=== PATIENT | female | born 1990 ===

== ENCOUNTER 2024-09-29 12:46 | Inpatient (IN) | payer MEDICAID, SELFPAY ==
--- OUTSIDE RECORDS SUMMARY | 2024-09-29 12:52 | XMS_ITS | Clinical Summary ---
Author Organization [facility]/[place] Address [address] [place] [address] Phone Care Team Providers Care Extruder Operator Horizontal Name Role Phone No Pcp Per Patient Primary Care Provider Unavail able Allergies No known active allergies Medications No known medications Social History Tobacco Use Types Packs/Day Years Used Date Smoking Tobacco: Never Smokeless Tobacco: Never Comments Unknown Sex and Gender Information Value Date Recorded Sex Assigned at Not on file Legal Sex Female 10:51 AM PDT Gender Identity Female 05/25/2024 8:54 AM PDT Sexual Orientation Not on file Last Filed Vital Signs Vital Sign Reading Time Taken Comments Blood Pressure 119/77 07/28/2021 11:04 AM PST BP Location: Left upper arm Patient Position (Retired): Sitting Pulse 87 07/28/2021 11:04 AM PST Temperature 36.4 ??C (97.6 ??F) 07/28/2021 11:[address] Respiratory Rate - - Oxygen Saturation 97% 07/28/2021 11:04 AM PST Inhaled Oxygen Concentration - - Weight - - Height - - Body Mass Index - - Plan of Treatment Upcoming Encounters Date Type Department Care Team (Late st Contact Info) Description 11/14/2024 1:30 PM PDT Office Visit [facility] Primary [facility] at [place] [id number] [place] [address] Tamia Villafana DO [address] [place] [address] Discharge Disposition: Discharged to home or self care (routine discharge) Health Maintenance Due Date Last Done Comments MOTOR COACH DRIVER Qualifying Enc - Cigarette Prevalence 07/28/2022 07/28/2021, 07/28/2021, 08/30/2020, Additional history exists MOTOR COACH DRIVER Qualifying Enc - Depression & SBIRT 07/28/2022 07/28/2021, 07/28/2021, 08/30/2020, Additional history exists MOTOR COACH DRIVER Qualifying Enc - Diabetes & Hypertension 07/28/2022 07/28/2021, 07/28/2021, 08/30/2020, Additional history exists Influenza (Flu) vaccination (#1) 2024 Pneumococcal vaccination Aged Out No longer eligible based on patient's age to complete this topic Insurance [address] [place] [address] HEALTH Member Subscriber Plan / Payer (Ef fective 2021-Present) Name:Wilma Cota Relation to Subscriber:Self Name:Wilma Cota Payer ID:[id number] Group ID:Not on file Type:Medicaid Address: [place] [id number] [place] [address] HEALTH Member Subscriber Plan / Payer (Ef fective 2021-Present) Name:Wilma Cota Relation to Subscriber:Self Name:Wilma Cota Payer ID:[id number] Group ID:Not on file Type:Medicaid Address: [place] [id number] Care Teams Extruder Operator Horizontal Relationship Specialty Start Date End Date No Pcp Per Patient NO PCP PER PATIENT PCP - General 05/25/24
--- OUTSIDE RECORDS SUMMARY | 2024-09-29 12:52 | XMS_ITS | Referral Summary ---
Author Organization [facility] Address [facility] [address] [place] [address] Care Team Providers Care Molding Sander Name Role Phone No, Physician Primary Care Provider Unavailabl e Encounters Date Type Department Care Team Description 09/25/2024 Telephone [facility] [place] [address] [facility] [address] [place] [phone] Yann Carvalho, CPSS [facility] Cont[facility] (ED Follow-Up) 09/23/2024 9:56 AM PST - 09/24/2024 2:27 PM [facility] [[email or web address]] Emergency [facility] [address], [place] [address] Rebel Bravo MD Kitzis, MD Hawk Farr, MD Juno Turk, Andrea Mayorga, Psychosis, unspecified psychosis type (HCC) (Primary Dx); Sleep deprivation; Mood disorder (HCC) Discharge Disposition: Home or Self Care 09/23/2024 Travel from Last 3 Months Allergies No known active allergies Medications traZODone (DESYREL) 50 mg tablet Take 1 tablet by mouth at bedtime as needed for Insomnia. 15 tablet 09/24/2024 12:44 PM PST 09/24/2024 Active Active Problems Problem Noted Date Diagnosed Date Mood disorder 09/24/2024 Immunizations Name Administration Dates Next Due DTAP (INFANRIX) 5 DOSE 03/30/1996,1993,1992, 2,1992 HEP B (PED,ADOLESCENT) 3 DOSE 03/30/1996, 996,09/08/1995 HIB (PRP-T), 4 DOSE (PED) 03/30/1996,05/1994,1992, 2 HPV (GARDASIL) 3 DOSE 12/14/2007,08/17/2007,11/0 08/2006 MENINGOCOCCAL CONJUGATE,MENACTRA 06/15/2007 MMR (M-M-R II) 2 DOSE 10/30/1993,02/27/1993,12/13 POLIO (IPV), 4 DOSE 03/30/1996, 4,1992, 2 TD PF (2 LF TETANUS) (ADOL/ADULT) 04/13/2004 TDAP, (ADOL/ADULT) 06/15/2019,04/08/2009 VARICELLA (VARIVAX) 2 DOSE 06/22/2010,04/02/1998 Social History Tobacco Use Types Packs/Day Years Used Date Smoking Tobacco: Never Assessed Comments Unknown Sex and Gender Information Value Date Recorded Sex Assigned at Not on file Legal Sex Female 11:33 AM PDT Gender Identity Not on file Sexual Orientation Not on file Last Filed Vital Signs Vital Sign Reading Time Taken Comments Blood Pressure 118/78 09/24/2024 2:16 PM PST Pulse 88 09/24/2024 2:16 PM PST Temperature 36.9 ??C (98.4 ??F) 09/24/2024 2:16 PM PS T Respiratory Rate 18 09/24/2024 2:16 PM PST Oxygen Saturation 99% 09/24/2024 2:16 PM PST Inhaled Oxygen Concentration - - Weight - - Height - - Body Mass Index - - Plan of Treatment Not on file Procedures Procedure Name Priority Date/Time Associated Diagnosis Comments CT HEAD WO CONTRAST STAT 09/24/2024 8 :48 AM PST DRUGS OF ABUSE, SCREEN, URINE STAT 09/24/2024 7:36 AM PST THYROXINE (T4) FREE, DIRECT (RESULTS ONLY) Routine 09/23/2024 11:30 AM PST HIV TYPE 1 AND 2 AB SCREEN, RAPID STAT 09/23/2024 11:30 AM PST TSH, REFLEX FREE T4 STAT 09/23/2024 1 1:30 AM PST ALCOHOL STAT 09/23/2024 11:30 AM PST ACETAMINOPHEN LEVEL STAT 09/23/2024 1 1:30 AM PST SALICYLATE LEVEL STAT 09/23/2024 11:3 0 AM PST , SERUM, QUAL STAT 11:30 AM PST COMPREHENSIVE METABOLIC PANEL STAT 09/23/2024 11:30 AM PST CBC WITH DIFFERENTIAL STAT 09/23/2024 11:30 AM PST ECG 12 LEAD STAT 09/23/2024 11:21 AM PST from Last 3 Months Results * CT Head wo Contrast (09/24/2024 8:48 AM PST) Anatomical Region Laterality Modality Head Computed Tomogra phy 09/24/2024 9:03 AM PST Impressions 09/24/2024 9:06 AM PST IMPRESSION: No acute intracranial findings. ?? Dictated by: Campos Villatoro M.D. on 09/24/2024 9:03 AM PST Narrative 09/24/2024 9:[address] HEAD WO CONTRAST 09/24/2024 8:48 AM PST INDICATION: 34 years old Female. Rule out mass TECHNIQUE: Axial images were obtained from the skull base through the vertex without the administration of IV contrast. Radiation dose control: mA and/or kV adjusted according to patient size to minimize radiation exposure. COMPARISON: None FINDINGS: Hemorrhage: No intra-or extra-axial hemorrhage. Parenchyma: No mass effect. Kay-white matter differentiation is intact, without specific CT evidence of acute or subacute infarction. MR is more sensitive and specific for infarction in the acute to early subacute timeframe. Vasculature: Grossly normal by CT. Ventricular system: Normal. Extra-axial spaces/basilar cisterns: Normal. Calvarium/Skull base: No fracture or aggressive osseous lesion. Paranasal sinuses/tympanomastoid cavities: Clear. Orbits/Deep Spaces: Grossly normal by CT. Superficial soft tissues: Grossly normal by CT. Procedure Note Campos Villatoro MD - 09/24/2024 CT HEAD WO CONTRAST 09/24/2024 8:48 AM [facility] [[email or web address]] INDICATION: 34 years old Female. Rule out mass TECHNIQUE: Axial images were obtained from the skull base through thevertex without the administration of IV contrast. Radiation dose control: mA and/or kV adjusted according to patient size tominimize radiation exposure. COMPARISON: None FINDINGS: Hemorrhage: No intra-or extra-axial hemorrhage. Parenchyma: No mass effect. Kay-white matter differentiation is intact,without specific CT evidence of acute or subacute infarction. MR is moresensitive and specific for infarction in the acute to early subacutetimeframe. Vasculature: Grossly normal by CT. Ventricular system: Normal. Extra-axial spaces/basilar cisterns: Normal. Calvarium/Skull base: No fracture or aggressive osseous lesion. Paranasal sinuses/tympanomastoid cavities: Clear. Orbits/Deep Spaces: Grossly normal by CT. Superficial soft tissues: Grossly normal by CT. IMPRESSION: IMPRESSION: No acute intracranial findings. Dictated by: Campos Villatoro M.D. on 09/24/2024 9:03 AM PST PST Rebel Bravo MD [facility] [place] ORDERABLES Final Result * Drugs of Abuse, Screen, Urine (09/24/2024 7:36 AM [facility] [[email or web address]]) Amphetamine Screen, Urine Negative Negative 09/24/2024 7:56 AM [facility] ([place]) Barbiturates Screen, Urine Negative Negative 09/24/2024 7:56 AM [facility] ([place]) Benzodiazepines Screen, Urine Negative Negative 09/24/2024 7:56 AM [facility] ([facility]) Cannabinoids Screen, Urine Negative Negative 09/24/2024 7:56 AM [facility] ([facility]) Cocaine Screen, Urine Negative Negative 09/24/2024 7:56 AM [facility] ([facility]) Fentanyl Screen, Urine Negative Negative 09/24/2024 7:56 AM [facility] ([facility]) Methadone Screen, Urine Negative Negative 09/24/2024 7:56 AM [facility] ([facility]) Opiates Screen, Urine Negative Negative 09/24/2024 7:56 AM [facility] ([facility]) Oxycodone Screen, Urine Negative Negative 09/24/2024 7:56 AM [facility] ([facility]) Urine Collection / Unknown 09/24/2024 7:36 AM [facility] [[email or web address]] 09/24/2024 7:43 AM [facility] [[email or web address]] Narrative [facility] ([facility]) - 09/24/2024 7:56 AM [facility] [[email or web address]] Methodology: Enzyme Multiplied Immunoassay Technique (EMIT) Tramadol, Buprenorphine, and Fentanyl do not cross-react with the opiates, oxycodone, or methadone screening immunoassays. Cutoffs for the Drugs of Abuse Screen panel: Amphetamines ?300 ng/mL Barbiturates ?200 ng/mL Benzodiazepines ? 200 ng/mL Cocaine ? 150 ng/mL Fentanyl ?1.0 ng/mL Methadone ? 300 ng/mL Opiates ? 300 ng/mL Oxycodone ? 100 ng/mL THC (Cannabinoids) ? 50 ng/mL Urine immunoassay screening results should be considered presumptive and are for treatment purposes only. ??It does not represent chain of custody for purposes of criminal prosecution. ??The absence of expected drug(s) and/or drug metabolite(s) may indicate non-compliance, inappropriate timing of specimen collection relative to drug administration, poor drug absorption, or limitations of testing. The concentration at which the screening test can detect a drug or metabolite varies within a drug class. A negative result does not indicate absence but concentration below the cutoff of the assay. Interpretive questions should be directed to the laboratory. Confirmation of a positive result will not take place unless specifically ordered. us Rebel Bravo MD URINE ORDERABLES Final R esult Performing Organization Address City/[facility] Co de Phone Number [facility] ([facility]) [address] [place] [address] * Thyroxine Free, Direct (09/23/2024 11:30 AM PST) FREE T4 (REF) 1.46 0.82 - 1.77 ng/dL 09/23/2024 9:35 PM PST [facility] Blood Venipuncture / Unknown 09/23/2024 11:30 AM PST 09/23/2024 11:35 AM PST Narrative [facility] - 09/23/2024 9:35 PM PST Performed at: ??01 - [facility] [address] [facility] [place], [place] ??[id number] Retread Mold Operator: Flaco Cameron MD, Phone: ??[phone] us Rebel Bravo MD LAB BLOOD ORDERABLES Fin al Result Performing Organization Address City/[facility]/ZIP Co de Phone Number [facility] [address] [place], [place] [address] [phone] * (ABNORMAL) TSH, Reflex Free T4 (09/23/2024 11:30 AM PST) [facility] TSH 0.443(L) 0.450 - 4.500 uIU/mL 09/23/2024 9:35 PM PST [facility] Blood Venipuncture / Unknown 09/23/2024 11:30 AM PST 09/23/2024 11:35 AM PST Narrative [facility] - 09/23/2024 9:35 PM PST Performed at: ??01 - [facility] [address] [facility] [address] ??[phone] Retread Mold Operator: Flaco Cameron MD, Phone: ??[phone] Rebel Bravo MD LAB BLOOD ORDERABLES Fin al Result [facility] [address] [place], [place] [address] [phone] * HIV Type 1 and 2 Ab Screen, Rapid (09/23/2024 11:30 AM PST) [facility] HIV 1 and 2 Ab, Rapid Non Reactive Non Reactive 09/23/2024 11:54 AM PST [facility]) Blood Venipuncture / Unknown 09/23/2024 11:30 AM PST 09/23/2024 11:35 AM PST us Rebel Bravo MD LAB BLOOD ORDERABLES Fin al Result [facility] ([facility]) [address] [place] [phone] * (ABNORMAL) CBC with Differential (09/23/2024 11:30 AM PST) [facility] White Blood Cells 8.46 3.5 - 11 K/uL 09/23/2024 11:38 AM [facility] ([facility]) Red Blood Cells 4.40 4.00 - 5.20 M/uL 09/23/2024 11:38 AM [facility] ([facility]) Hemoglobin 10.7(L) 12.0 - 16.0 g/dL 09/23/2024 11:38 AM [facility] ([place]) Hematocrit 35.0(L) 36.0 - 46.0 % 09/23/2024 11:38 AM [facility] ([place]) MCV 79.5(L) 80.0 - 100.0 fL 09/23/2024 11:38 AM [facility] ([facility]) MCH 24.3(L) 25.0 - 35.0 pg 09/23/2024 11:38 AM [facility] ([place]) MCHC 30.6(L) 31.0 - 37.0 g/dL 09/23/2024 11:38 AM [facility] ([place]) RDW-CV 15.9(H) 11.5 - 14.5 % 09/23/2024 11:38 AM [facility] ([place]) RDW-SD 45.8 35.1 - 46.3 fL 09/23/2024 11:38 AM [facility] ([place]) Platelet Count 346 140 - 444 K/uL 09/23/2024 11:38 AM [facility] ([place]) MPV 10.8 6.5 - 12.3 fL 09/23/2024 11:38 AM [facility] ([place] % Neutrophils 77.7 40.0 - 81.0 % 09/23/2024 11:38 AM [facility] ([place] % Lymphocytes 14.4(L) 18.0 - 42.0 % 09/23/2024 11:38 AM [facility] ([place]) % Monocytes 7.0 1.0 - 12.5 % 09/23/2024 11:38 AM [facility] ([place]) % Eosinophils 0.0 0.0 - 5.8 % 09/23/2024 11:38 AM [facility] ([place]) % Basophils 0.5 0.0 - 2.0 % 09/23/2024 11:38 AM [facility] ([place]) % Immature Granulocytes 0.4 0.0 - 1.0 % 09/23/2024 11:38 AM [facility] ([place]) Absolute Neutrophils 6.58 1.80 - 8.00 K/uL 09/23/2024 11:38 AM [facility] ([place]) Absolute Lymphocytes 1.22 1.00 - 4.80 K/uL 09/23/2024 11:38 AM [facility] ([place]) Absolute Monocytes 0.59 0.00 - 0.90 K/uL 09/23/2024 11:38 AM [facility] ([place]) Absolute Eosinophils 0.00 0.00 - 0.50 K/uL 09/23/2024 11:38 AM [facility] ([place]) Absolute Basophils 0.04 0.00 - 0.20 K/uL 09/23/2024 11:38 AM [facility] ([place]) Absolute Immature Granulocytes 0.03 0.00 - 0.03 K/uL 09/23/2024 11:38 AM [facility] ([place]) % nRBC 0.0 0.0 - 1.0 per 100 WBCs 09/23/2024 11:38 AM [facility] ([place]) Absolute nRBC 0.00 0.00 - 0.02 K/uL 09/23/2024 11:38 AM [facility] ([place]) Blood Venipuncture / Unknown 09/23/2024 11:30 AM PST 09/23/2024 11:35 AM PST Rebel Bravo MD LAB BLOOD ORDERABLES Fin al Result Performing Organization Address City/[facility]/ZIP Co de Phone Number [facility] ([facility]) [address] [place] [phone] * , Serum, Qual (09/23/2024 11:30 AM PST) Pathologist [facility] hCG Screen, Serum Negative Negative 09/23/2024 11:50 AM [facility] ([facility]) Blood Venipuncture / Unknown 09/23/2024 11:30 AM PST 09/23/2024 11:35 AM PST Reebl Bravo MD LAB BLOOD ORDERABLES Fin al Result Performing Organization Address [facility]/ZIP Co de Phone Number [facility] ([facility]) [address] [place] [phone] * Ethanol (09/23/2024 11:30 AM PST) [facility] ALCOHOL, SERUM/PLASMA <3 <=10 mg/dL 09/23/2024 12:38 PM PST [facility] ([facility]) Blood Venipuncture / Unknown 09/23/2024 11:30 AM PST 09/23/2024 11:35 AM PST Rebel Bravo MD LAB BLOOD ORDERABLES Fin al Result Performing Organization Address City/[facility]/ZIP Co de Phone Number [facility] ([facility]) [address] [place] [address] * (ABNORMAL) Acetaminophen Level (09/23/2024 11:30 AM PST) [facility] Acetaminophen Level <2(L) 5 - 20 ug/mL 09/23/2024 12:38 PM [facility] ([place]) Comment:Concentration expect ed to be undetectable in a patient not taking this medication. Blood Venipuncture / Unknown 09/23/2024 11:30 AM PST 09/23/2024 11:35 AM PST Rebel Bravo MD LAB BLOOD ORDERABLES Fin al Result Performing Organization Address [facility] Co de Phone Number [facility] ([facility]) [address] [place] [phone] * (ABNORMAL) Salicylate Level (09/23/2024 11:30 AM [facility] [[email or web address] Pathologist [facility] Salicylate Level <3.0(L) 10.0 - 20.0 mg/dL 09/23/2024 12:38 PM [facility] ([place]) Comment:Concentration expect ed to be undetectable in a patient not taking this medication. Blood Venipuncture / Unknown 09/23/2024 11:30 AM PST 09/23/2024 11:35 AM [facility] [[email or web address]] Rebel Bravo MD LAB BLOOD ORDERABLES Fin al Result Performing Organization Address [facility] de Phone Number [facility] ([place]) [address] [place] [phone] * (ABNORMAL) Comprehensive Metabolic Panel (09/23/2024 11:30 AM [facility] [[email or web address] Na 143 134 - 145 mmol/L 09/23/2024 12:47 PM [facility] ([place]) K 3.9 3.3 - 5.0 mmol/L 09/23/2024 12:47 PM [facility] ([place]) Cl 109 99 - 111 mmol/L 09/23/2024 12:47 PM [facility] ([facility]) CO2 25 22 - 32 mmol/L 09/23/2024 12:47 PM [facility] ([place]) Anion Gap 9 2 - 13 mmol/L 09/23/2024 12:47 PM [facility]) Glucose 108(H) 65 - 99 mg/dL 09/23/2024 12:47 PM [facility] ([facility]) Comment: Diagnostic Categories (per ADA): Fasting: < 100 mg/dL = Normal 100 to 125 mg/dL = IFG (Impaired Fasting Glucose) >/= 126 mg/dL = Diagnosis of Diabetes.* 2 Hr OGTT: < 140 mg/dL = Normal 140 to 199 mg/dL = IGT (Impaired Glucose Tolerance) >/= 200 mg/dL = Diagnosis of Diabetes.* * In the absence of unequivocal hyperglycemia, results should be confirmed by repeat testing. In Pediatric patients, type 1 diabetes is more common and may warrant more immediate attention. BUN 16 2 - 23 mg/dL 09/23/2024 12:47 PM [facility] ([place]) Creatinine 0.84 0.60 - 1.30 mg/dL 09/23/2024 12:47 PM [facility]) Calcium 10.2 8.3 - 10.4 mg/dL 09/23/2024 12:47 PM [facility]) Albumin 4.0 3.0 - 5.0 g/dL 09/23/2024 12:47 PM [facility]) Bilirubin Total 0.6 0.1 - 1.1 mg/dL 09/23/2024 12:47 PM [facility]) Total Protein 7.9 5.9 - 8.2 g/dL 09/23/2024 12:47 PM [facility]) AST 23 8 - 48 U/L 09/23/2024 12:47 PM [facility] ([place]) ALT 13 7 - 54 U/L 09/23/2024 12:47 PM [facility] ([facility]) Alkaline Phosphatase 60 40 - 130 U/L 09/23/2024 12:47 PM [facility] ([facility]) Globulin 3.9 2.4 - 4.0 g/dL 09/23/2024 12:47 PM [facility] ([facility]) Albumin/Globulin Ratio 1.0 0.6 - 2.8 09/23/2024 12:47 PM [facility] ([facility]) BUN/Creatinine Ratio 19.0 5.0 - 28.0 09/23/2024 12:47 PM [facility] ([facility]) eGFR 95 >=60 mL/min/1. 73m2 09/23/2024 12:47 PM [facility] ([facility]) Comment: GFR value was calculated using a new GFR equation effective since 09/01/21. ??This is a recommendation of the [place] [employer]ph[employer] and National Kidney Foundation. ?? Clinical practice guidelines suggest the use of serum cystatin C as a confirmatory test for eGFR 45-59 ml/min/1.73m2 in adults who do not have markers of kidney disease; eGFR may be less accurate in this range. Blood Venipuncture / Unknown 09/23/2024 11:30 AM PST 09/23/2024 11:35 AM [facility] [[email or web address]] us Rebel Bravo MD LAB BLOOD ORDERABLES Fin al Result [facility] ([facility]) [address] [place] [address] * ECG 12 lead (09/23/2024 11:21 AM [facility] [[email or web address] VENTRICULAR RATE EKG 76 BPM OR MUSE ATRIAL RATE 76 BPM OR MUSE P-R INTERVAL 126 ms OR MUSE QRS DURATION 82 ms OR MUSE Q-T INTERVAL 418 ms OR MUSE Q-T INTERVAL (CORRECTED) 470 ms OR MUSE P WAVE AXIS 67 degrees OR MUSE QRS AXIS 57 degrees OR MUSE T AXIS 52 degrees OR MUSE INTERPRETATION TEXT Normal sinus rhythm Normal ECG No previous ECGs available Confirmed by GUS PEÑA MD ([id number]) on 09/24/2024 3:37:42 PM [place] MUSE 09/23/2024 11:2 1 AM PST us Rebel Bravo MD ECG ORDERABLES Final Re sult OR MUSE from Last 3 Months Insurance [facility] HMO [place] Care Teams Molding Sander Relationship Specialty Start Date End Date No, Physician PCP - General 09/23/24
--- OUTSIDE RECORDS SUMMARY | 2024-09-29 12:52 | XMS_ITS | Referral Summary ---
Author Organization [facility]/[place] Address [address] [place] [address] Phone Care Team Providers Care Zone Manager Name Role Phone No Pcp Per Patient [...] Description 11/14/2024 1:30 PM PDT Office Visit [facility] Primary Care at [address] [place] [address] Tamia Villafana DO [address] [place] [address] Discharge Disposition: Discharged to home or self care (routine discharge) Insurance [facility] Care Teams Zone Manager Relationship Specialty Start Date End Date No Pcp Per Patient NO PCP PER PATIENT PCP - General 05/25/24
--- OUTSIDE RECORDS SUMMARY | 2024-09-29 12:53 | XMS_ITS | Continuity of Care Document ---
Author Organization [facility] Physician Practice Plan Address [facility] [place] [address] Care Team Providers Care Licensed Professional Counselor Name Role Phone Bhavna Montoya MD Unavailable Unavailable Procedures Procedure Date XRAY CHEST 2 VIEWS FRONTAL&LATERAL-Profe ssional Component Advance Directives Directive Yes / No Effective Date File Name No Information Encounters Encounter Description Practice Location Reason(s) For Visit Diagnoses Date Provider Providers Copied on Encounter [facility] Physician Practice Plan, [facility] [place], [address], [facility] No Information Jan Huggins. [address], [place], [id number], . tel:[phone] Referring Provider: [place], [address]. tel:[phone] Family History Family Member Type Diagnosis Age At Onset No Information Payers Payer name Insurance type Covered democrat ID Authoriza tion(s) [employer] [id number] Social History Type Description Quantity Date Captured Comments Sex Female Smoking Status No Information Chief Complaint And Reason For Visit No Information Reason For Referral Reason For Referral No Information History Of Present Illness Encounter Date Complaint History Of Prese nt Illness No Information Functional Status Date Functional Assessmen t No Information Instructions Date Instruction Additional Infor mation No Information Assessments Type Assessment Date No Information Patient Care Teams Name Effective Dates (start - stop) Status Members No Information
--- OUTSIDE RECORDS SUMMARY | 2024-09-29 12:53 | XMS_ITS | Referral Summary ---
Author Organization [facility] Address [address] [id number] Care Team Providers Care Sheet Pile Driver Operator Name Role Phone None Per Patient, None Per Pt Primary Care Provi talat Unavailable Allergies No known active allergies Medications tretinoin (RETIN-A) 0.025 % cream APPLY EXTERNALLY TO FACE EVERY NIGHT 0 Active Active Problems No known active problems Social History Tobacco Use Types Packs/Day Years Used Date Smoking Tobacco: Never Smokeless Tobacco: Never Alcohol Use Answer Date Recorded Alcohol Audit Score Not on file 05/03/2021 Comments No Sex and Gender Information Value Date Recorded Sex Assigned at Not on file Legal Sex Female 5:23 PM PDT Gender Identity Not on file Sexual Orientation Not on file Last Filed Vital Signs Vital Sign Reading Time Taken Comments Blood Pressure 140/80 09/12/2020 4:14 PM PST Pulse 95 09/12/2020 4:14 PM PST Temperature 36.9 ??C (98.5 ??F) 09/12/2020 4:14 PM PS T Respiratory Rate 16 09/12/2020 4:14 PM PST Oxygen Saturation 99% 09/12/2020 4:14 PM PST Inhaled Oxygen Concentration - - Weight 124.7 kg (275 lb) 01/06/2020 7:21 PM PDT Height 157.5 cm (5' 2 ) 01/06/2020 7:21 PM PDT Body Mass Index 50.3 01/06/2020 7:21 PM PDT Plan of Treatment Not on file Insurance [facility] Care Teams Sheet Pile Driver Operator Relationship Specialty Start Date End Date None Per Patient, None Per Pt PCP - General 05/10/19
--- OUTSIDE RECORDS SUMMARY | 2024-09-29 12:53 | XMS_ITS | Clinical Summary ---
Author Organization [facility] Address [facility] [address] [place] [address] Care Team Providers Care Holistic Pulser Name Role Phone No, Physician Primary Care Provider Unavailabl e Allergies No known active allergies Medications traZODone (DESYREL) 50 mg tablet Take 1 tablet by mouth at bedtime as needed for Insomnia. 15 tablet 09/24/2024 12:44 PM PST 09/24/2024 Active Active Problems Problem Noted Date Diagnosed Date Mood disorder 09/24/2024 Encounters Date Type Department Care Team Description 09/25/2024 Telephone [facility] [address] [phone] Yann Carvalho, CPSS [facility] (ED Follow-Up) 09/23/2024 9:56 AM PST - 09/24/2024 2:27 PM [facility] Emergency [facility] [address] [place] [address] Rebel Bravo MD Kitzis, MD Hawk Farr, MD Juno Turk, Andrea Mayorga, Psychosis, unspecified psychosis type (HCC) (Primary Dx); Sleep deprivation; Mood disorder (HCC) Discharge Disposition: Home or Self Care 09/23/2024 Travel from Last 3 Months Immunizations Name Administration Dates Next Due DTAP (INFANRIX) 5 DOSE 03/30/1996,1993,1992, 2,1992 HEP B (PED,ADOLESCENT) 3 DOSE 03/30/1996, 996,09/08/1995 HIB (PRP-T), 4 DOSE (PED) 03/30/1996,05/1994,1992, 2 HPV (GARDASIL) 3 DOSE 12/14/2007,08/17/2007,08/2006 MENINGOCOCCAL CONJUGATE,MENACTRA 06/15/2007 MMR (M-M-R II) 2 [...] Mass Index - - Plan of Treatment Health Maintenance Due Date Last Done Comments Hepatitis C Screening 1992 Cervical Cancer Screening (Pap/HPV) 2017 COVID-19 Vaccine (2023-2 5 season) 2024 Vaccine: Influenza (#1) 2024 Vaccine: Dtap/Tdap/Td (8 - T d or Tdap) 06/15/2029 06/15/2019, 04/08/2009, 04/13/2004, Additional history exists Vaccine: Hib Completed 03/30/1996, 09/15, 1992, Additional history exists Vaccine: HPV Completed 12/14/2007, 10/2007, 06/15/2007 Human Immunodeficiency Virus (HIV) Screening Completed 09/23/2024 Procedures Procedure Name Priority Date/Time Associated Diagnosis [...] Campos Villatoro M.D. on 09/24/2024 9:03 AM [facility] PST Rebel Bravo MD IMG CT ORDERABLES Final Result * Drugs of Abuse, Screen, Urine (09/24/2024 7:36 AM [facility]) Amphetamine Screen, Urine Negative Negative 09/24/2024 7:56 AM [facility]) Barbiturates Screen, Urine Negative Negative 09/24/2024 7:56 AM [facility] ([facility]) Benzodiazepines Screen, Urine Negative Negative 09/24/2024 7:56 AM [facility] ([facility]) Cannabinoids Screen, Urine Negative Negative 09/24/2024 7:56 AM [facility] ([facility]) Cocaine Screen, Urine Negative Negative 09/24/2024 7:56 AM [facility] ([facility]) Fentanyl Screen, Urine Negative Negative 09/24/2024 7:56 AM [facility] ([facility]) Methadone Screen, Urine Negative Negative 09/24/2024 7:56 AM [facility] ([employer]) Opiates Screen, Urine Negative Negative 09/24/2024 7:56 AM [facility] ([facility]) Oxycodone Screen, Urine Negative Negative 09/24/2024 7:56 AM [facility] ([employer]) Urine Collection / Unknown 09/24/2024 7:36 AM PST 09/24/2024 7:43 AM [facility] Narrative [facility]) - 09/24/2024 7:56 AM [facility] Methodology: Enzyme Multiplied Immunoassay Technique (EMIT) Tramadol, [...] Bravo MD URINE ORDERABLES Final R esult [facility] ([facility]) [address] [place] [address] * Thyroxine Free, Direct (09/23/2024 11:30 AM PST) [facility] FREE T4 (REF) 1.46 0.82 - 1.77 ng/dL 09/23/2024 9:35 PM PST [facility] Blood Venipuncture / Unknown 09/23/2024 11:30 AM PST 09/23/2024 11:35 AM PST Narrative [facility] - 09/23/2024 9:35 PM PST Performed at: ??01 - [facility] [address] [facility] [address], [place], [place] [id number] Patternmaker Grader: Flaco Cameron MD, Phone: ??[phone] Rebel Bravo MD LAB BLOOD ORDERABLES Fin al Result Performing Organization Address City/[facility]/ZIP Co de Phone Number [facility] [id number] [place] [address] * (ABNORMAL) TSH, Reflex Free T4 (09/23/2024 11:30 AM PST) TSH 0.443(L) 0.450 - 4.500 uIU/mL 09/23/2024 9:35 PM [facility] Blood Venipuncture / Unknown 09/23/2024 11:30 AM PST 09/23/2024 11:35 AM PST Narrative [facility] - 09/23/2024 9:35 PM PST Performed at: ??01 - [facility] [address] [facility] [address] ??[id number] Patternmaker Grader: Flaco Cameron MD, Phone: ??[phone] Rebel Bravo MD LAB BLOOD ORDERABLES Fin al Result [facility] [address] [place] [address] * HIV Type 1 and 2 Ab Screen, Rapid (09/23/2024 11:30 AM PST) HIV 1 and 2 Ab, Rapid Non Reactive Non Reactive 09/23/2024 11:54 AM [facility] ([facility]) Blood Venipuncture / Unknown 09/23/2024 11:30 AM PST 09/23/2024 11:35 AM [facility] Rebel Bravo MD LAB BLOOD ORDERABLES Fin al Result [facility] ([facility]) [address] [place] [address] * (ABNORMAL) CBC with Differential (09/23/2024 11:30 AM [facility]) Pathologist [facility] White Blood Cells 8.46 3.5 - 11 K/uL 09/23/2024 11:38 AM [facility] ([employer]) Red Blood Cells 4.40 4.00 - 5.20 M/uL 09/23/2024 11:38 AM [facility] ([employer]) Hemoglobin 10.7(L) 12.0 - 16.0 g/dL 09/23/2024 11:38 AM [facility] ([employer] [facility]) Hematocrit 35.0(L) 36.0 - 46.0 % 09/23/2024 11:38 AM [facility] ([employer] [facility]) MCV 79.5(L) 80.0 - 100.0 fL 09/23/2024 11:38 AM [facility] ([employer]) MCH 24.3(L) 25.0 - 35.0 pg 09/23/2024 11:38 AM [facility] ([employer]) MCHC 30.6(L) 31.0 - 37.0 g/dL 09/23/2024 11:38 AM [facility] ([employer]) RDW-CV 15.9(H) 11.5 - 14.5 % 09/23/2024 11:38 AM [facility] ([facility]) RDW-SD 45.8 35.1 - 46.3 fL 09/23/2024 11:38 AM [facility] ([employer] [facility]) Platelet Count 346 140 - 444 K/uL 09/23/2024 11:38 AM [facility] ([employer] [facility]) MPV 10.8 6.5 - 12.3 fL 09/23/2024 11:38 AM [facility] ([employer] [facility]) % Neutrophils 77.7 40.0 - 81.0 % 09/23/2024 11:38 AM [facility] ([employer] [facility]) % Lymphocytes 14.4(L) 18.0 - 42.0 % 09/23/2024 11:38 AM [facility] ([employer] [facility]) % Monocytes 7.0 1.0 - 12.5 % 09/23/2024 11:38 AM [facility] ([employer] [facility]) % Eosinophils 0.0 0.0 - 5.8 % 09/23/2024 11:38 AM [facility] ([employer] [facility]) % Basophils 0.5 0.0 - 2.0 % 09/23/2024 11:38 AM [facility] ([employer] [facility]) % Immature Granulocytes 0.4 0.0 - 1.0 % 09/23/2024 11:38 AM [facility] ([employer] [facility]) Absolute Neutrophils 6.58 1.80 - 8.00 K/uL 09/23/2024 11:38 AM [facility] ([facility]) Absolute Lymphocytes 1.22 1.00 - 4.80 K/uL 09/23/2024 11:38 AM [facility] ([facility]) Absolute Monocytes 0.59 0.00 - 0.90 K/uL 09/23/2024 11:38 AM [facility] ([facility]) Absolute Eosinophils 0.00 0.00 - 0.50 K/uL 09/23/2024 11:38 AM [facility] ([facility]) Absolute Basophils 0.04 0.00 - 0.20 K/uL 09/23/2024 11:38 AM [facility] ([facility]) Absolute Immature Granulocytes 0.03 0.00 - 0.03 K/uL 09/23/2024 11:38 AM [facility]) % nRBC 0.0 0.0 - 1.0 per 100 WBCs 09/23/2024 11:38 AM [facility] ([facility]) Absolute nRBC 0.00 0.00 - 0.02 K/uL 09/23/2024 11:38 AM [facility] ([facility]) Blood Venipuncture / Unknown 09/23/2024 11:30 AM PST 09/23/2024 11:35 AM PST Rebel Bravo MD LAB BLOOD ORDERABLES Fin al Result [facility]) [address] [place] [address] * , Serum, Qual (09/23/2024 11:30 AM [facility]) Pathologist [facility] hCG Screen, Serum Negative Negative 09/23/2024 11:50 AM [facility]) Blood Venipuncture / Unknown 09/23/2024 11:30 AM PST 09/23/2024 11:35 AM PST Rebel Bravo MD LAB BLOOD ORDERABLES Fin al Result [facility]) [address] [place] [id number] * Ethanol (09/23/2024 11:30 AM PST) ALCOHOL, SERUM/PLASMA <3 <=10 mg/dL 09/23/2024 12:38 PM [facility]) Blood Venipuncture / Unknown 09/23/2024 11:30 AM PST 09/23/2024 11:35 AM PST Rebel Bravo MD LAB BLOOD ORDERABLES Fin al Result Performing Organization Address City/[facility]/ZIP Co de Phone Number [facility]) [address] [place] [address] * (ABNORMAL) Acetaminophen Level (09/23/2024 11:30 AM PST) Acetaminophen Level <2(L) 5 - 20 ug/mL 09/23/2024 12:38 PM [facility]) Comment:Concentration expect ed to be undetectable in a patient not taking this medication. Blood Venipuncture / Unknown 09/23/2024 11:30 AM PST 09/23/2024 11:35 AM PST Rebel Bravo MD LAB BLOOD ORDERABLES Fin al Result Performing Organization Address [facility] Co de Phone Number [facility]) [address] [place] [phone] * (ABNORMAL) Salicylate Level (09/23/2024 11:30 AM PST) Salicylate Level <3.0(L) 10.0 - 20.0 mg/dL 09/23/2024 12:38 PM PST [facility] Comment:Concentration expect ed to be undetectable in a patient not taking this medication. Blood Venipuncture / Unknown 09/23/2024 11:30 AM PST 09/23/2024 11:35 AM PST Rebel Bravo MD LAB BLOOD ORDERABLES Fin al Result [facility] [address] [place] [address] * (ABNORMAL) Comprehensive Metabolic Panel (09/23/2024 11:30 AM [facility]) Na 143 134 - 145 mmol/L 09/23/2024 12:47 PM [facility]) K 3.9 3.3 - 5.0 mmol/L 09/23/2024 12:47 PM [facility] ([facility]) Cl 109 99 - 111 mmol/L 09/23/2024 12:47 PM [facility]) CO2 25 22 - 32 mmol/L 09/23/2024 12:47 PM [facility]) Anion Gap 9 2 - 13 mmol/L 09/23/2024 12:47 PM [facility]) Glucose 108(H) 65 - 99 mg/dL 09/23/2024 12:47 PM [facility] ([facility]) Comment: Diagnostic Categories (per ADA): Fasting: < [...] 2 - 23 mg/dL 09/23/2024 12:47 PM [facility]) Creatinine 0.84 0.60 - 1.30 mg/dL 09/23/2024 12:47 PM [facility]) Calcium 10.2 8.3 - 10.4 mg/dL 09/23/2024 12:47 PM [facility]) Albumin 4.0 3.0 - 5.0 g/dL 09/23/2024 12:47 PM [facility]) Bilirubin Total 0.6 0.1 - 1.1 mg/dL 09/23/2024 12:47 PM [facility]) Total Protein 7.9 5.9 - 8.2 g/dL 09/23/2024 12:47 PM [facility]) AST 23 8 - 48 U/L 09/23/2024 12:47 PM [facility]) ALT 13 7 - 54 U/L 09/23/2024 12:47 PM [facility]) Alkaline Phosphatase 60 40 - 130 U/L 09/23/2024 12:47 PM [facility]) Globulin 3.9 2.4 - 4.0 g/dL 09/23/2024 12:47 PM [facility]) Albumin/Globulin Ratio 1.0 0.6 - 2.8 09/23/2024 12:47 PM [facility]) BUN/Creatinine Ratio 19.0 5.0 - 28.0 09/23/2024 12:47 PM [facility]) eGFR 95 >=60 mL/min/1. 73m2 09/23/2024 12:47 PM [facility]) Comment: GFR value was calculated using a new GFR equation effective since 09/01/21. ??This is a recommendation of the [place] [employer] and National Kid[employer] Foundation. [...] MD LAB BLOOD ORDERABLES Fin al Result [facility] [address] [place] [address] * ECG 12 lead (09/23/2024 11:21 AM PST) VENTRICULAR RATE EKG 76 BPM OR MUSE [...] Bravo MD ECG ORDERABLES Final Re sult Performing Organization Address City/[facility] Co de Phone Number OR MUSE from Last 3 Months Insurance [facility] HMO [place] Care Teams Holistic Pulser Relationship Specialty Start Date End Date No, Physician PCP - General 09/23/24
--- OUTSIDE RECORDS SUMMARY | 2024-09-29 12:53 | XMS_ITS | Encounter Summary ---
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 Resp 18 SpO2 98% Pertinent Labs & Pending Studies: Pending Labs and Imaging Order Current Status TSH, Reflex Free T4 In process Labs Reviewed CBC WITH DIFFERENTIAL - Abnormal; Notable for the following components: Result Value Hemoglobin 10.7 (*) Hematocrit 35.0 (*) MCV 79.5 (*) MCH 24.3 (*) MCHC 30.6 (*) RDW-CV 15.9 (*) % Lymphocytes 14.4 (*) All other components within normal limits COMPREHENSIVE METABOLIC PANEL - Abnormal; Notable for the following components: Glucose 108 (*) All other components within normal limits SALICYLATE LEVEL - Abnormal; Notable for the following components: Salicylate Level <3.0 (*) All other components within normal limits ACETAMINOPHEN LEVEL - Abnormal; Notable for the following components: Acetaminophen Level <2 (*) All other components within normal limits TSH, REFLEX FREE T4 - Abnormal; Notable for the following components: TSH 0.443 (*) All other components within normal limits Narrative: Performed at: - [facility] [address] [id number] Coating Mixer: Flaco Cameron MD, Phone: [phone] , SERUM, QUAL - Normal ALCOHOL - Normal HIV TYPE 1 AND 2 AB SCREEN, RAPID - Normal THYROXINE (T4) FREE, DIRECT (RESULTS ONLY) Narrative: Performed at: [facility] [address] [id number] Coating Mixer: Flaco Cameron MD, Phone: [phone] DRUGS OF ABUSE, SCREEN, URINE COVID Test: N/A Medications PRN Meds: Scheduled Meds: ED Medication Administration from 09/23/2024 0956 to 09/23/2024 2338 Date/Time Order Dose Route Action Action by 09/23/2024 1057 PST OLANZapine (zyPREXA) injection 10 mg 10 mg Intramuscular Given Iza Hussein RN 09/23/2024 1057 PST LORazepam (ATIVAN) injection 2 mg 2 mg Intramuscular Given Iza Hussein RN Assessment During my Shift: Vital signs: Vitals: 09/23/24 1012 09/23/24 1347 BP: 132/86 126/80 Pulse: 85 80 Resp: 18 18 Temp: 36.4 ??C (97.5 ??F) 36.7 ??C (98.1 ??F) TempSrc: Oral SpO2: 99% 98% Briefly, during my shift no acute behavioral issues arose. Patient has been sleeping after having received IM medication earlier. Thyroid studies did return with slightly low TSH and normal free T4. UDS is still pending. Legal Status & Observation Level Status at End of Shift Legal Status Sober Admit Observation Status Changed NO Observation Level (or Red Pod) Continuous Observation (1:1) or Red Pod Recommendation/Plan for Next Shift: The patient will remain boarded in the emergency department bed until a final disposition can be completed. The tentative plan at this point is: Sober Reevaluation.. Care of this patient will be transferred to the [facility] ED provider, Dr. Arechiga. documented in this encounter Plan of Treatment Not on file documented as of this encounter Procedures Procedure Name Priority Date/Time Associated Diagnosis Comments CT HEAD WO CONTRAST STAT 09/24/2024 8 :48 AM PST DRUGS OF ABUSE, SCREEN, URINE STAT 09/24/2024 7:36 AM PST THYROXINE (T4) FREE, DIRECT (RESULTS ONLY) Routine 09/23/2024 11:30 AM PST TSH, REFLEX FREE T4 STAT 09/23/2024 1 1:30 AM PST HIV TYPE 1 AND 2 AB SCREEN, RAPID STAT 09/23/2024 11:30 AM PST CBC WITH DIFFERENTIAL STAT 09/23/2024 11:30 AM PST , SERUM, QUAL STAT 11:30 AM PST ALCOHOL STAT 09/23/2024 11:30 AM PST ACETAMINOPHEN LEVEL STAT 09/23/2024 1 1:30 AM PST SALICYLATE LEVEL STAT 09/23/2024 11:3 0 AM PST COMPREHENSIVE METABOLIC PANEL STAT 09/23/2024 11:30 AM PST ECG 12 LEAD STAT 09/23/2024 11:21 AM PST documented in this encounter Results * CT Head wo Contrast (09/24/2024 [...] 9:03 AM PST PST Rebel Bravo MD IMG CT ORDERABLES Final Result * Drugs of Abuse, Screen, Urine (09/24/2024 7:36 AM PST) [facility] Amphetamine Screen, Urine Negative Negative 09/24/2024 7:56 AM [facility] ([facility]) Barbiturates Screen, Urine Negative Negative 09/24/2024 7:56 AM [facility] ([facility]) Benzodiazepines Screen, Urine Negative Negative 09/24/2024 7:56 AM [facility] ([facility]) Cannabinoids Screen, Urine Negative Negative 09/24/2024 7:56 AM [facility] ([facility]) Cocaine Screen, Urine Negative Negative 09/24/2024 7:56 AM [facility] ([facility]) Fentanyl Screen, Urine Negative Negative 09/24/2024 7:56 AM [facility] ([facility]) Methadone Screen, Urine Negative Negative 09/24/2024 7:56 AM [facility] ([facility]) Opiates Screen, Urine Negative Negative 09/24/2024 7:56 AM [facility] ([facility]) Oxycodone Screen, Urine Negative Negative 09/24/2024 7:56 AM PST [facility] ([place]) Urine Collection / Unknown 09/24/2024 7:36 AM PST 09/24/2024 7:43 AM PST Narrative [facility] ([place]) - 09/24/2024 7:56 AM PST Methodology: Enzyme Multiplied Immunoassay Technique (EMIT) Tramadol, [...] ORDERABLES Final R esult Performing Organization Address City/[facility]/ZIP Co de Phone Number [facility] ([facility]) [address] [place] [phone] * Thyroxine Free, Direct (09/23/2024 11:30 AM PST) FREE T4 (REF) 1.46 0.82 - 1.77 ng/dL 09/23/2024 9:35 PM PST [facility] Blood Venipuncture / Unknown 09/23/2024 11:30 AM PST 09/23/2024 11:35 AM PST Narrative [facility] - 09/23/2024 9:35 PM PST Performed at: ??01 - [facility] [address] [facility] [address] ??[id number] Coating Mixer: Flaco Cameron MD, Phone: ??[phone] us Rebel Bravo MD LAB BLOOD ORDERABLES Fin al Result Performing Organization Address City/[facility]/ZIP Co de Phone Number [facility] [address] [phone] * HIV Type 1 and 2 Ab Screen, Rapid (09/23/2024 11:30 AM PST) [facility] HIV 1 and 2 Ab, Rapid Non Reactive Non Reactive 09/23/2024 11:54 AM PST [facility] ([facility]) Blood Venipuncture / Unknown 09/23/2024 11:30 AM PST 09/23/2024 11:35 AM PST us Rebel Bravo MD LAB BLOOD ORDERABLES Fin al Result Performing Organization Address City/[facility]/ZIP Co de Phone Number [facility] ([facility]) [address] [place] [address] * (ABNORMAL) TSH, Reflex Free T4 (09/23/2024 11:30 AM PST) TSH 0.443(L) 0.450 - 4.500 uIU/mL 09/23/2024 9:35 PM PST [facility] Blood Venipuncture / Unknown 09/23/2024 11:30 AM PST 09/23/2024 11:35 AM PST Narrative [facility] - 09/23/2024 9:35 PM PST Performed at: ??01 - [facility] [address] [facility] [place] ??[id number] Coating Mixer: Flaco Cameron MD, Phone: ??[phone] Rebel Bravo MD LAB BLOOD ORDERABLES Fin al Result Performing Organization Address City/[facility]/ZIP Co de Phone Number [facility] [address] [place] [address] * Ethanol (09/23/2024 11:30 AM PST) Pathologist [facility] ALCOHOL, SERUM/PLASMA <3 <=10 mg/dL 09/23/2024 12:38 PM [facility] ([facility]) Blood Venipuncture / Unknown 09/23/2024 11:30 AM PST 09/23/2024 11:35 AM PST Rebel Bravo MD LAB BLOOD ORDERABLES Fin al Result [facility] ([facility]) [address] [place] [address] * (ABNORMAL) Acetaminophen Level (09/23/2024 11:30 AM PST) Pathologist [facility] Acetaminophen Level <2(L) 5 - 20 ug/mL 09/23/2024 12:38 PM [facility] ([facility]) Comment:Concentration expect ed to be undetectable in a patient not taking this medication. Blood Venipuncture / Unknown 09/23/2024 11:30 AM PST 09/23/2024 11:35 AM [facility] Rebel Bravo MD LAB BLOOD ORDERABLES Fin al Result Performing Organization Address City/[facility]/ZIP Co de Phone Number [facility] ([facility]) [address] [place] [phone] * (ABNORMAL) Salicylate Level (09/23/2024 11:30 AM PST) Salicylate Level <3.0(L) 10.0 - 20.0 mg/dL 09/23/2024 12:38 PM PST [facility] ([facility]) Comment:Concentration expect ed to be undetectable in a patient not taking this medication. Blood Venipuncture / Unknown 09/23/2024 11:30 AM PST 09/23/2024 11:35 AM [facility] us Rebel Bravo MD LAB BLOOD ORDERABLES Fin al Result Performing Organization Address [facility] Co de Phone Number [facility] ([facility]) [address] [place] [phone] * , Serum, Qual (09/23/2024 11:30 AM PST) hCG Screen, Serum Negative Negative 09/23/2024 11:50 AM PST [facility] ([facility]) Blood Venipuncture / Unknown 09/23/2024 11:30 AM PST 09/23/2024 11:35 AM PST Rebel Bravo MD LAB BLOOD ORDERABLES Fin al Result Performing Organization Address City/[facility]/ZIP Co de Phone Number [facility] ([facility]) [address] [place] [address] * (ABNORMAL) Comprehensive Metabolic Panel (09/23/2024 11:30 AM [facility]) Na 143 134 - 145 mmol/L 09/23/2024 12:47 PM [facility] ([facility]) K 3.9 3.3 - 5.0 mmol/L 09/23/2024 12:47 PM [facility] ([facility]) Cl 109 99 - 111 mmol/L 09/23/2024 12:47 PM [facility] ([facility]) CO2 25 22 - 32 mmol/L 09/23/2024 12:47 PM [facility] ([facility]) Anion Gap 9 2 - 13 mmol/L 09/23/2024 12:47 PM [facility] ([facility]) Glucose 108(H) 65 - 99 mg/dL 09/23/2024 12:47 PM [facility] ([facility]) Comment: Diagnostic Categories (per ADA): Fasting: < [...] - 23 mg/dL 09/23/2024 12:47 PM [facility] ([place]) Creatinine 0.84 0.60 - 1.30 mg/dL 09/23/2024 12:47 PM [facility] ([facility]) Calcium 10.2 8.3 - 10.4 mg/dL 09/23/2024 12:47 PM [facility] ([facility]) Albumin 4.0 3.0 - 5.0 g/dL 09/23/2024 12:47 PM [facility] ([facility]) Bilirubin Total 0.6 0.1 - 1.1 mg/dL 09/23/2024 12:47 PM [facility] ([facility]) Total Protein 7.9 5.9 - 8.2 g/dL 09/23/2024 12:47 PM [facility] ([facility]) AST 23 8 - 48 U/L 09/23/2024 12:47 PM [facility] ([facility]) ALT 13 7 - 54 U/L 09/23/2024 12:47 PM [facility] ([facility]) Alkaline Phosphatase 60 40 - 130 U/L 09/23/2024 12:47 PM [facility] ([facility]) Globulin 3.9 2.4 - 4.0 g/dL 09/23/2024 12:47 PM [facility] ([facility]) Albumin/Globulin Ratio 1.0 0.6 - 2.8 09/23/2024 12:47 PM [facility] ([facility]) BUN/Creatinine Ratio 19.0 5.0 - 28.0 09/23/2024 12:47 PM [facility] ([facility]) eGFR 95 >=60 mL/min/1. 73m2 09/23/2024 12:47 PM [facility] ([facility]) Comment: GFR value was calculated using a new GFR equation effective since 09/01/21. ??This is a recommendation of the [place] Society of Nephrology and National Kidney Foundation. ?? Clinical practice guidelines suggest the use of serum cystatin C as a confirmatory test for eGFR 45-59 ml/min/1.73m2 in adults who do not have markers of kidney disease; eGFR may be less accurate in this range. Blood Venipuncture / Unknown 09/23/2024 11:30 AM PST 09/23/2024 11:35 AM [facility] us Rebel Bravo MD LAB BLOOD ORDERABLES Fin al Result [facility] ([facility]) [address] [place] [address] * (ABNORMAL) CBC with Differential (09/23/2024 11:30 AM [facility]) White Blood Cells 8.46 3.5 - 11 K/uL 09/23/2024 11:38 AM [facility] ([facility]) Red Blood Cells 4.40 4.00 - 5.20 M/uL 09/23/2024 11:38 AM [facility] ([facility]) Hemoglobin 10.7(L) 12.0 - 16.0 g/dL 09/23/2024 11:38 AM [facility] ([place]) Hematocrit 35.0(L) 36.0 - 46.0 % 09/23/2024 11:38 AM [facility] ([place]) MCV 79.5(L) 80.0 - 100.0 fL 09/23/2024 11:38 AM [facility] ([facility]) MCH 24.3(L) 25.0 - 35.0 pg 09/23/2024 11:38 AM [facility] ([place]) MCHC 30.6(L) 31.0 - 37.0 g/dL 09/23/2024 11:38 AM [facility] ([place]) RDW-CV 15.9(H) 11.5 - 14.5 % 09/23/2024 11:38 AM [facility] ([place]) RDW-SD 45.8 35.1 - 46.3 fL 09/23/2024 11:38 AM [facility] ([place]) Platelet Count 346 140 - 444 K/uL 09/23/2024 11:38 AM [facility] ([facility]) MPV 10.8 6.5 - 12.3 fL 09/23/2024 11:38 AM [facility] ([facility]) % Neutrophils 77.7 40.0 - 81.0 % 09/23/2024 11:38 AM [facility] ([facility]) % Lymphocytes 14.4(L) 18.0 - 42.0 % 09/23/2024 11:38 AM [facility] ([facility]) % Monocytes 7.0 1.0 - 12.5 % 09/23/2024 11:38 AM [facility] ([facility]) % Eosinophils 0.0 0.0 - 5.8 % 09/23/2024 11:38 AM [facility] ([facility]) % Basophils 0.5 0.0 - 2.0 % 09/23/2024 11:38 AM [facility] ([facility]) % Immature Granulocytes 0.4 0.0 - 1.0 % 09/23/2024 11:38 AM [facility] ([facility]) Absolute Neutrophils 6.58 1.80 - 8.00 K/uL 09/23/2024 11:38 AM [facility] ([place]) Absolute Lymphocytes 1.22 1.00 - 4.80 K/uL 09/23/2024 11:38 AM [facility] ([place]) Absolute Monocytes 0.59 0.00 - 0.90 K/uL 09/23/2024 11:38 AM [facility] ([place]) Absolute Eosinophils 0.00 0.00 - 0.50 K/uL 09/23/2024 11:38 AM [facility] ([place]) Absolute Basophils 0.04 0.00 - 0.20 K/uL 09/23/2024 11:38 AM [facility] ([place]) Absolute Immature Granulocytes 0.03 0.00 - 0.03 K/uL 09/23/2024 11:38 AM PST [facility] % nRBC 0.0 0.0 - 1.0 per 100 WBCs 09/23/2024 11:38 AM PST [facility]) Absolute nRBC 0.00 0.00 - 0.02 K/uL 09/23/2024 11:38 AM [facility] ([place]) Blood Venipuncture / Unknown 09/23/2024 11:30 AM PST 09/23/2024 11:35 AM [facility] us Rebel Bravo MD LAB BLOOD ORDERABLES Fin al Result Performing Organization Address [facility] Co de Phone Number [facility] ([facility]) [address] [place] [address] * ECG 12 lead (09/23/2024 11:21 AM [...] ECG No previous ECGs available Confirmed by CASEY SANTIAGO, GUS .Mary Anne (2015) on 09/24/2024 3:37:42 PM [place] MUSE 09/23/2024 11:2 1 AM [facility] us Rebel Bravo MD ECG ORDERABLES Final Re sult Performing Organization Address City/[facility]/ZIP Co de Phone Number [place] MUSE documented in this encounter Visit Diagnoses Diagnosis Mood disorder (HCC)- Primary Unspecified episodic mood disorder Psychosis, unspecified psychosis type (HCC) Sleep deprivation Problems related to lack of adequate sleep Mood disorder (HCC) Unspecified episodic mood disorder documented in this encounter Administered Medications Inactive Administered Medications - up to 3 most recent administrations Medication Order MAR Action Action Date Dose Rate Site LORazepam (ATIVAN) 2 mg/mL injection Starting on 09/23/24 at 1043, For 1 dose, Arsen Ya: cabinet override When given IV push, dilute with an equal volume of NS, D5W, or Sterile Water for Injection. Rate of injection should not exceed 2 mg/min. LORazepam (ATIVAN) injection 2 mg 2 mg, Intramuscular, ONCE, On 09/23/24 at 1045, For 1 dose, When given IV push, dilute with an equal volume of NS, D5W, or Sterile Water for Injection. Rate of injection should not exceed 2 mg/min. Given 09/23/2024 10:57 AM PST 2 mg Deltoid-Left LORazepam (ATIVAN) tablet 1 mg 1 mg, Oral, EVERY 6 HOURS PRN, Anxiety, Starting on 09/23/24 at 2328 OLANZapine (zyPREXA) 5 mg/mL injection Starting on 09/23/24 at 1042, For 1 dose, Arsen Ya: cabinet override OLANZapine (zyPREXA) injection 10 mg 10 mg, Intramuscular, ONCE, On 09/23/24 at 1045, For 1 dose, Mix with 2.1 mL sterile water for injection to make 5 mg/mL. Do not exceed 30 mg/day. Given 09/23/2024 10:57 AM PST 10 mg Deltoid-Right OLANZapine (zyPREXA) injection 10 mg 10 mg, Intramuscular, EVERY 6 HOURS PRN, Agitation, Starting on 09/23/24 at 2328, Mix with 2.1 mL sterile water for injection to make 5 mg/mL. Do not exceed 30 mg/day. OLANZapine zydis (zyPREXA ZYDIS) disintegrating tablet 10 mg 10 mg, Oral, EVERY 6 HOURS PRN, Agitation, Starting on 09/23/24 at 2328 documented in this encounter Active and Recently Administered Medications Times are shown in PST. Scheduled Medication Order 09/22/2024 09/23/2024 09/24/2024 LORazepam (ATIVAN) injection 2 mg (COMPLETED) 2 mg, Intramuscular, ONCE, On 09/23/24 at 1045, For 1 dose, When given IV push, dilute with an equal volume of NS, D5W, or Sterile Water for Injection. Rate of injection should not exceed 2 mg/min. 1057 (Given - Provider: Lakshmi Hussein RN - Comment: Administered by Germain Reis RN) OLANZapine (zyPREXA) injection 10 mg (COMPLETED) 10 mg, Intramuscular, ONCE, On 09/23/24 at 1045, For 1 dose, Mix with 2.1 mL sterile water for injection to make 5 mg/mL. Do not exceed 30 mg/day. 1057 (Given - Provider: Lakshmi Hussein RN - Comment: Administered by SHARRI San) PRN Medication Order 09/22/2024 09/23/2024 09/24/2024 LORazepam (ATIVAN) tablet 1 mg(Linked Group 1) 1 mg, Oral, EVERY 6 HOURS PRN, Anxiety, Starting on 09/23/24 at 2328 OLANZapine (zyPREXA) injection 10 mg(Linked Group 1) 10 mg, Intramuscular, EVERY 6 HOURS PRN, Agitation, Starting on 09/23/24 at 2328, Mix with 2.1 mL sterile water for injection to make 5 mg/mL. Do not exceed 30 mg/day. OLANZapine zydis (zyPREXA ZYDIS) disintegrating tablet 10 mg(Linked Group 1) 10 mg, Oral, EVERY 6 HOURS PRN, Agitation, Starting on 09/23/24 at 2328 Linked Groups Order Group 1: Please perform medication reconciliation (COMPLETED) Please perform medication reconciliation, STAT, UNTIL DISCONTINUED, Starting on 09/23/24 at 2329, Until Specified And Please place patient in psychiatric boarding model (COMPLETED) Please place patient in psychiatric boarding model, STAT, UNTIL DISCONTINUED, Starting on 09/23/24 at 2329, Until Specified And Observation Status: Start/Continue Continuous Observation (1:1) or Red Pod (COMPLETED) Observation Status: Start/Continue Continuous Observation (1:1) or Red Pod, STAT, UNTIL DISCONTINUED, Starting on 09/23/24 at 2329, Until Specified And Diet general Effective Now (CANCELED) type: general, Modify diet for underlying conditions And Vital signs - Adult per unit routine Please obtain complete vital signs (COMPLETED) Frequency: per unit routine, Please obtain complete vital signs And LORazepam (ATIVAN) tablet 1 mgJump to med 1 mg, Oral, EVERY 6 HOURS PRN, Anxiety, Starting on 09/23/24 at 2328 And OLANZapine (zyPREXA) injection 10 mgJump to med 10 mg, Intramuscular, EVERY 6 HOURS PRN, Agitation, Starting on 09/23/24 at 2328, Mix with 2.1 mL sterile water for injection to make 5 mg/mL. Do not exceed 30 mg/day. And OLANZapine zydis (zyPREXA ZYDIS) disintegrating tablet 10 mgJump to med 10 mg, Oral, EVERY 6 HOURS PRN, Agitation, Starting on 09/23/24 at 2328 documented in this encounter Care Teams Newborn Photographer Relationship Specialty Start Date End Date No, Physician PCP - General 09/23/24 documented as of this encounter
--- OUTSIDE RECORDS SUMMARY | 2024-09-29 12:53 | XMS_ITS | Encounter Summary ---
Author Organization [facility] Address [address] [place] [address] Care Team Providers Care Barge Loader Name Role Phone No, Physician Primary Care Provider Unavailabl e Encounter Details Date Type Department Care Team (Latest Contact Info) Description 09/23/2024 Travel Social History Tobacco Use Types Packs/Day Years Used Date Smoking Tobacco: Never Assessed Comments Unknown Sex and Gender Information Value Date Recorded Sex Assigned at Not on file Legal Sex Female 11:33 AM PDT Gender Identity Not on file Sexual Orientation Not on file documented as of this encounter Plan of Treatment Not on file documented as of this encounter Visit Diagnoses Not on filedocumented in this encounter Care Teams Barge Loader Relationship Specialty Start Date End Date No, Physician PCP - General 09/23/24 documented as of this encounter
--- OUTSIDE RECORDS SUMMARY | 2024-09-29 12:53 | XMS_ITS | Encounter Summary ---
Author Organization [facility] an [facility] Address [facility] [address] [place] [address] Care Team Providers Care Coring Machine Operator Name Role Phone No, Physician Primary Care Provider Unavailabl e Reason for Visit * Reason Onset Date Comments Caring Contacts (ED Follow-Up) 09/25/2024 Encounter Details Date Type Department Care Team ([facility] st Contact Info) Description 09/25/2024 Telephone [facility] [address] [facility], [facility] [address] [place] [id number] Yann Carvalho, CPSS Caring Contacts (ED Follow-Up) Social History Tobacco Use Types Packs/Day Years Used Date Smoking Tobacco: Never Assessed Comments Unknown Sex and Gender Information Value Date Recorded Sex Assigned at Not on file Legal Sex Female 11:33 AM PDT Gender Identity Not on file Sexual Orientation Not on file documented as of this encounter Miscellaneous Notes * Telephone Encounter - Yann Carvalho CPSS - 09/25/2024 11:05 AM PST Images from the original note were not included. [facility]TER [facility] ([facility]) Caring Contacts Note Caring Contacts are follow-up calls to patients who have presented to the emergency department in crisis. The Better [facility] program peer support specialists and social workers provide Caring Contacts to patients within 48 hours of emergency department discharge. The purpose of Caring Contacts is to assist the patient telephonically in successfully transitioning from the hospital to outpatient services. Caring Contact Phone Call for: Arminda Nietooa Primary Care Physician: No Physician on file None No address on file Date of ED Discharge calling about: 09/24/2024 14:27 Lay Caregiver Name & Contact Info: mother, Sara Nietooa [phone] Does Patient have a recommended ED follow up or follow up appointment scheduled? If so, When/Where: Schedule an appointment with [facility] OR ED FOLLOW UP in 2 days (09/26/2024); or your primary care team as already established; for any worsening symptoms or concerns you may always return back to the ER Notes: Made call no answer, left no message as per CC protocol Peer Follow Up Needed: No Yann Carvalho [facility] He/him Drilling Engineer [facility] [phone] [email or web address] documented in this encounter Plan of Treatment Not on file documented as of this encounter Visit Diagnoses Not on filedocumented in this encounter Care Teams Coring Machine Operator Relationship Specialty Start Date End Date No, Physician PCP - General 09/23/24 documented as of this encounter
--- OUTSIDE RECORDS SUMMARY | 2024-09-29 12:53 | XMS_ITS | Clinical Summary ---
Author Organization [facility] Address [address] [place] [address] Care Team Providers Care Maintenance Machine Repairer Name Role Phone Sue Gold MD Primary Care Provider [phone] Allergies No known active allergies Medications No known medications Active Problems No known active problems Immunizations Name Administration Dates Next Due DTaP 03/30/1996, 4,1992,1992,05/28/19 92 HPV Quadrivalent 12/14/2007,08/17/2007, 7 Hepatitis B 03/30/1996,10/11/1995,09/08/1995 HiB 03/30/1996,09/24/1993,1992 ,1992 IPV 03/30/1996,09/24/1993,1992 ,1992 MMR 10/30/1993,02/27/1993,1992 Meningococcal Conjugate 06/15/2007 Td 04/13/2004 Tdap 06/15/2019,04/08/2009 Varicella 06/22/2010,04/02/1998 Family History Relation Name Status Comments Father Alive Mother Alive Sister Alive Social History Tobacco Use Types Packs/Day Years Used Date Smoking Tobacco: Never Smokeless Tobacco: Never Alcohol Use Standard Drinks/Week Comments Yes 0 (1 standard drink = 0.6 oz pur e alcohol) very rare Comments Unknown Sex and Gender Information Value Date Recorded Sex Assigned at Not on file Legal Sex Female 8:05 AM PST Gender Identity Not on file Sexual Orientation Not on file Last Filed Vital Signs Vital Sign Reading Time Taken Comments Blood Pressure 128/78 04/22/2020 1:11 PM PDT Pulse 77 04/22/2020 1:11 PM PDT Temperature 36.7 ??C (98 ??F) 04/22/2020 1:11 PM PDT Respiratory Rate - - Oxygen Saturation 97% 04/22/2020 1:11 PM PDT Inhaled Oxygen Concentration - - Weight 136.1 kg (300 lb) 04/22/2020 1:11 PM PDT Height 163 cm (5' 4.17 ) 04/22/2020 1:11 PM PDT Body Mass Index 51.22 04/22/2020 1:11 PM PDT Plan of Treatment Health Maintenance Due Date Last Done Comments Hepatitis C Screening 1992 REALD Questions 1992 HIV Screening 2010 Cervical Cancer Screening 05/17/20222018 (Performed at Outside Facility) COVID-19 Vaccine (2023- season) 2024 Influenza Vaccine (#1) 2024 DTAP/TDAP/TD Vaccines (9 - Td or Tdap) 06/15/2029 06/15/2019, 04/08/2009, 04/13/2004, Additional history exists Pneumococcal Vaccine 0-50 Aged Out No longer eligible based on patient's age to complete this topic Insurance [facility] Care Teams Maintenance Machine Repairer Relationship Specialty [place] [address] [place] [address] PCP - General Family Medicine 06/04/19 Additional Source Comments Chart notes may be sent separately from this document.[facility]
--- OUTSIDE RECORDS SUMMARY | 2024-09-29 12:53 | XMS_ITS | Clinical Summary ---
Author Organization [facility] Address [address] [id number] Care Team Providers Care General Manager Farm Name Role Phone None Per Patient, None [...] Plan of Treatment Not on file Insurance [facility] Care Teams General Manager Farm Relationship Specialty Start Date End Date None Per Patient, None Per Pt PCP - General 05/10/19
--- OUTSIDE RECORDS SUMMARY | 2024-09-29 12:53 | XMS_ITS | Encounter Summary ---
Author Organization [facility] Address [address] [place] [address] Phone Care Team Providers Care Job Recruiter Name Role Phone No Pcp Per Patient Primary Care Provider Unavail able Encounter Details Date Type Department Care Team (Late st Contact Info) Description 07/27/2021 Ancillary Orders [facility] [address] [place] [address] Vern Cid MD [address] [place] [address] Social History Tobacco Use Types Packs/Day Years Used Date Smoking Tobacco: Never Assessed Comments Unknown Sex and Gender Information Value Date Recorded Sex Assigned at Not on file Legal Sex Female 10:51 AM PDT Gender Identity Female 05/25/2024 8:54 AM PDT Sexual Orientation Not on file COVID-19 Exposure Response Date Recorded In the last month, have you been in contact with someone who was confirmed or suspected to have Coronavirus / COVID-19? No / Unsure 07/30/2021 1:03 PM PST documented as of this encounter Plan of Treatment Upcoming Encounters Date Type Department Care Team (Late st Contact Info) Description 11/14/2024 1:30 PM PDT Office Visit [facility] Primary Care at [address] [place] [phone] Tamia Villafana DO [address] [place] [address] Discharge Disposition: Discharged to home or self care (routine discharge) documented as of this encounter Results * US BREAST LEFT (07/30/2021 1:24 PM PST) Anatomical Region Laterality Modality Breast Left Ultrasound Narrative 07/30/2021 1:41 PM PST HISTORY: 31 y.o. presents for ultrasound, follow up suspected left breast fat necrosis first noted 01/29/2021. No relevant hormone history has been documented for this patient. FAMILY HISTORY: No relevant family history has been documented for this patient ?? COMPARISON: Compared to: 03/12/2021 US BREAST LEFT and 01/29/2021 US OUTSIDE BREAST LEFT FINDINGS: Focused sonographic evaluation was performed in the left breast at 2 o'clock. At 2 o'clock 12 cmfn, there is a 4 mm oil cyst. At 2 o'clock 18 cmfn, there is a 5 mm oil cyst. Findings are consistent with resolving fat necrosis/post-traumatic change, improved compared to 01/29/2021. ASSESSMENT: Benign oil cysts/fat necrosis in the left breast. Left: 2 - Benign Overall: 2 - Benign RECOMMENDATION: Screening mammogram at age 42 is recommended for both breasts. Results and recommendations were discussed with the patient. I have personally reviewed the images and, if necessary, edited the report. I agree with the report as now presented. PATIENT INFORMATION: These results have been sent to your healthcare provider. You will also receive a result letter in the mail within 30 days. If the radiologist recommends additional breast imaging a Breast Nurse Coordinator will be calling you to review the results in 1-2 business days. ??If you have any questions regarding results, please contact your healthcare provider. Vern Cid MD EC Final Result documented in this encounter Visit Diagnoses Diagnosis Unspecified lump in the left breast, upper inner quadrant Unspecified lump in the left breast, upper inner quadrant documented in this encounter Care Teams Job Recruiter Relationship Specialty Start Date End Date No Pcp Per Patient NO PCP PER PATIENT PCP - General 05/25/24 documented as of this encounter
--- OUTSIDE RECORDS SUMMARY | 2024-09-29 12:53 | XMS_ITS | Encounter Summary ---
Author Organization [facility] Address [address] [place] [address] Phone Care Team Providers Care Clinical Interviewer Name Role Phone No Pcp Per Patient Primary Care Provider Unavail able Encounter Details Date Type Department Care Team (Late st Contact Info) Description 02/05/2021 Ancillary Orders [facility] [address] [place] [address] Vern Cid MD [address] [place] [address] Social History Tobacco Use Types Packs/Day Years Used Date Smoking Tobacco: Never Assessed Comments Unknown Sex and Gender Information Value Date Recorded Sex Assigned at Not on file Legal Sex Female 10:51 AM PDT Gender Identity Female 05/25/2024 8:54 AM PDT Sexual Orientation Not on file documented as of this encounter Plan of Treatment Upcoming Encounters Date Type Department Care Team (Late st Contact Info) Description 11/14/2024 1:30 PM PDT Office Visit [facility] Primary Care at [address] [place] [address] Tamia Villafana DO [address] [place] [address] Discharge Disposition: Discharged to home or self care (routine discharge) documented as of this encounter Results * US BREAST LEFT (03/12/2021 2:08 PM PDT) Anatomical Region Laterality Modality Breast Left Ultrasound Narrative 03/12/2021 5:19 PM PDT HISTORY: 30 y.o. presents for ultrasound for follow up for suspected fat necrosis of the left breast in the setting of a previous trauma. No relevant hormone history has been documented for this patient. FAMILY HISTORY: No relevant family history has been documented for this patient ?? COMPARISON: Outside US imaging from 01/29/21, brought on disc by patient FINDINGS: There is 6 mm x 4 mm x 5 mm hypoechoic mass-like area seen in the upper outer quadrant of the left breast at 2 o'clock in the anterior depth, 18 cm from the nipple. Since previous outside imaging on 01/29/21, it has significantly decreased in size and complexity. It previously measured 34 x 11 x 16 mm. The second smaller avascular hypoechoic to anechoic mass is located at 2:00 12 cm from the nipple and measures 5 x 4 x 4 mm. No significant increased through transmission. No suspicious masses or architectural distortion. ASSESSMENT: 1. Previously complex lesion in the left breast 2:00 position 18 cm from the nipple has become less conspicuous and decreased in size since prior outside exam. Findings are favored to represent evolving fat necrosis. Recommend interval follow up 2-3 months to assess for resolution. 2. A smaller 5 mm hypoechoic to anechoic mass in the left breast 2:00 position 12 cm from the nipple is probably benign. ??This area was not evaluated at the outside facility, but may be related to prior trauma. ?? Recommend interval follow up in 2-3 months. Left: 3 - Probably Benign Overall: 3 - Probably Benign RECOMMENDATION: Ultrasound ??is recommended for the left breast in 2 to 3 months. Results and recommendations were discussed with the [...] documented in this encounter Visit Diagnoses Diagnosis Lump in upper inner quadrant of left breast Lump in upper inner quadrant of left breast documented in this encounter Care Teams Clinical Interviewer Relationship Specialty Start Date End Date No Pcp Per Patient NO PCP PER PATIENT PCP - General 05/25/24 documented as of this encounter
--- OUTSIDE RECORDS SUMMARY | 2024-09-29 12:53 | XMS_ITS | Encounter Summary ---
Author Organization [facility] Address [address] [place] [address] Phone Care Team Providers Care Business Operations Analyst Name Role Phone No Pcp Per Patient Primary Care Provider Unavail able Encounter Details Date Type Department Care Team (Late st Contact Info) Description 03/14/2021 Ancillary Orders [facility] Diagnostic Imaging [address] [place] [address] Coreen Carmona MD [address] [place] [address] Social History Tobacco Use Types Packs/Day Years [...] have Coronavirus / COVID-19? No / Unsure 03/12/2021 1:37 PM PDT documented as of this encounter Plan of Treatment Upcoming Encounters Date Type Department Care Team (Late st Contact Info) Description 11/14/2024 1:30 PM PDT Office Visit [facility] Primary Care at [place] [id number] [place] [address] Tamia Villafana DO [address] [place] [address] Discharge Disposition: Discharged to home or self care (routine discharge) documented as of this encounter Results * US OUTSIDE BREAST LEFT (01/29/2021 12:00 AM PDT) Narrative [facility] RADI[facility] - 03/14/2021 8:29 AM PDT - At the time of the study, no professional interpretation was requested. - us Coreen Carmona MD OUTSIDE FILMS EC Final Result [facility] documented in this encounter Visit Diagnoses Diagnosis Encounter for screening mammogram for breast cancer Encounter for screening mammogram for breast cancer documented in this encounter Care Teams Business Operations Analyst Relationship Specialty Start Date End Date No Pcp Per Patient NO PCP PER PATIENT PCP - General 05/25/24 documented as of this encounter
--- OUTSIDE RECORDS SUMMARY | 2024-09-29 12:53 | XMS_ITS | Encounter Summary ---
Author Organization [facility] Address [address] [place] [address] Phone Care Team Providers Care Predatory Hunter Name Role Phone No Pcp Per Patient Primary Care Provider Unavail able Encounter Details Date Type Department Care Team (Late st Contact Info) Description 02/04/2021 Ancillary Orders [facility] Diagnostic Imaging [address] [place] [address] Id, Lab-Rad Pending Provider LAB-RAD PENDING PROVIDER Social History Tobacco Use Types Packs/Day Years [...] Description 11/14/2024 1:30 PM PDT Office Visit [facility] Primary Care at [facility] [address] [place] [phone] Tamia Villafana DO [address] [place] [address] Discharge Disposition: Discharged to home or self care (routine discharge) documented as of this encounter Visit Diagnoses Diagnosis Lump in upper inner quadrant of left breast documented in this encounter Care Teams Predatory Hunter Relationship Specialty Start Date End Date No Pcp Per Patient NO PCP PER PATIENT PCP - General 05/25/24 documented as of this encounter
--- NOTE | 2024-09-29 16:18 | P.DS_ITS ---
DS: Providers Provider Date of Service: 09/29/24 Date of admission: 09/29/24 12:46 Date of discharge: 09/29/24 Primary care physician: Unknown Physician Admitting clinician: Kamila Galloway Attending physician on admission: Nick Alfonso Consults: 09/29/24 13:48 Consult to Hospitalist Routine Comment: Consulting Provider: [facility] Hospitalists Reason For Exam: Transfer pt Attending physician on discharge: Nick Alfonso Discharging clinician: Kamila Galloway DS: Diagnosis Discharge Diagnosis (1) Moderate bipolar I disorder with poornima as current episode: Status: Acute Mental Status Exam Mental Status Exam Patient Appearance: Appropriate Patient Orientation: Person, Place, Time and Situation Level of Consciousness: Alert Patient Behavior: Appropriate, Talkative, Cooperative and Good Eye Contact Mood Description: Calm and Appropriate Affect Description: Calm and Appropriate Patient Cognition Impaired: No Ability to Follow Directions: Good Speech Pattern: Spontaneous Speech Memory Description: Intact Hallucinations: None Delusions: Not Present Thought Process: Intact Thought Content: positive for Intact Depressive Symptoms: Thoughts of /Suicide (denies) Judgement: Good DS: Summary Hospital Course Hospital Course: [facility] transfer after admission on 09/25/24 for probable poornima. Full medical eval was completed at [facility] Pt transferred to [facility] for psychiatric treatment, however, pt and mother report they did not agree to in pt admission and would not remain for admission. Pt denies SI,HI,AH,VH. No acute sx of psychosis or poornima. Mother will take pt home and will be with her at all times. Pt may call/return as needed Status at Discharge Functional status at discharge: independent ambulation Overall status at discharge: patient is back to baseline Time Spent with Patient Time attestation: Total time managing care of this patient today ____ minutes. Time spent: Greater than 30 minutes Discharge Plan Discharge Anticipated Discharge Date/Time: 09/29/24 17:00 Patient Disposition: Home, Self-Care Discharge Diagnosis: SI, agitation, paranoia, inability to sleep, Bipolar Disorder Referrals: Physician,Unknown J [Primary Care Provider] - 1 Week (please contact your PCP for a follow-up appt within one week. ) Discharge Medications: No Action olanzapine 10 mg tablet 10 mg PO BEDTIME Discharge Orders: Discharge Order (Routine); Ordered 09/29/24 Ordered By: Kamila Galloway Diet: Advance to usual diet Activity on Discharge: As tolerated Stand Alone Forms: Patient Portal Discharge page, Community Support Print Language: Pashto Care Plan Goals: Mood and Behavioral Stabilization Health Concerns: Mood and Behavioral Stabilization Plan of Treatment: Pt and her family decline admission. Pt will go home with parents who will provide consistent supervision She will be monitored by her parents and will proceed with further care as she and parents see fit. Assessment: No Si,HI,AH,VH No acute sx of poornima or psychosis Pt and parents request discharge to family home. Discharge Date/Time: 09/29/24 17:00
--- NOTE | 2024-09-29 16:18 | P.HPPS_ITS ---
HPI Date of Service: 09/29/24 Chief Complaint: AMS Sources of Information: patient interviewed and chart reviewed Additional Sources of Information: mother HPI Narrative: 34 yo female, transfer from [facility], mother. present, hx of questionable bipolar disorder with psychosis. Pt and mother report they have no intention of admission for pt. They report they were told this was an IOP/PHP program. Mother wants pt at home, pt wants to be at home. Denies SI,HI. No AH,VH, no acute sx of poornima or psychosis noted. Per [facility], room-mate in [place] told family that pt fell down the stairs in their home while vacuming the carpet. Pt had reported no sleep or appetite for 7 days prior to this, so mother flew to bring pt home Pt to [facility] via [address] on 09/25/24. Sx observed were disorganization, mood lability, insomnia, agitation, isolation, impulsivity, delusions, intrusive behaviors- SI reported to police and aggression. Pt had recently arrived home from school in [place], [place] and had been in her room for seven days At [facility] Olanzapine was initiated, tolerated as was Trazodone and Hydroxyzine. (Ativan and Haldol earlier in the admission) Full eval was done, including MRI (partially empty sella turcia noted) without contrast and pt was cleared medically for psychiatric care with all negative medical findings. Pt and family have no interest in admission. They are willing to interview community providers and to consider IOP/PHP programs Past Psychiatric History: Denies history Denies med hx except for meds at [facility] No SI, SA hx Medical Evaluation Reviewed: Yes ([facility]) PMF Narrative: anemia 100 lb weight loss in 24 months no hx seizure or TBI Family History: Denies Social History: Born and raised in [place]-with mother, grandmother, sister Single, never , no children. Lives in [place]. 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 NSR with sinus arrythmia. Normal reading ([facility]) Meds/Allergies Meds Home Medications ?Medication ?Instructions ?Recorded ?Confirmed ?Type olanzapine 10 mg tablet 10 mg PO BEDTIME 10/10/24 10/10/24 History Allergies Allergies Allergy/AdvReac Type Severity Reaction Status Date / Time No Known Allergies Allergy Verified 10/10/24 23:51 Mental Status Exam Mental Status Exam Patient Appearance: Appropriate Patient Orientation: Person, Place, Time and Situation Level of Consciousness: Alert Patient Behavior: Appropriate, Talkative, Cooperative and Good Eye Contact Mood Description: Calm and Appropriate Affect Description: Calm and Appropriate Patient Cognition Impaired: No Ability to Follow Directions: Good Speech Pattern: Spontaneous Speech Memory Description: Intact Hallucinations: None Delusions: Not Present Thought Process: Intact Thought Content: positive for Intact Depressive Symptoms: Thoughts of /Suicide (denies) Judgement: Good Assessment & Plan Assessment & Plan (1) Moderate bipolar I disorder with poornima as current episode: Status: Acute Code(s): F31.12 - Bipolar disorder, current episode manic without psychotic features, moderate Plan Pt and her mother decline admission. They report they were told this was a IOP/PHP program. They did not agree to in pt care. She presents with no current symptoms of illness, denies SI,HI, AH, VH. There are not current sx of acute poornima or psychosis. She will discharge with her mother, to mother's home and will have full supervision. Pt was invited to return should symptoms exacerbate Patient educated on: therapeutic strategies Reason for continued inpatient stay Substantial Risk for: stable for discharge Statement Statement: I have reviewed the history and physical and performed a pertinent examination on my patient. No changes have occurred unless specified. If the History and Physical was not performed prior to admission, the Hospitalist's service will be consulted for completing the admission physical. Time Spent With Patient Time: Total time managing care of this patient today ____ minutes.
--- NOTE | 2024-09-29 16:30 | HO.PM.IMCN ---
History of Present Illness Data of Consult Service Date: 09/29/24 Primary Care Provider: Unknown Physician HPI Reason for consult: Admission H&P Pt is a 34-year-old female with a PMH significant for? who is admitted to [facility] unit for . Medical consult for admission H&P. ? Labs reviewed, significant for PMFSH Social History Household Members: Other Housing: House Do you presently have visiting nurse or other home services: No Patient Tobacco Use Status: Never used Tobacco Smoked in Last 30 Days: No e-Cigarette/Vaping Use: Never Used Patient Interested in Nicotine Replacement: No Patient Given Instructions on How to Stop Smoking: No Second Hand Smoke Exposure: No Use of substances other than those prescribed or required for medical reasons: No Currently Displaying Signs/Symptoms of Drug Intoxication Withdrawal: No Any prior treatment program specific to substance use: No Have you been hit, kicked, punched, or otherwise hurt by someone within the past year? If so, by whom?: No Do you feel safe in your current relationship?: No Is there a partner from a previous relationship who is making you feel unsafe now?: No Are you made to feel afraid or neglected: No Advance Directives: No Advance Directives Information Provided: Yes Do you have a plan to hurt others: No Plan Recently lost weight without trying: No How much weight loss: Unsure Eating poorly because of decreased appetite: No Nutrition screen score: 2 Nutrition Risks: No Nutritional Risk Patient : No : No Poor oral hygiene: No Meds Allergies Allergy/AdvReac Type Severity Reaction Status Date / Time Unable to Assess Allergy Verified 09/29/24 13:48 Active Medications: Current Medications Acetaminophen (Acetaminophen 325 Mg Tablet) 650 mg PO Q6H PRN PRN Reason: Headache/Pain, Scale 1-10 Al Hydroxide/Mg Hydroxide (Magnesium Hydrox/Alum Hydrox 30 Ml Oral.Susp) 30 ml PO Q6H PRN PRN Reason: Heartburn/Nausea Hydroxyzine HCl (Hydroxyzine Hcl 25 Mg Tablet) 25 mg PO Q6H PRN PRN Reason: mild anxiety Magnesium Hydroxide (Milk Of Magnesia 30 Ml Oral.Susp) 30 ml PO DAILY PRN PRN Reason: Constipation Nicotine Polacrilex (Nicotine Polacrilex 2 Mg Gum) 4 mg BUCCAL Q2H PRN PRN Reason: Nicotine Cravings Trazodone HCl (Trazodone Hcl 50 Mg Tablet) 50 mg PO BEDTIME MRX1 PRN PRN Reason: Insomnia
--- NOTE | 2024-09-29 16:30 | PC.NURSE ---
pt arrived on the unit at approximately 1pm, from [facility]. Per crisis report, pt was anxious, depressed, suicidal and having difficulty sleeping. when asked why she was here, pt reports i'm not really sure, I just need some sleep . Pt reports she has been working alot and has not slept in several days. They gave me something to sleep last night at the other hospital and it really helped . Pts mother was waiting outside the unit doors and came in for a visit shortly after pt skin/safety check was complete. Pt and mother explained that the pt was unaware they would ave a shared room. Pt stated she would not sleep if she had a roommate and therefor would be the same if not worse than what she was already experiencing. Pts mother asked to speak with provider to ask to bring the pt home. Provider CAW notified, awaiting response
--- NOTE | 2024-09-29 16:37 | PC.NURSE ---
pt refused to sign paperwork or complete safety tool. i'm leaving
== END 2024-09-29 17:00 | disposition home or self-care (01) | DRG 753 ==
PROVIDERS: Admitting Provider Psychiatry & Neurology Psychiatry; Visit Provider Psychiatry & Neurology Psychiatry
DX: F31.12 Bipolar disorder, current episode manic without psychotic features, moderate (principal); R45.851 Suicidal ideations; Z79.899 Other long term (current) drug therapy

== ENCOUNTER → 2024-09-29 12:46 | Outpatient (BNV) | payer MEDICAID, SELFPAY | PROVIDERS: Admitting Provider Psychiatry & Neurology Psychiatry; Visit Provider Clinical Nurse Specialist Psychiatric/Mental Health, Adult | DX: F31.12 Bipolar disorder, current episode manic without psychotic features, moderate (principal) | CPT/HCPCS: 90792; 99499 ==

== ENCOUNTER 2024-10-10 23:13 | Inpatient (IN) | payer MEDICAID, SELFPAY ==
--- OUTSIDE RECORDS SUMMARY | 2024-10-10 23:17 | XMS_ITS | Encounter Summary ---
Author Organization [facility] an [facility] Address [facility] [address] [place] [address] Care Team Providers Care Printing Table Worker Name Role Phone No, Physician Primary Care Provider Unavailabl e Reason for Referral * Diagnostic/Screening (Emergency) Specialty Diagnoses / Procedures Referred By Contjayne t Referred To Contact Radiology Rebel Bravo MD [address] [place] [address] Phone: tel: fax: Referral ID Status Reason Start Date Expiration Date Visits Re quested Visits Authorized Reason for Visit * Reason Comments Suicidal Encounter Details Date Type Department Care Team (Late st Contact Info) Description 09/23/2024 9:56 AM PST - 09/24/2024 2:27 PM [facility] Emergency [facility] [address] [place], [place] [id number] Rebel Bravo MD [address] [place], [place] [phone] Jonathan Duenas MD [address] [place], [place] [phone] Karlee Arechiga MD [address], [place] [id number] Andrea Fraire DO [address] [id number] Psychosis, unspecified psychosis type (HCC) (Primary Dx); [...] Lay Caregiver Authorization Form and Patient Handout [facility] is committed to the health and well-being of all patients who needcare for a behavioral health crisis. We use evidence-based or best practices to provide you with the highest level of care. While at a [facility] you will receive: A medical exam [...] receive a phone call from a trained sales representative gas service from [employer]. [employer] is a [place] program that can provide support after you [...] caregiver? 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 Please continue to engage in the following recommendations: Follow-Up Appointment Was an appointment scheduled for you within 7 calendar days of your ED visit? No (explain why): Ptthuy f/u with primary care. [facility] Crisis Resources In the event of a mental health emergency please contact the [facility] Crisis Line at [phone] or visit your nearest emergency department. [facility] The center is located at [address] [place] [address], [address], in [place], [place]. The [facility] offers walk-in services during limited hours of Tuesday through Tuesday, 9 a.m.-2 p.m. Even during these times, individuals who need help are encouraged to call the [facility] Crisis Line at [phone] before going to [facility]. The line is answered every day, 24 hours a day, by trained professionals who can help decide the best option for care. This may include providing assistance by phone, referring to other services, arranging a mobile team crisis response,or referring the person to [facility]. National Suicide Prevention Lifeline Call Crisis Text Line Text HOME to 854928 in the [place] In need of someone to speak with? For peer support call the Warmline: Toll-Free Veterans Suicide and Crisis Suport Veterans in emotional crisis and their loved ones can call the free and confidential Veterans Crisis Line at and Press 1 , chat online (https://www.Dialogicsisline.net), or send a text message to 957301 to connect with a caring, qualified [place] responder who can deal with any immediate crisis. BIPOC, BLACK, INDIGENOUS, PEOPLE OF COLOR CRISIS LINE The Racial Equity Support Line is a service led and staffed by people with lived experience of racism. Experiencing this racism can harm our mental health. We get it. And we???re here to talk. To support. To connect. [phone] The SHY Project The Shy Project is [...] and 100% free. Call: Text Start to 097-775 Or head to the website for chat options and additional resources: www.thetrevorproject.org * Attachments The following attachments cannot be sent through Care Everywhere. * Insomnia (Setswana) documented in this encounter Medications at Time [...] MD - 09/24/2024 12:49 PM PST [facility] Psychiatry - Initial Evaluation Arminda Cota [...] career. 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 She notes she is curren tly getting by financially as she owns her home, and her roommates pay rent which is able to cover the mortgage plus a little extra, but stretched pretty thin. She notes her mom recently flew into town from [place] and is hoping to dc home with mom for additional support. Denies SI/HI. Denies any concerns re being the [facility], does not recall every making such [...] Lives with roommates, previously worked as an software design engineer at [employer] Legal history: denies Family history: denies Medical [...] disorganized. No hallucinations or delusions elicited. Pt appears near likely baseline. This does appear to be a significan timprovement from arrival, and could be a direct result of approx 13 hours of sleep [...] Electronically signed by: Stone Urbina MD [facility] * Judie Salcido LPC - 09/24/2024 12:00 PM PST Images from the original note were not included. [facility] ED Behavioral Health Reevaluation Evaluation Completed By: Judie Salcido LPC, CIS Name: Arminda Cota : 1990 34 y.o. Sex: female Date of Service: 09/24/24 Time seen: 12:01 PM PST Legal Guardian: N/A Legal Status: Voluntary Violence Risk Level: low-mod Lay Caregiver: Patient identified a lay caregiver (add name and phone number): mother, Sara Cota [phone] Clinical Presentation Presenting Problem, Concerns, Symptoms: This account underwriter assumed care of the patient, interviewed patient for the purpose of reevaluation. Pt slept all night but woke early. Her presentation early in the day was more organized than yesterday but she still had some cheondoism content in her statements. Another patient was yelling and strugglingon the unit and pt stated, I can help her, she needs to repent. Her mother arrived from [place] and spent several hours with patient in [...] her that she had been making several cheondoism statements and asked what was in her [...] the crisis resources in their AVS including: [facility] phone/address, National Suicide Prevention Lifeline number, Crisis Text Line, [facility] [place] Warmline number, and [facility] crisis line phone number. >>> Pt [...] 12:47 AM PST Patient's mother, Sara Cota ([phone]), had just arrived from [place], [place] and came straight to the ED [...] Seclusion Face to Face Assessment Arminda Cota [id number] 09/23/2024, 11:15 AM PST Restraint: Violent Restraint [...] from the original note were not included. [facility] ED Behavioral Health Emergent Assessment Evaluation Completed By: Judie Salcido LPC, JEFFERY Name: Arminda Cota : 1990 34 y.o. Sex: female Gender: female Date of Service: 09/23/24 Time seen: 11:06 AM PST Legal Status: Voluntary Legal Guardian: N/A Violence Risk Level: moderate-high Referred by: Police Wise: No Clinical Presentation Presenting Problem: Patient is a 34 y.o. female with a primary mental health history of no known mental illness who wasbrought in by ambulance with a chief complaint of agitation, cheondoism delusions, and insomnia. I saw pt come in with EMS and the nurse had to help pt change into scrubs as she seemed very disoriented and slow to respond when spoken to. A short time later, she came out of her room and yelling statements with cheondoism themes such as I'm a sinner. As one employee came into the nurses station, pttried to follow and had to be physically pushed out and dorothy schmidt was called and IM medication administered. At the time of this writing, pt was asleep and has remained asleep for several hours. Collateral information (use crisis line if necessary): I spoke to [facility] who responded to patient's house after her mother had called 911 requesting a welfare check. [place] of [facility] reported that pt has no known mental health history. They reported that she made a statement to mom something like, I don't want to be in this world anymore. [place] also pt was slow to respond to questions and told them that God had been talking to her. They did not have to put her on a hold as pt agreed to come [facility]. I spoke with patient's roommate, Rebel [phone]. Rebel has lived with pt for two [...] last few days about God and other cheondoism statements and he said, I've never heard [...] I spoke with patient's mother, Sara Cota [phone], who lives out of state but had requested the welfare check today after talking with her daughter on the phone last night and this morning. 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 Ihave never seen her like this. She described her as tangential with cheondoism themes saying thingslike They're here, I'm going [...] weapons: Patient BALDEMAR . 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 She doesn't have family here in [place] but lives with supportive roommates. Not , [...] Bravo Interventions/Assessment of Harm: Outcome: [place] Marcelino, mainspring reverse winder at bedside, pt restrained by security, moved to room 60, IM meds given. Pt is calm and resting. * Iza Hussein RN - 09/23/2024 10:36 AM PST Pt out of room, pacing around the unit, not redirectable, shouting hyper cheondoism comments - Dr. Bravo called for meds. * Iza Hussein RN - 09/23/2024 10:20 AM PST Narrative of Chief Complaint: Pt comes to ER from home c/o SI no plan, racing thoughts and inability to sleep for days. Pt denies HI. Pt states she hears voices, one of the voices is the devil, pt ishyper cheondoism. Per EMS pt called mom who is [...] be specific. She did acknowledge on direct questio oumou seeing things others do not see but [...] majority of the information came from responding [facility] deputies who provided the history as outlined above. The triage nurse note is not entirely correct. Essentially all of that information came from me. The patient did not acknowledge suicidal ideation until I specifically asked about it in her treatmentroom. It is also unclear that the patient expressed any suicidal ideation to her mother. [facility] law [facility] stated the mother stated the patient made some distressing statements yesterday, but did not specify what that was. They did however specifically state that she denied being suicidal. Once the patient was in her treatment room she essentially paced in a modoc talking to herself about her hyper cheondoism fixation. She would occasionally answer my questions directly but other timesseem to ignore me completely. She did however allow me to pace in a modoc with her to perform her physical and neurologic examination. I was told by the [facility] deputies that Rebel one of her roommates could be reached at [phone]. However when I called this number I [...] any internal stimuli, but does seem very cheondoism preoccupied. Subsequently, we have asked the social [...] disturbed by the current clinical climate in [facility], and that she has been sleeping very little recently. The patient reports that she has not slept for 7 days. He states he can hear her pacing around in her room. Her mother also believes that is thecase. The patient also self reports that she [...] brain, we question whether her psychosis and cheondoism preoccupation is simply a byproduct of significant [...] normal limits Narrative: Performed at: - [facility] [address] [facility] [address] [id number] Esthetician Spa: Flaco Cameron MD, Phone: [phone] , SERUM, QUAL - Normal ALCOHOL - Normal HIV TYPE 1 AND 2 AB SCREEN, RAPID - Normal THYROXINE (T4) FREE, DIRECT (RESULTS ONLY) Narrative: Performed at: [facility] [address] [facility] [address], [place], [place] [id number] Esthetician Spa: Flaco Cameron MD, Phone: [phone] DRUGS OF ABUSE, SCREEN, URINE COVID Test: [...] return back to the ER. Contact information: [facility] [phone] Discharge Instructions Lay Caregiver Authorization Form and Patient Handout [facility] is committed to the health and well-being of all patients who needcare for a behavioral health crisis. We use evidence-based or best practices to provide you with the highest level of care. While at a [facility] you will receive: A medical exam [...] receive a phone call from a trained sales representative gas service from [employer]. [employer] is a [place] program that can provide support after you leave the emergency department. *Authorization form offered upon admission. 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 To support. To connect. [phone] The SHY Project The Shy Project is [...] and 100% free. Call: Text Start to 737-689 Or head to the website for chat options and additional resources: www.the7AC Technologiesrproject.org B Discharge References/Attachments Insomnia (Setswana) * ED Progress Note - Karlee Arechiga [...] components within normal limits Narrative: Performed at: [facility] [address] [id number] Esthetician Spa: Flaco Cameron MD, Phone: [phone] , SERUM, QUAL - Normal ALCOHOL - Normal HIV TYPE 1 AND 2 AB SCREEN, RAPID - Normal THYROXINE (T4) FREE, DIRECT (RESULTS ONLY) Narrative: [facility]formed at: - [facility] [address] [facility] [address] [id number] Esthetician Spa: Flaco Cameron MD, Phone: [phone] DRUGS OF ABUSE, SCREEN, URINE COVID Test: [...] components within normal limits Narrative: Performed at: 01 - [facility] [address] [place] [id number] Esthetician Spa: Flaco Cameron MD, Phone: [phone] , SERUM, QUAL - Normal ALCOHOL - Normal HIV TYPE 1 AND 2 AB SCREEN, RAPID - Normal THYROXINE (T4) FREE, DIRECT (RESULTS ONLY) Narrative: Performed at: [facility] [address] [place] [id number] Esthetician Spa: Flaco Cameron MD, Phone: [phone] DRUGS OF ABUSE, SCREEN, URINE COVID Test: [...] this patient will be transferred to the [facility] ED provider, Dr. Arechiga. documented in [...] of Abuse, Screen, Urine (09/24/2024 7:36 AM [facility]) [facility] Amphetamine Screen, Urine Negative Negative 09/24/2024 7:56 AM [facility] ([facility]) Barbiturates Screen, Urine Negative Negative 09/24/2024 7:56 AM [facility] ([facility]) Benzodiazepines Screen, Urine Negative Negative 09/24/2024 7:56 AM [facility] ([facility]) Cannabinoids Screen, Urine Negative Negative 09/24/2024 7:56 AM [facility] ([facility]) Cocaine Screen, Urine Negative Negative 09/24/2024 7:56 AM [facility] ([facility]) Fentanyl Screen, Urine Negative Negative 09/24/2024 7:56 AM [facility] ([facility]) Methadone Screen, Urine Negative Negative 09/24/2024 7:56 AM [facility] ([facility]) Opiates Screen, Urine Negative Negative 09/24/2024 7:56 AM [facility] ([facility]) Oxycodone Screen, Urine Negative Negative 09/24/2024 7:56 AM PST [facility] ([facility]) Urine Collection / Unknown 09/24/2024 7:36 AM PST 09/24/2024 7:43 AM PST Narrative [facility] ([facility]) - 09/24/2024 7:56 [...] ORDERABLES Final R esult Performing Organization Address City/[facility]/ZIP Co de Phone Number [facility] ([facility]) [address] [place] [address] * Thyroxine Free, Direct (09/23/2024 11:30 AM PST) FREE T4 (REF) 1.46 0.82 - 1.77 ng/dL 09/23/2024 9:35 PM PST [facility] Blood Venipuncture / Unknown 09/23/2024 11:30 AM PST 09/23/2024 11:35 AM PST Narrative [facility] - 09/23/2024 9:35 PM PST Performed at: ??01 - [facility] [address] [facility] [address], [place] [id number] Esthetician Spa: Flaco Cameron MD, Phone: ??[phone] us Rebel Bravo MD LAB BLOOD ORDERABLES Fin al Result Performing Organization Address City/[facility]/ZIP Co de Phone Number [facility] [address] [phone] * HIV Type 1 and 2 Ab Screen, Rapid (09/23/2024 11:30 AM PST) [facility] HIV 1 and 2 Ab, Rapid Non Reactive Non Reactive 09/23/2024 11:54 AM PST [facility] ([facility]) Blood Venipuncture / Unknown 09/23/2024 11:30 AM PST 09/23/2024 11:35 AM PST us Rebel Bravo MD LAB BLOOD ORDERABLES Fin al Result Performing Organization Address City/[facility]/ZIP Co de Phone Number [facility] ([facility]) [address] [place] [address] * (ABNORMAL) TSH, Reflex Free T4 (09/23/2024 11:30 AM PST) Pathologist [facility] TSH 0.443(L) 0.450 - 4.500 uIU/mL 09/23/2024 9:35 PM PST [facility] Blood Venipuncture / Unknown 09/23/2024 11:30 AM PST 09/23/2024 11:35 AM PST Narrative [facility] - 09/23/2024 9:35 PM PST Performed at: ??01 - [facility] [address] [facility] [address] [id number] Esthetician Spa: Flaco Cameron MD, Phone: ??[phone] Rebel Bravo MD LAB BLOOD ORDERABLES Fin al Result Performing Organization Address City/[facility]/ZIP Co de Phone Number [facility] [address] [place] [address] * Ethanol (09/23/2024 11:30 AM PST) Pathologist [facility] ALCOHOL, SERUM/PLASMA <3 <=10 mg/dL 09/23/2024 12:38 PM [facility] ([facility]) Blood Venipuncture / Unknown 09/23/2024 11:30 AM PST 09/23/2024 11:35 AM PST Rebel Bravo MD LAB BLOOD ORDERABLES Fin al Result [facility] ([facility]) [address] [place] [address] * (ABNORMAL) Acetaminophen Level (09/23/2024 11:30 AM PST) Pathologist [facility] Acetaminophen Level <2(L) 5 - 20 ug/mL 09/23/2024 12:38 PM [facility] ([facility]) Comment:Concentration expect ed to be undetectable in a patient not taking this medication. Blood Venipuncture / Unknown 09/23/2024 11:30 AM PST 09/23/2024 11:35 AM PST Rebel Bravo MD LAB BLOOD ORDERABLES Fin al Result Performing Organization Address City/[facility]/ZIP Co de Phone Number [facility] ([facility]) [address] [place] [address] * (ABNORMAL) Salicylate Level (09/23/2024 11:30 AM PST) Salicylate Level <3.0(L) 10.0 - 20.0 mg/dL 09/23/2024 12:38 PM PST [facility] ([facility]) Comment:Concentration expect ed to be undetectable in a patient not taking this medication. Blood Venipuncture / Unknown 09/23/2024 11:30 AM PST 09/23/2024 11:35 AM [facility] us Rebel Bravo MD LAB BLOOD ORDERABLES Fin al Result Performing Organization Address [facility] Co de Phone Number [facility] ([facility]) [address] [place] [address] * , Serum, Qual (09/23/2024 11:30 AM PST) hCG Screen, Serum Negative Negative 09/23/2024 11:50 AM PST [facility] ([facility]) Blood Venipuncture / Unknown 09/23/2024 11:30 AM PST 09/23/2024 11:35 AM PST Reble Bravo MD LAB BLOOD ORDERABLES Fin al Result Performing Organization Address City/[facility]/ZIP Co de Phone Number [facility] ([facility]) [address] [place] [address] * (ABNORMAL) Comprehensive Metabolic Panel (09/23/2024 11:30 AM [facility]) Na 143 134 - 145 mmol/L 09/23/2024 12:47 PM [facility] ([facility]) K 3.9 3.3 - 5.0 mmol/L 09/23/2024 12:47 PM [facility] ([facility]) Cl 109 99 - 111 mmol/L 09/23/2024 12:47 PM [facility] ([facility]) CO2 25 22 - 32 mmol/L 09/23/2024 12:47 PM [facility] ([facility]) Anion Gap 9 2 - 13 mmol/L 09/23/2024 12:47 PM [facility] ([facility]) Glucose 108(H) 65 - 99 mg/dL 09/23/2024 12:47 PM [facility] ([facility]) Comment: Diagnostic Categories (per ADA): [...] 2 - 23 mg/dL 09/23/2024 12:47 PM [facility] ([facility]) Creatinine 0.84 0.60 - 1.30 mg/dL 09/23/2024 12:47 PM [facility] ([facility]) Calcium 10.2 8.3 - 10.4 mg/dL 09/23/2024 12:47 PM [facility] ([facility]) Albumin 4.0 3.0 - 5.0 g/dL 09/23/2024 12:47 PM [facility] ([facility]) Bilirubin Total 0.6 0.1 - 1.1 mg/dL 09/23/2024 12:47 PM [facility] ([facility]) Total Protein 7.9 5.9 - 8.2 g/dL 09/23/2024 12:47 PM [facility] ([facility]) AST 23 8 - 48 U/L 09/23/2024 12:47 PM [facility] ([facility]) ALT 13 7 - 54 U/L 09/23/2024 12:47 PM [facility] ([facility]) Alkaline Phosphatase 60 40 - 130 U/L 09/23/2024 12:47 PM [facility] ([facility]) Globulin 3.9 2.4 - 4.0 g/dL 09/23/2024 12:47 PM [facility] ([facility]) Albumin/Globulin Ratio 1.0 0.6 - 2.8 09/23/2024 12:47 PM [facility] ([facility]) BUN/Creatinine Ratio 19.0 5.0 - 28.0 09/23/2024 12:47 PM [facility] ([facility]) eGFR 95 >=60 mL/min/1. 73m2 09/23/2024 12:47 PM [facility] ([facility]) Comment: GFR value was calculated using a new GFR equation effective since 09/01/21. ??This is a recommendation of the [place] Society [employer] Nephrology and National Kidney Foundation. ?? Clinical practice guidelines suggest the use of serum cystatin C as a confirmatory test for eGFR 45-59 ml/min/1.73m2 in adults who do not have markers of kidney disease; eGFR may be less accurate in this range. Blood Venipuncture / Unknown 09/23/2024 11:30 AM PST 09/23/2024 11:35 AM [facility] us Rebel Bravo MD LAB BLOOD ORDERABLES Fin al Result [facility] ([facility]) [address] [place] [address] * (ABNORMAL) CBC with Differential (09/23/2024 11:30 AM [facility]) White Blood Cells 8.46 3.5 - 11 K/uL 09/23/2024 11:38 AM [facility] ([facility]) Red Blood Cells 4.40 4.00 - 5.20 M/uL 09/23/2024 11:38 AM [facility] ([facility]) Hemoglobin 10.7(L) 12.0 - 16.0 g/dL 09/23/2024 11:38 AM [facility] ([facility]) Hematocrit 35.0(L) 36.0 - 46.0 % 09/23/2024 11:38 AM [facility] ([facility]) MCV 79.5(L) 80.0 - 100.0 fL 09/23/2024 11:38 AM [facility] ([facility]) MCH 24.3(L) 25.0 - 35.0 pg 09/23/2024 11:38 AM [facility] ([facility]) MCHC 30.6(L) 31.0 - 37.0 g/dL 09/23/2024 11:38 AM [facility] ([facility]) RDW-CV 15.9(H) 11.5 - 14.5 % 09/23/2024 11:38 AM [facility] ([facility]) RDW-SD 45.8 35.1 - 46.3 fL 09/23/2024 11:38 AM [facility] ([facility]) Platelet Count 346 140 - 444 K/uL 09/23/2024 11:38 AM [facility] ([facility]) MPV 10.8 6.5 - 12.3 fL 09/23/2024 11:38 AM [facility] ([facility]) % Neutrophils 77.7 40.0 - 81.0 % 09/23/2024 11:38 AM [facility] ([facility]) % Lymphocytes 14.4(L) 18.0 - 42.0 % 09/23/2024 11:38 AM [facility] ([facility]) % Monocytes 7.0 1.0 - 12.5 % 09/23/2024 11:38 AM [facility] ([facility]) % Eosinophils 0.0 0.0 - 5.8 % 09/23/2024 11:38 AM [facility] ([facility]) % Basophils 0.5 0.0 - 2.0 % 09/23/2024 11:38 AM [facility] ([facility]) % Immature Granulocytes 0.4 0.0 - 1.0 % 09/23/2024 11:38 AM [facility] ([facility]) Absolute Neutrophils 6.58 1.80 - 8.00 K/uL 09/23/2024 11:38 AM [facility] ([facility]) Absolute Lymphocytes 1.22 1.00 - 4.80 K/uL 09/23/2024 11:38 AM [facility] ([facility]) Absolute Monocytes 0.59 0.00 - 0.90 K/uL 09/23/2024 11:38 AM [facility] ([facility]) Absolute Eosinophils 0.00 0.00 - 0.50 K/uL 09/23/2024 11:38 AM [facility] ([facility]) Absolute Basophils 0.04 0.00 - 0.20 K/uL 09/23/2024 11:38 AM [facility] ([facility]) Absolute Immature Granulocytes 0.03 0.00 - 0.03 K/uL 09/23/2024 11:38 AM [facility] ([facility]) % nRBC 0.0 0.0 - 1.0 per 100 WBCs 09/23/2024 11:38 AM PST [facility] ([facility]) Absolute nRBC 0.00 0.00 - 0.02 K/uL 09/23/2024 11:38 AM [facility] ([facility]) Blood Venipuncture / Unknown 09/23/2024 11:30 AM PST 09/23/2024 11:35 AM [facility] us Rebel Bravo MD LAB BLOOD ORDERABLES Fin al Result Performing Organization Address [facility] Co de Phone Number [facility] ([facility]) [address] [place] [address] * ECG 12 lead (09/23/2024 11:21 AM [...] OR MUSE 09/23/2024 11:2 1 AM [facility] us Rebel Bravo MD ECG ORDERABLES Final Re sult OR MUSE documented in this encounter Visit [...] [id number] documented in this encounter Care Teams Printing Table Worker Relationship Specialty Start Date End Date No, Physician PCP - General 09/23/24 documented as of this encounter
--- OUTSIDE RECORDS SUMMARY | 2024-10-10 23:17 | XMS_ITS | Clinical Summary ---
Author Organization [facility] Address [address] [place] [address] Care Team Providers Care Baker Apprentice Name Role Phone Sue Gold MD Primary Care Provider [phone]- [phone] Allergies No known active allergies Medications No [...] patient's age to complete this topic Insurance [facility] Care Teams Baker Apprentice Relationship Specialty [place] [address] [place] [address] PCP - General Family Medicine 06/04/19 Additional Source Comments Chart notes may be sent separately from this document.[facility]
--- OUTSIDE RECORDS SUMMARY | 2024-10-10 23:17 | XMS_ITS | Referral Summary ---
Author Organization [facility] an [employer] [facility] Address [facility] [address] [place] [address] Care Team Providers Care Insurance Follow Up Rep Name Role Phone No, Physician Primary Care Provider Unavailabl e Encounters Date Type Department Care Team Description 09/25/2024 Telephone [facility] [address] [facility] [address] [place] [phone] Yann Carvalho, CPSS Caring Contacts (ED Follow-Up) 09/23/2024 9:56 AM PST - 09/24/2024 2:27 PM [facility] Emergency [facility] [address] [place], [place] [phone] Rebel Bravo MD Kitzis, MD Hawk Farr, [...] CT HEAD WO CONTRAST 09/24/2024 8:48 AM [facility] INDICATION: 34 years old Female. Rule out [...] 9:03 AM PST PST Rebel Bravo MD [facility] CT ORDERABLES Final Result * Drugs of Abuse, Screen, Urine (09/24/2024 7:36 AM [facility]) Amphetamine Screen, Urine Negative Negative 09/24/2024 7:56 AM [facility] ([facility]) Barbiturates Screen, Urine Negative Negative 09/24/2024 7:56 AM [facility] ([facility]) Benzodiazepines Screen, Urine Negative Negative 09/24/2024 7:56 AM [facility] ([facility]) Cannabinoids Screen, Urine Negative Negative 09/24/2024 7:56 AM [facility] ([facility]) Cocaine Screen, Urine Negative Negative 09/24/2024 7:56 AM [facility] ([facility]) Fentanyl Screen, Urine Negative Negative 09/24/2024 7:56 AM [facility] ([facility]) Methadone Screen, Urine Negative Negative 09/24/2024 7:56 AM [facility] ([facility]) Opiates Screen, Urine Negative Negative 09/24/2024 7:56 AM [facility] ([facility]) Oxycodone Screen, Urine Negative Negative 09/24/2024 7:56 AM [facility] ([facility]) Urine Collection / Unknown 09/24/2024 7:36 AM [facility] 09/24/2024 7:43 AM [facility] Narrative [facility] ([facility]) - 09/24/2024 7:56 AM [facility] Methodology: Enzyme Multiplied Immunoassay Technique (EMIT) Tramadol, [...] ORDERABLES Final R esult Performing Organization Address City/[facility] Co de Phone Number [facility] ([facility]) [address] [place] [address] * Thyroxine Free, Direct (09/23/2024 11:30 AM PST) FREE T4 (REF) 1.46 0.82 - 1.77 ng/dL 09/23/2024 9:35 PM PST [facility] Blood Venipuncture / Unknown 09/23/2024 11:30 AM PST 09/23/2024 11:35 AM PST Narrative [facility] - 09/23/2024 9:35 PM PST Performed at: ??01 - [facility] [address] [facility] [place], [place] ??[id number] Stove Refinisher: Flaco Cameron MD, Phone: ??[phone] us Rebel Bravo MD LAB BLOOD ORDERABLES Fin al Result Performing Organization Address City/[facility]/ZIP Co de Phone Number [facility] [address] [place], [place] [address] [phone] * (ABNORMAL) TSH, Reflex Free T4 (09/23/2024 11:30 AM PST) [facility] TSH 0.443(L) 0.450 - 4.500 uIU/mL 09/23/2024 9:35 PM PST [facility] Blood Venipuncture / Unknown 09/23/2024 11:30 AM PST 09/23/2024 11:35 AM PST Narrative [facility] - 09/23/2024 9:35 PM PST Performed at: ??01 - [facility] [address] [facility] [address] ??[id number] Stove Refinisher: Flaco Cameron MD, Phone: ??[phone] Rebel Bravo MD LAB BLOOD ORDERABLES Fin al Result [facility] [address] [place], [place] [address] [phone] * HIV Type 1 and 2 Ab Screen, Rapid (09/23/2024 11:30 AM PST) [facility] HIV 1 and 2 Ab, Rapid Non Reactive Non Reactive 09/23/2024 11:54 AM PST [facility] Blood Venipuncture / Unknown 09/23/2024 11:30 AM PST 09/23/2024 11:35 AM PST us Rebel Bravo MD LAB BLOOD ORDERABLES Fin al Result [facility]) [address] [place] [phone] * (ABNORMAL) CBC with Differential (09/23/2024 11:30 AM PST) [facility] White Blood Cells 8.46 3.5 - 11 K/uL 09/23/2024 11:38 AM [facility] ([facility]) Red Blood Cells 4.40 4.00 - 5.20 M/uL 09/23/2024 11:38 AM [facility] ([facility]) Hemoglobin 10.7(L) 12.0 - 16.0 g/dL 09/23/2024 11:38 AM [facility]) Hematocrit 35.0(L) 36.0 - 46.0 % 09/23/2024 11:38 AM [facility]) MCV 79.5(L) 80.0 - 100.0 fL 09/23/2024 11:38 AM [facility] ([facility]) MCH 24.3(L) 25.0 - 35.0 pg 09/23/2024 11:38 AM [facility]) MCHC 30.6(L) 31.0 - 37.0 g/dL 09/23/2024 11:38 AM [facility] ([facility]) RDW-CV 15.9(H) 11.5 - 14.5 % 09/23/2024 11:38 AM [facility]) RDW-SD 45.8 35.1 - 46.3 fL 09/23/2024 11:38 AM [facility]) Platelet Count 346 140 - 444 K/uL 09/23/2024 11:38 AM [facility]) MPV 10.8 6.5 - 12.3 fL 09/23/2024 11:38 AM [facility] % Neutrophils 77.7 40.0 - 81.0 % 09/23/2024 11:38 AM [facility] % Lymphocytes 14.4(L) 18.0 - 42.0 % 09/23/2024 11:38 AM [facility] ([facility]) % Monocytes 7.0 1.0 - 12.5 % 09/23/2024 11:38 AM [facility] ([facility]) % Eosinophils 0.0 0.0 - 5.8 % 09/23/2024 11:38 AM [facility] ([facility]) % Basophils 0.5 0.0 - 2.0 % 09/23/2024 11:38 AM [facility] ([facility]) % Immature Granulocytes 0.4 0.0 - 1.0 % 09/23/2024 11:38 AM [facility] ([facility]) Absolute Neutrophils 6.58 1.80 - 8.00 K/uL 09/23/2024 11:38 AM [facility] ([facility]) Absolute Lymphocytes 1.22 1.00 - 4.80 K/uL 09/23/2024 11:38 AM [facility] ([facility]) Absolute Monocytes 0.59 0.00 - 0.90 K/uL 09/23/2024 11:38 AM [facility] ([facility]) Absolute Eosinophils 0.00 0.00 - 0.50 K/uL 09/23/2024 11:38 AM [facility] ([facility]) Absolute Basophils 0.04 0.00 - 0.20 K/uL 09/23/2024 11:38 AM [facility] ([facility]) Absolute Immature Granulocytes 0.03 0.00 - 0.03 K/uL 09/23/2024 11:38 AM [facility] ([facility]) % nRBC 0.0 0.0 - 1.0 per 100 WBCs 09/23/2024 11:38 AM [facility] ([facility]) Absolute nRBC 0.00 0.00 - 0.02 K/uL 09/23/2024 11:38 AM [facility] ([facility]) Blood Venipuncture / Unknown 09/23/2024 11:30 AM PST 09/23/2024 11:35 AM PST Rebel Bravo MD LAB BLOOD ORDERABLES Fin al Result Performing Organization Address City/[facility]/ZIP Co de Phone Number [facility] ([facility]) [address] [place] [phone] * , Serum, Qual (09/23/2024 11:30 AM PST) Pathologist [facility] hCG Screen, Serum Negative Negative 09/23/2024 11:50 AM [facility] ([facility]) Blood Venipuncture / Unknown 09/23/2024 11:30 AM PST 09/23/2024 11:35 AM PST Rebel Bravo MD LAB BLOOD ORDERABLES Fin al Result Performing Organization Address [facility]/ZIP Co de Phone Number [facility] ([facility]) [address] [place] [phone] * Ethanol (09/23/2024 11:30 AM PST) [facility] ALCOHOL, SERUM/PLASMA <3 <=10 mg/dL 09/23/2024 12:38 PM PST [facility] ([facility]) Blood Venipuncture / Unknown 09/23/2024 11:30 AM PST 09/23/2024 11:35 AM PST Rebel Bravo MD LAB BLOOD ORDERABLES Fin al Result Performing Organization Address City/[facility]/ZIP Co de Phone Number [facility] ([facility]) [address] [place] [phone] * (ABNORMAL) Acetaminophen Level (09/23/2024 11:30 AM PST) [facility] Acetaminophen Level <2(L) 5 - 20 ug/mL 09/23/2024 12:38 PM [facility] ([facility]) Comment:Concentration expect ed to be undetectable in a patient not taking this medication. Blood Venipuncture / Unknown 09/23/2024 11:30 AM PST 09/23/2024 11:35 AM PST Rebel Bravo MD LAB BLOOD ORDERABLES Fin al Result Performing Organization Address [facility] Co de Phone Number [facility] ([facility]) [address] [place] [phone] * (ABNORMAL) Salicylate Level (09/23/2024 11:30 AM [facility]) Pathologist [facility] Salicylate Level <3.0(L) 10.0 - 20.0 mg/dL 09/23/2024 12:38 PM [facility] ([facility]) Comment:Concentration expect ed to be undetectable in a patient not taking this medication. Blood Venipuncture / Unknown 09/23/2024 11:30 AM PST 09/23/2024 11:35 AM [facility] Rebel Bravo MD LAB BLOOD ORDERABLES Fin al Result Performing Organization Address [facility] de Phone Number [facility]) [address] [place] [phone] * (ABNORMAL) Comprehensive Metabolic Panel (09/23/2024 11:30 AM [facility]) Na 143 134 - 145 mmol/L 09/23/2024 12:47 PM [facility] K 3.9 3.3 - 5.0 mmol/L 09/23/2024 12:47 PM [facility] ([facility]) Cl 109 99 - 111 mmol/L 09/23/2024 12:47 PM [facility] ([facility]) CO2 25 22 - 32 mmol/L 09/23/2024 12:47 PM [facility]) Anion Gap 9 2 - 13 mmol/L 09/23/2024 12:47 PM [facility] Glucose 108(H) 65 - 99 mg/dL 09/23/2024 12:47 PM [facility] ([facility]) Comment: [...] 2 - 23 mg/dL 09/23/2024 12:47 PM [facility]) Creatinine 0.84 0.60 - 1.30 mg/dL 09/23/2024 12:47 PM [facility]) Calcium 10.2 8.3 - 10.4 mg/dL 09/23/2024 12:47 PM [facility] Albumin 4.0 3.0 - 5.0 g/dL 09/23/2024 12:47 PM [facility] Bilirubin Total 0.6 0.1 - 1.1 mg/dL 09/23/2024 12:47 PM [facility] Total Protein 7.9 5.9 - 8.2 g/dL 09/23/2024 12:47 PM [facility] AST 23 8 - 48 U/L 09/23/2024 12:47 PM [facility] ([facility]) ALT 13 7 - 54 U/L 09/23/2024 12:47 PM [facility] ([facility]) Alkaline Phosphatase 60 40 - 130 U/L 09/23/2024 12:47 PM [facility] ([facility]) Globulin 3.9 2.4 - 4.0 g/dL 09/23/2024 12:47 PM [facility] ([facility]) Albumin/Globulin Ratio 1.0 0.6 - 2.8 09/23/2024 12:47 PM [facility] ([facility]) BUN/Creatinine Ratio 19.0 5.0 - 28.0 09/23/2024 12:47 PM [facility] ([facility]) eGFR 95 >=60 mL/min/1. 73m2 09/23/2024 12:47 PM [facility] ([facility]) Comment: GFR value was calculated using a new GFR equation effective since 09/01/21. ??This is a recommendation of the [place] [employer] Nephrology and National Kidney Foundation. ?? Clinical practice guidelines suggest the use of serum cystatin C as a confirmatory test for eGFR 45-59 ml/min/1.73m2 in adults who do not have markers of kidney disease; eGFR may be less accurate in this range. Blood Venipuncture / Unknown 09/23/2024 11:30 AM PST 09/23/2024 11:35 AM [facility] us Rebel Bravo MD LAB BLOOD ORDERABLES Fin al Result [facility] ([facility]) [address] [place] [address] * ECG 12 lead (09/23/2024 11:21 AM [facility]) VENTRICULAR RATE EKG 76 BPM OR MUSE [...] OR MUSE from Last 3 Months Insurance [facility] HMO [place] Care Teams Insurance Follow Up Rep Relationship Specialty Start Date End Date No, Physician PCP - General 09/23/24
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
--- OUTSIDE RECORDS SUMMARY | 2024-10-10 23:17 | XMS_ITS | Encounter Summary ---
Author Organization [facility] an [facility] Address [phone] [place] [address] Care Team Providers Care Staff Anesthesiologist Name Role Phone No, Physician Primary Care [...] on filedocumented in this encounter Care Teams Staff Anesthesiologist Relationship Specialty Start Date End Date No, Physician PCP - General 09/23/24 documented as of this encounter
--- OUTSIDE RECORDS SUMMARY | 2024-10-10 23:17 | XMS_ITS | Encounter Summary ---
Author Organization [facility] Address [address] [place] [address] Phone Care Team Providers Care Food Mixer Repairer Name Role Phone No Pcp Per Patient Primary Care Provider Unavail able Encounter Details Date Type Department Care Team (Late st Contact Info) Description 07/27/2021 Ancillary Orders [facility] [address] [place] [address] Vern Cid MD [address] [place] [address] Social History Tobacco Use Types Packs/Day Years [...] Description 11/14/2024 1:30 PM PDT Office Visit [facility] Primary Care at [address] [place] [phone] Tamia Villafana DO [address] [place] [address] Discharge Disposition: Discharged to home [...] quadrant documented in this encounter Care Teams Food Mixer Repairer Relationship Specialty Start Date End Date No Pcp Per Patient NO PCP PER PATIENT PCP - General 05/25/24 documented as of this encounter
--- OUTSIDE RECORDS SUMMARY | 2024-10-10 23:17 | XMS_ITS | Referral Summary ---
Author Organization [facility] Address [address] [id number] Care Team Providers Care First Officer And Flight Instructor Name Role Phone None Per Patient, None [...] Plan of Treatment Not on file Insurance [facility] Care Teams First Officer And Flight Instructor Relationship Specialty Start Date End Date None Per Patient, None Per Pt PCP - General 05/10/19
--- OUTSIDE RECORDS SUMMARY | 2024-10-10 23:17 | XMS_ITS | Encounter Summary ---
Author Organization [facility] Address [address] [place] [address] Phone Care Team Providers Care Picture Engraver Name Role Phone No Pcp Per Patient Primary Care Provider Unavail able Encounter Details Date Type Department Care Team (Late st Contact Info) Description 02/05/2021 Ancillary Orders [facility] [address] [place] [address] Vern Cid MD [address] [place] [address] Social History Tobacco Use Types Packs/Day Years [...] Description 11/14/2024 1:30 PM PDT Office Visit [facility] Primary Care at [address] [place] [address] Tamia Villafana DO [address] [place] [address] Discharge Disposition: Discharged to home [...] breast documented in this encounter Care Teams Picture Engraver Relationship Specialty Start Date End Date No Pcp Per Patient NO PCP PER PATIENT PCP - General 05/25/24 documented as of this encounter
--- OUTSIDE RECORDS SUMMARY | 2024-10-10 23:17 | XMS_ITS | Referral Summary ---
Author Organization [facility] Address [address] [place] [address] Phone Care Team Providers Care Tray Checker Name Role Phone No Pcp Per Patient [...] Description 11/14/2024 1:30 PM PDT Office Visit [facility] Primary Care at [address] [place] [address] Tamia Villafana DO [address] [place] [address] Discharge Disposition: Discharged to home or self care (routine discharge) Insurance [facility] Care Teams Tray Checker Relationship Specialty Start Date End Date No Pcp Per Patient NO PCP PER PATIENT PCP - General 05/25/24
--- OUTSIDE RECORDS SUMMARY | 2024-10-10 23:17 | XMS_ITS | Clinical Summary ---
Author Organization [facility] Address [facility] [address] [place] [address] Care Team Providers Care Punch Press Operator Helper Name Role Phone No, Physician Primary Care Provider Unavailabl e Allergies No known active allergies Medications traZODone (DESYREL) 50 mg tablet Take 1 tablet by mouth at bedtime as needed for Insomnia. 15 tablet 09/24/2024 12:44 PM PST 09/24/2024 Active Active Problems Problem Noted Date Diagnosed Date Mood disorder 09/24/2024 Encounters Date Type Department Care Team Description 09/25/2024 Telephone [facility] [address] [phone] Yann Carvalho, CPSS Caring Contacts (ED Follow-Up) 09/23/2024 9:56 AM PST - 09/24/2024 2:27 PM [facility] Emergency [facility] [address] [place] [address] Rebel Bravo MD Kitzis, MD Hawk Farr, [...] Campos Villatoro M.D. on 09/24/2024 9:03 AM [facility] PST Rebel Bravo MD IMG CT ORDERABLES Final Result * Drugs of Abuse, Screen, Urine (09/24/2024 7:36 AM [facility]) Amphetamine Screen, Urine Negative Negative 09/24/2024 7:56 AM [facility] ([facility]) Barbiturates Screen, Urine Negative Negative 09/24/2024 7:56 AM [facility] ([facility]) Benzodiazepines Screen, Urine Negative Negative 09/24/2024 7:56 AM [facility] ([facility]) Cannabinoids Screen, Urine Negative Negative 09/24/2024 7:56 AM [facility] ([facility]) Cocaine Screen, Urine Negative Negative 09/24/2024 7:56 AM [facility] ([facility]) Fentanyl Screen, Urine Negative Negative 09/24/2024 7:56 AM [facility] ([facility]) Methadone Screen, Urine Negative Negative 09/24/2024 7:56 AM [facility] ([facility]) Opiates Screen, Urine Negative Negative 09/24/2024 7:56 AM [facility] ([facility]) Oxycodone Screen, Urine Negative Negative 09/24/2024 7:56 AM [facility] ([facility]) Urine Collection / Unknown 09/24/2024 7:36 AM PST 09/24/2024 7:43 AM [facility] Narrative [facility] ([facility]) - 09/24/2024 7:56 AM [facility] Methodology: Enzyme Multiplied Immunoassay Technique [...] Bravo MD URINE ORDERABLES Final R esult [facility] ([facility]) [address] [place] [address] * Thyroxine Free, Direct (09/23/2024 11:30 AM PST) [facility] FREE T4 (REF) 1.46 0.82 - 1.77 ng/dL 09/23/2024 9:35 PM PST [facility] Blood Venipuncture / Unknown 09/23/2024 11:30 AM PST 09/23/2024 11:35 AM PST Narrative [facility] - 09/23/2024 9:35 PM PST Performed at: ??01 - [facility] [address], [place], [place] ??[id number] Foot Miter Operator: Flaco Cameron MD, Phone: ??[phone] Rebel Bravo MD LAB BLOOD ORDERABLES Fin al Result Performing Organization Address City/[facility]/ZIP Co de Phone Number [facility] [id number] [place] [address] * (ABNORMAL) TSH, Reflex Free T4 (09/23/2024 11:30 AM PST) TSH 0.443(L) 0.450 - 4.500 uIU/mL 09/23/2024 9:35 PM [facility] Blood Venipuncture / Unknown 09/23/2024 11:30 AM PST 09/23/2024 11:35 AM PST Narrative [facility] - 09/23/2024 9:35 PM PST Performed at: ??01 - [facility] [address], [place] ??[id number] Foot Miter Operator: Flaco Cameron MD, Phone: ??[phone] Rebel Bravo MD LAB BLOOD ORDERABLES Fin al Result [facility] [id number] [place] [address] * HIV Type 1 and 2 Ab Screen, Rapid (09/23/2024 11:30 AM PST) HIV 1 and 2 Ab, Rapid Non Reactive Non Reactive 09/23/2024 11:54 AM [facility] ([facility]) Blood Venipuncture / Unknown 09/23/2024 11:30 AM PST 09/23/2024 11:35 AM [facility] Rebel Bravo MD LAB BLOOD ORDERABLES Fin al Result [facility] ([facility]) [address] [place] [address] * (ABNORMAL) CBC with Differential (09/23/2024 11:30 AM [facility]) Pathologist [facility] White Blood Cells 8.46 3.5 - 11 K/uL 09/23/2024 11:38 AM [facility] ([facility]) Red Blood Cells 4.40 4.00 - 5.20 M/uL 09/23/2024 11:38 AM [facility] ([facility]) Hemoglobin 10.7(L) 12.0 - 16.0 g/dL 09/23/2024 11:38 AM [facility] ([facility]) Hematocrit 35.0(L) 36.0 - 46.0 % 09/23/2024 11:38 AM [facility] ([facility]) MCV 79.5(L) 80.0 - 100.0 fL 09/23/2024 11:38 AM [facility] ([facility]) MCH 24.3(L) 25.0 - 35.0 pg 09/23/2024 11:38 AM [facility] ([facility]) MCHC 30.6(L) 31.0 - 37.0 g/dL 09/23/2024 11:38 AM [facility] ([facility]) RDW-CV 15.9(H) 11.5 - 14.5 % 09/23/2024 11:38 AM [facility] ([facility]) RDW-SD 45.8 35.1 - 46.3 fL 09/23/2024 11:38 AM [facility] ([facility]) Platelet Count 346 140 - 444 K/uL 09/23/2024 11:38 AM [facility] ([facility]) MPV 10.8 6.5 - 12.3 fL 09/23/2024 11:38 AM [facility] ([facility]) % Neutrophils 77.7 40.0 - 81.0 % 09/23/2024 11:38 AM [facility] ([facility]) % Lymphocytes 14.4(L) 18.0 - 42.0 % 09/23/2024 11:38 AM [facility] ([facility]) % Monocytes 7.0 1.0 - 12.5 % 09/23/2024 11:38 AM [facility] ([facility]) % Eosinophils 0.0 0.0 - 5.8 % 09/23/2024 11:38 AM [facility] ([facility]) % Basophils 0.5 0.0 - 2.0 % 09/23/2024 11:38 AM [facility] ([facility]) % Immature Granulocytes 0.4 0.0 - 1.0 % 09/23/2024 11:38 AM [facility] ([facility]) Absolute Neutrophils 6.58 1.80 - 8.00 K/uL 09/23/2024 11:38 AM [facility] ([facility]) Absolute Lymphocytes 1.22 1.00 - 4.80 K/uL 09/23/2024 11:38 AM [facility] ([facility]) Absolute Monocytes 0.59 0.00 - 0.90 K/uL 09/23/2024 11:38 AM [facility] ([facility]) Absolute Eosinophils 0.00 0.00 - 0.50 K/uL 09/23/2024 11:38 AM [facility] ([facility]) Absolute Basophils 0.04 0.00 - 0.20 K/uL 09/23/2024 11:38 AM [facility] ([facility]) Absolute Immature Granulocytes 0.03 0.00 - 0.03 K/uL 09/23/2024 11:38 AM [facility] ([facility]) % nRBC 0.0 0.0 - 1.0 per 100 WBCs 09/23/2024 11:38 AM [facility] ([facility]) Absolute nRBC 0.00 0.00 - 0.02 K/uL 09/23/2024 11:38 AM [facility] ([facility]) Blood Venipuncture / Unknown 09/23/2024 11:30 AM PST 09/23/2024 11:35 AM PST Rebel Bravo MD LAB BLOOD ORDERABLES Fin al Result [facility] ([facility]) [address] [place] [address] * , Serum, Qual (09/23/2024 11:30 AM [facility]) Pathologist [facility] hCG Screen, Serum Negative Negative 09/23/2024 11:50 AM [facility] ([facility]) Blood Venipuncture / Unknown 09/23/2024 11:30 AM PST 09/23/2024 11:35 AM PST Rebel Bravo MD LAB BLOOD ORDERABLES Fin al Result [facility] ([facility]) [address] [place] [address] * Ethanol (09/23/2024 11:30 AM PST) ALCOHOL, SERUM/PLASMA <3 <=10 mg/dL 09/23/2024 12:38 PM [facility] ([facility]) Blood Venipuncture / Unknown 09/23/2024 11:30 AM PST 09/23/2024 11:35 AM PST Rebel Bravo MD LAB BLOOD ORDERABLES Fin al Result Performing Organization Address City/[facility]/ZIP Co de Phone Number [facility] ([facility]) [address] [place] [phone] * (ABNORMAL) Acetaminophen Level (09/23/2024 11:30 AM PST) Acetaminophen Level <2(L) 5 - 20 ug/mL 09/23/2024 12:38 PM [facility] ([facility]) Comment:Concentration expect ed to be undetectable in a patient not taking this medication. Blood Venipuncture / Unknown 09/23/2024 11:30 AM PST 09/23/2024 11:35 AM PST Rebel Bravo MD LAB BLOOD ORDERABLES Fin al Result Performing Organization Address [facility] Co de Phone Number [facility]) [address] [place] [phone] * (ABNORMAL) Salicylate Level (09/23/2024 11:30 AM PST) Salicylate Level <3.0(L) 10.0 - 20.0 mg/dL 09/23/2024 12:38 PM PST [facility] ([facility]) Comment:Concentration expect ed to be undetectable in a patient not taking this medication. Blood Venipuncture / Unknown 09/23/2024 11:30 AM PST 09/23/2024 11:35 AM PST Rebel Bravo MD LAB BLOOD ORDERABLES Fin al Result [facility] ([facility]) [address] [place] [address] * (ABNORMAL) Comprehensive Metabolic Panel (09/23/2024 11:30 AM [facility]) Na 143 134 - 145 mmol/L 09/23/2024 12:47 PM [facility] ([facility]) K 3.9 3.3 - 5.0 mmol/L 09/23/2024 12:47 PM [facility] ([facility]) Cl 109 99 - 111 mmol/L 09/23/2024 12:47 PM [facility]) CO2 25 22 - 32 mmol/L 09/23/2024 12:47 PM [facility]) Anion Gap 9 2 - 13 mmol/L 09/23/2024 12:47 PM [facility]) Glucose 108(H) 65 - 99 mg/dL 09/23/2024 12:47 PM [facility] ([facility]) Comment: Diagnostic Categories (per ADA): Fasting: < [...] - 23 mg/dL 09/23/2024 12:47 PM [facility]) Creatinine 0.84 0.60 - 1.30 mg/dL 09/23/2024 12:47 PM [facility]) Calcium 10.2 8.3 - 10.4 mg/dL 09/23/2024 12:47 PM [facility] ([facility]) Albumin 4.0 3.0 - 5.0 g/dL 09/23/2024 12:47 PM [facility] ([facility]) Bilirubin Total 0.6 0.1 - 1.1 mg/dL 09/23/2024 12:47 PM [facility] ([facility]) Total Protein 7.9 5.9 - 8.2 g/dL 09/23/2024 12:47 PM [facility] ([facility]) AST 23 8 - 48 U/L 09/23/2024 12:47 PM [facility]) ALT 13 7 - 54 U/L 09/23/2024 12:47 PM [facility]) Alkaline Phosphatase 60 40 - 130 U/L 09/23/2024 12:47 PM [facility] ([facility]) Globulin 3.9 2.4 - 4.0 g/dL 09/23/2024 12:47 PM [facility] ([facility]) Albumin/Globulin Ratio 1.0 0.6 - 2.8 09/23/2024 12:47 PM [facility] ([facility]) BUN/Creatinine Ratio 19.0 5.0 - 28.0 09/23/2024 12:47 PM [facility] ([facility]) eGFR 95 >=60 mL/min/1. 73m2 09/23/2024 12:47 PM [facility] ([facility]) Comment: GFR value was calculated using a new GFR equation effective since 09/01/21. ??This is a recommendation of the [place] [employer]ph[employer] and National Kidney Foundation. [...] MD LAB BLOOD ORDERABLES Fin al Result [facility] ([facility]) [address] [place] [address] * ECG 12 lead (09/23/2024 11:21 AM [...] ORDERABLES Final Re sult Performing Organization Address City/[facility] Co de Phone Number [place] MUSE from Last 3 Months Insurance [facility] [place] Care Teams Punch Press Operator Helper Relationship Specialty Start Date End Date No, Physician PCP - General 09/23/24
--- OUTSIDE RECORDS SUMMARY | 2024-10-10 23:17 | XMS_ITS | Encounter Summary ---
Author Organization [facility] Address [address] [place] [address] Phone Care Team Providers Care Health Worker Name Role Phone No Pcp Per Patient Primary Care Provider Unavail able Encounter Details Date Type Department Care Team (Late st Contact Info) Description 03/14/2021 Ancillary Orders [facility] Diagnostic Imaging [address] [place] [address] Coreen Carmona MD [address] [place] [address] Social History Tobacco Use Types [...] Description 11/14/2024 1:30 PM PDT Office Visit [facility] [place] [id number] [place] [address] Tamia Villafana DO [address] [place] [address] Discharge Disposition: Discharged to home or self care (routine discharge) documented as of this encounter Results * US OUTSIDE BREAST LEFT (01/29/2021 12:00 AM PDT) Narrative [facility] - 03/14/2021 8:29 AM PDT - At the time of the study, no professional interpretation was requested. - us Coreen Carmona MD OUTSIDE FILMS EC Final Result [facility] documented in this encounter Visit Diagnoses Diagnosis Encounter for screening mammogram for breast cancer Encounter for screening mammogram for breast cancer documented in this encounter Care Teams Health Worker Relationship Specialty Start Date End Date No Pcp Per Patient NO PCP PER PATIENT PCP - General 05/25/24 documented as of this encounter
--- OUTSIDE RECORDS SUMMARY | 2024-10-10 23:17 | XMS_ITS | Encounter Summary ---
Author Organization [facility] Address [address] [place] [address] Phone Care Team Providers Care Military Administrative Technician Name Role Phone No Pcp Per Patient Primary Care Provider Unavail able Encounter Details Date Type Department Care Team (Late st Contact Info) Description 02/04/2021 Ancillary Orders [facility] Diagnostic Imaging [address] [place] [address] Id, Lab-Rad Pending Provider LAB-RAD PENDING PROVIDER [...] Description 11/14/2024 1:30 PM PDT Office Visit [facility] at [facility] [address] [place] [phone] Tamia Villafana DO [address] [place] [address] Discharge Disposition: Discharged to home or self care (routine discharge) documented as of this encounter Visit Diagnoses Diagnosis Lump in upper inner quadrant of left breast documented in this encounter Care Teams Military Administrative Technician Relationship Specialty Start Date End Date No Pcp Per Patient NO PCP PER PATIENT PCP - General 05/25/24 documented as of this encounter
--- OUTSIDE RECORDS SUMMARY | 2024-10-10 23:18 | XMS_ITS | Clinical Summary ---
Author Organization [facility] Address [address] [place] [id number] Care Team Providers Care Operator Prefinish Name Role Phone None Per Patient, None [...] Plan of Treatment Not on file Insurance [facility] Care Teams Operator Prefinish Relationship Specialty Start Date End Date None Per Patient, None Per Pt PCP - General 05/10/19
[2024-10-11 00:22] VITALS: BP 120/68; PULSE 92; RESP 16; TEMP 36.9; O2SAT 98
[2024-10-11 00:24] VITALS: BMI 37.3
--- NOTE | 2024-10-11 01:21 | PC.ADMIT ---
Wilma is a 34yo female admitted to M3 unit on 12b from [facility] [place] the treatment of Bipolar disorder. She was recently diagnosed of Bipolar with recurrent manic episodes.Pt was reported not sleeping for the past 7 days, responding to internal stimuli and was brought to [facility] per crisis assessment. Pt denies any ongoing complaints. States that her mom is manic and that is why she was sent here. On unit admission assessment, Pt was calm and pleasant, A&O x4, mood is depressed but she declined to participate in the admission process. She states I am too tired right now, I will do it tomorrow. Skin/safety check and v/s sign done. However, Pt did not sign/fill any admission paper works including release of informations form, menu,statement of understanding of valuables and notice of right for temporary involuntary hospitalization. Hospitalist contacted for consultation, safety tools and treatment plans initiated but yet to be signed.
[2024-10-11 07:00] VITALS: BMI 37.1
[2024-10-11 08:00] VITALS: BP 134/103; PULSE 89; RESP 18; TEMP 36.3; O2SAT 98
--- NOTE | 2024-10-11 08:59 | HO.PSYADMNOT ---
HPI Date of Service: 10/11/24 Chief Complaint: Unspecified Mood disorder HPI Narrative: per [facility] note, pt was walking the street at night with no coat or shoes on in cold weather. she weas not responsive to attempts by her mother and father to get in their car and come home. a bystander eventually contacted police, who responded and brought pt to ED. on being asked why she refused to get in the car, pt later said she was walking down the street to meet her sister and didn't want her sister to have to drive too far. per collateral from pt's mother, pt has increasingly been talking to herself, laughing then suddenly crying then yelling to god. pt has only been sleeping a few hours per night and her appetite has declined. on interview with MD, pt was kneeling at bedside and praying incessantly. she did not respond to numerous attempts by MD to engage with her. as interview was impossible, the history below is as gleaned from the medical record which came with the patient from [facility]. Past Psychiatric History: h/o 09/26/24 eval and admission to [facility], left same day due to being assigned a roommate and asserting she would not be able to sleep with a roommate. mother concurred and took patient home. discharged on zyprexa 10 QHS and trazodone 50 QHS PRN. appears to deny mental illness and/or need for psychiatric care. no h/o mental health Tx, although historical Dx of bipolar disorder appears in the chart. no h/o SA/SIB noted. Medical Evaluation Reviewed: Yes [facility] Narrative: denies medical problems Family History: per collateral from pt's mother, no FH of mental illness or substance use disorder. 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 she lives in [place] in an apartment with a friend, but she has recently been home visiting her mother. she grew up in [place], [place], with her mother, grandmother, and sister. pt reportedly works remotely from her apartment in [place] in [employer]. Substance History: denies substance use, utox NEG Trauma History: deferred Diagnostics Vital Signs (24Hr): Vital Signs - 24 hr 10/11/24 00:22 10/11/24 08:00 Temperature 98.5 F 97.3 F Pulse Rate 92 89 Respiratory Rate 16 18 Blood Pressure 120/68 134/103 H Pulse Oximetry 98 98 Oxygen Delivery Method Room Air Room Air BMI result Body Mass Index 37.3 Labs 10/11/24 08:32 Meds/Allergies Meds Home Medications ?Medication ?Instructions ?Recorded ?Confirmed ?Type olanzapine 10 mg tablet 10 mg PO BEDTIME 10/10/24 10/10/24 History Allergies Allergies Allergy/AdvReac Type Severity Reaction Status Date / Time No Known Allergies Allergy Verified 10/10/24 23:51 Mental Status Exam Mental Status Exam Narrative: kneeling at bedside, adequately dressed and groomed, wearing her own clothes, appearing to pray loudly to god. she did not acknowledge or directly address MD as MD attempted to interview patient. speech incr rate and amount, nml loudness, decr latency. thoughts religiously focused re repenting and salvation. affect constricted, hyper-intense, non-labile. mood not assessed. no SI/HI/AVH expressed. Assessment & Plan Assessment & Plan (1) Moderate bipolar I disorder with poornima as current episode: Status: Acute Code(s): F31.12 - Bipolar disorder, current episode manic without psychotic features, moderate Plan offer zyprexa 10 QHS and lithium 450 BID. Patient educated on: other Reason for continued inpatient stay Substantial Risk for: harm to self and inability to function Statement Statement: I have reviewed the history and physical and performed a pertinent examination on my patient. No changes have occurred unless specified. If the History and Physical was not performed prior to admission, the Hospitalist's service will be consulted for completing the admission physical. Time Spent With Patient Time: Total time managing care of this patient today __55__ minutes.
[2024-10-11 09:16] LABS: Estimated Average Glucose 100 mg/dL; Hemoglobin A1C 95.7075 umol/L; Hemoglobin A1c % 5.1 % (<6.0); Total Hemoglobin (HGBA1C) 2960.8333 umol/L
[2024-10-11 09:20] LABS: Alanine Aminotransferase 10 U/L (0-31); Albumin Level 4.1 g/dL (3.5-5.0); Alkaline Phosphatase 62 U/L (39-117); Anion Gap 10 (12-20); Aspartate Amino Transferase 16 U/L (5-31); Bilirubin Total 0.4 mg/dL (0.0-1.0); Blood Urea Nitrogen 16 mg/dL (9-16); Calcium 9.6 mg/dL (8.4-10.2); Carbon Dioxide 27 mmol/L (22-29); Chloride 106 mmol/L (96-108); Cholesterol 187 mg/dL (<200); Creatinine Clr Calc Pharmacy 123.6; Estimated Glomerular Filt Rate > 60; Glucose Random 83 mg/dL (60-115); HDL Cholesterol 43 mg/dL (>40); LDL Cholesterol Calculated 131 mg/dL (<100); Sodium 139 mmol/L (135-145); Triglycerides 66 mg/dL (<150)
[2024-10-11 09:34] LABS: TSH reflex Free T4 0.62 uIU/mL (0.32-4.0)
--- NOTE | 2024-10-11 12:06 | P.CONHOSP_ITS ---
History of Present Illness Data of Consult Service Date: 10/11/24 Primary Care Provider: Unknown Physician HPI Reason for consult: Admission H&P Pt is a 34-year-old female with a PMH significant for recent?diagnosis of bipolar 1 disorder with recurrent manic episodes who is admitted to [facility] unit for manic episode. Workup in the ED included MRI of the brain which was unremarkable. Medical consult for admission H&P. ?Pt is actively manic time of attempted interview and exam. When pt is approached she refuses to acknowledge her name, and gets up from her desk where she is eating lunch. Pt then starts pacing around the room and speaking to herself. Pt is not redirectable and refuses to respond to any inquiries. Pt is unable to to participate admission H&P. and starts pacing around the room and speaking to herself. Labs reviewed, grossly unremarkable. Review of Systems 2 Review of Systems: Yes Unobtainable due to mental status PMFSH Social History Household Members: Friend(s) Housing: Apartment Do you presently have visiting nurse or other home services: No Patient Tobacco Use Status: Never used Tobacco e-Cigarette/Vaping Use: Never Used Second Hand Smoke Exposure: No service: No Sexual orientation: Unable to collect Meds Allergies Allergy/AdvReac Type Severity Reaction Status Date / Time No Known Allergies Allergy Verified 10/10/24 23:51 Active Medications: Current Medications Acetaminophen (Acetaminophen 325 Mg Tablet) 650 mg PO Q6H PRN PRN Reason: Headache/Pain, Scale 1-10 Al Hydroxide/Mg Hydroxide (Magnesium Hydrox/Alum Hydrox 30 Ml Oral.Susp) 30 ml PO Q6H PRN PRN Reason: Heartburn/Nausea Hydroxyzine HCl (Hydroxyzine Hcl 25 Mg Tablet) 25 mg PO Q6H PRN PRN Reason: mild anxiety Magnesium Hydroxide (Milk Of Magnesia 30 Ml Oral.Susp) 30 ml PO DAILY PRN PRN Reason: Constipation Nicotine (Nicotine 21 Mg Patch.Td24) 21 mg TRANSDERMA DAILY PRN PRN Reason: smoking cessation Nicotine Polacrilex (Nicotine Polacrilex 2 Mg Gum) 4 mg BUCCAL Q2H PRN PRN Reason: Nicotine Cravings Olanzapine (Olanzapine 5 Mg Tablet) 5 mg PO TID PRN PRN Reason: agitation Trazodone HCl (Trazodone Hcl 50 Mg Tablet) 50 mg PO BEDTIME MRX1 PRN PRN Reason: Insomnia Home Medications ?Medication ?Instructions ?Recorded ?Confirmed ?Last Taken ?Type olanzapine 10 mg tablet 10 mg PO BEDTIME 10/10/24 10/10/24 Unknown History Physical Exam 2 Vital Signs and Narrative: Vital Signs: Last Vital Signs Temp 97.3 F 10/11/24 08:00 Pulse 89 10/11/24 08:00 Resp 18 10/11/24 08:00 BP 134/103 H 10/11/24 08:00 Pulse Ox 98 10/11/24 08:00 O2 Del Method Room Air 10/11/24 08:00 BMI result Body Mass Index 37.1 Pt actively manic and unapproachable, unable to participate in exam Results Labs 10/11/24 08:32 Labs: Laboratory Results - last 24 hr 10/11/24 08:32 Anion Gap 10 L Estim Creat Clear Calc 123.6 Estimated GFR > 60 Random Glucose 83 Estimat Average Glucose 100 Hemoglobin A1c % 5.1 Calcium 9.6 Total Bilirubin 0.4 AST 16 ALT 10 Alkaline Phosphatase 62 Total Protein 8.0 Albumin 4.1 Triglycerides 66 Cholesterol 187 LDL Cholesterol, Calc 131 H HDL Cholesterol 43 TSH 0.62 Assessment and Plan (1) Medical clearance for psychiatric admission: Status: Acute Plan Pt is a 34-year-old female with a PMH significant for recent?diagnosis of bipolar 1 disorder with recurrent manic episodes who is admitted to [facility] unit for manic episode. Workup in the ED included MRI of the brain which was unremarkable. Medical consult for admission H&P. Mood disorder Plan as per psychiatry Pt otherwise has no known chronic medical conditions and does not appear to be in any acute medical distress. Will sign off for now. Thank you for allowing us to participate in the care of this pt. Please re-consult if any acute issue or need arises.
[2024-10-11 20:00] VITALS: BP 109/62; PULSE 96; RESP 16; TEMP 36.7; O2SAT 99
[2024-10-11] MEDS: OLANZapine 10 MG TABLET PO (21:09)
[2024-10-11] MEDS: traZODone HCL 50 MG TABLET PO (23:17)
[2024-10-11] MEDS: hydrOXYzine HCL 25 MG TABLET PO (23:17)
[2024-10-12 08:40] VITALS: RESP 18
[2024-10-12] MEDS: hydrOXYzine HCL 25 MG TABLET PO (13:12)
--- NOTE | 2024-10-12 15:05 | HO.PSYCHPN ---
Subjective Subjective Date of Service: 10/12/24 Reason For Visit: Unspecified Mood disorder Interim History: similar behavior to yesterday. praying, talking to doc, reviewing latter day instructions. per staff, remains on . up tuesday. refusing medications. took atarax. HCP in chart. Mental Status Exam Mental Status Exam Narrative: bowing on floor of room, adequately dressed and groomed, wearing her own clothes, appearing to be reviewing latter day instructions, talking to the wall addressing doc. speech incr rate and amount, nml loudness, decr latency. thoughts religiously focused re proper behaviors. affect constricted, hyper-intense, non-labile. mood not assessed. no SI/HI/AVH expressed, although overtly talking to the wall as if someone were there. Diagnostics Vital Signs (24Hr): Vital Signs - 24 hr 10/11/24 20:00 10/12/24 08:40 Temperature 98.1 F Pulse Rate 96 Respiratory Rate 16 18 Blood Pressure 109/62 Pulse Oximetry 99 Oxygen Delivery Method Room Air BMI result Body Mass Index 37.1 Labs 10/11/24 08:32 Labs: Laboratory Results - last 48 hr 10/11/24 08:32 Sodium 139 Potassium 4.0 Chloride 106 Carbon Dioxide 27 Anion Gap 10 L BUN 16 Creatinine 0.69 Estim Creat Clear Calc 123.6 Estimated GFR > 60 Random Glucose 83 Estimat Average Glucose 100 Hemoglobin A1c % 5.1 Calcium 9.6 Total Bilirubin 0.4 AST 16 ALT 10 Alkaline Phosphatase 62 Total Protein 8.0 Albumin 4.1 Triglycerides 66 Cholesterol 187 LDL Cholesterol, Calc 131 H HDL Cholesterol 43 TSH 0.62 Medications Medications Current Medications Acetaminophen (Acetaminophen 325 Mg Tablet) 650 mg PO Q6H PRN PRN Reason: Headache/Pain, Scale 1-10 Al Hydroxide/Mg Hydroxide (Magnesium Hydrox/Alum Hydrox 30 Ml Oral.Susp) 30 ml PO Q6H PRN PRN Reason: Heartburn/Nausea Hydroxyzine HCl (Hydroxyzine Hcl 25 Mg Tablet) 25 mg PO Q6H PRN PRN Reason: mild anxiety Last Admin: 10/12/24 13:12 Dose: 25 mg [place] Carbonate ([place] Carbonate Er 450 Mg Tablet.Er) 450 mg PO BID BILLY Last Admin: 10/12/24 08:24 Dose: Not Given Magnesium Hydroxide (Milk Of Magnesia 30 Ml Oral.Susp) 30 ml PO DAILY PRN PRN Reason: Constipation Nicotine (Nicotine 21 Mg Patch.Td24) 21 mg TRANSDERMA DAILY PRN PRN Reason: smoking cessation Nicotine Polacrilex (Nicotine Polacrilex 2 Mg Gum) 4 mg BUCCAL Q2H PRN PRN Reason: Nicotine Cravings Olanzapine (Olanzapine 5 Mg Tablet) 5 mg PO TID PRN PRN Reason: agitation Olanzapine (Olanzapine 10 Mg Tablet) 10 mg PO BEDTIME BILLY Last Admin: 10/11/24 21:09 Dose: 10 mg Trazodone HCl (Trazodone Hcl 50 Mg Tablet) 50 mg PO BEDTIME MRX1 PRN PRN Reason: Insomnia Last Admin: 10/11/24 23:17 Dose: 50 mg Allergies Allergies Allergy/AdvReac Type Severity Reaction Status Date / Time No Known Allergies Allergy Verified 10/10/24 23:51 Assessment & Plan Assessment & Plan (1) Moderate bipolar I disorder with poornima as current episode: Status: Acute Code(s): F31.12 - Bipolar disorder, current episode manic without psychotic features, moderate Plan 10/11: offer zyprexa 10 QHS and lithium 450 BID. 10/12: pt refusing meds. continue to offer. HCP in chart. 3-day notice up tuesday. Reason for continued inpatient stay Substantial Risk for: inability to function Time Spent With Patient Time: Total time managing care of this patient today __25__ minutes.
--- NOTE | 2024-10-12 15:33 | PC.NURSE ---
Wilma's HCP/Mom Sara spoke to this RN stating that prior to this event, Wilma was independent and working, she had an episode of not sleeping for 5+ days and when she was with her mother, she began self dialoging.
[2024-10-12 20:00] VITALS: RESP 16
[2024-10-12] MEDS: OLANZapine 10 MG TABLET PO (20:34)
[2024-10-13 07:35] VITALS: BP 113/71; PULSE 89; RESP 14; TEMP 36.8; O2SAT 100
--- NOTE | 2024-10-13 09:13 | HO.PSYCHPN ---
Subjective Subjective Date of Service: 10/13/24 Reason For Visit: Unspecified Mood disorder Subjective Notes: Section 12B Interim History: The nursing staff reported the patient had been on 15 minute checks, she looks flat and withdrawn responding to internal stimuli. She refused lithium and vital signs, she took only Zyprexa at night and she was trying to cheek her medications. The staff reported that she looks very disorganized and slept 4 hours. On interview the patient refused to engage in conversation she was very paranoid, I am changing her Zyprexa to Zydis to assure compliance. Mental Status Exam Mental Status Exam Patient Appearance: Well Grooomed and Appropriate Patient Orientation: Person and Situation Level of Consciousness: Awake and Appropriate Patient Behavior: Guarded and Passive Mood Description: Withdrawn Affect Description: Constricted Patient Cognition Impaired: Yes Ability to Follow Directions: Good Speech Pattern: Clear Hallucinations: Auditory Delusions: Paranoid Ideation Thought Process: Distracted and Slowed Thinking Thought Content: positive for [place] and positive for Poverty of Content Judgement: Poor Diagnostics Vital Signs (24Hr): Vital Signs - 24 hr 10/12/24 20:00 10/13/24 07:35 Temperature 98.3 F Pulse Rate 89 Respiratory Rate 16 14 Blood Pressure 113/71 Pulse Oximetry 100 Oxygen Delivery Method Room Air BMI result Body Mass Index 37.1 Labs 10/11/24 08:32 Labs: Laboratory Results - last 48 hr 10/11/24 08:32 Sodium 139 Potassium 4.0 Chloride 106 Carbon Dioxide 27 Anion Gap 10 L BUN 16 Creatinine 0.69 Estim Creat Clear Calc 123.6 Estimated GFR > 60 Random Glucose 83 Estimat Average Glucose 100 Hemoglobin A1c % 5.1 Calcium 9.6 Total Bilirubin 0.4 AST 16 ALT 10 Alkaline Phosphatase 62 Total Protein 8.0 Albumin 4.1 Triglycerides 66 Cholesterol 187 LDL Cholesterol, Calc 131 H HDL Cholesterol 43 TSH 0.62 Medications Medications Current Medications Acetaminophen (Acetaminophen 325 Mg Tablet) 650 mg PO Q6H PRN PRN Reason: Headache/Pain, Scale 1-10 Al Hydroxide/Mg Hydroxide (Magnesium Hydrox/Alum Hydrox 30 Ml Oral.Susp) 30 ml PO Q6H PRN PRN Reason: Heartburn/Nausea Hydroxyzine HCl (Hydroxyzine Hcl 25 Mg Tablet) 25 mg PO Q6H PRN PRN Reason: mild anxiety Last Admin: 10/12/24 13:12 Dose: 25 mg [place] Carbonate ([place] Carbonate Er 450 Mg Tablet.Er) 450 mg PO BID [facility] Last Admin: 10/13/24 08:44 Dose: Not Given Magnesium Hydroxide (Milk Of Magnesia 30 Ml Oral.Susp) 30 ml PO DAILY PRN PRN Reason: Constipation Nicotine (Nicotine 21 Mg Patch.Td24) 21 mg TRANSDERMA DAILY PRN PRN Reason: smoking cessation Nicotine Polacrilex (Nicotine Polacrilex 2 Mg Gum) 4 mg BUCCAL Q2H PRN PRN Reason: Nicotine Cravings Olanzapine (Olanzapine 5 Mg Tablet) 5 mg PO TID PRN PRN Reason: agitation Olanzapine (Olanzapine 10 Mg Tablet) 10 mg PO BEDTIME [facility] Last Admin: 10/12/24 20:34 Dose: 10 mg Trazodone HCl (Trazodone Hcl 50 Mg Tablet) 50 mg PO BEDTIME MRX1 PRN PRN Reason: Insomnia Last Admin: 10/11/24 23:17 Dose: 50 mg Allergies Allergies Allergy/AdvReac Type Severity Reaction Status Date / Time No Known Allergies Allergy Verified 10/10/24 23:51 Assessment & Plan Assessment & Plan (1) Moderate bipolar I disorder with poornima as current episode: Status: Acute Code(s): F31.12 - Bipolar disorder, current episode manic without psychotic features, moderate Plan 10/11: offer zyprexa 10 QHS and lithium 450 BID. 10/12: pt refusing meds. continue to offer. HCP in chart. 3-day notice up tuesday. 10/13 change Zyprexa to Zydis to assure compliance. He had been refusing lithium. Reason for continued inpatient stay Substantial Risk for: inability to function, rapid decompensation and med/psych decompensation Time Spent With Patient Time: Total time managing care of this patient today __20__ minutes.
--- NOTE | 2024-10-13 19:52 | PC.NURSE ---
Pt was placed on 5 minute safety checks at 19:55 for disorganized and disruptive behavior.
[2024-10-13 20:00] VITALS: RESP 16
[2024-10-14] MEDS: traZODone HCL 50 MG TABLET PO (00:42)
--- NOTE | 2024-10-14 09:04 | P.PNPSI_ITS ---
Subjective Subjective Date of Service: 10/14/24 Reason For Visit: Unspecified Mood disorder Interim History: The nursing staff reported the patient had made internally preoccupied responding to internal stimuli. She had been self dialogue in and she has refused her medications in the evening, she was seen pacing in the hallway disorganized. On interview the patient refused to engage on al conversation. Still grossly psychotic. Mental Status Exam Mental Status Exam Patient Appearance: Appropriate Patient Orientation: Person and Situation Level of Consciousness: Awake Patient Behavior: Guarded and Passive Mood Description: Withdrawn Affect Description: Blunted Ability to Follow Directions: Poor Speech Pattern: Impoverished Hallucinations: Auditory Delusions: Paranoid Ideation Thought Process: Illogical Thought Content: positive for Poverty of Content and positive for Thought Blocking Judgement: Poor Diagnostics Vital Signs (24Hr): Vital Signs - 24 hr 10/13/24 20:00 Respiratory Rate 16 BMI result Body Mass Index 37.1 Labs 10/11/24 08:32 Medications Medications Current Medications Acetaminophen (Acetaminophen 325 Mg Tablet) 650 mg PO Q6H PRN PRN Reason: Headache/Pain, Scale 1-10 Al Hydroxide/Mg Hydroxide (Magnesium Hydrox/Alum Hydrox 30 Ml Oral.Susp) 30 ml PO Q6H PRN PRN Reason: Heartburn/Nausea Hydroxyzine HCl (Hydroxyzine Hcl 25 Mg Tablet) 25 mg PO Q6H PRN PRN Reason: mild anxiety Last Admin: 10/12/24 13:12 Dose: 25 mg [place] Carbonate ([place] Carbonate Er 450 Mg Tablet.Er) 450 mg PO BID BILLY Last Admin: 10/14/24 08:46 Dose: Not Given Magnesium Hydroxide (Milk Of Magnesia 30 Ml Oral.Susp) 30 ml PO DAILY PRN PRN Reason: Constipation Nicotine (Nicotine 21 Mg Patch.Td24) 21 mg TRANSDERMA DAILY PRN PRN Reason: smoking cessation Nicotine Polacrilex (Nicotine Polacrilex 2 Mg Gum) 4 mg BUCCAL Q2H PRN PRN Reason: Nicotine Cravings Olanzapine (Olanzapine 5 Mg Tablet) 5 mg PO TID PRN PRN Reason: agitation Olanzapine (Olanzapine Odt 10 Mg Tab.Rapdis) 10 mg TRANSLINGU BEDTIME BILLY Last Admin: 10/13/24 21:01 Dose: Not Given Trazodone HCl (Trazodone Hcl 50 Mg Tablet) 50 mg PO BEDTIME MRX1 PRN PRN Reason: Insomnia Last Admin: 10/14/24 00:42 Dose: 50 mg Allergies Allergies Allergy/AdvReac Type Severity Reaction Status Date / Time No Known Allergies Allergy Verified 10/10/24 23:51 Assessment & Plan Assessment & Plan (1) Moderate bipolar I disorder with poornima as current episode: Status: Acute Code(s): F31.12 - Bipolar disorder, current episode manic without psychotic features, moderate Plan 10/11: offer zyprexa 10 QHS and lithium 450 BID. 10/12: pt refusing meds. continue to offer. HCP in chart. 3-day notice up tuesday. 10/13 change Zyprexa to Zydis to assure compliance. He had been refusing lithium. 10/14 keep same treatment, encourage compliance. Reason for continued inpatient stay Substantial Risk for: inability to function, rapid decompensation and med/psych decompensation Time Spent With Patient Time: Total time managing care of this patient today __20__ minutes.
--- NOTE | 2024-10-15 00:39 | PC.NURSE ---
At 0015 this advertising copywriter noticed patient sitting on the floor in the middle of the hallway by rm [id number]. Patient was observed reaching into her pants and then removing her hand and wiping blood on the rae and doorknobs of the nearby rooms. Patient is currently on her menses. Patient asked to return to her room in 324-2. Patient was prompted to sit in the dayroom and after being in the dayroom, immediately returned to the center of the [place]. Patient was placed on close observations for safety. Patient has beeen observed responding to internal stimulation. Patient has been laughing to herself and praying in Vietnamese and [place]ian. Patient has been refusing to take any medications.
[2024-10-15] MEDS: OLANZapine 5 MG TABLET PO (10:19)
[2024-10-15] MEDS: Lithium Carbonate ER 450 MG TABLET.ER PO ×2 (10:19→21:11)
--- NOTE | 2024-10-15 10:19 | HO.HCP ---
Health Care Proxy Invocation Health Care Proxy Declaration: I, chasity hirsch MD , on the date cited below, have determined that, ____melody arias , lacks the capacity to make or communicate, informed health care decision. This determination is made in accordance with accepted standards of medical judgment and pursuant to [place], the [facility] Care Proxy Law. The cause, nature, extent and probable duration of the patient's inapacity are described below: Cause: poornima Nature: inability to appreciate mental illness Extent: any decisions related to mental health treatment Probable Duration of Patient's Incapacity: unknown, but on the order of weeks
--- NOTE | 2024-10-15 12:51 | HO.PSYCHPN ---
Subjective Subjective Date of Service: 10/15/24 Reason For Visit: Unspecified Mood disorder Interim History: sleeping heavily after taking medications this morning. filed for commitment, invoked HCP. meeting with mother this afternoon. per staff, menses, getting blood around unit. refusing meds until this morning. psychotic/manic behaviors continuing. Mental Status Exam Mental Status Exam Narrative: sleeping heavily in quiet room bed shortly after finally accepting medication for the first time this hospitalization. not rousable to loud voice. Diagnostics Vital Signs (24Hr): BMI result Body Mass Index 37.1 Labs 10/11/24 08:32 Medications Medications Current Medications Acetaminophen (Acetaminophen 325 Mg Tablet) 650 mg PO Q6H PRN PRN Reason: Headache/Pain, Scale 1-10 Al Hydroxide/Mg Hydroxide (Magnesium Hydrox/Alum Hydrox 30 Ml Oral.Susp) 30 ml PO Q6H PRN PRN Reason: Heartburn/Nausea Hydroxyzine HCl (Hydroxyzine Hcl 25 Mg Tablet) 25 mg PO Q6H PRN PRN Reason: mild anxiety Last Admin: 10/12/24 13:12 Dose: 25 mg [place] Carbonate ([place] Carbonate Er 450 Mg Tablet.Er) 450 mg PO BID [facility] Last Admin: 10/15/24 10:19 Dose: 450 mg Magn[place] Hydroxide (Milk Of Magnesia 30 Ml Oral.Susp) 30 ml PO DAILY PRN PRN Reason: Constipation Nicotine (Nicotine 21 Mg Patch.Td24) 21 mg TRANSDERMA DAILY PRN PRN Reason: smoking cessation Nicotine Polacrilex (Nicotine Polacrilex 2 Mg Gum) 4 mg BUCCAL Q2H PRN PRN Reason: Nicotine Cravings Olanzapine (Olanzapine 5 Mg Tablet) 5 mg PO TID PRN PRN Reason: agitation Last Admin: 10/15/24 10:19 Dose: 5 mg Olanzapine (Olanzapine Odt 10 Mg Tab.Rapdis) 10 mg TRANSLINGU BEDTIME BILLY Last Admin: 10/14/24 20:54 Dose: Not Given Trazodone HCl (Trazodone Hcl 50 Mg Tablet) 50 mg PO BEDTIME MRX1 PRN PRN Reason: Insomnia Last Admin: 10/14/24 00:42 Dose: 50 mg Allergies Allergies Allergy/AdvReac Type Severity Reaction Status Date / Time No Known Allergies Allergy Verified 10/10/24 23:51 Assessment & Plan Assessment & Plan (1) Moderate bipolar I disorder with poornima as current episode: Status: Acute Code(s): F31.12 - Bipolar disorder, current episode manic without psychotic features, moderate Plan 10/11: offer zyprexa 10 QHS and lithium 450 BID. 10/12: pt refusing meds. continue to offer. HCP in chart. 3-day notice up tuesday. 10/13: change Zyprexa to Zydis to assure compliance. refusing lithium. 10/14: keep same treatment, encourage compliance. 10/15: took meds this morning, sleeping heavily after. commitment paperwork completed, HCP invoked. meeting with mother this afternoon. Reason for continued inpatient stay Substantial Risk for: inability to function Time Spent With Patient Time: Total time managing care of this patient today __45__ minutes.
[2024-10-15 20:00] VITALS: BP 118/74; PULSE 77; RESP 16; TEMP 36.8; O2SAT 100
[2024-10-16] MEDS: Lithium Carbonate ER 450 MG TABLET.ER PO (07:50)
[2024-10-16] MEDS: hydrOXYzine HCL 25 MG TABLET PO ×2 (07:51→15:12)
[2024-10-16] MEDS: OLANZapine 5 MG TABLET PO (10:41)
--- NOTE | 2024-10-16 16:20 | HO.PSYCHPN ---
Subjective Subjective Date of Service: 10/16/24 Reason For Visit: Unspecified Mood disorder Subjective Notes: Section 7 Interim History: Patient seen psychiatric coverage for Dr. Scales. Patient has had a recent psychotic manic episode. She has been prescribed olanzapine and lithium. She is on close observation in single room . In the morning the patient was quite disorganized She is on a section 7 however the patient does appear to be passively consenting to treatment she does have a healthcare proxy Mental Status Exam Mental Status Exam Narrative: Patient was cooperative to the interview awake casually dressed. Mood described as anxious she was not labile when seen not aggressive poverty of content soft speech denied hallucinations or delusional material but poorly informational not aggressive not wish to discuss symptoms very vague and disorganized somewhat passive limited engagement Diagnostics Vital Signs (24Hr): Vital Signs - 24 hr 10/15/24 20:00 Temperature 98.2 F Pulse Rate 77 Respiratory Rate 16 Blood Pressure 118/74 Pulse Oximetry 100 Oxygen Delivery Method Room Air BMI result Body Mass Index 37.1 Labs 10/11/24 08:32 Medications Medications Current Medications Acetaminophen (Acetaminophen 325 Mg Tablet) 650 mg PO Q6H PRN PRN Reason: Headache/Pain, Scale 1-10 Al Hydroxide/Mg Hydroxide (Magnesium Hydrox/Alum Hydrox 30 Ml Oral.Susp) 30 ml PO Q6H PRN PRN Reason: Heartburn/Nausea Hydroxyzine HCl (Hydroxyzine Hcl 25 Mg Tablet) 25 mg PO Q6H PRN PRN Reason: mild anxiety Last Admin: 10/16/24 15:12 Dose: [address] [place] Carbonate ([place] Carbonate Er 450 Mg Tablet.Er) 450 mg PO BID COUNTS [facility]CLUDE 234 BEDS AT [facility] Last Admin: 10/16/24 07:50 Dose: 450 mg [place] Hydroxide (Milk Of Magnesia 30 Ml Oral.Susp) 30 ml PO DAILY PRN PRN Reason: Constipation Nicotine (Nicotine 21 Mg Patch.Td24) 21 mg TRANSDERMA DAILY PRN PRN Reason: smoking cessation Nicotine Polacrilex (Nicotine Polacrilex 2 Mg Gum) 4 mg BUCCAL Q2H PRN PRN Reason: Nicotine Cravings Olanzapine (Olanzapine 5 Mg Tablet) 5 mg PO TID PRN PRN Reason: agitation Last Admin: 10/16/24 10:41 Dose: 5 mg Olanzapine (Olanzapine Odt 10 Mg Tab.Rapdis) 10 mg TRANSLINGU BEDTIME BILLY Last Admin: 10/15/24 21:14 Dose: Not Given Trazodone HCl (Trazodone Hcl 50 Mg Tablet) 50 mg PO BEDTIME MRX1 PRN PRN Reason: Insomnia Last Admin: 10/14/24 00:42 Dose: 50 mg Allergies Allergies Allergy/AdvReac Type Severity Reaction Status Date / Time No Known Allergies Allergy Verified 10/10/24 23:51 Assessment & Plan Assessment & Plan (1) Moderate bipolar I disorder with poornima as current episode: Status: Acute Code(s): F31.12 - Bipolar disorder, current episode manic without psychotic features, moderate Plan 10/11: offer zyprexa 10 QHS and lithium 450 BID. 10/12: pt refusing meds. continue to offer. HCP in chart. 3-day notice up tuesday. 10/13: change Zyprexa to Zydis to assure compliance. refusing lithium. 10/14: keep same treatment, encourage compliance. 10/15: took meds this morning, sleeping heavily after. commitment paperwork completed, HCP invoked. meeting with mother this afternoon. 10/16/2024 Encourage olanzapine lithium patient appears to be passively accepting treatment and hospitalization recommend affirming healthcare proxy Informed Consent: further education needed Reason for continued inpatient stay Substantial Risk for: inability to function Time Spent With Patient Time: Total time managing care of this patient today ____ minutes.
[2024-10-16 21:20] VITALS: BP 131/61; PULSE 91; RESP 16; TEMP 36.7; O2SAT 98
[2024-10-17] MEDS: OLANZapine 5 MG TABLET PO (05:20)
[2024-10-17] MEDS: hydrOXYzine HCL 25 MG TABLET PO ×2 (05:20→14:02)
[2024-10-17] MEDS: Lithium Carbonate ER 450 MG TABLET.ER PO (08:25)
--- NOTE | 2024-10-17 14:26 | HO.PSYCHPN ---
Subjective Subjective Date of Service: 10/17/24 Reason For Visit: Unspecified Mood disorder Interim History: seen in quiet room. bible, spiritism writings on her bed. starts organizing them and putting them away, says she cannot talk now she is going to take a nap. no questions or complaints to MD. MD encourages her to continue to take medication. per staff, taking meds. labile, guarded. refused meeting with trimmer meat. too sedated for HS meds. slept 6 hours. Mental Status Exam Mental Status Exam Narrative: adequately dressed and groomed. briefly cooperative. no PMA/PMR, although busying herself tidying up her things. speech nml rate, amountm, loudness, ton.e decr latency. thoughts linear and not particularly logical. affect constricted, normo-intense, non-labile. mood not assessed. no SI/HI/AVH expressed. Diagnostics Vital Signs (24Hr): Vital Signs - 24 hr 10/16/24 21:20 Temperature 98.1 F Pulse Rate 91 Respiratory Rate 16 Blood Pressure 131/61 Pulse Oximetry 98 Oxygen Delivery Method Room Air BMI result Body Mass Index 37.1 Labs 10/11/24 08:32 Medications Medications Current Medications Acetaminophen (Acetaminophen 325 Mg Tablet) 650 mg PO Q6H PRN PRN Reason: Headache/Pain, Scale 1-10 Al Hydroxide/Mg Hydroxide (Magnesium Hydrox/Alum Hydrox 30 Ml Oral.Susp) 30 ml PO Q6H PRN PRN Reason: Heartburn/Nausea Hydroxyzine HCl (Hydroxyzine Hcl 25 Mg Tablet) 25 mg PO Q6H PRN PRN Reason: mild anxiety Last Admin: 10/17/24 14:02 Dose: 25 mg [place] Carbonate ([place] Carbonate Er 300 Mg Tablet.Er) 600 mg PO BID [facility] Lorazepam (Lorazepam 1 Mg Tablet) 1 mg PO Q4H PRN PRN Reason: severe anxiety/agitation Magnesium Hydroxide (Milk Of Magnesia 30 Ml Oral.Susp) 30 ml PO DAILY PRN PRN Reason: Constipation Nicotine (Nicotine 21 Mg Patch.Td24) 21 mg TRANSDERMA DAILY PRN PRN Reason: smoking cessation Nicotine Polacrilex (Nicotine Polacrilex 2 Mg Gum) 4 mg BUCCAL Q2H PRN PRN Reason: Nicotine Cravings Olanzapine (Olanzapine 5 Mg Tablet) 5 mg PO TID PRN PRN Reason: agitation Last Admin: 10/17/24 05:20 Dose: 5 mg Olanzapine (Olanzapine Odt 10 Mg Tab.Rapdis) 10 mg TRANSLINGU BEDTIME [facility] Last Admin: 10/16/24 23:56 Dose: Not Given Trazodone HCl (Trazodone Hcl 50 Mg Tablet) 50 mg PO BEDTIME MRX1 PRN PRN Reason: Insomnia Last Admin: 10/14/24 00:42 Dose: 50 mg Allergies Allergies Allergy/AdvReac Type Severity Reaction Status Date / Time No Known Allergies Allergy Verified 10/10/24 23:51 Assessment & Plan Assessment & Plan (1) Moderate bipolar I disorder with poornima as current episode: Status: Acute Code(s): F31.12 - Bipolar disorder, current episode manic without psychotic features, moderate Plan 10/11: offer zyprexa 10 QHS and lithium 450 BID. 10/12: pt refusing meds. continue to offer. HCP in chart. 3-day notice up tuesday. 10/13: change Zyprexa to Zydis to assure compliance. refusing lithium. 10/14: keep same treatment, encourage compliance. 10/15: took meds this morning, sleeping heavily after. commitment paperwork completed, HCP invoked. meeting with mother this afternoon. 10/16/24: Encourage olanzapine lithium patient appears to be passively accepting treatment and hospitalization recommend affirming healthcare proxy. 10/17: pt's HCP signed pt in today, will pursue invocation of HCP. improved from last interview, taking meds. increase lithium to 600 BID and add ativan PRNs. case discussed with pt's mother and PEEWEE Owens. Reason for continued inpatient stay Substantial Risk for: inability to function Time Spent With Patient Time: Total time managing care of this patient today __35__ minutes.
[2024-10-17] MEDS: LORazepam 1 MG TABLET PO (16:38)
[2024-10-17 20:00] VITALS: RESP 16
[2024-10-18] MEDS: LORazepam 1 MG TABLET PO ×2 (06:31→10:04)
[2024-10-18] MEDS: OLANZapine 5 MG TABLET PO ×2 (06:31→21:11)
[2024-10-18 07:00] VITALS: BMI 36.8
[2024-10-18 07:41] VITALS: BP 108/71; PULSE 87; RESP 16; TEMP 36.6; O2SAT 98
--- NOTE | 2024-10-18 10:02 | PC.NURSE ---
This entry writer asked provider about changing Atarax RX to 50mg. He stated that he will, however, he also requested that this entry writer give Ativan 1mg dose slightly early.
[2024-10-18] MEDS: Lithium Carbonate ER 300 MG TABLET.ER 600 MG PO ×2 (10:04→17:05)
--- NOTE | 2024-10-18 15:51 | P.PNPSI_ITS ---
Subjective Subjective Date of Service: 10/18/24 Reason For Visit: Unspecified Mood disorder Interim History: dismissive of MD, wants to eat. no questions or complaints. per staff, remains on CO. taking morning meds. high anxiety. praying on floor, keeping her face to the floor. no HS meds due to not being able to be awakened by nursing staff, reportedly. Mental Status Exam Mental Status Exam Narrative: adequately dressed and groomed. dismissive. no PMA/PMR. speech nml rate, amount, loudness, tone, latency. thoughts linear and not particularly logical. affect constricted, normo-intense, non-labile. mood not assessed. no SI/HI/AVH expressed. Diagnostics Vital Signs (24Hr): Vital Signs - 24 hr 10/17/24 20:00 10/18/24 07:41 Temperature 97.8 F Pulse Rate 87 Respiratory Rate 16 16 Blood Pressure 108/71 Pulse Oximetry 98 Oxygen Delivery Method Room Air BMI result Body Mass Index 36.8 Labs 10/11/24 08:32 Medications Medications Current Medications Acetaminophen (Acetaminophen 325 Mg Tablet) 650 mg PO Q6H PRN PRN Reason: Headache/Pain, Scale 1-10 Al Hydroxide/Mg Hydroxide (Magnesium Hydrox/Alum Hydrox 30 Ml Oral.Susp) 30 ml PO Q6H PRN PRN Reason: Heartburn/Nausea Hydroxyzine HCl (Hydroxyzine Hcl 50 Mg Tablet) 50 mg PO Q6H PRN PRN Reason: mild anxiety [place] Carbonate ([place] Carbonate Er 300 Mg Tablet.Er) 600 mg PO BID@0600,1800 [facility] Lorazepam (Lorazepam 1 Mg Tablet) 1 mg PO Q4H PRN PRN Reason: severe anxiety/agitation Last Admin: 10/18/24 10:04 Dose: 1 mg Magnesium Hydroxide (Milk Of Magnesia 30 Ml Oral.Susp) 30 ml PO DAILY PRN PRN Reason: Constipation Nicotine (Nicotine 21 Mg Patch.Td24) 21 mg TRANSDERMA DAILY PRN PRN Reason: smoking cessation Nicotine Polacrilex (Nicotine Polacrilex 2 Mg Gum) 4 mg BUCCAL Q2H PRN PRN Reason: Nicotine Cravings Olanzapine (Olanzapine 5 Mg Tablet) 5 mg PO TID PRN PRN Reason: agitation Last Admin: 10/18/24 06:31 Dose: 5 mg Olanzapine (Olanzapine Odt 10 Mg Tab.Rapdis) 10 mg TRANSLINGU DAILY@1800 [facility] Trazodone HCl (Trazodone Hcl 50 Mg Tablet) 50 mg PO BEDTIME MRX1 PRN PRN Reason: Insomnia Last Admin: 10/14/24 00:42 Dose: 50 mg Allergies Allergies Allergy/AdvReac Type Severity Reaction Status Date / Time No Known Allergies Allergy Verified 10/10/24 23:51 Assessment & Plan Assessment & Plan (1) Moderate bipolar I disorder with poornima as current episode: Status: Acute Code(s): F31.12 - Bipolar disorder, current episode manic without psychotic features, moderate Plan 10/11: offer zyprexa 10 QHS and lithium 450 BID. 10/12: pt refusing meds. continue to offer. HCP in chart. 3-day notice up tuesday. 10/13: change Zyprexa to Zydis to assure compliance. refusing lithium. 10/14: keep same treatment, encourage compliance. 10/15: took meds this morning, sleeping heavily after. commitment paperwork completed, HCP invoked. meeting with mother this afternoon. 10/16/24: Encourage olanzapine lithium patient appears to be passively accepting treatment and hospitalization recommend affirming healthcare proxy. 10/17: pt's HCP signed pt in today, will pursue invocation of HCP. improved from last interview, taking meds. increase lithium to 600 BID and add ativan PRNs. case discussed with pt's mother and PEEWEE Owens. 10/18: taking morning meds, not getting HS meds due to staff's not being able to awaken her. change HS meds to 1800. otherwise continue current mgmt. Reason for continued inpatient stay Substantial Risk for: inability to function Time Spent With Patient Time: Total time managing care of this patient today ____ minutes.
[2024-10-18] MEDS: hydrOXYzine HCL 50 MG TABLET PO (17:05)
[2024-10-18] MEDS: OLANZapine ODT 10 MG TAB.RAPDIS TRANSLINGU (17:05)
[2024-10-18 20:00] VITALS: RESP 16
[2024-10-18] MEDS: traZODone HCL 50 MG TABLET PO (21:11)
[2024-10-19] MEDS: OLANZapine 5 MG TABLET PO (05:21)
[2024-10-19] MEDS: LORazepam 1 MG TABLET PO ×3 (05:21→22:17)
[2024-10-19] MEDS: Lithium Carbonate ER 300 MG TABLET.ER 600 MG PO ×2 (06:04→18:09)
[2024-10-19] MEDS: hydrOXYzine HCL 50 MG TABLET PO (12:17)
--- NOTE | 2024-10-19 14:02 | HO.PSYCHPN ---
Subjective Subjective Date of Service: 10/19/24 Reason For Visit: Unspecified Mood disorder Interim History: Keeping to self. continues on 1:1. guarded. patient reports feeling fine ; asked T/W to leave her alone to nap. Per nursing, observed responding to internal stimuli. Slept 6 hours last night. Medication Compliance: Yes Mental Status Exam Mental Status Exam Narrative: unable to obtain full mental status d/t patient requesting to be left alone to sleep. Patient Appearance: Disheveled Level of Consciousness: Awake Patient Behavior: Guarded Mood Description: Calm Affect Description: Blunted Speech Pattern: Clear Diagnostics Vital Signs (24Hr): Vital Signs - 24 hr 10/18/24 20:00 Respiratory Rate 16 BMI result Body Mass Index 36.8 Labs 10/11/24 08:32 Medications Medications Current Medications Acetaminophen (Acetaminophen 325 Mg Tablet) 650 mg PO Q6H PRN PRN Reason: Headache/Pain, Scale 1-10 Al Hydroxide/Mg Hydroxide (Magnesium Hydrox/Alum Hydrox 30 Ml Oral.Susp) 30 ml PO Q6H PRN PRN Reason: Heartburn/Nausea Hydroxyzine HCl (Hydroxyzine Hcl 50 Mg Tablet) 50 mg PO Q6H PRN PRN Reason: mild anxiety Last Admin: 10/19/24 12:17 Dose: 50 mg [place] Carbonate ([place] Carbonate Er 300 Mg Tablet.Er) 600 mg PO BID@0600,1800 [facility] Last Admin: 10/19/24 06:04 Dose: 600 mg Lorazepam (Lorazepam 1 Mg Tablet) 1 mg PO Q4H PRN PRN Reason: severe anxiety/agitation Last Admin: 10/19/24 10:28 Dose: 1 mg Magnesium Hydroxide (Milk Of Magnesia 30 Ml Oral.Susp) 30 ml PO DAILY PRN PRN Reason: Constipation Nicotine (Nicotine 21 Mg Patch.Td24) 21 mg TRANSDERMA DAILY PRN PRN Reason: smoking cessation Nicotine Polacrilex (Nicotine Polacrilex 2 Mg Gum) 4 mg BUCCAL Q2H PRN PRN Reason: Nicotine Cravings Olanzapine (Olanzapine 5 Mg Tablet) 5 mg PO TID PRN PRN Reason: agitation Last Admin: 10/19/24 05:21 Dose: 5 mg Olanzapine (Olanzapine Odt 10 Mg Tab.Rapdis) 10 mg TRANSLINGU DAILY@1800 [facility] Last Admin: 10/18/24 17:05 Dose: 10 mg Trazodone HCl (Trazodone Hcl 50 Mg Tablet) 50 mg PO BEDTIME MRX1 PRN PRN Reason: Insomnia Last Admin: 10/18/24 21:11 Dose: 50 mg Allergies Allergies Allergy/AdvReac Type Severity Reaction Status Date / Time No Known Allergies Allergy Verified 10/10/24 23:51 Assessment & Plan Assessment & Plan (1) Moderate bipolar I disorder with poornima as current episode: Status: Acute Code(s): F31.12 - Bipolar disorder, current episode manic without psychotic features, moderate Plan 10/11: offer zyprexa 10 QHS and lithium 450 BID. 10/12: pt refusing meds. continue to offer. HCP in chart. 3-day notice up tuesday. 10/13: change Zyprexa to Zydis to assure compliance. refusing lithium. 10/14: keep same treatment, encourage compliance. 10/15: took meds this morning, sleeping heavily after. commitment paperwork completed, HCP invoked. meeting with mother this afternoon. 10/16/24: Encourage olanzapine lithium patient appears to be passively accepting treatment and hospitalization recommend affirming healthcare proxy. 10/17: pt's HCP signed pt in today, will pursue invocation of HCP. improved from last interview, taking meds. increase lithium to 600 BID and add ativan PRNs. case discussed with pt's mother and PEEWEE Owens. 10/18: taking morning meds, not getting HS meds due to staff's not being able to awaken her. change HS meds to 1800. otherwise continue current mgmt. 10/19: Keeping to self. continues on 1:1. guarded. patient reports feeling fine ; asked T/W to leave her alone to nap. Per nursing, observed responding to internal stimuli. Slept 6 hours last night. continue tx plan Reason for continued inpatient stay Substantial Risk for: med/psych decompensation Time Spent With Patient Time: Total time managing care of this patient today _10___ minutes.
[2024-10-19 20:00] VITALS: BP 116/66; PULSE 85; RESP 16; TEMP 36.9; O2SAT 100
[2024-10-20] MEDS: Lithium Carbonate ER 300 MG TABLET.ER 600 MG PO ×2 (07:01→18:35)
--- NOTE | 2024-10-20 11:34 | P.PNPSI_ITS ---
Subjective Subjective Date of Service: 10/20/24 Reason For Visit: Unspecified Mood disorder Subjective Notes: Conditional Voluntary Interim History: Pt slept, continues to refuse olanzapine. She presents as religiously preoccupied, kneeling with bible on the floor. She reports she is praying to God. She is also observed self dialoguing. She is very guarded and careful about information that she asks. She did agree to answer just one question. When asked about conversations with God or if there is any worship spiritual concerns she is aware of that we should know, she declines to answer. After she reminds this commercial insurance underwriter that it was only one questions. Review of Systems Review of Systems Yes Unobtainable due to mental status Mental Status Exam Mental Status Exam Narrative: Appearance: wearing casual clothing, self dialoguing in no acute distress. Behavior: guarded suspicious Psychomotor: no agitation or retardation noted Speech: mostly clear, regular rate, when noted that she is self dialoguing, when talking with commercial insurance underwriter, delayed response seem to be more related to carefully providing minimal information. TP: mostly linear TC: worship preoccupation Mood: good Affect: constricted SI: denies HI: denies VH/AH: internally preoccupied Delusions: worship delusions but exact content to disclose by pt Insight/judgment: impaired x 2. Memory/cog: alert, unable to assess her orientation as she does not answer these questions. She does note that she is in the hospital but unclear of her understanding about why. Diagnostics Vital Signs (24Hr): Vital Signs - 24 hr 10/19/24 20:00 Temperature 98.4 F Pulse Rate 85 Respiratory Rate 16 Blood Pressure 116/66 Pulse Oximetry 100 Oxygen Delivery Method Room Air BMI result Body Mass Index 36.8 Labs 10/11/24 08:32 Medications Medications Current Medications Acetaminophen (Acetaminophen 325 Mg Tablet) 650 mg PO Q6H PRN PRN Reason: Headache/Pain, Scale 1-10 Al Hydroxide/Mg Hydroxide (Magnesium Hydrox/Alum Hydrox 30 Ml Oral.Susp) 30 ml PO Q6H PRN PRN Reason: Heartburn/Nausea Hydroxyzine HCl (Hydroxyzine Hcl 50 Mg Tablet) 50 mg PO Q6H PRN PRN Reason: mild anxiety Last Admin: 10/19/24 12:17 Dose: 50 mg [place] Carbonate ([place] Carbonate Er 300 Mg Tablet.Er) 600 mg PO BID@0600,1800 [facility] Last Admin: 10/20/24 07:01 Dose: 600 mg Lorazepam (Lorazepam 1 Mg Tablet) 1 mg PO Q4H PRN PRN Reason: severe anxiety/agitation Last Admin: 10/19/24 22:17 Dose: 1 mg Magnesium Hydroxide (Milk Of Magnesia 30 Ml Oral.Susp) 30 ml PO DAILY PRN PRN Reason: Constipation Nicotine (Nicotine 21 Mg Patch.Td24) 21 mg TRANSDERMA DAILY PRN PRN Reason: smoking cessation Nicotine Polacrilex (Nicotine Polacrilex 2 Mg Gum) 4 mg BUCCAL Q2H PRN PRN Reason: Nicotine Cravings Olanzapine (Olanzapine 5 Mg Tablet) 5 mg PO TID PRN PRN Reason: agitation Last Admin: 10/19/24 05:21 Dose: 5 mg Olanzapine (Olanzapine Odt 10 Mg Tab.Rapdis) 10 mg TRANSLINGU DAILY@1800 [facility] Last Admin: 10/19/24 18:14 Dose: Not Given Trazodone HCl (Trazodone Hcl 50 Mg Tablet) 50 mg PO BEDTIME MRX1 PRN PRN Reason: Insomnia Last Admin: 10/18/24 21:11 Dose: 50 mg Allergies Allergies Allergy/AdvReac Type Severity Reaction Status Date / Time No Known Allergies Allergy Verified 10/10/24 23:51 Assessment & Plan Assessment & Plan (1) Moderate bipolar I disorder with poornima as current episode: Status: Acute Code(s): F31.12 - Bipolar disorder, current episode manic without psychotic features, moderate Assessment and Plan: schizoaffective disorder Plan 10/11: offer zyprexa 10 QHS and lithium 450 BID. 10/12: pt refusing meds. continue to offer. HCP in chart. 3-day notice up tuesday. 10/13: change Zyprexa to Zydis to assure compliance. refusing lithium. 10/14: keep same treatment, encourage compliance. 10/15: took meds this morning, sleeping heavily after. commitment paperwork completed, HCP invoked. meeting with mother this afternoon. 10/16/24: Encourage olanzapine lithium patient appears to be passively accepting treatment and hospitalization recommend affirming healthcare proxy. 10/17: pt's HCP signed pt in today, will pursue invocation of HCP. improved from last interview, taking meds. increase lithium to 600 BID and add ativan PRNs. case discussed with pt's mother and SW Graciela. 10/18: taking morning meds, not getting HS meds due to staff's not being able to awaken her. change HS meds to 1800. otherwise continue current mgmt. 10/19: Keeping to self. continues on 1:1. guarded. patient reports feeling fine ; asked T/W to leave her alone to nap. Per nursing, observed responding to internal stimuli. Slept 6 hours last night. continue tx plan 10/20 declines antipsychotic, requires 1:1 for disorganized intrusive behaviors. religiously preoccupied. Reason for continued inpatient stay Substantial Risk for: inability to function Time Spent With Patient Time: Total time managing care of this patient today ____ minutes.
[2024-10-20] MEDS: LORazepam 1 MG TABLET PO (16:05)
[2024-10-20 20:00] VITALS: BP 116/65; PULSE 82; RESP 16; TEMP 36.9; O2SAT 99
[2024-10-21] MEDS: Lithium Carbonate ER 300 MG TABLET.ER 600 MG PO ×2 (06:26→17:40)
[2024-10-21] MEDS: LORazepam 1 MG TABLET PO ×2 (11:39→20:37)
--- NOTE | 2024-10-21 11:45 | P.PNPSI_ITS ---
Subjective Subjective Date of Service: 10/21/24 Reason For Visit: Unspecified Mood disorder Subjective Notes: Section 12B Interim History: Pt slept. She allowed this scientific technical writer to ask 2 questions. When discussing how long she plans to stay in the hospital as she does not engage in an meaningful way with providers or staff, she reports she wants to leave now if possible. She believes that others (will not specify who) are preventing her from telling the truth. This scientific technical writer noted that her parents were concern about her change in behavior, to which she stated my parents are , who sent you. She later did say that her parents were behind her coming here, but was also incredulous of them being alive. She reports I'm just praying that's not a crime! Pt had asked for 3mg of ativan for bipolar when this scientific technical writer met with her, I informed her that the medication for bipolar is olanzapine which is the one she keeps refusing. She then agreed to take it with scientific technical writer present. She denies SI/HI. Continues to self dialogue. She also hold the bible and kneels to pray. Pt presents as very guarded and clearly not fully forthcoming with extend of delusional content. Medication Compliance: No Side effects from medications: No Review of Systems Review of Systems Yes Unobtainable due to mental status Mental Status Exam Mental Status Exam Narrative: Appearance: wearing casual clothing, self dialoguing in no acute distress. Behavior: guarded suspicious Psychomotor: no agitation or retardation noted Speech: mostly clear, regular rate, when noted that she is self dialoguing, when talking with scientific technical writer, delayed response seem to be more related to carefully providing minimal information. TP: mostly linear TC: presybeterian preoccupation Mood: good Affect: constricted SI: denies HI: denies VH/AH: internally preoccupied Delusions: presybeterian delusions but exact content to disclose by pt Insight/judgment: impaired x 2. Memory/cog: alert, unable to assess her orientation as she does not answer these questions. She does note that she is in the hospital but unclear of her understanding about why. Diagnostics Vital Signs (24Hr): Vital Signs - 24 hr 10/20/24 20:00 Temperature 98.4 F Pulse Rate 82 Respiratory Rate 16 Blood Pressure 116/65 Pulse Oximetry 99 Oxygen Delivery Method Room Air BMI result Body Mass Index 36.8 Labs 10/11/24 08:32 Medications Medications Current Medications Acetaminophen (Acetaminophen 325 Mg Tablet) 650 mg PO Q6H PRN PRN Reason: Headache/Pain, Scale 1-10 Al Hydroxide/Mg Hydroxide (Magnesium Hydrox/Alum Hydrox 30 Ml Oral.Susp) 30 ml PO Q6H PRN PRN Reason: Heartburn/Nausea Hydroxyzine HCl (Hydroxyzine Hcl 50 Mg Tablet) 50 mg PO Q6H PRN PRN Reason: mild anxiety Last Admin: 10/19/24 12:17 Dose: 50 mg [place] Carbonate ([place] Carbonate Er 300 Mg Tablet.Er) 600 mg PO BID@0600,1800 [facility] Last Admin: 10/21/24 06:26 Dose: 600 mg Lorazepam (Lorazepam 1 Mg Tablet) 1 mg PO Q4H PRN PRN Reason: severe anxiety/agitation Last Admin: 10/21/24 11:39 Dose: 1 mg Magnesium Hydroxide (Milk Of Magnesia 30 Ml Oral.Susp) 30 ml PO DAILY PRN PRN Reason: Constipation Nicotine (Nicotine 21 Mg Patch.Td24) 21 mg TRANSDERMA DAILY PRN PRN Reason: smoking cessation Nicotine Polacrilex (Nicotine Polacrilex 2 Mg Gum) 4 mg BUCCAL Q2H PRN PRN Reason: Nicotine Cravings Olanzapine (Olanzapine 5 Mg Tablet) 5 mg PO TID PRN PRN Reason: agitation Last Admin: 10/19/24 05:21 Dose: 5 mg Olanzapine (Olanzapine Odt 10 Mg Tab.Rapdis) 10 mg TRANSLINGU DAILY@1800 [facility] Last Admin: 10/20/24 18:39 Dose: Not Given Trazodone HCl (Trazodone Hcl 50 Mg Tablet) 50 mg PO BEDTIME MRX1 PRN PRN Reason: Insomnia Last Admin: 10/18/24 21:11 Dose: 50 mg Allergies Allergies Allergy/AdvReac Type Severity Reaction Status Date / Time No Known Allergies Allergy Verified 10/10/24 23:51 Assessment & Plan Assessment & Plan (1) Moderate bipolar I disorder with poornima as current episode: Status: Acute Code(s): F31.12 - Bipolar disorder, current episode manic without psychotic features, moderate Assessment and Plan: schizoaffective disorder Plan 10/11: offer zyprexa 10 QHS and lithium 450 BID. 10/12: pt refusing meds. continue to offer. HCP in chart. 3-day notice up tuesday. 10/13: change Zyprexa to Zydis to assure compliance. refusing lithium. 10/14: keep same treatment, encourage compliance. 10/15: took meds this morning, sleeping heavily after. commitment paperwork completed, HCP invoked. meeting with mother this afternoon. 10/16/24: Encourage olanzapine lithium patient appears to be passively accepting treatment and hospitalization recommend affirming healthcare proxy. 10/17: pt's HCP signed pt in today, will pursue invocation of HCP. improved from last interview, taking meds. increase lithium to 600 BID and add ativan PRNs. case discussed with pt's mother and SW Graciela. 10/18: taking morning meds, not getting HS meds due to staff's not being able to awaken her. change HS meds to 1800. otherwise continue current mgmt. 10/19: Keeping to self. continues on 1:1. guarded. patient reports feeling fine ; asked T/W to leave her alone to nap. Per nursing, observed responding to internal stimuli. Slept 6 hours last night. continue tx plan 10/20 declines antipsychotic, requires 1:1 for disorganized intrusive behaviors. religiously preoccupied. 10/21 continue tx. continues to present with presybeterian preoccupations, does hint to thinking others do not want her to say the truth and also thinks her parents are , which not the case. Reason for continued inpatient stay Substantial Risk for: inability to function Time Spent With Patient Time: Total time managing care of this patient today ____ minutes.
[2024-10-21] MEDS: OLANZapine ODT 10 MG TAB.RAPDIS TRANSLINGU ×2 (14:01→17:41)
[2024-10-21 20:00] VITALS: BP 116/75; PULSE 76; RESP 18; TEMP 36.6; O2SAT 98
[2024-10-21] MEDS: OLANZapine 5 MG TABLET PO (20:37)
[2024-10-21] MEDS: traZODone HCL 50 MG TABLET PO (20:37)
[2024-10-22] MEDS: Lithium Carbonate ER 300 MG TABLET.ER 600 MG PO ×2 (06:06→17:45)
[2024-10-22] MEDS: hydrOXYzine HCL 50 MG TABLET PO ×2 (10:12→23:45)
[2024-10-22 10:13] VITALS: BP 110/56; PULSE 84; RESP 17; TEMP 36.8; O2SAT 100
--- NOTE | 2024-10-22 14:39 | HO.PSYCHPN ---
Subjective Subjective Date of Service: 10/22/24 Reason For Visit: Unspecified Mood disorder Interim History: in bed, awake, reticent and evasive, but superficially cooperative. asking about discharge, encouraged to meet with her mother. no further questions or complaints for MD. per staff, remains on CO. +RIS. taking lithium 600 BID. intermittently refusing zydis. exit-seeking. PRN ativan, zyprexa, trazodone. praying on the floor. slept 8 hours. Mental Status Exam Mental Status Exam Narrative: adequately dressed and groomed. dismissive. no PMA/PMR. speech nml rate, decr amount, nml loudness, decr tone, incr latency. thoughts linear and not particularly logical. affect constricted, normo-intense, non-labile. mood not assessed. no SI/HI/AVH expressed. Diagnostics Vital Signs (24Hr): Vital Signs - 24 hr 10/21/24 20:00 10/22/24 10:13 Temperature 97.8 F 98.2 F Pulse Rate 76 84 Respiratory Rate 18 17 Blood Pressure 116/75 110/56 L Pulse Oximetry 98 100 Oxygen Delivery Method Room Air Room Air BMI result Body Mass Index 36.8 Labs 10/11/24 08:32 Medications Medications Current Medications Acetaminophen (Acetaminophen 325 Mg Tablet) 650 mg PO Q6H PRN PRN Reason: Headache/Pain, Scale 1-10 Al Hydroxide/Mg Hydroxide (Magnesium Hydrox/Alum Hydrox 30 Ml Oral.Susp) 30 ml PO Q6H PRN PRN Reason: Heartburn/Nausea Hydroxyzine HCl (Hydroxyzine Hcl 50 Mg Tablet) 50 mg PO Q6H PRN PRN Reason: mild anxiety Last Admin: 10/22/24 10:12 Dose: 50 mg [place] Carbonate ([place] Carbonate Er 300 Mg Tablet.Er) 600 mg PO BID@0600,1800 BILLY Last Admin: 10/22/24 06:06 Dose: 600 mg Lorazepam (Lorazepam 1 Mg Tablet) 1 mg PO Q4H PRN PRN Reason: severe anxiety/agitation Last Admin: 10/21/24 20:37 Dose: 1 mg Magnesium Hydroxide (Milk Of Magnesia 30 Ml Oral.Susp) 30 ml PO DAILY PRN PRN Reason: Constipation Nicotine (Nicotine 21 Mg Patch.Td24) 21 mg TRANSDERMA DAILY PRN PRN Reason: smoking cessation Nicotine Polacrilex (Nicotine Polacrilex 2 Mg Gum) 4 mg BUCCAL Q2H PRN PRN Reason: Nicotine Cravings Olanzapine (Olanzapine 5 Mg Tablet) 5 mg PO TID PRN PRN Reason: agitation Last Admin: 10/21/24 20:37 Dose: 5 mg Olanzapine (Olanzapine Odt 10 Mg Tab.Rapdis) 10 mg TRANSLINGU DAILY@1800 BILLY Last Admin: 10/21/24 17:41 Dose: 10 mg Trazodone HCl (Trazodone Hcl 50 Mg Tablet) 50 mg PO BEDTIME MRX1 PRN PRN Reason: Insomnia Last Admin: 10/21/24 20:37 Dose: 50 mg Allergies Allergies Allergy/AdvReac Type Severity Reaction Status Date / Time No Known Allergies Allergy Verified 10/10/24 23:51 Assessment & Plan Assessment & Plan (1) Moderate bipolar I disorder with poornima as current episode: Status: Acute Code(s): F31.12 - Bipolar disorder, current episode manic without psychotic features, moderate Assessment and Plan: schizoaffective disorder Plan 10/11: offer zyprexa 10 QHS and lithium 450 BID. 10/12: pt refusing meds. continue to offer. HCP in chart. 3-day notice up tuesday. 10/13: change Zyprexa to Zydis to assure compliance. refusing lithium. 10/14: keep same treatment, encourage compliance. 10/15: took meds this morning, sleeping heavily after. commitment paperwork completed, HCP invoked. meeting with mother this afternoon. 10/16/24: Encourage olanzapine lithium patient appears to be passively accepting treatment and hospitalization recommend affirming healthcare proxy. 10/17: pt's HCP signed pt in today, will pursue invocation of HCP. improved from last interview, taking meds. increase lithium to 600 BID and add ativan PRNs. case discussed with pt's mother and SW Graciela. 10/18: taking morning meds, not getting HS meds due to staff's not being able to awaken her. change HS meds to 1800. otherwise continue current mgmt. 10/19: Keeping to self. continues on 1:1. guarded. patient reports feeling fine ; asked T/W to leave her alone to nap. Per nursing, observed responding to internal stimuli. Slept 6 hours last night. continue tx plan 10/20 declines antipsychotic, requires 1:1 for disorganized intrusive behaviors. religiously preoccupied. 10/21 continue tx. continues to present with jewish preoccupations, does hint to thinking others do not want her to say the truth and also thinks her parents are , which not the case. 10/22: difficult to engage. taking lithium, sometimes taking zyprexa. encouraged medication compliance. continue current mgmt. Reason for continued inpatient stay Substantial Risk for: inability to function Time Spent With Patient Time: Total time managing care of this patient today __25__ minutes.
[2024-10-22] MEDS: OLANZapine ODT 10 MG TAB.RAPDIS TRANSLINGU (17:45)
[2024-10-22 20:00] VITALS: RESP 14
[2024-10-22] MEDS: LORazepam 1 MG TABLET PO (23:45)
[2024-10-23] MEDS: Lithium Carbonate ER 300 MG TABLET.ER 600 MG PO ×2 (06:43→18:17)
--- NOTE | 2024-10-23 14:14 | HO.PSYCHPN ---
Subjective Subjective Date of Service: 10/23/24 Reason For Visit: Unspecified Mood disorder Interim History: reports her mother sometime in the past month and that the person asserting she is her mother is a decoy of some sort. on being asked how she knows her mother is , there is a long pause, and then she replies, i just know. states her mood is much better, able to attend to conversation far better than prior. per staff, anxious, guarded. asking for PRNs for anxiety. praying, brandishing a bible. Mental Status Exam Mental Status Exam Narrative: adequately dressed and groomed. more engageable. no PMA/PMR. speech nml rate, amount, loudness, tone. variable latency. thoughts linear and not particularly logical. affect more flexible, normo-intense, non-labile. mood reported as euthymic. no SI/HI/AVH expressed. Diagnostics Vital Signs (24Hr): Vital Signs - 24 hr 10/22/24 20:00 Respiratory Rate 14 BMI result Body Mass Index 36.8 Labs 10/11/24 08:32 Medications Medications Current Medications Acetaminophen (Acetaminophen 325 Mg Tablet) 650 mg PO Q6H PRN PRN Reason: Headache/Pain, Scale 1-10 Al Hydroxide/Mg Hydroxide (Magnesium Hydrox/Alum Hydrox 30 Ml Oral.Susp) 30 ml PO Q6H PRN PRN Reason: Heartburn/Nausea Hydroxyzine HCl (Hydroxyzine Hcl 50 Mg Tablet) 50 mg PO Q6H PRN PRN Reason: mild anxiety Last Admin: 10/22/24 23:45 Dose: 50 mg [place] Carbonate ([place] Carbonate Er 300 Mg Tablet.Er) 600 mg PO BID@0600,1800 BILLY Last Admin: 10/23/24 06:43 Dose: 600 mg Lorazepam (Lorazepam 1 Mg Tablet) 1 mg PO Q4H PRN PRN Reason: severe anxiety/agitation Last Admin: 10/22/24 23:45 Dose: 1 mg Magnesium Hydroxide (Milk Of Magnesia 30 Ml Oral.Susp) 30 ml PO DAILY PRN PRN Reason: Constipation Nicotine (Nicotine 21 Mg Patch.Td24) 21 mg TRANSDERMA DAILY PRN PRN Reason: smoking cessation Nicotine Polacrilex (Nicotine Polacrilex 2 Mg Gum) 4 mg BUCCAL Q2H PRN PRN Reason: Nicotine Cravings Olanzapine (Olanzapine 5 Mg Tablet) 5 mg PO TID PRN PRN Reason: agitation Last Admin: 10/21/24 20:37 Dose: 5 mg Olanzapine (Olanzapine Odt 10 Mg Tab.Rapdis) 10 mg TRANSLINGU DAILY@1800 BILLY Last Admin: 10/22/24 17:45 Dose: 10 mg Trazodone HCl (Trazodone Hcl 50 Mg Tablet) 50 mg PO BEDTIME MRX1 PRN PRN Reason: Insomnia Last Admin: 10/21/24 20:37 Dose: 50 mg Allergies Allergies Allergy/AdvReac Type Severity Reaction Status Date / Time No Known Allergies Allergy Verified 10/10/24 23:51 Assessment & Plan Assessment & Plan (1) Moderate bipolar I disorder with poornima as current episode: Status: Acute Code(s): F31.12 - Bipolar disorder, current episode manic without psychotic features, moderate Assessment and Plan: schizoaffective disorder Plan 10/11: offer zyprexa 10 QHS and lithium 450 BID. 10/12: pt refusing meds. continue to offer. HCP in chart. 3-day notice up tuesday. 10/13: change Zyprexa to Zydis to assure compliance. refusing lithium. 10/14: keep same treatment, encourage compliance. 10/15: took meds this morning, sleeping heavily after. commitment paperwork completed, HCP invoked. meeting with mother this afternoon. 10/16/24: Encourage olanzapine lithium patient appears to be passively accepting treatment and hospitalization recommend affirming healthcare proxy. 10/17: pt's HCP signed pt in today, will pursue invocation of HCP. improved from last interview, taking meds. increase lithium to 600 BID and add ativan PRNs. case discussed with pt's mother and PEEWEE Owens. 10/18: taking morning meds, not getting HS meds due to staff's not being able to awaken her. change HS meds to 1800. otherwise continue current mgmt. 10/19: Keeping to self. continues on 1:1. guarded. patient reports feeling fine ; asked T/W to leave her alone to nap. Per nursing, observed responding to internal stimuli. Slept 6 hours last night. continue tx plan 10/20 declines antipsychotic, requires 1:1 for disorganized intrusive behaviors. religiously preoccupied. 10/21 continue tx. continues to present with pentecostal preoccupations, does hint to thinking others do not want her to say the truth and also thinks her parents are , which not the case. 10/22: difficult to engage. taking lithium, sometimes taking zyprexa. encouraged medication compliance. continue current mgmt. 10/23: more engageable. delusion that her parents are . continue current mgmt. check labs tonight. Reason for continued inpatient stay Substantial Risk for: inability to function and rapid decompensation Time Spent With Patient Time: Total time managing care of this patient today _25___ minutes.
[2024-10-23] MEDS: hydrOXYzine HCL 50 MG TABLET PO (18:18)
[2024-10-23] MEDS: OLANZapine ODT 10 MG TAB.RAPDIS TRANSLINGU (18:23)
[2024-10-23 20:00] VITALS: BP 111/71; PULSE 79; RESP 18; TEMP 36.3; O2SAT 100
[2024-10-23] MEDS: LORazepam 1 MG TABLET PO (20:43)
[2024-10-24] MEDS: Lithium Carbonate ER 300 MG TABLET.ER 600 MG PO (06:16)
[2024-10-24 07:30] VITALS: BP 121/70; PULSE 76; RESP 14; TEMP 36.4; O2SAT 100
[2024-10-24] MEDS: hydrOXYzine HCL 50 MG TABLET PO (11:56)
--- NOTE | 2024-10-24 15:36 | P.PNPSI_ITS ---
Subjective Subjective Date of Service: 10/24/24 Reason For Visit: Unspecified Mood disorder Interim History: mistrustful, asking for discharge. asking to speak to boilermaker loftsman, referred to legal executive assistant information posted on unit wall. noted to be praying upon MD's entrance to her suite. poor insight into her mental illness, impulsively asking to leave and return to [place]. informed of plan to draw labs. per staff, hyper- advent. +AH/RIS. elevated affect. slept about 7 hours. Mental Status Exam Mental Status Exam Narrative: adequately dressed and groomed. more engageable, but mistrustful. no PMA/PMR. speech nml rate, incr amount, nml loudness, nml tone. variable latency. thoughts linear and not particularly logical. affect more flexible, normo- intense, non-labile. mood reported as euthymic. no SI/HI/AVH expressed. Diagnostics Vital Signs (24Hr): Vital Signs - 24 hr 10/23/24 20:00 10/24/24 07:30 Temperature 97.4 F 97.5 F Pulse Rate 79 76 Respiratory Rate 18 14 Blood Pressure 111/71 121/70 Pulse Oximetry 100 100 Oxygen Delivery Method Room Air Room Air BMI result Body Mass Index 36.8 Labs 10/11/24 08:32 Medications Medications Current Medications Acetaminophen (Acetaminophen 325 Mg Tablet) 650 mg PO Q6H PRN PRN Reason: Headache/Pain, Scale 1-10 Al Hydroxide/Mg Hydroxide (Magnesium Hydrox/Alum Hydrox 30 Ml Oral.Susp) 30 ml PO Q6H PRN PRN Reason: Heartburn/Nausea Hydroxyzine HCl (Hydroxyzine Hcl 50 Mg Tablet) 50 mg PO Q6H PRN PRN Reason: mild anxiety Last Admin: 10/24/24 11:56 Dose: 50 mg [place] Carbonate ([place] Carbonate Er 300 Mg Tablet.Er) 600 mg PO BID@0600,1800 BILLY Last Admin: 10/24/24 06:16 Dose: 600 mg Lorazepam (Lorazepam 1 Mg Tablet) 1 mg PO Q4H PRN PRN Reason: severe anxiety/agitation Last Admin: 10/23/24 20:43 Dose: 1 mg Magnesium Hydroxide (Milk Of Magnesia 30 Ml Oral.Susp) 30 ml PO DAILY PRN PRN Reason: Constipation Nicotine (Nicotine 21 Mg Patch.Td24) 21 mg TRANSDERMA DAILY PRN PRN Reason: smoking cessation Nicotine Polacrilex (Nicotine Polacrilex 2 Mg Gum) 4 mg BUCCAL Q2H PRN PRN Reason: Nicotine Cravings Olanzapine (Olanzapine 5 Mg Tablet) 5 mg PO TID PRN PRN Reason: agitation Last Admin: 10/21/24 20:37 Dose: 5 mg Olanzapine (Olanzapine Odt 10 Mg Tab.Rapdis) 10 mg TRANSLINGU DAILY@1800 BILLY Last Admin: 10/23/24 18:23 Dose: 10 mg Trazodone HCl (Trazodone Hcl 50 Mg Tablet) 50 mg PO BEDTIME MRX1 PRN PRN Reason: Insomnia Last Admin: 10/21/24 20:37 Dose: 50 mg Allergies Allergies Allergy/AdvReac Type Severity Reaction Status Date / Time No Known Allergies Allergy Verified 10/10/24 23:51 Assessment & Plan Assessment & Plan (1) Moderate bipolar I disorder with poornima as current episode: Status: Acute Code(s): F31.12 - Bipolar disorder, current episode manic without psychotic features, moderate Assessment and Plan: schizoaffective disorder Plan 10/11: offer zyprexa 10 QHS and lithium 450 BID. 10/12: pt refusing meds. continue to offer. HCP in chart. 3-day notice up tuesday. 10/13: change Zyprexa to Zydis to assure compliance. refusing lithium. 10/14: keep same treatment, encourage compliance. 10/15: took meds this morning, sleeping heavily after. commitment paperwork completed, HCP invoked. meeting with mother this afternoon. 10/16/24: Encourage olanzapine lithium patient appears to be passively accepting treatment and hospitalization recommend affirming healthcare proxy. 10/17: pt's HCP signed pt in today, will pursue invocation of HCP. improved from last interview, taking meds. increase lithium to 600 BID and add ativan PRNs. case discussed with pt's mother and SW Graciela. 10/18: taking morning meds, not getting HS meds due to staff's not being able to awaken her. change HS meds to 1800. otherwise continue current mgmt. 10/19: Keeping to self. continues on 1:1. guarded. patient reports feeling fine ; asked T/W to leave her alone to nap. Per nursing, observed responding to internal stimuli. Slept 6 hours last night. continue tx plan 10/20 declines antipsychotic, requires 1:1 for disorganized intrusive behaviors. religiously preoccupied. 10/21 continue tx. continues to present with advent preoccupations, does hint to thinking others do not want her to say the truth and also thinks her parents are , which not the case. 10/22: difficult to engage. taking lithium, sometimes taking zyprexa. encouraged medication compliance. continue current mgmt. 10/23: more engageable. delusion that her parents are . continue current mgmt. check labs tonight. 10/24: labs rescheduled for tomorrow morning. asking for discharge. taking meds. poor insight. continue current mgmt. Reason for continued inpatient stay Substantial Risk for: inability to function and rapid decompensation Time Spent With Patient Time: Total time managing care of this patient today __25__ minutes.
--- NOTE | 2024-10-24 18:46 | PC.NURSE ---
Wilma refused her medications this evening. Pt ed done regarding the progress she has made since taking them regularly. Pt states, I'm coherent. I want autonomy. I need to be discharged. I'm going to wean off the medication. I'm contacting legal. Pt was informed that if she changes her mind she can take the medications later this evening.
[2024-10-24 18:53] LABS: Lithium 0.61 mmol/L (0.60-1.20)
[2024-10-24 18:57] LABS: Anion Gap 12 (12-20); Blood Urea Nitrogen 18 mg/dL (9-16); Calcium 9.4 mg/dL (8.4-10.2); Carbon Dioxide 27 mmol/L (22-29); Chloride 104 mmol/L (96-108); Creatinine Clr Calc Pharmacy 113.1; Estimated Glomerular Filt Rate > 60; Glucose Random 114 mg/dL (60-115); Potassium 3.9 mmol/L (3.3-5.1); Sodium 139 mmol/L (135-145)
[2024-10-24 20:00] VITALS: RESP 16
[2024-10-25] MEDS: hydrOXYzine HCL 50 MG TABLET PO (05:46)
[2024-10-25 09:02] VITALS: BP 125/66; PULSE 80; RESP 17; TEMP 36.4; O2SAT 100
--- NOTE | 2024-10-25 10:09 | P.PNPSI_ITS ---
Subjective Subjective Date of Service: 10/25/24 Reason For Visit: Unspecified Mood disorder Interim History: Keeping to self. in room most of shift. refused medications. Pt reports feeling great ; pt stated, I don't need to be here. My mom was the manic one. I don't need medications . focused on discharge. denies SI/HI/VH/AH. Medication Compliance: Intermittent Attending Groups: No Mental Status Exam Mental Status Exam Patient Appearance: Appropriate Patient Orientation: Person, Place, Time and Situation Level of Consciousness: Awake Patient Behavior: Guarded, Isolative and Good Eye Contact Mood Description: Calm Affect Description: Blunted Ability to Follow Directions: Good Speech Pattern: Clear Thought Process: Intact Thought Content: positive for Intact Diagnostics Vital Signs (24Hr): Vital Signs - 24 hr 10/24/24 20:00 10/25/24 09:02 Temperature 97.6 F Pulse Rate 80 Respiratory Rate 16 17 Blood Pressure 125/66 Pulse Oximetry 100 Oxygen Delivery Method Room Air BMI result Body Mass Index 36.8 Labs 10/24/24 18:31 Labs: Laboratory Results - last 48 hr 10/24/24 18:31 Sodium 139 Potassium 3.9 Chloride 104 Carbon Dioxide 27 Anion Gap 12 BUN 18 H Creatinine 0.75 Estim Creat Clear Calc 113.1 Estimated GFR > 60 Random Glucose 114 Calcium 9.4 [place] 0.61 Medications Medications Current Medications Acetaminophen (Acetaminophen 325 Mg Tablet) 650 mg PO Q6H PRN PRN Reason: Headache/Pain, Scale 1-10 Al Hydroxide/Mg Hydroxide (Magnesium Hydrox/Alum Hydrox 30 Ml Oral.Susp) 30 ml PO Q6H PRN PRN Reason: Heartburn/Nausea Hydroxyzine HCl (Hydroxyzine Hcl 50 Mg Tablet) 50 mg PO Q6H PRN PRN Reason: mild anxiety Last Admin: 10/25/24 05:46 Dose: 50 mg [place] Carbonate ([place] Carbonate Er 300 Mg Tablet.Er) 600 mg PO BID@0600,1800 BILLY Last Admin: 10/25/24 05:52 Dose: Not Given Lorazepam (Lorazepam 1 Mg Tablet) 1 mg PO Q4H PRN PRN Reason: severe anxiety/agitation Last Admin: 10/23/24 20:43 Dose: 1 mg Magnesium Hydroxide (Milk Of Magnesia 30 Ml Oral.Susp) 30 ml PO DAILY PRN PRN Reason: Constipation Nicotine (Nicotine 21 Mg Patch.Td24) 21 mg TRANSDERMA DAILY PRN PRN Reason: smoking cessation Nicotine Polacrilex (Nicotine Polacrilex 2 Mg Gum) 4 mg BUCCAL Q2H PRN PRN Reason: Nicotine Cravings Olanzapine (Olanzapine 5 Mg Tablet) 5 mg PO TID PRN PRN Reason: agitation Last Admin: 10/21/24 20:37 Dose: 5 mg Olanzapine (Olanzapine Odt 10 Mg Tab.Rapdis) 10 mg TRANSLINGU DAILY@1800 BILLY Last Admin: 10/24/24 18:46 Dose: Not Given Trazodone HCl (Trazodone Hcl 50 Mg Tablet) 50 mg PO BEDTIME MRX1 PRN PRN Reason: Insomnia Last Admin: 10/21/24 20:37 Dose: 50 mg Allergies Allergies Allergy/AdvReac Type Severity Reaction Status Date / Time No Known Allergies Allergy Verified 10/10/24 23:51 Assessment & Plan Assessment & Plan (1) Moderate bipolar I disorder with poornima as current episode: Status: Acute Code(s): F31.12 - Bipolar disorder, current episode manic without psychotic features, moderate Assessment and Plan: schizoaffective disorder Plan 10/11: offer zyprexa 10 QHS and lithium 450 BID. 10/12: pt refusing meds. continue to offer. HCP in chart. 3-day notice up tuesday. 10/13: change Zyprexa to Zydis to assure compliance. refusing lithium. 10/14: keep same treatment, encourage compliance. 10/15: took meds this morning, sleeping heavily after. commitment paperwork completed, HCP invoked. meeting with mother this afternoon. 10/16/24: Encourage olanzapine lithium patient appears to be passively accepting treatment and hospitalization recommend affirming healthcare proxy. 10/17: pt's HCP signed pt in today, will pursue invocation of HCP. improved from last interview, taking meds. increase lithium to 600 BID and add ativan PRNs. case discussed with pt's mother and SW Graciela. 10/18: taking morning meds, not getting HS meds due to staff's not being able to awaken her. change HS meds to 1800. otherwise continue current mgmt. 10/19: Keeping to self. continues on 1:1. guarded. patient reports feeling fine ; asked T/W to leave her alone to nap. Per nursing, observed responding to internal stimuli. Slept 6 hours last night. continue tx plan 10/20 declines antipsychotic, requires 1:1 for disorganized intrusive behaviors. religiously preoccupied. 10/21 continue tx. continues to present with oriental orthodox preoccupations, does hint to thinking others do not want her to say the truth and also thinks her parents are , which not the case. 10/22: difficult to engage. taking lithium, sometimes taking zyprexa. encouraged medication compliance. continue current mgmt. 10/23: more engageable. delusion that her parents are . continue current mgmt. check labs tonight. 10/24: labs rescheduled for tomorrow morning. asking for discharge. taking meds. poor insight. continue current mgmt. 10/25: refused medications. focused on discharge. continue tx plan. Patient educated on: medication risk/benefits Reason for continued inpatient stay Substantial Risk for: med/psych decompensation Time Spent With Patient Time: Total time managing care of this patient today _10___ minutes.
[2024-10-25 19:42] VITALS: BP 131/86; PULSE 109; RESP 18; TEMP 36.7; O2SAT 98
--- NOTE | 2024-10-25 23:40 | PC.NURSE ---
Pt refused hs meds that were offered at 1800. This RN offered the meds several times and pt stated, after I shower . Pt then stated, come back in an hour . Pt was asked a third time and she walked right by this ad writer without making eye contact and stated, you can document that as the RAPTURE . Pt was approached later a 4th time asking her to take her hs meds and she stated, Astrid Brandt is the reason why these brown children are killed . Also made several statements about the republican green party. Pt sitting andorran style at the foot of her bed talking to someone at the base of the foot of her bed named Liliya about dying for a cause .
[2024-10-26 08:00] VITALS: RESP 18
--- NOTE | 2024-10-26 11:58 | HO.PSYCHPN ---
Subjective Subjective Date of Service: 10/26/24 Reason For Visit: Unspecified Mood disorder Interim History: apparently back to state at which she was admitted. has been refusing meds past couple of days. now praying in the [place], talking to the wall animatedly, ignoring MD's attempts to speak with her. per staff, flat. +RIS, laughing loudly and without evident stimulus. refusing meds. i'm with God. paranoid. talking about dying for a cause, made a statement blaming doc subramanian for the deaths of brown children, unspecified. Mental Status Exam Mental Status Exam Narrative: standing in the [place] animatedly addressing the window. she did not acknowledge or directly address MD as MD attempted to interview patient. speech incr rate and amount, hushed, decr latency. thoughts religiously focused. affect constricted, hyper-intense, non-labile. mood not assessed. no SI/HI/AVH expressed. Diagnostics Vital Signs (24Hr): Vital Signs - 24 hr 10/25/24 19:42 10/26/24 08:00 Temperature 98.0 F Pulse Rate 109 H Respiratory Rate 18 18 Blood Pressure 131/86 Pulse Oximetry 98 Oxygen Delivery Method Room Air BMI result Body Mass Index 36.8 Labs 10/24/24 18:31 Labs: Laboratory Results - last 48 hr 10/24/24 18:31 Sodium 139 Potassium 3.9 Chloride 104 Carbon Dioxide 27 Anion Gap 12 BUN 18 H Creatinine 0.75 Estim Creat Clear Calc 113.1 Estimated GFR > 60 Random Glucose 114 Calcium 9.4 [place] 0.61 Medications Medications Current Medications Acetaminophen (Acetaminophen 325 Mg Tablet) 650 mg PO Q6H PRN PRN Reason: Headache/Pain, Scale 1-10 Al Hydroxide/Mg Hydroxide (Magnesium Hydrox/Alum Hydrox 30 Ml Oral.Susp) 30 ml PO Q6H PRN PRN Reason: Heartburn/Nausea Hydroxyzine HCl (Hydroxyzine Hcl 50 Mg Tablet) 50 mg PO Q6H PRN PRN Reason: mild anxiety Last Admin: 10/25/24 05:46 Dose: 50 mg [place] Carbonate ([place] Carbonate Er 300 Mg Tablet.Er) 600 mg PO BID@0600,1800 BILLY Last Admin: 10/26/24 06:40 Dose: Not Given Lorazepam (Lorazepam 1 Mg Tablet) 1 mg PO Q4H PRN PRN Reason: severe anxiety/agitation Last Admin: 10/23/24 20:43 Dose: 1 mg Magnesium Hydroxide (Milk Of Magnesia 30 Ml Oral.Susp) 30 ml PO DAILY PRN PRN Reason: Constipation Nicotine (Nicotine 21 Mg Patch.Td24) 21 mg TRANSDERMA DAILY PRN PRN Reason: smoking cessation Nicotine Polacrilex (Nicotine Polacrilex 2 Mg Gum) 4 mg BUCCAL Q2H PRN PRN Reason: Nicotine Cravings Olanzapine (Olanzapine 5 Mg Tablet) 5 mg PO TID PRN PRN Reason: agitation Last Admin: 10/21/24 20:37 Dose: 5 mg Olanzapine (Olanzapine Odt 10 Mg Tab.Rapdis) 10 mg TRANSLINGU DAILY@1800 BILLY Last Admin: 10/25/24 18:41 Dose: Not Given Trazodone HCl (Trazodone Hcl 50 Mg Tablet) 50 mg PO BEDTIME MRX1 PRN PRN Reason: Insomnia Last Admin: 10/21/24 20:37 Dose: 50 mg Allergies Allergies Allergy/AdvReac Type Severity Reaction Status Date / Time No Known Allergies Allergy Verified 10/10/24 23:51 Assessment & Plan Assessment & Plan (1) Moderate bipolar I disorder with poornima as current episode: Status: Acute Code(s): F31.12 - Bipolar disorder, current episode manic without psychotic features, moderate Assessment and Plan: schizoaffective disorder Plan 10/11: offer zyprexa 10 QHS and lithium 450 BID. 10/12: pt refusing meds. continue to offer. HCP in chart. 3-day notice up tuesday. 10/13: change Zyprexa to Zydis to assure compliance. refusing lithium. 10/14: keep same treatment, encourage compliance. 10/15: took meds this morning, sleeping heavily after. commitment paperwork completed, HCP invoked. meeting with mother this afternoon. 10/16/24: Encourage olanzapine lithium patient appears to be passively accepting treatment and hospitalization recommend affirming healthcare proxy. 10/17: pt's HCP signed pt in today, will pursue invocation of HCP. improved from last interview, taking meds. increase lithium to 600 BID and add ativan PRNs. case discussed with pt's mother and SW Graciela. 10/18: taking morning meds, not getting HS meds due to staff's not being able to awaken her. change HS meds to 1800. otherwise continue current mgmt. 10/19: Keeping to self. continues on 1:1. guarded. patient reports feeling fine ; asked T/W to leave her alone to nap. Per nursing, observed responding to internal stimuli. Slept 6 hours last night. continue tx plan 10/20 declines antipsychotic, requires 1:1 for disorganized intrusive behaviors. religiously preoccupied. 10/21 continue tx. continues to present with jain preoccupations, does hint to thinking others do not want her to say the truth and also thinks her parents are , which not the case. 10/22: difficult to engage. taking lithium, sometimes taking zyprexa. encouraged medication compliance. continue current mgmt. 10/23: more engageable. delusion that her parents are . continue current mgmt. check labs tonight. 10/24: labs rescheduled for tomorrow morning. asking for discharge. taking meds. poor insight. continue current mgmt. 10/25: refused medications. focused on discharge. continue tx plan. 10/26: refusing meds last couple of days, has essentially returned to state at admission. pursue affirmation of HCP. Reason for continued inpatient stay Substantial Risk for: inability to function Time Spent With Patient Time: Total time managing care of this patient today __25__ minutes.
[2024-10-26 19:48] VITALS: RESP 18
[2024-10-27 08:00] VITALS: BP 111/66; PULSE 69; RESP 16; TEMP 37.1; O2SAT 99
--- NOTE | 2024-10-27 09:02 | HO.PSYCHPN ---
Subjective Subjective Date of Service: 10/27/24 Reason For Visit: Unspecified Mood disorder Interim History: Keeping to self. observed responding to internal stimuli. laughing inappropriately to self. Delayed responses to questions. pt encouraged to take medications; pt stated, I'm saved and with God. I just need the Bible. That's why I'm not taking meds . Medication Compliance: No Attending Groups: No Mental Status Exam Mental Status Exam Patient Appearance: Unkempt Patient Orientation: Person, Place, Time and Situation Level of Consciousness: Awake Patient Behavior: Guarded and Poor Eye Contact Mood Description: Labile Affect Description: Labile Ability to Follow Directions: Good Speech Pattern: Delayed Hallucinations: Auditory Delusions: Grandiose Thought Content: positive for Thought Blocking and positive for Disorganized Diagnostics Vital Signs (24Hr): Vital Signs - 24 hr 10/26/24 19:48 10/27/24 08:00 Temperature 98.7 F Pulse Rate 69 Respiratory Rate 18 16 Blood Pressure 111/66 Pulse Oximetry 99 Oxygen Delivery Method Room Air BMI result Body Mass Index 36.8 Labs 10/24/24 18:31 Medications Medications Current Medications Acetaminophen (Acetaminophen 325 Mg Tablet) 650 mg PO Q6H PRN PRN Reason: Headache/Pain, Scale 1-10 Al Hydroxide/Mg Hydroxide (Magnesium Hydrox/Alum Hydrox 30 Ml Oral.Susp) 30 ml PO Q6H PRN PRN Reason: Heartburn/Nausea Hydroxyzine HCl (Hydroxyzine Hcl 50 Mg Tablet) 50 mg PO Q6H PRN PRN Reason: mild anxiety Last Admin: 10/25/24 05:46 Dose: 50 mg [place] Carbonate ([place] Carbonate Er 300 Mg Tablet.Er) 600 mg PO BID@0600,1800 BILLY Last Admin: 10/27/24 06:01 Dose: Not Given Lorazepam (Lorazepam 1 Mg Tablet) 1 mg PO Q4H PRN PRN Reason: severe anxiety/agitation Last Admin: 10/23/24 20:43 Dose: 1 mg Magn[place] Hydroxide (Milk Of Magnesia 30 Ml Oral.Susp) 30 ml PO DAILY PRN PRN Reason: Constipation Nicotine (Nicotine 21 Mg Patch.Td24) 21 mg TRANSDERMA DAILY PRN PRN Reason: smoking cessation Nicotine Polacrilex (Nicotine Polacrilex 2 Mg Gum) 4 mg BUCCAL Q2H PRN PRN Reason: Nicotine Cravings Olanzapine (Olanzapine 5 Mg Tablet) 5 mg PO TID PRN PRN Reason: agitation Last Admin: 10/21/24 20:37 Dose: 5 mg Olanzapine (Olanzapine Odt 10 Mg Tab.Rapdis) 10 mg TRANSLINGU DAILY@1800 BILLY Last Admin: 10/26/24 17:54 Dose: Not Given Trazodone HCl (Trazodone Hcl 50 Mg Tablet) 50 mg PO BEDTIME MRX1 PRN PRN Reason: Insomnia Last Admin: 10/21/24 20:37 Dose: 50 mg Allergies Allergies Allergy/AdvReac Type Severity Reaction Status Date / Time No Known Allergies Allergy Verified 10/10/24 23:51 Assessment & Plan Assessment & Plan (1) Moderate bipolar I disorder with poornima as current episode: Status: Acute Code(s): F31.12 - Bipolar disorder, current episode manic without psychotic features, moderate Assessment and Plan: schizoaffective disorder Plan 10/11: offer zyprexa 10 QHS and lithium 450 BID. 10/12: pt refusing meds. continue to offer. HCP in chart. 3-day notice up tuesday. 10/13: change Zyprexa to Zydis to assure compliance. refusing lithium. 10/14: keep same treatment, encourage compliance. 10/15: took meds this morning, sleeping heavily after. commitment paperwork completed, HCP invoked. meeting with mother this afternoon. 10/16/24: Encourage olanzapine lithium patient appears to be passively accepting treatment and hospitalization recommend affirming healthcare proxy. 10/17: pt's HCP signed pt in today, will pursue invocation of HCP. improved from last interview, taking meds. increase lithium to 600 BID and add ativan PRNs. case discussed with pt's mother and PEEWEE Graciela. 10/18: taking morning meds, not getting HS meds due to staff's not being able to awaken her. change HS meds to 1800. otherwise continue current mgmt. 10/19: Keeping to self. continues on 1:1. guarded. patient reports feeling fine ; asked T/W to leave her alone to nap. Per nursing, observed responding to internal stimuli. Slept 6 hours last night. continue tx plan 10/20 declines antipsychotic, requires 1:1 for disorganized intrusive behaviors. religiously preoccupied. 10/21 continue tx. continues to present with episcopal preoccupations, does hint to thinking others do not want her to say the truth and also thinks her parents are , which not the case. 10/22: difficult to engage. taking lithium, sometimes taking zyprexa. encouraged medication compliance. continue current mgmt. 10/23: more engageable. delusion that her parents are . continue current mgmt. check labs tonight. 10/24: labs rescheduled for tomorrow morning. asking for discharge. taking meds. poor insight. continue current mgmt. 10/25: refused medications. focused on discharge. continue tx plan. 10/26: refusing meds last couple of days, has essentially returned to state at admission. pursue affirmation of HCP. 10/27: Keeping to self. observed responding to internal stimuli. laughing inappropriately to self. Delayed responses to questions. pt encouraged to take medications; pt stated, I'm saved and with God. I just need the Bible. That's why I'm not taking meds . continue to encourage medication compliance. Patient educated on: medication risk/benefits Reason for continued inpatient stay Substantial Risk for: med/psych decompensation Time Spent With Patient Time: Total time managing care of this patient today _10___ minutes.
[2024-10-27 20:00] VITALS: RESP 18
--- NOTE | 2024-10-27 21:57 | PC.NURSE ---
Pt was offered 1800 medications again this evening and pt stated No, I am still with God . Refusing again. Pt was self dialoguing the entire time and began to laugh as this RN exited the room.
--- NOTE | 2024-10-28 06:52 | PC.NURSE ---
Pt was offered morning medication and refused the medication stating this is getting aggressive .
[2024-10-28 08:00] VITALS: RESP 16
--- NOTE | 2024-10-28 08:57 | HO.PSYCHPN ---
Subjective Subjective Date of Service: 10/28/24 Reason For Visit: Unspecified Mood disorder Interim History: observed responding to internal stimuli. Delayed responses to questions. when asked if T/W could speak to her, pt stated, I'm doing great. I'm with God. I'm immortal. I'm with God . Sleeping most of the morning. refused medications. Medication Compliance: No Attending Groups: No Mental Status Exam Mental Status Exam Patient Appearance: Unkempt Patient Orientation: Person, Place, Time and Situation Level of Consciousness: Awake Patient Behavior: Guarded and Poor Eye Contact Mood Description: Labile Affect Description: Labile Patient Cognition Impaired: Yes Ability to Follow Directions: Good Speech Pattern: Delayed Hallucinations: Auditory Delusions: Grandiose Thought Content: positive for Tangential Diagnostics Vital Signs (24Hr): Vital Signs - 24 hr 10/27/24 20:00 10/28/24 08:00 Respiratory Rate 18 16 BMI result Body Mass Index 36.8 Labs 10/24/24 18:31 Medications Medications Current Medications Acetaminophen (Acetaminophen 325 Mg Tablet) 650 mg PO Q6H PRN PRN Reason: Headache/Pain, Scale 1-10 Al Hydroxide/Mg Hydroxide (Magnesium Hydrox/Alum Hydrox 30 Ml Oral.Susp) 30 ml PO Q6H PRN PRN Reason: Heartburn/Nausea Hydroxyzine HCl (Hydroxyzine Hcl 50 Mg Tablet) 50 mg PO Q6H PRN PRN Reason: mild anxiety Last Admin: 10/25/24 05:46 Dose: 50 mg [place] Carbonate ([place] Carbonate Er 300 Mg Tablet.Er) 600 mg PO BID@0600,1800 BILLY Last Admin: 10/28/24 06:52 Dose: Not Given Lorazepam (Lorazepam 1 Mg Tablet) 1 mg PO Q4H PRN PRN Reason: severe anxiety/agitation Last Admin: 10/23/24 20:43 Dose: 1 mg Magn[place] Hydroxide (Milk Of Magnesia 30 Ml Oral.Susp) 30 ml PO DAILY PRN PRN Reason: Constipation Nicotine (Nicotine 21 Mg Patch.Td24) 21 mg TRANSDERMA DAILY PRN PRN Reason: smoking cessation Nicotine Polacrilex (Nicotine Polacrilex 2 Mg Gum) 4 mg BUCCAL Q2H PRN PRN Reason: Nicotine Cravings Olanzapine (Olanzapine 5 Mg Tablet) 5 mg PO TID PRN PRN Reason: agitation Last Admin: 10/21/24 20:37 Dose: 5 mg Olanzapine (Olanzapine Odt 10 Mg Tab.Rapdis) 10 mg TRANSLINGU DAILY@1800 BILLY Last Admin: 10/27/24 17:36 Dose: Not Given Trazodone HCl (Trazodone Hcl 50 Mg Tablet) 50 mg PO BEDTIME MRX1 PRN PRN Reason: Insomnia Last Admin: 10/21/24 20:37 Dose: 50 mg Allergies Allergies Allergy/AdvReac Type Severity Reaction Status Date / Time No Known Allergies Allergy Verified 10/10/24 23:51 Assessment & Plan Assessment & Plan (1) Moderate bipolar I disorder with poornima as current episode: Status: Acute Code(s): F31.12 - Bipolar disorder, current episode manic without psychotic features, moderate Assessment and Plan: schizoaffective disorder Plan 10/11: offer zyprexa 10 QHS and lithium 450 BID. 10/12: pt refusing meds. continue to offer. HCP in chart. 3-day notice up tuesday. 10/13: change Zyprexa to Zydis to assure compliance. refusing lithium. 10/14: keep same treatment, encourage compliance. 10/15: took meds this morning, sleeping heavily after. commitment paperwork completed, HCP invoked. meeting with mother this afternoon. 10/16/24: Encourage olanzapine lithium patient appears to be passively accepting treatment and hospitalization recommend affirming healthcare proxy. 10/17: pt's HCP signed pt in today, will pursue invocation of HCP. improved from last interview, taking meds. increase lithium to 600 BID and add ativan PRNs. case discussed with pt's mother and PEEWEE Owens. 10/18: taking morning meds, not getting HS meds due to staff's not being able to awaken her. change HS meds to 1800. otherwise continue current mgmt. 10/19: Keeping to self. continues on 1:1. guarded. patient reports feeling fine ; asked T/W to leave her alone to nap. Per nursing, observed responding to internal stimuli. Slept 6 hours last night. continue tx plan 10/20 declines antipsychotic, requires 1:1 for disorganized intrusive behaviors. religiously preoccupied. 10/21 continue tx. continues to present with oriental orthodox preoccupations, does hint to thinking others do not want her to say the truth and also thinks her parents are , which not the case. 10/22: difficult to engage. taking lithium, sometimes taking zyprexa. encouraged medication compliance. continue current mgmt. 10/23: more engageable. delusion that her parents are . continue current mgmt. check labs tonight. 10/24: labs rescheduled for tomorrow morning. asking for discharge. taking meds. poor insight. continue current mgmt. 10/25: refused medications. focused on discharge. continue tx plan. 10/26: refusing meds last couple of days, has essentially returned to state at admission. pursue affirmation of HCP. 10/27: Keeping to self. observed responding to internal stimuli. laughing inappropriately to self. Delayed responses to questions. pt encouraged to take medications; pt stated, I'm saved and with God. I just need the Bible. That's why I'm not taking meds . continue to encourage medication compliance. 10/28: continues to refuse medications. repeating she is with God . continue tx plan. Patient educated on: medication risk/benefits Reason for continued inpatient stay Substantial Risk for: med/psych decompensation Time Spent With Patient Time: Total time managing care of this patient today _10___ minutes.
[2024-10-28 20:00] VITALS: RESP 16
[2024-10-29 08:00] VITALS: RESP 16
--- NOTE | 2024-10-29 12:47 | HO.PSYCHPN ---
Subjective Subjective Date of Service: 10/29/24 Reason For Visit: Unspecified Mood disorder Interim History: saying only i am with god over and over and over. does not respond to MD's attempts to speak with her. holding sensory squish toy to her luca and bible in her other hand as she recites. room is quite messy. MD encouraged pt to take medications. per staff, remains on 1:1. yelling, crying, talking to entities not visible to others. +RIS, +AH. hyper-shinto. pacing. refusing meds. no sleep overnight, perhaps a little in the morning. Mental Status Exam Mental Status Exam Narrative: pacing in her room repeating i am with god ceaselessly. she did not address MD as MD attempted to interview patient. speech incr rate and amount, hushed, decr latency. thoughts religiously focused. affect constricted, hyper-intense, non-labile. mood not assessed. no SI/HI/AVH expressed. Diagnostics Vital Signs (24Hr): Vital Signs - 24 hr 10/28/24 20:00 10/29/24 08:00 Respiratory Rate 16 16 BMI result Body Mass Index 36.8 Labs 10/24/24 18:31 Medications Medications Current Medications Acetaminophen (Acetaminophen 325 Mg Tablet) 650 mg PO Q6H PRN PRN Reason: Headache/Pain, Scale 1-10 Al Hydroxide/Mg Hydroxide (Magnesium Hydrox/Alum Hydrox 30 Ml Oral.Susp) 30 ml PO Q6H PRN PRN Reason: Heartburn/Nausea Hydroxyzine HCl (Hydroxyzine Hcl 50 Mg Tablet) 50 mg PO Q6H PRN PRN Reason: mild anxiety Last Admin: 10/25/24 05:46 Dose: 50 mg [place] Carbonate ([place] Carbonate Er 300 Mg Tablet.Er) 600 mg PO BID@0600,1800 BILLY Last Admin: 10/29/24 06:17 Dose: Not Given Lorazepam (Lorazepam 1 Mg Tablet) 1 mg PO Q4H PRN PRN Reason: severe anxiety/agitation Last Admin: 10/23/24 20:43 Dose: 1 mg [place] Hydroxide (Milk Of Magnesia 30 Ml Oral.Susp) 30 ml PO DAILY PRN PRN Reason: Constipation Nicotine (Nicotine 21 Mg Patch.Td24) 21 mg TRANSDERMA DAILY PRN PRN Reason: smoking cessation Nicotine Polacrilex (Nicotine Polacrilex 2 Mg Gum) 4 mg BUCCAL Q2H PRN PRN Reason: Nicotine Cravings Olanzapine (Olanzapine 5 Mg Tablet) 5 mg PO TID PRN PRN Reason: agitation Last Admin: 10/21/24 20:37 Dose: 5 mg Olanzapine (Olanzapine Odt 10 Mg Tab.Rapdis) 10 mg TRANSLINGU DAILY@1800 BILLY Last Admin: 10/28/24 19:18 Dose: Not Given Trazodone HCl (Trazodone Hcl 50 Mg Tablet) 50 mg PO BEDTIME MRX1 PRN PRN Reason: Insomnia Last Admin: 10/21/24 20:37 Dose: 50 mg Allergies Allergies Allergy/AdvReac Type Severity Reaction Status Date / Time No Known Allergies Allergy Verified 10/10/24 23:51 Assessment & Plan Assessment & Plan (1) Moderate bipolar I disorder with poornima as current episode: Status: Acute Code(s): F31.12 - Bipolar disorder, current episode manic without psychotic features, moderate Assessment and Plan: schizoaffective disorder Plan 10/11: offer zyprexa 10 QHS and lithium 450 BID. 10/12: pt refusing meds. continue to offer. HCP in chart. 3-day notice up tuesday. 10/13: change Zyprexa to Zydis to assure compliance. refusing lithium. 10/14: keep same treatment, encourage compliance. 10/15: took meds this morning, sleeping heavily after. commitment paperwork completed, HCP invoked. meeting with mother this afternoon. 10/16/24: Encourage olanzapine lithium patient appears to be passively accepting treatment and hospitalization recommend affirming healthcare proxy. 10/17: pt's HCP signed pt in today, will pursue invocation of HCP. improved from last interview, taking meds. increase lithium to 600 BID and add ativan PRNs. case discussed with pt's mother and SW Graciela. 10/18: taking morning meds, not getting HS meds due to staff's not being able to awaken her. change HS meds to 1800. otherwise continue current mgmt. 10/19: Keeping to self. continues on 1:1. guarded. patient reports feeling fine ; asked T/W to leave her alone to nap. Per nursing, observed responding to internal stimuli. Slept 6 hours last night. continue tx plan 10/20 declines antipsychotic, requires 1:1 for disorganized intrusive behaviors. religiously preoccupied. 10/21 continue tx. continues to present with shinto preoccupations, does hint to thinking others do not want her to say the truth and also thinks her parents are , which not the case. 10/22: difficult to engage. taking lithium, sometimes taking zyprexa. encouraged medication compliance. continue current mgmt. 10/23: more engageable. delusion that her parents are . continue current mgmt. check labs tonight. 10/24: labs rescheduled for tomorrow morning. asking for discharge. taking meds. poor insight. continue current mgmt. 10/25: refused medications. focused on discharge. continue tx plan. 10/26: refusing meds last couple of days, has essentially returned to state at admission. pursue affirmation of HCP. 10/27: Keeping to self. observed responding to internal stimuli. laughing inappropriately to self. Delayed responses to questions. pt encouraged to take medications; pt stated, I'm saved and with God. I just need the Bible. That's why I'm not taking meds . continue to encourage medication compliance. 10/28: continues to refuse medications. repeating she is with God . continue tx plan. 10/29: pacing, i am with god, not engaging in interview. HCP Physician's affidavit completed. pursue affirmed HCP versus guardianship versus both. refusing meds, not sleeping. floridly manic/psychotic. Reason for continued inpatient stay Substantial Risk for: inability to function Time Spent With Patient Time: Total time managing care of this patient today __35__ minutes.
--- NOTE | 2024-10-29 17:18 | PC.NURSE ---
Pt was self-dialoguing and yelling while pacing the hallway. RN attempted to offer pt PRN medication and scheduled medication, pt avoided eye contact and yelled I am with God, this is God's house!
[2024-10-29 20:00] VITALS: RESP 14
--- NOTE | 2024-10-30 06:55 | PC.NURSE ---
up, pacing, screaming in response to IT. carrying her bible. refusing medications. increase in aggressive behaviors hitting arms/hands against the rae.
--- NOTE | 2024-10-30 14:17 | HO.PSYCHPN ---
Subjective Subjective Date of Service: 10/30/24 Reason For Visit: Unspecified Mood disorder Interim History: we're going to make the ultimate sacrifice. we're going to kill us all and save the world. i'm with god. appears to have returned to same state as at admission. floridly manic/psychotic, pacing a room littered with trash, praying loudly, engaging in conversations with unseen and unheard partners. per staff, paranoid, RIS, not taking meds. i'm with god. agitated eves. disrupted sleep. screaming for an extended period this morning. punching rae, slamming doors. lying down in [place]. throwing objects in [place]. Mental Status Exam Mental Status Exam Narrative: pacing in her room engaging in full-blown convo with no apparent entity. she did not address MD as MD attempted to interview patient. speech incr rate and amount, variable loudness, decr latency. thoughts religiously focused. affect constricted, hyper-intense, mod-labile. mood not assessed. no SI/HI/AVH expressed, but clearly experiencing AVH. Diagnostics Vital Signs (24Hr): Vital Signs - 24 hr 10/29/24 20:00 Respiratory Rate 14 BMI result Body Mass Index 36.8 Labs 10/24/24 18:31 Medications Medications Current Medications Acetaminophen (Acetaminophen 325 Mg Tablet) 650 mg PO Q6H PRN PRN Reason: Headache/Pain, Scale 1-10 Al Hydroxide/Mg Hydroxide (Magnesium Hydrox/Alum Hydrox 30 Ml Oral.Susp) 30 ml PO Q6H PRN PRN Reason: Heartburn/Nausea Hydroxyzine HCl (Hydroxyzine Hcl 50 Mg Tablet) 50 mg PO Q6H PRN PRN Reason: mild anxiety Last Admin: 10/25/24 05:46 Dose: 50 mg [place] Carbonate ([place] Carbonate Er 300 Mg Tablet.Er) 600 mg PO BID@0600,1800 BILLY Last Admin: 10/30/24 05:35 Dose: Not Given Lorazepam (Lorazepam 1 Mg Tablet) 1 mg PO Q4H PRN PRN Reason: severe anxiety/agitation Last Admin: 10/23/24 20:43 Dose: 1 mg Magnesium Hydroxide (Milk Of Magnesia 30 Ml Oral.Susp) 30 ml PO DAILY PRN PRN Reason: Constipation Nicotine (Nicotine 21 Mg Patch.Td24) 21 mg TRANSDERMA DAILY PRN PRN Reason: smoking cessation Nicotine Polacrilex (Nicotine Polacrilex 2 Mg Gum) 4 mg BUCCAL Q2H PRN PRN Reason: Nicotine Cravings Olanzapine (Olanzapine 5 Mg Tablet) 5 mg PO TID PRN PRN Reason: agitation Last Admin: 10/21/24 20:37 Dose: 5 mg Olanzapine (Olanzapine Odt 10 Mg Tab.Rapdis) 10 mg TRANSLINGU DAILY@1800 BILLY Last Admin: 10/29/24 18:13 Dose: Not Given Trazodone HCl (Trazodone Hcl 50 Mg Tablet) 50 mg PO BEDTIME MRX1 PRN PRN Reason: Insomnia Last Admin: 10/21/24 20:37 Dose: 50 mg Allergies Allergies Allergy/AdvReac Type Severity Reaction Status Date / Time No Known Allergies Allergy Verified 10/10/24 23:51 Assessment & Plan Assessment & Plan (1) Moderate bipolar I disorder with poornima as current episode: Status: Acute Code(s): F31.12 - Bipolar disorder, current episode manic without psychotic features, moderate Assessment and Plan: schizoaffective disorder Plan 10/11: offer zyprexa 10 QHS and lithium 450 BID. 10/12: pt refusing meds. continue to offer. HCP in chart. 3-day notice up tuesday. 10/13: change Zyprexa to Zydis to assure compliance. refusing lithium. 10/14: keep same treatment, encourage compliance. 10/15: took meds this morning, sleeping heavily after. commitment paperwork completed, HCP invoked. meeting with mother this afternoon. 10/16/24: Encourage olanzapine lithium patient appears to be passively accepting treatment and hospitalization recommend affirming healthcare proxy. 10/17: pt's HCP signed pt in today, will pursue invocation of HCP. improved from last interview, taking meds. increase lithium to 600 BID and add ativan PRNs. case discussed with pt's mother and SW Graciela. 10/18: taking morning meds, not getting HS meds due to staff's not being able to awaken her. change HS meds to 1800. otherwise continue current mgmt. 10/19: Keeping to self. continues on 1:1. guarded. patient reports feeling fine ; asked T/W to leave her alone to nap. Per nursing, observed responding to internal stimuli. Slept 6 hours last night. continue tx plan 10/20 declines antipsychotic, requires 1:1 for disorganized intrusive behaviors. religiously preoccupied. 10/21 continue tx. continues to present with hinduism preoccupations, does hint to thinking others do not want her to say the truth and also thinks her parents are , which not the case. 10/22: difficult to engage. taking lithium, sometimes taking zyprexa. encouraged medication compliance. continue current mgmt. 10/23: more engageable. delusion that her parents are . continue current mgmt. check labs tonight. 10/24: labs rescheduled for tomorrow morning. asking for discharge. taking meds. poor insight. continue current mgmt. 10/25: refused medications. focused on discharge. continue tx plan. 10/26: refusing meds last couple of days, has essentially returned to state at admission. pursue affirmation of HCP. 10/27: Keeping to self. observed responding to internal stimuli. laughing inappropriately to self. Delayed responses to questions. pt encouraged to take medications; pt stated, I'm saved and with God. I just need the Bible. That's why I'm not taking meds . continue to encourage medication compliance. 10/28: continues to refuse medications. repeating she is with God . continue tx plan. 10/29: pacing, i am with god, not engaging in interview. HCP Physician's affidavit completed. pursue affirmed HCP versus guardianship versus both. refusing meds, not sleeping. floridly manic/psychotic. 10/30: remains floridly manic/psychotic, refusing meds. behaviors increasingly disorganized, violent, disruptive. awaiting affirmation of HCP so medications may be administered. case D/W pt's mother/HCP. Reason for continued inpatient stay Substantial Risk for: harm to self, harm to others and inability to function Time Spent With Patient Time: Total time managing care of this patient today __35__ minutes.
[2024-10-30] MEDS: Lithium Carbonate ER 300 MG TABLET.ER 600 MG PO (18:23)
[2024-10-30 20:00] VITALS: RESP 18
--- NOTE | 2024-10-31 05:52 | PC.NURSE ---
Attempted to administer 0600, pt politely refused AM lithium twice.
--- NOTE | 2024-10-31 12:22 | P.PNPSI_ITS ---
Subjective Subjective Date of Service: 10/31/24 Reason For Visit: Unspecified Mood disorder Interim History: lying on her bed, appears sleepy. agrees to have light turned off so she can sleep. no complaints or requests. per staff, labile, agitated. took 1800 lithium yesterday, refused this morning's dose. refusing zyprexa. praying in room. +RIS. slept 5-10 minutes overnight. Mental Status Exam Mental Status Exam Narrative: adequately dressed and groomed, lying in bed. PMR. speech nml rate, decr amount, nml loudness, nml tone. incr latency. thoughts linear and not particularly logical (ambivalent re light's being on). affect constricted, hypo-intense, non-labile. mood not assessed. no SI/HI/AVH expressed. Diagnostics Vital Signs (24Hr): Vital Signs - 24 hr 10/30/24 20:00 Respiratory Rate 18 BMI result Body Mass Index 36.8 Labs 10/24/24 18:31 Medications Medications Current Medications Acetaminophen (Acetaminophen 325 Mg Tablet) 650 mg PO Q6H PRN PRN Reason: Headache/Pain, Scale 1-10 Al Hydroxide/Mg Hydroxide (Magnesium Hydrox/Alum Hydrox 30 Ml Oral.Susp) 30 ml PO Q6H PRN PRN Reason: Heartburn/Nausea Hydroxyzine HCl (Hydroxyzine Hcl 50 Mg Tablet) 50 mg PO Q6H PRN PRN Reason: mild anxiety Last Admin: 10/25/24 05:46 Dose: 50 mg [place] Carbonate ([place] Carbonate Er 300 Mg Tablet.Er) 600 mg PO BID@0600,1800 BILLY Last Admin: 10/31/24 07:43 Dose: Not Given Lorazepam (Lorazepam 1 Mg Tablet) 1 mg PO Q4H PRN PRN Reason: severe anxiety/agitation Last Admin: 10/23/24 20:43 Dose: 1 mg Magnesium Hydroxide (Milk Of Magnesia 30 Ml Oral.Susp) 30 ml PO DAILY PRN PRN Reason: Constipation Nicotine (Nicotine 21 Mg Patch.Td24) 21 mg TRANSDERMA DAILY PRN PRN Reason: smoking cessation Nicotine Polacrilex (Nicotine Polacrilex 2 Mg Gum) 4 mg BUCCAL Q2H PRN PRN Reason: Nicotine Cravings Olanzapine (Olanzapine 5 Mg Tablet) 5 mg PO TID PRN PRN Reason: agitation Last Admin: 10/21/24 20:37 Dose: 5 mg Olanzapine (Olanzapine Odt 10 Mg Tab.Rapdis) 10 mg TRANSLINGU DAILY@1800 BILLY Last Admin: 10/30/24 18:25 Dose: Not Given Trazodone HCl (Trazodone Hcl 50 Mg Tablet) 50 mg PO BEDTIME MRX1 PRN PRN Reason: Insomnia Last Admin: 10/21/24 20:37 Dose: 50 mg Allergies Allergies Allergy/AdvReac Type Severity Reaction Status Date / Time No Known Allergies Allergy Verified 10/10/24 23:51 Assessment & Plan Assessment & Plan (1) Moderate bipolar I disorder with poornima as current episode: Status: Acute Code(s): F31.12 - Bipolar disorder, current episode manic without psychotic features, moderate Assessment and Plan: schizoaffective disorder Plan 10/11: offer zyprexa 10 QHS and lithium 450 BID. 10/12: pt refusing meds. continue to offer. HCP in chart. 3-day notice up tuesday. 10/13: change Zyprexa to Zydis to assure compliance. refusing lithium. 10/14: keep same treatment, encourage compliance. 10/15: took meds this morning, sleeping heavily after. commitment paperwork completed, HCP invoked. meeting with mother this afternoon. 10/16/24: Encourage olanzapine lithium patient appears to be passively accepting treatment and hospitalization recommend affirming healthcare proxy. 10/17: pt's HCP signed pt in today, will pursue invocation of HCP. improved from last interview, taking meds. increase lithium to 600 BID and add ativan PRNs. case discussed with pt's mother and SW Graciela. 10/18: taking morning meds, not getting HS meds due to staff's not being able to awaken her. change HS meds to 1800. otherwise continue current mgmt. 10/19: Keeping to self. continues on 1:1. guarded. patient reports feeling fine ; asked T/W to leave her alone to nap. Per nursing, observed responding to internal stimuli. Slept 6 hours last night. continue tx plan 10/20 declines antipsychotic, requires 1:1 for disorganized intrusive behaviors. religiously preoccupied. 10/21 continue tx. continues to present with nondenominational preoccupations, does hint to thinking others do not want her to say the truth and also thinks her parents are , which not the case. 10/22: difficult to engage. taking lithium, sometimes taking zyprexa. encouraged medication compliance. continue current mgmt. 10/23: more engageable. delusion that her parents are . continue current mgmt. check labs tonight. 10/24: labs rescheduled for tomorrow morning. asking for discharge. taking meds. poor insight. continue current mgmt. 10/25: refused medications. focused on discharge. continue tx plan. 10/26: refusing meds last couple of days, has essentially returned to state at admission. pursue affirmation of HCP. 10/27: Keeping to self. observed responding to internal stimuli. laughing inappropriately to self. Delayed responses to questions. pt encouraged to take medications; pt stated, I'm saved and with God. I just need the Bible. That's why I'm not taking meds . continue to encourage medication compliance. 10/28: continues to refuse medications. repeating she is with God . continue tx plan. 10/29: pacing, i am with god, not engaging in interview. HCP Physician's affidavit completed. pursue affirmed HCP versus guardianship versus both. refusing meds, not sleeping. floridly manic/psychotic. 10/30: remains floridly manic/psychotic, refusing meds. behaviors increasingly disorganized, violent, disruptive. awaiting affirmation of HCP so medications may be administered. case D/W pt's mother/HCP. 10/31: appearing tired today after having essentially not slept at all last night. she did take lithium yesterday afternoon at 1800. continue to encourage medication compliance, keep safe. Reason for continued inpatient stay Substantial Risk for: inability to function Time Spent With Patient Time: Total time managing care of this patient today ____ minutes.
[2024-10-31 20:00] VITALS: RESP 20
--- NOTE | 2024-11-01 06:48 | PC.NURSE ---
Addendum entered by Rosa Smith RN 11/01/24 07:40: patient threw her foot stool into the hallway. she was crying and agreed to take 600mg of [place] as ordered Original Note: Wilma awoke upset, pacing, crying and self dialoguing at first agreed to take am [place] saying he wants me to have the [place] however she ultimately refused the medication
[2024-11-01 07:00] VITALS: BMI 37.7
[2024-11-01] MEDS: Lithium Carbonate ER 300 MG TABLET.ER 600 MG PO (07:38)
[2024-11-01 08:00] VITALS: RESP 18
[2024-11-01] MEDS: OLANZapine 5 MG TABLET PO (08:18)
[2024-11-01] MEDS: hydrOXYzine HCL 50 MG TABLET PO (08:18)
[2024-11-01] MEDS: LORazepam 1 MG TABLET PO (08:18)
--- NOTE | 2024-11-01 15:26 | P.PNPSI_ITS ---
Subjective Subjective Date of Service: 11/01/24 Reason For Visit: Unspecified Mood disorder Interim History: appearing sleepy, not able to engage with MD, falling asleep in bed. encouraged to rest. per staff, labile, +RIS. isolative to room. refused 1800 meds. i'm with god. took 0600 lithium, also took zyprexa, hydroxyzine, ativan. Mental Status Exam Mental Status Exam Narrative: adequately dressed and groomed, sitting up in bed, falling asleep. PMR. speech decr rate, decr amount, decr loudness, flattened tone. incr latency. thoughts mumbled, not intelligible. affect blunted, hypo-intense, non-labile. mood not assessed. no SI/HI/AVH expressed. Diagnostics Vital Signs (24Hr): Vital Signs - 24 hr 10/31/24 20:00 11/01/24 08:00 Respiratory Rate 20 18 BMI result Body Mass Index 37.7 Labs 10/24/24 18:31 Medications Medications Current Medications Acetaminophen (Acetaminophen 325 Mg Tablet) 650 mg PO Q6H PRN PRN Reason: Headache/Pain, Scale 1-10 Al Hydroxide/Mg Hydroxide (Magnesium Hydrox/Alum Hydrox 30 Ml Oral.Susp) 30 ml PO Q6H PRN PRN Reason: Heartburn/Nausea Hydroxyzine HCl (Hydroxyzine Hcl 50 Mg Tablet) 50 mg PO Q6H PRN PRN Reason: mild anxiety Last Admin: 11/01/24 08:18 Dose: 50 mg [place] Carbonate ([place] Carbonate Er 300 Mg Tablet.Er) 600 mg PO BID@0600,1800 BILLY Last Admin: 11/01/24 07:38 Dose: 600 mg Lorazepam (Lorazepam 1 Mg Tablet) 1 mg PO Q4H PRN PRN Reason: severe anxiety/agitation Last Admin: 11/01/24 08:18 Dose: 1 mg [place] Hydroxide (Milk Of Magnesia 30 Ml Oral.Susp) 30 ml PO DAILY PRN PRN Reason: Constipation Nicotine (Nicotine 21 Mg Patch.Td24) 21 mg TRANSDERMA DAILY PRN PRN Reason: smoking cessation Nicotine Polacrilex (Nicotine Polacrilex 2 Mg Gum) 4 mg BUCCAL Q2H PRN PRN Reason: Nicotine Cravings Olanzapine (Olanzapine 5 Mg Tablet) 5 mg PO TID PRN PRN Reason: agitation Last Admin: 11/01/24 08:18 Dose: 5 mg Olanzapine (Olanzapine Odt 10 Mg Tab.Rapdis) 10 mg TRANSLINGU DAILY@1800 BILLY Last Admin: 10/31/24 18:09 Dose: Not Given Trazodone HCl (Trazodone Hcl 50 Mg Tablet) 50 mg PO BEDTIME MRX1 PRN PRN Reason: Insomnia Last Admin: 10/21/24 20:37 Dose: 50 mg Allergies Allergies Allergy/AdvReac Type Severity Reaction Status Date / Time No Known Allergies Allergy Verified 10/10/24 23:51 Assessment & Plan Assessment & Plan (1) Moderate bipolar I disorder with poornima as current episode: Status: Acute Code(s): F31.12 - Bipolar disorder, current episode manic without psychotic features, moderate Assessment and Plan: schizoaffective disorder Plan 10/11: offer zyprexa 10 QHS and lithium 450 BID. 10/12: pt refusing meds. continue to offer. HCP in chart. 3-day notice up tuesday. 10/13: change Zyprexa to Zydis to assure compliance. refusing lithium. 10/14: keep same treatment, encourage compliance. 10/15: took meds this morning, sleeping heavily after. commitment paperwork completed, HCP invoked. meeting with mother this afternoon. 10/16/24: Encourage olanzapine lithium patient appears to be passively accepting treatment and hospitalization recommend affirming healthcare proxy. 10/17: pt's HCP signed pt in today, will pursue invocation of HCP. improved from last interview, taking meds. increase lithium to 600 BID and add ativan PRNs. case discussed with pt's mother and SW Graciela. 10/18: taking morning meds, not getting HS meds due to staff's not being able to awaken her. change HS meds to 1800. otherwise continue current mgmt. 10/19: Keeping to self. continues on 1:1. guarded. patient reports feeling fine ; asked T/W to leave her alone to nap. Per nursing, observed responding to internal stimuli. Slept 6 hours last night. continue tx plan 10/20 declines antipsychotic, requires 1:1 for disorganized intrusive behaviors. religiously preoccupied. 10/21 continue tx. continues to present with voodoo preoccupations, does hint to thinking others do not want her to say the truth and also thinks her parents are , which not the case. 10/22: difficult to engage. taking lithium, sometimes taking zyprexa. encouraged medication compliance. continue current mgmt. 10/23: more engageable. delusion that her parents are . continue current mgmt. check labs tonight. 10/24: labs rescheduled for tomorrow morning. asking for discharge. taking meds. poor insight. continue current mgmt. 10/25: refused medications. focused on discharge. continue tx plan. 10/26: refusing meds last couple of days, has essentially returned to state at admission. pursue affirmation of HCP. 10/27: Keeping to self. observed responding to internal stimuli. laughing inappropriately to self. Delayed responses to questions. pt encouraged to take medications; pt stated, I'm saved and with God. I just need the Bible. That's why I'm not taking meds . continue to encourage medication compliance. 10/28: continues to refuse medications. repeating she is with God . continue tx plan. 10/29: pacing, i am with god, not engaging in interview. HCP Physician's affidavit completed. pursue affirmed HCP versus guardianship versus both. refusing meds, not sleeping. floridly manic/psychotic. 10/30: remains floridly manic/psychotic, refusing meds. behaviors increasingly disorganized, violent, disruptive. awaiting affirmation of HCP so medications may be administered. case D/W pt's mother/HCP. 10/31: appearing tired today after having essentially not slept at all last night. she did take lithium yesterday afternoon at 1800. continue to encourage medication compliance, keep safe. 11/01: appearing tired again, poor sleep overnight. took some medications in the past day but not most. encouraged to sleep this morning. too tired to engage in interview. Reason for continued inpatient stay Substantial Risk for: inability to function Time Spent With Patient Time: Total time managing care of this patient today ____ minutes.
[2024-11-01] MEDS: OLANZapine ODT 10 MG TAB.RAPDIS TRANSLINGU (17:26)
[2024-11-01 19:44] VITALS: RESP 18
[2024-11-02] MEDS: hydrOXYzine HCL 50 MG TABLET PO (05:58)
[2024-11-02 07:15] VITALS: BP 126/94; PULSE 100; RESP 14; TEMP 36.6; O2SAT 98
[2024-11-02] MEDS: LORazepam 1 MG TABLET PO (08:59)
--- NOTE | 2024-11-02 12:34 | P.PNPSI_ITS ---
Subjective Subjective Date of Service: 11/02/24 Reason For Visit: Unspecified Mood disorder Interim History: greeted pt in the [place]. she kept walking, smiled over her shoulder, said, hello! what's up, sexy?! and continued to walk on, laughing. per staff, +RIS. slept 3 hours. refusing medications. labile, throwing things in the [place] and in her room. Mental Status Exam Mental Status Exam Narrative: [facility], disheveled, walking the [place] with [place]. no PMA/PMR. speech nml rate, nml amount, nml loudness, nml tone, nml latency. thoughts linear, inappropriate/hypersexual. affect full range, normo-intense, euphoric. mood not assessed. no SI/HI/AVH expressed. Diagnostics Vital Signs (24Hr): Vital Signs - 24 hr 11/01/24 19:44 11/02/24 07:15 Temperature 97.8 F Pulse Rate 100 Respiratory Rate 18 14 Blood Pressure 126/94 H Pulse Oximetry 98 Oxygen Delivery Method Room Air BMI result Body Mass Index 37.7 Labs 10/24/24 18:31 Medications Medications Current Medications Acetaminophen (Acetaminophen 325 Mg Tablet) 650 mg PO Q6H PRN PRN Reason: Headache/Pain, Scale 1-10 Al Hydroxide/Mg Hydroxide (Magnesium Hydrox/Alum Hydrox 30 Ml Oral.Susp) 30 ml PO Q6H PRN PRN Reason: Heartburn/Nausea Hydroxyzine HCl (Hydroxyzine Hcl 50 Mg Tablet) 50 mg PO Q6H PRN PRN Reason: mild anxiety Last Admin: 11/02/24 05:58 Dose: 50 mg [place] Carbonate ([place] Carbonate Er 300 Mg Tablet.Er) 600 mg PO BID@0600,1800 BILLY Last Admin: 11/02/24 07:02 Dose: Not Given Lorazepam (Lorazepam 1 Mg Tablet) 1 mg PO Q4H PRN PRN Reason: severe anxiety/agitation Last Admin: 11/02/24 08:59 Dose: 1 mg Magnesium Hydroxide (Milk Of Magnesia 30 Ml Oral.Susp) 30 ml PO DAILY PRN PRN Reason: Constipation Nicotine (Nicotine 21 Mg Patch.Td24) 21 mg TRANSDERMA DAILY PRN PRN Reason: smoking cessation Nicotine Polacrilex (Nicotine Polacrilex 2 Mg Gum) 4 mg BUCCAL Q2H PRN PRN Reason: Nicotine Cravings Olanzapine (Olanzapine 5 Mg Tablet) 5 mg PO TID PRN PRN Reason: agitation Last Admin: 11/01/24 08:18 Dose: 5 mg Olanzapine (Olanzapine Odt 10 Mg Tab.Rapdis) 10 mg TRANSLINGU DAILY@1800 BILLY Last Admin: 11/01/24 17:26 Dose: 10 mg Trazodone HCl (Trazodone Hcl 50 Mg Tablet) 50 mg PO BEDTIME MRX1 PRN PRN Reason: Insomnia Last Admin: 10/21/24 20:37 Dose: 50 mg Allergies Allergies Allergy/AdvReac Type Severity Reaction Status Date / Time No Known Allergies Allergy Verified 10/10/24 23:51 Assessment & Plan Assessment & Plan (1) Moderate bipolar I disorder with poornima as current episode: Status: Acute Code(s): F31.12 - Bipolar disorder, current episode manic without psychotic features, moderate Assessment and Plan: schizoaffective disorder Plan 10/11: offer zyprexa 10 QHS and lithium 450 BID. 10/12: pt refusing meds. continue to offer. HCP in chart. 3-day notice up tuesday. 10/13: change Zyprexa to Zydis to assure compliance. refusing lithium. 10/14: keep same treatment, encourage compliance. 10/15: took meds this morning, sleeping heavily after. commitment paperwork completed, HCP invoked. meeting with mother this afternoon. 10/16/24: Encourage olanzapine lithium patient appears to be passively accepting treatment and hospitalization recommend affirming healthcare proxy. 10/17: pt's HCP signed pt in today, will pursue invocation of HCP. improved from last interview, taking meds. increase lithium to 600 BID and add ativan PRNs. case discussed with pt's mother and SW Graciela. 10/18: taking morning meds, not getting HS meds due to staff's not being able to awaken her. change HS meds to 1800. otherwise continue current mgmt. 10/19: Keeping to self. continues on 1:1. guarded. patient reports feeling fine ; asked T/W to leave her alone to nap. Per nursing, observed responding to internal stimuli. Slept 6 hours last night. continue tx plan 10/20 declines antipsychotic, requires 1:1 for disorganized intrusive behaviors. religiously preoccupied. 3/9 continue tx. continues to present with mosque preoccupations, does hint to thinking others do not want her to say the truth and also thinks her parents are , which not the case. 10/22: difficult to engage. taking lithium, sometimes taking zyprexa. encouraged medication compliance. continue current mgmt. 10/23: more engageable. delusion that her parents are . continue current mgmt. check labs tonight. 10/24: labs rescheduled for tomorrow morning. asking for discharge. taking meds. poor insight. continue current mgmt. 10/25: refused medications. focused on discharge. continue tx plan. 10/26: refusing meds last couple of days, has essentially returned to state at admission. pursue affirmation of HCP. 10/27: Keeping to self. observed responding to internal stimuli. laughing inappropriately to self. Delayed responses to questions. pt encouraged to take medications; pt stated, I'm saved and with God. I just need the Bible. That's why I'm not taking meds . continue to encourage medication compliance. 10/28: continues to refuse medications. repeating she is with God . continue tx plan. 10/29: pacing, i am with god, not engaging in interview. HCP Physician's affidavit completed. pursue affirmed HCP versus guardianship versus both. refusing meds, not sleeping. floridly manic/psychotic. 10/30: remains floridly manic/psychotic, refusing meds. behaviors increasingly disorganized, violent, disruptive. awaiting affirmation of HCP so medications may be administered. case D/W pt's mother/HCP. 10/31: appearing tired today after having essentially not slept at all last night. she did take lithium yesterday afternoon at 1800. continue to encourage medication compliance, keep safe. 11/01: appearing tired again, poor sleep overnight. took some medications in the past day but not most. encouraged to sleep this morning. too tired to engage in interview. 11/02: up and about the unit, hypersexual/provocative statement to MD, not engaging with Tx, refusing medication, very poor sleep (reportedly slept about 3 hours overnight). awaiting word re emergency guardianship hearing. Reason for continued inpatient stay Substantial Risk for: inability to function Time Spent With Patient Time: Total time managing care of this patient today ____ minutes.
[2024-11-02 20:00] VITALS: PULSE 100; RESP 17; TEMP 36.9; O2SAT 99
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
[2024-11-03] MEDS: OLANZapine 10 MG VIAL IM (11:25)
[2024-11-03] MEDS: LORazepam 2 MG/ML VIAL IM (11:25)
[2024-11-03 11:55] VITALS: BP 120/83; PULSE 91; RESP 16; TEMP 36.4; O2SAT 97
--- NOTE | 2024-11-03 12:04 | HO.BHRESTREX ---
Behavioral Restraint Exam Behavioral Health Restraint Exam Type of Restraint: Physical Hold, Medication and Mechanical Reason for Restraint: Substantial Risk of Harm to Others Medical Concerns for Restraint: No medical concerns, pt w/o acute inj / no noted resp/VS abnormalities Behavioral Assessment / Plan: No further behavioral concerns, continue current plan.
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
[2024-11-03 12:10] VITALS: BP 115/68; PULSE 86; RESP 16; TEMP 36.5; O2SAT 97
[2024-11-03 12:15] VITALS: RESP 16
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
--- NOTE | 2024-11-03 16:40 | PC.NURSE ---
Sara Cota notified of patient restraint as per safety tool.
[2024-11-03] MEDS: OLANZapine ODT 10 MG TAB.RAPDIS TRANSLINGU (18:21)
[2024-11-03] MEDS: LORazepam 1 MG TABLET PO (18:21)
[2024-11-04] MEDS: OLANZapine 5 MG TABLET PO (07:32)
[2024-11-04] MEDS: LORazepam 1 MG TABLET PO ×2 (07:32→11:55)
--- NOTE | 2024-11-04 07:33 | PC.NURSE ---
refused AM lithium but accepted ativan and zyprexa PRN
[2024-11-04 08:24] VITALS: BP 119/76; PULSE 97; RESP 16; TEMP 36.9; O2SAT 100
--- NOTE | 2024-11-04 12:10 | HO.PSYCHPN ---
Subjective Subjective Date of Service: 11/04/24 Reason For Visit: Unspecified Mood disorder Interim History: After her restraint yesterday she has been calm. She took PO Zyprexa and Ativan today but refused Li+. Slept better. Appears calmer today although remains odd and guarded. She was observed cleaning her room using a tooth brush. She says she is talking to God and that she hears his voice talking to her. Patient remains psychotic. She is responding to internal stimuli and self dialoguing. Denies SI. Review of Systems Review of Systems Yes Unobtainable due to mental status Mental Status Exam Mental Status Exam Narrative: [facility], disheveled, walking the [place] with [place]. no PMA/PMR. speech nml rate, nml amount, nml loudness, nml tone, nml latency. thoughts linear, inappropriate/hypersexual. affect full range, normo-intense, euphoric. mood not assessed. no SI/HI/AVH expressed. Patient Appearance: Unkempt Patient Orientation: Person, Place, Time and Situation Level of Consciousness: Awake Patient Behavior: Guarded and Poor Eye Contact Mood Description: Labile Affect Description: Labile Patient Cognition Impaired: Yes Ability to Follow Directions: Good Speech Pattern: Delayed Diagnostics Vital Signs (24Hr): Vital Signs - 24 hr 11/03/24 12:15 11/04/24 08:24 Temperature 98.5 F Pulse Rate 97 Respiratory Rate 16 16 Blood Pressure 119/76 Pulse Oximetry 100 Oxygen Delivery Method Room Air BMI result Body Mass Index 37.7 Labs 10/24/24 18:31 Medications Medications Current Medications Acetaminophen (Acetaminophen 325 Mg Tablet) 650 mg PO Q6H PRN PRN Reason: Headache/Pain, Scale 1-10 Al Hydroxide/Mg Hydroxide (Magnesium Hydrox/Alum Hydrox 30 Ml Oral.Susp) 30 ml PO Q6H PRN PRN Reason: Heartburn/Nausea Hydroxyzine HCl (Hydroxyzine Hcl 50 Mg Tablet) 50 mg PO Q6H PRN PRN Reason: mild anxiety Last Admin: 11/02/24 05:58 Dose: 50 mg [place] Carbonate ([place] Carbonate Er 300 Mg Tablet.Er) 600 mg PO BID@0600,1800 BILLY Last Admin: 11/04/24 07:33 Dose: Not Given Lorazepam (Lorazepam 1 Mg Tablet) 1 mg PO Q4H PRN PRN Reason: severe anxiety/agitation Last Admin: 11/04/24 11:55 Dose: 1 mg Magn[place] Hydroxide (Milk Of Magnesia 30 Ml Oral.Susp) 30 ml PO DAILY PRN PRN Reason: Constipation Nicotine (Nicotine 21 Mg Patch.Td24) 21 mg TRANSDERMA DAILY PRN PRN Reason: smoking cessation Nicotine Polacrilex (Nicotine Polacrilex 2 Mg Gum) 4 mg BUCCAL Q2H PRN PRN Reason: Nicotine Cravings Olanzapine (Olanzapine 5 Mg Tablet) 5 mg PO TID PRN PRN Reason: agitation Last Admin: 11/04/24 07:32 Dose: 5 mg Olanzapine (Olanzapine Odt 10 Mg Tab.Rapdis) 10 mg TRANSLINGU DAILY@1800 BILLY Last Admin: 11/03/24 18:21 Dose: 10 mg Trazodone HCl (Trazodone Hcl 50 Mg Tablet) 50 mg PO BEDTIME MRX1 PRN PRN Reason: Insomnia Last Admin: 10/21/24 20:37 Dose: 50 mg Allergies Allergies Allergy/AdvReac Type Severity Reaction Status Date / Time No Known Allergies Allergy Verified 10/10/24 23:51 Assessment & Plan Assessment & Plan (1) Moderate bipolar I disorder with poornima as current episode: Status: Acute Code(s): F31.12 - Bipolar disorder, current episode manic without psychotic features, moderate Assessment and Plan: schizoaffective disorder Plan 10/11: offer zyprexa 10 QHS and lithium 450 BID. 10/12: pt refusing meds. continue to offer. HCP in chart. 3-day notice up tuesday. 10/13: change Zyprexa to Zydis to assure compliance. refusing lithium. 10/14: keep same treatment, encourage compliance. 10/15: took meds this morning, sleeping heavily after. commitment paperwork completed, HCP invoked. meeting with mother this afternoon. 10/16/24: Encourage olanzapine lithium patient appears to be passively accepting treatment and hospitalization recommend affirming healthcare proxy. 10/17: pt's HCP signed pt in today, will pursue invocation of HCP. improved from last interview, taking meds. increase lithium to 600 BID and add ativan PRNs. case discussed with pt's mother and SW Graciela. 10/18: taking morning meds, not getting HS meds due to staff's not being able to awaken her. change HS meds to 1800. otherwise continue current mgmt. 10/19: Keeping to self. continues on 1:1. guarded. patient reports feeling fine ; asked T/W to leave her alone to nap. Per nursing, observed responding to internal stimuli. Slept 6 hours last night. continue tx plan 10/20 declines antipsychotic, requires 1:1 for disorganized intrusive behaviors. religiously preoccupied. 10/21 continue tx. continues to present with samaritan preoccupations, does hint to thinking others do not want her to say the truth and also thinks her parents are , which not the case. 10/22: difficult to engage. taking lithium, sometimes taking zyprexa. encouraged medication compliance. continue current mgmt. 10/23: more engageable. delusion that her parents are . continue current mgmt. check labs tonight. 10/24: labs rescheduled for tomorrow morning. asking for discharge. taking meds. poor insight. continue current mgmt. 10/25: refused medications. focused on discharge. continue tx plan. 10/26: refusing meds last couple of days, has essentially returned to state at admission. pursue affirmation of HCP. 10/27: Keeping to self. observed responding to internal stimuli. laughing inappropriately to self. Delayed responses to questions. pt encouraged to take medications; pt stated, I'm saved and with God. I just need the Bible. That's why I'm not taking meds . continue to encourage medication compliance. 10/28: continues to refuse medications. repeating she is with God . continue tx plan. 10/29: pacing, i am with god, not engaging in interview. HCP Physician's affidavit completed. pursue affirmed HCP versus guardianship versus both. refusing meds, not sleeping. floridly manic/psychotic. 10/30: remains floridly manic/psychotic, refusing meds. behaviors increasingly disorganized, violent, disruptive. awaiting affirmation of HCP so medications may be administered. case D/W pt's mother/HCP. 10/31: appearing tired today after having essentially not slept at all last night. she did take lithium yesterday afternoon at 1800. continue to encourage medication compliance, keep safe. 11/01: appearing tired again, poor sleep overnight. took some medications in the past day but not most. encouraged to sleep this morning. too tired to engage in interview. 11/02: up and about the unit, hypersexual/provocative statement to MD, not engaging with Tx, refusing medication, very poor sleep (reportedly slept about 3 hours overnight). awaiting word re emergency guardianship hearing. 11/03: Continue to encourage engagement in treatment and medication compliance. 11/04: Calmer than yesterday. Remains psychotic. Partially adherent. Continue current management and treatment plan. Reason for continued inpatient stay Substantial Risk for: inability to function and rapid decompensation Time Spent With Patient Time: Total time managing care of this patient today ____ minutes.
[2024-11-04 20:00] VITALS: BP 124/60; PULSE 93; RESP 18; TEMP 36.8; O2SAT 95
[2024-11-05] MEDS: Lithium Carbonate ER 300 MG TABLET.ER 600 MG PO (06:17)
[2024-11-05] MEDS: LORazepam 1 MG TABLET PO ×2 (06:17→12:16)
[2024-11-05] MEDS: OLANZapine 5 MG TABLET PO ×2 (06:17→12:16)
--- NOTE | 2024-11-05 13:24 | P.PNPSI_ITS ---
Subjective Subjective Date of Service: 11/05/24 Reason For Visit: Unspecified Mood disorder Interim History: lying in bed, appears sedated. MD encouraged to take lithium. asking for hydroxyzine for anxiety. wants to nap. per staff, tuesday was hypersexual, slapping female staff in the rear, slapping another in the face, grabbing female staff's breasts, grabbing male staff's crotch. slept about 6 hours overnight, took meds this morning (but not consistently over w/e). did get chemically restrained on tuesday. Mental Status Exam Mental Status Exam Narrative: adequately dressed and groomed, lying in bed. PMR. speech nml rate, decr amount, nml loudness, nml tone. incr latency. thoughts linear and not particularly logical (ambivalent re light's being on). affect constricted, hypo-intense, non-labile. mood not assessed. no SI/HI/AVH expressed. Diagnostics Vital Signs (24Hr): Vital Signs - 24 hr 11/04/24 20:00 Temperature 98.3 F Pulse Rate 93 Respiratory Rate 18 Blood Pressure 124/60 Pulse Oximetry 95 Oxygen Delivery Method Room Air BMI result Body Mass Index 37.7 Labs 10/24/24 18:31 Medications Medications Current Medications Acetaminophen (Acetaminophen 325 Mg Tablet) 650 mg PO Q6H PRN PRN Reason: Headache/Pain, Scale 1-10 Al Hydroxide/Mg Hydroxide (Magnesium Hydrox/Alum Hydrox 30 Ml Oral.Susp) 30 ml PO Q6H PRN PRN Reason: Heartburn/Nausea Hydroxyzine HCl (Hydroxyzine Hcl 50 Mg Tablet) 50 mg PO Q6H PRN PRN Reason: mild anxiety Last Admin: 11/02/24 05:58 Dose: 50 mg [place] Carbonate ([place] Carbonate Er 300 Mg Tablet.Er) 600 mg PO BID@0600,1800 BILLY Last Admin: 11/05/24 06:17 Dose: 600 mg Lorazepam (Lorazepam 1 Mg Tablet) 1 mg PO Q4H PRN PRN Reason: severe anxiety/agitation Last Admin: 11/05/24 12:16 Dose: 1 mg Magnesium Hydroxide (Milk Of Magnesia 30 Ml Oral.Susp) 30 ml PO DAILY PRN PRN Reason: Constipation Nicotine (Nicotine 21 Mg Patch.Td24) 21 mg TRANSDERMA DAILY PRN PRN Reason: smoking cessation Nicotine Polacrilex (Nicotine Polacrilex 2 Mg Gum) 4 mg BUCCAL Q2H PRN PRN Reason: Nicotine Cravings Olanzapine (Olanzapine 5 Mg Tablet) 5 mg PO TID PRN PRN Reason: agitation Last Admin: 11/05/24 12:16 Dose: 5 mg Olanzapine (Olanzapine Odt 10 Mg Tab.Rapdis) 10 mg TRANSLINGU DAILY@1800 BILLY Last Admin: 11/04/24 18:19 Dose: Not Given Trazodone HCl (Trazodone Hcl 50 Mg Tablet) 50 mg PO BEDTIME MRX1 PRN PRN Reason: Insomnia Last Admin: 10/21/24 20:37 Dose: 50 mg Allergies Allergies Allergy/AdvReac Type Severity Reaction Status Date / Time No Known Allergies Allergy Verified 10/10/24 23:51 Assessment & Plan Assessment & Plan (1) Moderate bipolar I disorder with poornima as current episode: Status: Acute Code(s): F31.12 - Bipolar disorder, current episode manic without psychotic features, moderate Assessment and Plan: schizoaffective disorder Plan 10/11: offer zyprexa 10 QHS and lithium 450 BID. 10/12: pt refusing meds. continue to offer. HCP in chart. 3-day notice up tuesday. 10/13: change Zyprexa to Zydis to assure compliance. refusing lithium. 10/14: keep same treatment, encourage compliance. 10/15: took meds this morning, sleeping heavily after. commitment paperwork completed, HCP invoked. meeting with mother this afternoon. 10/16/24: Encourage olanzapine lithium patient appears to be passively accepting treatment and hospitalization recommend affirming healthcare proxy. 10/17: pt's HCP signed pt in today, will pursue invocation of HCP. improved from last interview, taking meds. increase lithium to 600 BID and add ativan PRNs. case discussed with pt's mother and SW Graciela. 10/18: taking morning meds, not getting HS meds due to staff's not being able to awaken her. change HS meds to 1800. otherwise continue current mgmt. 10/19: Keeping to self. continues on 1:1. guarded. patient reports feeling fine ; asked T/W to leave her alone to nap. Per nursing, observed responding to internal stimuli. Slept 6 hours last night. continue tx plan 10/20 declines antipsychotic, requires 1:1 for disorganized intrusive behaviors. religiously preoccupied. 10/21 continue tx. continues to present with mormon preoccupations, does hint to thinking others do not want her to say the truth and also thinks her parents are , which not the case. 10/22: difficult to engage. taking lithium, sometimes taking zyprexa. encouraged medication compliance. continue current mgmt. 10/23: more engageable. delusion that her parents are . continue current mgmt. check labs tonight. 10/24: labs rescheduled for tomorrow morning. asking for discharge. taking meds. poor insight. continue current mgmt. 10/25: refused medications. focused on discharge. continue tx plan. 10/26: refusing meds last couple of days, has essentially returned to state at admission. pursue affirmation of HCP. 10/27: Keeping to self. observed responding to internal stimuli. laughing inappropriately to self. Delayed responses to questions. pt encouraged to take medications; pt stated, I'm saved and with God. I just need the Bible. That's why I'm not taking meds . continue to encourage medication compliance. 10/28: continues to refuse medications. repeating she is with God . continue tx plan. 10/29: pacing, i am with god, not engaging in interview. HCP Physician's affidavit completed. pursue affirmed HCP versus guardianship versus both. refusing meds, not sleeping. floridly manic/psychotic. 10/30: remains floridly manic/psychotic, refusing meds. behaviors increasingly disorganized, violent, disruptive. awaiting affirmation of HCP so medications may be administered. case D/W pt's mother/HCP. 10/31: appearing tired today after having essentially not slept at all last night. she did take lithium yesterday afternoon at 1800. continue to encourage medication compliance, keep safe. 11/01: appearing tired again, poor sleep overnight. took some medications in the past day but not most. encouraged to sleep this morning. too tired to engage in interview. 11/02: up and about the unit, hypersexual/provocative statement to MD, not engaging with Tx, refusing medication, very poor sleep (reportedly slept about 3 hours overnight). awaiting word re emergency guardianship hearing. 11/03: Continue to encourage engagement in treatment and medication compliance. 11/04: Calmer than yesterday. Remains psychotic. Partially adherent. Continue current management and treatment plan. 11/05: partially adherent to medications. appears sleepy/sedated this morning. asking for anxiety medication. tuesday pt was hypersexual, slapping female staff in the rear, slapping another in the face, grabbing female staff's breasts, grabbing male staff's crotch. required medication restraint. continue current mgmt. emergency hearing this tuesday. Reason for continued inpatient stay Substantial Risk for: harm to self, harm to others and inability to function Time Spent With Patient Time: Total time managing care of this patient today __25__ minutes.
[2024-11-05 20:00] VITALS: RESP 16
[2024-11-05] MEDS: hydrOXYzine HCL 50 MG TABLET PO (21:40)
--- NOTE | 2024-11-05 22:47 | HO.PSYEVENT ---
Event Note Date of Service: 11/05/24 Psych Restraint Event Note: pt with severe agitation, slamming doors, throwing objects, not redirectable. Time Spent With Patient Time: Total time managing care of this patient today ____ minutes.
[2024-11-05] MEDS: chlorproMAZINE HCl 25 MG/ML AMPUL 100 MG IM (22:54)
[2024-11-05] MEDS: LORazepam 2 MG/ML VIAL IM (22:54)
--- NOTE | 2024-11-05 23:06 | HO.BHRESTREX ---
Behavioral Restraint Exam Behavioral Health Restraint Exam Type of Restraint: Medication Reason for Restraint: Substantial Risk of Harm to Others Medical Concerns for Restraint: No medical concerns, pt w/o acute inj / no noted resp/VS abnormalities Behavioral Assessment / Plan: No further behavioral concerns, continue current plan.
--- NOTE | 2024-11-05 23:41 | PC.NURSE ---
Visible in milieu at 2200. Asked staff member for pen. Threw pen at staff member when pen didn't work. When feedback given re: inappropriateness of this behavior, questioned same staff member if she wanted to fight. When staff member responded she did not want to fight, but did not want pen thrown at her pt responded, Because I'll actually fight you. Walked down [place], wrote on paper against wall, and entered room. Observed kneeling in room and then placing arms and knees on floor in expanded kneeling pose. 0 Walked in to shower room and refused to exit. Swatted at staff member when approached to exit room. Slammed shower room door multiple times on staff. Staff attempted to leave pt to shower/calm; pt continued to slam door. Agitation escalated, pt exited shower room and entered own room. Security called to unit. Dr Scales notified of increasing agitation. Po Ativan 2mg, [place] 600mg, Olanzapine total of 20 mg offered and refused at 2234. Pt stated she wanted meds by injection despite needing possible [address] injections. Orders received from Dr Scales IM Ativan 2mg and Thorazine 100mg. Pt refused IM's when approached, attempted to grab staff members glasses. Screamed for staff to get out of her house. Hands on required to administer IM meds at 2254/ Released immediately following administration. Calming in room at present time. Mother notified of medication restraint, updated on condition. Tree Surgeon Helper aware of situation. Dr Malloy, hospitialist, up to evaluate per protocol.
[2024-11-06 08:00] VITALS: RESP 18
[2024-11-06] MEDS: hydrOXYzine HCL 50 MG TABLET PO ×2 (11:48→20:40)
--- NOTE | 2024-11-06 15:38 | HO.PSYCHPN ---
Subjective Subjective Date of Service: 11/06/24 Reason For Visit: Unspecified Mood disorder Interim History: walking the [place], i'm with god. per staff, last night was pushing/grabbing at staff, throwing objects. was briefly physically held and given emergency IM medication. slept after. Mental Status Exam Mental Status Exam Narrative: [facility], disheveled, walking the [place] with [place]. no PMA/PMR. speech nml rate, nml amount, nml loudness, nml tone, nml latency. thoughts non-sequitur, disorganized. affect full range, normo-intense, euphoric. mood not assessed. no SI/HI/AVH expressed. Diagnostics Vital Signs (24Hr): Vital Signs - 24 hr 11/05/24 20:00 11/06/24 08:00 Respiratory Rate 16 18 BMI result Body Mass Index 37.7 Labs 10/24/24 18:31 Medications Medications Current Medications Acetaminophen (Acetaminophen 325 Mg Tablet) 650 mg PO Q6H PRN PRN Reason: Headache/Pain, Scale 1-10 Al Hydroxide/Mg Hydroxide (Magnesium Hydrox/Alum Hydrox 30 Ml Oral.Susp) 30 ml PO Q6H PRN PRN Reason: Heartburn/Nausea Chlorpromazine HCl (Chlorpromazine Hcl 100 Mg Tablet) 100 mg PO Q4H PRN PRN Reason: severe agitation Hydroxyzine HCl (Hydroxyzine Hcl 50 Mg Tablet) 50 mg PO Q6H PRN PRN Reason: mild anxiety Last Admin: 11/06/24 11:48 Dose: 50 mg [place] Carbonate ([place] Carbonate Er 300 Mg Tablet.Er) 600 mg PO BID@0600,1800 BILLY Last Admin: 11/06/24 08:53 Dose: Not Given Lorazepam (Lorazepam 1 Mg Tablet) 2 mg PO Q4H PRN PRN Reason: severe anxiety/agitation Magnesium Hydroxide (Milk Of Magnesia 30 Ml Oral.Susp) 30 ml PO DAILY PRN PRN Reason: Constipation Nicotine (Nicotine 21 Mg Patch.Td24) 21 mg TRANSDERMA DAILY PRN PRN Reason: smoking cessation Nicotine Polacrilex (Nicotine Polacrilex 2 Mg Gum) 4 mg BUCCAL Q2H PRN PRN Reason: Nicotine Cravings Olanzapine (Olanzapine Odt 10 Mg Tab.Rapdis) 10 mg TRANSLINGU DAILY@1800 [facility] Last Admin: 11/05/24 19:03 Dose: Not Given Olanzapine (Olanzapine Odt 10 Mg Tab.Rapdis) 10 mg TRANSLINGU TID PRN PRN Reason: agitation Trazodone HCl (Trazodone Hcl 50 Mg Tablet) 50 mg PO BEDTIME MRX1 PRN PRN Reason: Insomnia Last Admin: 10/21/24 20:37 Dose: 50 mg Allergies Allergies Allergy/AdvReac Type Severity Reaction Status Date / Time No Known Allergies Allergy Verified 10/10/24 23:51 Assessment & Plan Assessment & Plan (1) Moderate bipolar I disorder with poornima as current episode: Status: Acute Code(s): F31.12 - Bipolar disorder, current episode manic without psychotic features, moderate Assessment and Plan: schizoaffective disorder Plan 10/11: offer zyprexa 10 QHS and lithium 450 BID. 10/12: pt refusing meds. continue to offer. HCP in chart. 3-day notice up tuesday. 10/13: change Zyprexa to Zydis to assure compliance. refusing lithium. 10/14: keep same treatment, encourage compliance. 10/15: took meds this morning, sleeping heavily after. commitment paperwork completed, HCP invoked. meeting with mother this afternoon. 10/16/24: Encourage olanzapine lithium patient appears to be passively accepting treatment and hospitalization recommend affirming healthcare proxy. 10/17: pt's HCP signed pt in today, will pursue invocation of HCP. improved from last interview, taking meds. increase lithium to 600 BID and add ativan PRNs. case discussed with pt's mother and SW Graciela. 10/18: taking morning meds, not getting HS meds due to staff's not being able to awaken her. change HS meds to 1800. otherwise continue current mgmt. 10/19: Keeping to self. continues on 1:1. guarded. patient reports feeling fine ; asked T/W to leave her alone to nap. Per nursing, observed responding to internal stimuli. Slept 6 hours last night. continue tx plan 10/20 declines antipsychotic, requires 1:1 for disorganized intrusive behaviors. religiously preoccupied. 10/21 continue tx. continues to present with presybeterian preoccupations, does hint to thinking others do not want her to say the truth and also thinks her parents are , which not the case. 10/22: difficult to engage. taking lithium, sometimes taking zyprexa. encouraged medication compliance. continue current mgmt. 10/23: more engageable. delusion that her parents are . continue current mgmt. check labs tonight. 10/24: labs rescheduled for tomorrow morning. asking for discharge. taking meds. poor insight. continue current mgmt. 10/25: refused medications. focused on discharge. continue tx plan. 10/26: refusing meds last couple of days, has essentially returned to state at admission. pursue affirmation of HCP. 10/27: Keeping to self. observed responding to internal stimuli. laughing inappropriately to self. Delayed responses to questions. pt encouraged to take medications; pt stated, I'm saved and with God. I just need the Bible. That's why I'm not taking meds . continue to encourage medication compliance. 10/28: continues to refuse medications. repeating she is with God . continue tx plan. 10/29: pacing, i am with god, not engaging in interview. HCP Physician's affidavit completed. pursue affirmed HCP versus guardianship versus both. refusing meds, not sleeping. floridly manic/psychotic. 10/30: remains floridly manic/psychotic, refusing meds. behaviors increasingly disorganized, violent, disruptive. awaiting affirmation of HCP so medications may be administered. case D/W pt's mother/HCP. 10/31: appearing tired today after having essentially not slept at all last night. she did take lithium yesterday afternoon at 1800. continue to encourage medication compliance, keep safe. 11/01: appearing tired again, poor sleep overnight. took some medications in the past day but not most. encouraged to sleep this morning. too tired to engage in interview. 11/02: up and about the unit, hypersexual/provocative statement to MD, not engaging with Tx, refusing medication, very poor sleep (reportedly slept about 3 hours overnight). awaiting word re emergency guardianship hearing. 11/03: Continue to encourage engagement in treatment and medication compliance. 11/04: Calmer than yesterday. Remains psychotic. Partially adherent. Continue current management and treatment plan. 11/05: partially adherent to medications. appears sleepy/sedated this morning. asking for anxiety medication. tuesday pt was hypersexual, slapping female staff in the rear, slapping another in the face, grabbing female staff's breasts, grabbing male staff's crotch. required medication restraint. continue current mgmt. emergency hearing this tuesday. 11/06: got IMs last night for pushing/grabbing staff and throwing objects. slept after. otherwise not consistently taking meds. continue current mgmt. Reason for continued inpatient stay Substantial Risk for: inability to function Time Spent With Patient Time: Total time managing care of this patient today ____ minutes.
[2024-11-06 19:45] VITALS: BP 127/70; PULSE 96; RESP 18; TEMP 37.2; O2SAT 100
[2024-11-07 08:00] VITALS: RESP 14
--- NOTE | 2024-11-07 15:00 | HO.PSYCHPN ---
Subjective Subjective Date of Service: 11/07/24 Reason For Visit: Unspecified Mood disorder Interim History: visible in the [place] smiling, in [place], walking. i'm with god, as she walks away shakes head to MD's request to speak with her. per staff, pacing, napping. refused meds. pulling down sign-up sheets for shower. yelling in [place]. in [place] partially dressed. Mental Status Exam Mental Status Exam Narrative: [facility], disheveled, walking the [place] with [place]. no PMA/PMR. speech nml rate, nml amount, nml loudness, nml tone, nml latency. thoughts non-sequitur, disorganized. affect full range, normo-intense, euphoric. mood not assessed. no SI/HI/AVH expressed. Diagnostics Vital Signs (24Hr): Vital Signs - 24 hr 11/06/24 19:45 11/07/24 08:00 Temperature 99.0 F Pulse Rate 96 Respiratory Rate 18 14 Blood Pressure 127/70 Pulse Oximetry 100 Oxygen Delivery Method Room Air BMI result Body Mass Index 37.7 Labs 10/24/24 18:31 Medications Medications Current Medications Acetaminophen (Acetaminophen 325 Mg Tablet) 650 mg PO Q6H PRN PRN Reason: Headache/Pain, Scale 1-10 Al Hydroxide/Mg Hydroxide (Magnesium Hydrox/Alum Hydrox 30 Ml Oral.Susp) 30 ml PO Q6H PRN PRN Reason: Heartburn/Nausea Chlorpromazine HCl (Chlorpromazine Hcl 100 Mg Tablet) 100 mg PO Q4H PRN PRN Reason: severe agitation Hydroxyzine HCl (Hydroxyzine Hcl 50 Mg Tablet) 50 mg PO Q6H PRN PRN Reason: mild anxiety Last Admin: 11/06/24 20:40 Dose: 50 mg [place] Carbonate ([place] Carbonate Er 300 Mg Tablet.Er) 600 mg PO BID@0600,1800 BILLY Last Admin: 11/07/24 05:45 Dose: Not Given Lorazepam (Lorazepam 1 Mg Tablet) 2 mg PO Q4H PRN PRN Reason: severe anxiety/agitation Magnesium Hydroxide (Milk Of Magnesia 30 Ml Oral.Susp) 30 ml PO DAILY PRN PRN Reason: Constipation Nicotine (Nicotine 21 Mg Patch.Td24) 21 mg TRANSDERMA DAILY PRN PRN Reason: smoking cessation Nicotine Polacrilex (Nicotine Polacrilex 2 Mg Gum) 4 mg BUCCAL Q2H PRN PRN Reason: Nicotine Cravings Olanzapine (Olanzapine Odt 10 Mg Tab.Rapdis) 10 mg TRANSLINGU DAILY@1800 BILLY Last Admin: 11/06/24 17:48 Dose: Not Given Olanzapine (Olanzapine Odt 10 Mg Tab.Rapdis) 10 mg TRANSLINGU TID PRN PRN Reason: agitation Trazodone HCl (Trazodone Hcl 50 Mg Tablet) 50 mg PO BEDTIME MRX1 PRN PRN Reason: Insomnia Last Admin: 10/21/24 20:37 Dose: 50 mg Allergies Allergies Allergy/AdvReac Type Severity Reaction Status Date / Time No Known Allergies Allergy Verified 10/10/24 23:51 Assessment & Plan Assessment & Plan (1) Moderate bipolar I disorder with poornima as current episode: Status: Acute Code(s): F31.12 - Bipolar disorder, current episode manic without psychotic features, moderate Assessment and Plan: schizoaffective disorder Plan 10/11: offer zyprexa 10 QHS and lithium 450 BID. 10/12: pt refusing meds. continue to offer. HCP in chart. 3-day notice up tuesday. 10/13: change Zyprexa to Zydis to assure compliance. refusing lithium. 10/14: keep same treatment, encourage compliance. 10/15: took meds this morning, sleeping heavily after. commitment paperwork completed, HCP invoked. meeting with mother this afternoon. 10/16/24: Encourage olanzapine lithium patient appears to be passively accepting treatment and hospitalization recommend affirming healthcare proxy. 10/17: pt's HCP signed pt in today, will pursue invocation of HCP. improved from last interview, taking meds. increase lithium to 600 BID and add ativan PRNs. case discussed with pt's mother and SW Graciela. 10/18: taking morning meds, not getting HS meds due to staff's not being able to awaken her. change HS meds to 1800. otherwise continue current mgmt. 10/19: Keeping to self. continues on 1:1. guarded. patient reports feeling fine ; asked T/W to leave her alone to nap. Per nursing, observed responding to internal stimuli. Slept 6 hours last night. continue tx plan 10/20 declines antipsychotic, requires 1:1 for disorganized intrusive behaviors. religiously preoccupied. 10/21 continue tx. continues to present with uatsdin preoccupations, does hint to thinking others do not want her to say the truth and also thinks her parents are , which not the case. 10/22: difficult to engage. taking lithium, sometimes taking zyprexa. encouraged medication compliance. continue current mgmt. 10/23: more engageable. delusion that her parents are . continue current mgmt. check labs tonight. 10/24: labs rescheduled for tomorrow morning. asking for discharge. taking meds. poor insight. continue current mgmt. 10/25: refused medications. focused on discharge. continue tx plan. 10/26: refusing meds last couple of days, has essentially returned to state at admission. pursue affirmation of HCP. 10/27: Keeping to self. observed responding to internal stimuli. laughing inappropriately to self. Delayed responses to questions. pt encouraged to take medications; pt stated, I'm saved and with God. I just need the Bible. That's why I'm not taking meds . continue to encourage medication compliance. 10/28: continues to refuse medications. repeating she is with God . continue tx plan. 10/29: pacing, i am with god, not engaging in interview. HCP Physician's affidavit completed. pursue affirmed HCP versus guardianship versus both. refusing meds, not sleeping. floridly manic/psychotic. 10/30: remains floridly manic/psychotic, refusing meds. behaviors increasingly disorganized, violent, disruptive. awaiting affirmation of HCP so medications may be administered. case D/W pt's mother/HCP. 10/31: appearing tired today after having essentially not slept at all last night. she did take lithium yesterday afternoon at 1800. continue to encourage medication compliance, keep safe. 11/01: appearing tired again, poor sleep overnight. took some medications in the past day but not most. encouraged to sleep this morning. too tired to engage in interview. 11/02: up and about the unit, hypersexual/provocative statement to MD, not engaging with Tx, refusing medication, very poor sleep (reportedly slept about 3 hours overnight). awaiting word re emergency guardianship hearing. 11/03: Continue to encourage engagement in treatment and medication compliance. 11/04: Calmer than yesterday. Remains psychotic. Partially adherent. Continue current management and treatment plan. 11/05: partially adherent to medications. appears sleepy/sedated this morning. asking for anxiety medication. tuesday pt was hypersexual, slapping female staff in the rear, slapping another in the face, grabbing female staff's breasts, grabbing male staff's crotch. required medication restraint. continue current mgmt. emergency hearing this tuesday. 11/06: got IMs last night for pushing/grabbing staff and throwing objects. slept after. otherwise not consistently taking meds. continue current mgmt. 11/07: mildly disruptive behavior continues. appears euphoric, manic. declines to speak with MD, refusing meds. continue to offer medication. Reason for continued inpatient stay Substantial Risk for: harm to self, harm to others and inability to function Time Spent With Patient Time: Total time managing care of this patient today ____ minutes.
[2024-11-07 20:00] VITALS: BP 120/56; PULSE 92; RESP 17; TEMP 36.9; O2SAT 100
[2024-11-07] MEDS: hydrOXYzine HCL 50 MG TABLET PO (22:23)
[2024-11-07] MEDS: LORazepam 1 MG TABLET 2 MG PO (22:26)
[2024-11-08 07:00] VITALS: BMI 39.1
--- NOTE | 2024-11-08 07:32 | PC.NURSE ---
refusing AM lithium
[2024-11-08 08:09] VITALS: BP 125/81; PULSE 82; RESP 16; TEMP 36.4; O2SAT 100
[2024-11-08] MEDS: hydrOXYzine HCL 50 MG TABLET PO ×3 (11:31→21:01)
[2024-11-08] MEDS: LORazepam 1 MG TABLET 2 MG PO ×3 (11:38→21:01)
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
[2024-11-08 20:00] VITALS: RESP 18
[2024-11-08] MEDS: OLANZapine ODT 10 MG TAB.RAPDIS TRANSLINGU (21:02)
[2024-11-09] MEDS: LORazepam 1 MG TABLET 2 MG PO ×4 (04:37→21:32)
[2024-11-09 08:00] VITALS: RESP 18
[2024-11-09] MEDS: hydrOXYzine HCL 50 MG TABLET PO ×3 (08:36→21:31)
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
[2024-11-09] MEDS: OLANZapine ODT 10 MG TAB.RAPDIS TRANSLINGU ×2 (17:41→21:32)
[2024-11-09 20:00] VITALS: RESP 18
[2024-11-10 08:00] VITALS: RESP 18
[2024-11-10] MEDS: LORazepam 1 MG TABLET 2 MG PO ×2 (11:19→20:53)
[2024-11-10] MEDS: hydrOXYzine HCL 50 MG TABLET PO ×2 (11:20→20:53)
[2024-11-10] MEDS: LORazepam 2 MG/ML VIAL IM ×2 (16:00→17:05)
[2024-11-10] MEDS: chlorproMAZINE HCl 25 MG/ML AMPUL 100 MG IM (16:00)
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
[2024-11-10] MEDS: diphenhydrAMINE HCL 50 MG/ML VIAL IM (17:05)
[2024-11-10] MEDS: Haloperidol Lactate 5 MG/ML VIAL 10 MG IM (17:05)
--- NOTE | 2024-11-10 17:40 | HO.BHRESTREX ---
Behavioral Restraint Exam Behavioral Health Restraint Exam Type of Restraint: Physical Hold, Medication and Mechanical Reason for Restraint: Substantial Risk Medical Concerns for Restraint: No medical concerns, pt w/o acute inj / no noted resp/VS abnormalities Behavioral Assessment / Plan: No further behavioral concerns, continue current plan.
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
[2024-11-10 19:10] VITALS: RESP 18
--- NOTE | 2024-11-10 20:50 | HO.PSYCHPN ---
Subjective Subjective Date of Service: 11/10/24 Reason For Visit: Unspecified Mood disorder Interim History: up and about the unit. more interactive with MD earlier in the day than in recent days. still, i'm with god. later in the day pt was agitated, attempting to assault staff, requiring 2 behavioral codes an hour apart. during the first she received thorazine 100 and ativan 2 IM; during the second she received haldol 10, ativan 2, and benardyl 50 IM. otherwise, seems to have been taking ativan and zyprexa with some regularity in the past 24+ hours. refusing lithium. 6 hours of broken sleep. Mental Status Exam Mental Status Exam Narrative: hospital boaz, disheveled, walking the [place] with CO or asleep in her bed. speech incr rate, nml amount, variable loudness, nml tone, decr latency. thoughts non-sequitur, disorganized. affect full range, hyper-intense, euphoric, labile. mood not assessed. no SI/HI/AVH expressed. Diagnostics Vital Signs (24Hr): Vital Signs - 24 hr 11/10/24 08:00 11/10/24 19:10 Respiratory Rate 18 18 BMI result Body Mass Index 39.1 Labs 10/24/24 18:31 Medications Medications Current Medications Acetaminophen (Acetaminophen 325 Mg Tablet) 650 mg PO Q6H PRN PRN Reason: Headache/Pain, Scale 1-10 Al Hydroxide/Mg Hydroxide (Magnesium Hydrox/Alum Hydrox 30 Ml Oral.Susp) 30 ml PO Q6H PRN PRN Reason: Heartburn/Nausea Chlorpromazine HCl (Chlorpromazine Hcl 100 Mg Tablet) 100 mg PO Q4H PRN PRN Reason: severe agitation Hydroxyzine HCl (Hydroxyzine Hcl 50 Mg Tablet) 50 mg PO Q6H PRN PRN Reason: mild anxiety Last Admin: 11/10/24 11:20 Dose: 50 mg [place] Carbonate ([place] Carbonate Er 300 Mg Tablet.Er) 600 mg PO BID@0600,1800 BILLY Last Admin: 11/10/24 18:32 Dose: Not Given Lorazepam (Lorazepam 1 Mg Tablet) 2 mg PO Q4H PRN PRN Reason: severe anxiety/agitation Last Admin: 11/10/24 11:19 Dose: 2 mg Magnesium Hydroxide (Milk Of Magnesia 30 Ml Oral.Susp) 30 ml PO DAILY PRN PRN Reason: Constipation Nicotine (Nicotine 21 Mg Patch.Td24) 21 mg TRANSDERMA DAILY PRN PRN Reason: smoking cessation Nicotine Polacrilex (Nicotine Polacrilex 2 Mg Gum) 4 mg BUCCAL Q2H PRN PRN Reason: Nicotine Cravings Olanzapine (Olanzapine Odt 10 Mg Tab.Rapdis) 10 mg TRANSLINGU DAILY@1800 BILLY Last Admin: 11/10/24 18:32 Dose: Not Given Olanzapine (Olanzapine Odt 10 Mg Tab.Rapdis) 10 mg TRANSLINGU TID PRN PRN Reason: agitation Last Admin: 11/09/24 21:32 Dose: 10 mg Trazodone HCl (Trazodone Hcl 50 Mg Tablet) 50 mg PO BEDTIME MRX1 PRN PRN Reason: Insomnia Last Admin: 10/21/24 20:37 Dose: 50 mg Allergies Allergies Allergy/AdvReac Type Severity Reaction Status Date / Time No Known Allergies Allergy Verified 10/10/24 23:51 Assessment & Plan Assessment & Plan (1) Moderate bipolar I disorder with poornima as current episode: Status: Acute Code(s): F31.12 - Bipolar disorder, current episode manic without psychotic features, moderate Assessment and Plan: schizoaffective disorder Plan 10/11: offer zyprexa 10 QHS and lithium 450 BID. 10/12: pt refusing meds. continue to offer. HCP in chart. 3-day notice up tuesday. 10/13: change Zyprexa to Zydis to assure compliance. refusing lithium. 10/14: keep same treatment, encourage compliance. 10/15: took meds this morning, sleeping heavily after. commitment paperwork completed, HCP invoked. meeting with mother this afternoon. 10/16/24: Encourage olanzapine lithium patient appears to be passively accepting treatment and hospitalization recommend affirming healthcare proxy. 10/17: pt's HCP signed pt in today, will pursue invocation of HCP. improved from last interview, taking meds. increase lithium to 600 BID and add ativan PRNs. case discussed with pt's mother and SW Graciela. 10/18: taking morning meds, not getting HS meds due to staff's not being able to awaken her. change HS meds to 1800. otherwise continue current mgmt. 10/19: Keeping to self. continues on 1:1. guarded. patient reports feeling fine ; asked T/W to leave her alone to nap. Per nursing, observed responding to internal stimuli. Slept 6 hours last night. continue tx plan 10/20 declines antipsychotic, requires 1:1 for disorganized intrusive behaviors. religiously preoccupied. 10/21 continue tx. continues to present with roman catholic preoccupations, does hint to thinking others do not want her to say the truth and also thinks her parents are , which not the case. 10/22: difficult to engage. taking lithium, sometimes taking zyprexa. encouraged medication compliance. continue current mgmt. 10/23: more engageable. delusion that her parents are . continue current mgmt. check labs tonight. 10/24: labs rescheduled for tomorrow morning. asking for discharge. taking meds. poor insight. continue current mgmt. 10/25: refused medications. focused on discharge. continue tx plan. 10/26: refusing meds last couple of days, has essentially returned to state at admission. pursue affirmation of HCP. 10/27: Keeping to self. observed responding to internal stimuli. laughing inappropriately to self. Delayed responses to questions. pt encouraged to take medications; pt stated, I'm saved and with God. I just need the Bible. That's why I'm not taking meds . continue to encourage medication compliance. 10/28: continues to refuse medications. repeating she is with God . continue tx plan. 10/29: pacing, i am with god, not engaging in interview. HCP Physician's affidavit completed. pursue affirmed HCP versus guardianship versus both. refusing meds, not sleeping. floridly manic/psychotic. 10/30: remains floridly manic/psychotic, refusing meds. behaviors increasingly disorganized, violent, disruptive. awaiting affirmation of HCP so medications may be administered. case D/W pt's mother/HCP. 10/31: appearing tired today after having essentially not slept at all last night. she did take lithium yesterday afternoon at 1800. continue to encourage medication compliance, keep safe. 11/01: appearing tired again, poor sleep overnight. took some medications in the past day but not most. encouraged to sleep this morning. too tired to engage in interview. 11/02: up and about the unit, hypersexual/provocative statement to MD, not engaging with Tx, refusing medication, very poor sleep (reportedly slept about 3 hours overnight). awaiting word re emergency guardianship hearing. 11/03: Continue to encourage engagement in treatment and medication compliance. 11/04: Calmer than yesterday. Remains psychotic. Partially adherent. Continue current management and treatment plan. 11/05: partially adherent to medications. appears sleepy/sedated this morning. asking for anxiety medication. tuesday pt was hypersexual, slapping female staff in the rear, slapping another in the face, grabbing female staff's breasts, grabbing male staff's crotch. required medication restraint. continue current mgmt. emergency hearing this tuesday. 11/06: got IMs last night for pushing/grabbing staff and throwing objects. slept after. otherwise not consistently taking meds. continue current mgmt. 11/07: mildly disruptive behavior continues. appears euphoric, manic. declines to speak with MD, refusing meds. continue to offer medication. 11/08: sleeping morning, episode of severe agitation in the afternoon, yelling, demanding to leave, slamming door repeatedly. refusing medication. continue current mgmt. emergency guardianship hearing tomorrow. 11/09: per report, mother received guardianship today, awaiting document. continue current mgmt. 11/10: calm in the morning, agitated and attempting to assault staff in the afternoon. prompted 2 behavioral codes an hour apart. during the first she received thorazine 100 and ativan 2 IM; during the second she received haldol 10, ativan 2, and benardyl 50 IM. Reason for continued inpatient stay Substantial Risk for: harm to self, harm to others and inability to function Time Spent With Patient Time: Total time managing care of this patient today __35__ minutes.
[2024-11-10] MEDS: OLANZapine ODT 10 MG TAB.RAPDIS TRANSLINGU (20:53)
[2024-11-11] MEDS: LORazepam 1 MG TABLET 2 MG PO ×2 (09:12→19:45)
[2024-11-11] MEDS: chlorproMAZINE HCl 100 MG TABLET PO (09:12)
[2024-11-11] MEDS: hydrOXYzine HCL 50 MG TABLET PO (19:51)
[2024-11-11 20:00] VITALS: BP 120/82; PULSE 129; RESP 18; TEMP 36.6; O2SAT 95
--- NOTE | 2024-11-11 22:15 | HO.PSYCHPN ---
Subjective Subjective Date of Service: 11/11/24 Reason For Visit: Unspecified Mood disorder Interim History: disorganzied, with god, sleeping or wandering [place]. per staff, 2 episode of physical and chemical restraint yesterday within an hour of one another. labile, agitated, aggressive. pushing and threatening to kill staff. took HS meds at 9 pm aside from lithium. 6 hours of broken sleep. Mental Status Exam Mental Status Exam Narrative: hospital boaz, disheveled, walking the [place] with CO or asleep in her bed. speech incr rate, nml amount, variable loudness, nml tone, decr latency. thoughts non-sequitur, disorganized. affect full range, hyper-intense, euphoric, labile. mood not assessed. no SI/HI/AVH expressed. Diagnostics Vital Signs (24Hr): Vital Signs - 24 hr 11/11/24 20:00 Temperature 98 F Pulse Rate 129 H Respiratory Rate 18 Blood Pressure 120/82 Pulse Oximetry 95 Oxygen Delivery Method Room Air BMI result Body Mass Index 39.1 Labs 10/24/24 18:31 Medications Medications Current Medications Acetaminophen (Acetaminophen 325 Mg Tablet) 650 mg PO Q6H PRN PRN Reason: Headache/Pain, Scale 1-10 Al Hydroxide/Mg Hydroxide (Magnesium Hydrox/Alum Hydrox 30 Ml Oral.Susp) 30 ml PO Q6H PRN PRN Reason: Heartburn/Nausea Chlorpromazine HCl (Chlorpromazine Hcl 100 Mg Tablet) 100 mg PO Q4H PRN PRN Reason: severe agitation Last Admin: 11/11/24 09:12 Dose: 100 mg Hydroxyzine HCl (Hydroxyzine Hcl 50 Mg Tablet) 50 mg PO Q6H PRN PRN Reason: mild anxiety Last Admin: 11/11/24 19:51 Dose: 50 mg [place] Carbonate ([place] Carbonate Er 300 Mg Tablet.Er) 600 mg PO BID@0600,1800 BILLY Last Admin: 11/11/24 21:27 Dose: Not Given Lorazepam (Lorazepam 1 Mg Tablet) 2 mg PO Q4H PRN PRN Reason: severe anxiety/agitation Last Admin: 11/11/24 19:45 Dose: 2 mg Magnesium Hydroxide (Milk Of Magnesia 30 Ml Oral.Susp) 30 ml PO DAILY PRN PRN Reason: Constipation Nicotine (Nicotine 21 Mg Patch.Td24) 21 mg TRANSDERMA DAILY PRN PRN Reason: smoking cessation Nicotine Polacrilex (Nicotine Polacrilex 2 Mg Gum) 4 mg BUCCAL Q2H PRN PRN Reason: Nicotine Cravings Olanzapine (Olanzapine Odt 10 Mg Tab.Rapdis) 10 mg TRANSLINGU DAILY@1800 BILLY Last Admin: 11/11/24 21:27 Dose: Not Given Olanzapine (Olanzapine Odt 10 Mg Tab.Rapdis) 10 mg TRANSLINGU TID PRN PRN Reason: agitation Last Admin: 11/10/24 20:53 Dose: 10 mg Trazodone HCl (Trazodone Hcl 50 Mg Tablet) 50 mg PO BEDTIME MRX1 PRN PRN Reason: Insomnia Last Admin: 10/21/24 20:37 Dose: 50 mg Allergies Allergies Allergy/AdvReac Type Severity Reaction Status Date / Time No Known Allergies Allergy Verified 10/10/24 23:51 Assessment & Plan Assessment & Plan (1) Moderate bipolar I disorder with poornima as current episode: Status: Acute Code(s): F31.12 - Bipolar disorder, current episode manic without psychotic features, moderate Assessment and Plan: schizoaffective disorder Plan 10/11: offer zyprexa 10 QHS and lithium 450 BID. 10/12: pt refusing meds. continue to offer. HCP in chart. 3-day notice up tuesday. 10/13: change Zyprexa to Zydis to assure compliance. refusing lithium. 10/14: keep same treatment, encourage compliance. 10/15: took meds this morning, sleeping heavily after. commitment paperwork completed, HCP invoked. meeting with mother this afternoon. 10/16/24: Encourage olanzapine lithium patient appears to be passively accepting treatment and hospitalization recommend affirming healthcare proxy. 10/17: pt's HCP signed pt in today, will pursue invocation of HCP. improved from last interview, taking meds. increase lithium to 600 BID and add ativan PRNs. case discussed with pt's mother and SW Graciela. 10/18: taking morning meds, not getting HS meds due to staff's not being able to awaken her. change HS meds to 1800. otherwise continue current mgmt. 10/19: Keeping to self. continues on 1:1. guarded. patient reports feeling fine ; asked T/W to leave her alone to nap. Per nursing, observed responding to internal stimuli. Slept 6 hours last night. continue tx plan 10/20 declines antipsychotic, requires 1:1 for disorganized intrusive behaviors. religiously preoccupied. 10/21 continue tx. continues to present with latter day preoccupations, does hint to thinking others do not want her to say the truth and also thinks her parents are , which not the case. 10/22: difficult to engage. taking lithium, sometimes taking zyprexa. encouraged medication compliance. continue current mgmt. 10/23: more engageable. delusion that her parents are . continue current mgmt. check labs tonight. 10/24: labs rescheduled for tomorrow morning. asking for discharge. taking meds. poor insight. continue current mgmt. 10/25: refused medications. focused on discharge. continue tx plan. 10/26: refusing meds last couple of days, has essentially returned to state at admission. pursue affirmation of HCP. 10/27: Keeping to self. observed responding to internal stimuli. laughing inappropriately to self. Delayed responses to questions. pt encouraged to take medications; pt stated, I'm saved and with God. I just need the Bible. That's why I'm not taking meds . continue to encourage medication compliance. 10/28: continues to refuse medications. repeating she is with God . continue tx plan. 10/29: pacing, i am with god, not engaging in interview. HCP Physician's affidavit completed. pursue affirmed HCP versus guardianship versus both. refusing meds, not sleeping. floridly manic/psychotic. 10/30: remains floridly manic/psychotic, refusing meds. behaviors increasingly disorganized, violent, disruptive. awaiting affirmation of HCP so medications may be administered. case D/W pt's mother/HCP. 10/31: appearing tired today after having essentially not slept at all last night. she did take lithium yesterday afternoon at 1800. continue to encourage medication compliance, keep safe. 11/01: appearing tired again, poor sleep overnight. took some medications in the past day but not most. encouraged to sleep this morning. too tired to engage in interview. 11/02: up and about the unit, hypersexual/provocative statement to MD, not engaging with Tx, refusing medication, very poor sleep (reportedly slept about 3 hours overnight). awaiting word re emergency guardianship hearing. 11/03: Continue to encourage engagement in treatment and medication compliance. 11/04: Calmer than yesterday. Remains psychotic. Partially adherent. Continue current management and treatment plan. 11/05: partially adherent to medications. appears sleepy/sedated this morning. asking for anxiety medication. tuesday pt was hypersexual, slapping female staff in the rear, slapping another in the face, grabbing female staff's breasts, grabbing male staff's crotch. required medication restraint. continue current mgmt. emergency hearing this tuesday. 11/06: got IMs last night for pushing/grabbing staff and throwing objects. slept after. otherwise not consistently taking meds. continue current mgmt. 11/07: mildly disruptive behavior continues. appears euphoric, manic. declines to speak with MD, refusing meds. continue to offer medication. 11/08: sleeping morning, episode of severe agitation in the afternoon, yelling, demanding to leave, slamming door repeatedly. refusing medication. continue current mgmt. emergency guardianship hearing tomorrow. 11/09: per report, mother received guardianship today, awaiting document. continue current mgmt. 11/10: calm in the morning, agitated and attempting to assault staff in the afternoon. prompted 2 behavioral codes an hour apart. during the first she received thorazine 100 and ativan 2 IM; during the second she received haldol 10, ativan 2, and benadryl 50 IM. 11/11: no codes today. remains disorganized, delusional. continue to offer medication. case d/w pt's mother, who reports having been granted emergency guardianship on tuesday. Reason for continued inpatient stay Substantial Risk for: harm to self, harm to others and inability to function Time Spent With Patient Time: Total time managing care of this patient today _25___ minutes.
[2024-11-12] MEDS: LORazepam 1 MG TABLET 2 MG PO ×2 (06:05→18:26)
[2024-11-12] MEDS: hydrOXYzine HCL 50 MG TABLET PO (06:05)
[2024-11-12] MEDS: chlorproMAZINE HCl 100 MG TABLET PO ×2 (08:58→18:26)
--- NOTE | 2024-11-12 14:23 | HO.PSYCHPN ---
Subjective Subjective Date of Service: 11/12/24 Reason For Visit: Unspecified Mood disorder Interim History: sleeping this morning, was not roused as it was felt to be more therapeutic for pt to sleep than to meet with MD. per staff, got ativan and thorazine last NOC. refused lithium. showered. slept 3-4 hours. Mental Status Exam Mental Status Exam Narrative: sleeping soundly in her bed Diagnostics Vital Signs (24Hr): Vital Signs - 24 hr 11/11/24 20:00 Temperature 98 F Pulse Rate 129 H Respiratory Rate 18 Blood Pressure 120/82 Pulse Oximetry 95 Oxygen Delivery Method Room Air BMI result Body Mass Index 39.1 Labs 10/24/24 18:31 Medications Medications Current Medications Acetaminophen (Acetaminophen 325 Mg Tablet) 650 mg PO Q6H PRN PRN Reason: Headache/Pain, Scale 1-10 Al Hydroxide/Mg Hydroxide (Magnesium Hydrox/Alum Hydrox 30 Ml Oral.Susp) 30 ml PO Q6H PRN PRN Reason: Heartburn/Nausea Chlorpromazine HCl (Chlorpromazine Hcl 100 Mg Tablet) 100 mg PO Q4H PRN PRN Reason: severe agitation Last Admin: 11/12/24 08:58 Dose: 100 mg Hydroxyzine HCl (Hydroxyzine Hcl 50 Mg Tablet) 50 mg PO Q6H PRN PRN Reason: mild anxiety Last Admin: 11/12/24 06:05 Dose: 50 mg [place] Carbonate ([place] Carbonate Er 300 Mg Tablet.Er) 600 mg PO BID@0600,1800 BILLY Last Admin: 11/12/24 06:10 Dose: Not Given Lorazepam (Lorazepam 1 Mg Tablet) 2 mg PO Q4H PRN PRN Reason: severe anxiety/agitation Last Admin: 11/12/24 06:05 Dose: 2 mg [place] Hydroxide (Milk Of Magnesia 30 Ml Oral.Susp) 30 ml PO DAILY PRN PRN Reason: Constipation Nicotine (Nicotine 21 Mg Patch.Td24) 21 mg TRANSDERMA DAILY PRN PRN Reason: smoking cessation Nicotine Polacrilex (Nicotine Polacrilex 2 Mg Gum) 4 mg BUCCAL Q2H PRN PRN Reason: Nicotine Cravings Olanzapine (Olanzapine Odt 10 Mg Tab.Rapdis) 10 mg TRANSLINGU DAILY@1800 BILLY Last Admin: 11/11/24 21:27 Dose: Not Given Olanzapine (Olanzapine Odt 10 Mg Tab.Rapdis) 10 mg TRANSLINGU TID PRN PRN Reason: agitation Last Admin: 11/10/24 20:53 Dose: 10 mg Trazodone HCl (Trazodone Hcl 50 Mg Tablet) 50 mg PO BEDTIME MRX1 PRN PRN Reason: Insomnia Last Admin: 10/21/24 20:37 Dose: 50 mg Allergies Allergies Allergy/AdvReac Type Severity Reaction Status Date / Time No Known Allergies Allergy Verified 10/10/24 23:51 Assessment & Plan Assessment & Plan (1) Moderate bipolar I disorder with poornima as current episode: Status: Acute Code(s): F31.12 - Bipolar disorder, current episode manic without psychotic features, moderate Assessment and Plan: schizoaffective disorder Plan 10/11: offer zyprexa 10 QHS and lithium 450 BID. 10/12: pt refusing meds. continue to offer. HCP in chart. 3-day notice up tuesday. 10/13: change Zyprexa to Zydis to assure compliance. refusing lithium. 10/14: keep same treatment, encourage compliance. 10/15: took meds this morning, sleeping heavily after. commitment paperwork completed, HCP invoked. meeting with mother this afternoon. 10/16/24: Encourage olanzapine lithium patient appears to be passively accepting treatment and hospitalization recommend affirming healthcare proxy. 10/17: pt's HCP signed pt in today, will pursue invocation of HCP. improved from last interview, taking meds. increase lithium to 600 BID and add ativan PRNs. case discussed with pt's mother and SW Graciela. 10/18: taking morning meds, not getting HS meds due to staff's not being able to awaken her. change HS meds to 1800. otherwise continue current mgmt. 10/19: Keeping to self. continues on 1:1. guarded. patient reports feeling fine ; asked T/W to leave her alone to nap. Per nursing, observed responding to internal stimuli. Slept 6 hours last night. continue tx plan 10/20 declines antipsychotic, requires 1:1 for disorganized intrusive behaviors. religiously preoccupied. 10/21 continue tx. continues to present with scientology preoccupations, does hint to thinking others do not want her to say the truth and also thinks her parents are , which not the case. 10/22: difficult to engage. taking lithium, sometimes taking zyprexa. encouraged medication compliance. continue current mgmt. 10/23: more engageable. delusion that her parents are . continue current mgmt. check labs tonight. 10/24: labs rescheduled for tomorrow morning. asking for discharge. taking meds. poor insight. continue current mgmt. 10/25: refused medications. focused on discharge. continue tx plan. 10/26: refusing meds last couple of days, has essentially returned to state at admission. pursue affirmation of HCP. 10/27: Keeping to self. observed responding to internal stimuli. laughing inappropriately to self. Delayed responses to questions. pt encouraged to take medications; pt stated, I'm saved and with God. I just need the Bible. That's why I'm not taking meds . continue to encourage medication compliance. 10/28: continues to refuse medications. repeating she is with God . continue tx plan. 10/29: pacing, i am with god, not engaging in interview. HCP Physician's affidavit completed. pursue affirmed HCP versus guardianship versus both. refusing meds, not sleeping. floridly manic/psychotic. 10/30: remains floridly manic/psychotic, refusing meds. behaviors increasingly disorganized, violent, disruptive. awaiting affirmation of HCP so medications may be administered. case D/W pt's mother/HCP. 10/31: appearing tired today after having essentially not slept at all last night. she did take lithium yesterday afternoon at 1800. continue to encourage medication compliance, keep safe. 11/01: appearing tired again, poor sleep overnight. took some medications in the past day but not most. encouraged to sleep this morning. too tired to engage in interview. 11/02: up and about the unit, hypersexual/provocative statement to MD, not engaging with Tx, refusing medication, very poor sleep (reportedly slept about 3 hours overnight). awaiting word re emergency guardianship hearing. 11/03: Continue to encourage engagement in treatment and medication compliance. 11/04: Calmer than yesterday. Remains psychotic. Partially adherent. Continue current management and treatment plan. 11/05: partially adherent to medications. appears sleepy/sedated this morning. asking for anxiety medication. tuesday pt was hypersexual, slapping female staff in the rear, slapping another in the face, grabbing female staff's breasts, grabbing male staff's crotch. required medication restraint. continue current mgmt. emergency hearing this tuesday. 11/06: got IMs last night for pushing/grabbing staff and throwing objects. slept after. otherwise not consistently taking meds. continue current mgmt. 11/07: mildly disruptive behavior continues. appears euphoric, manic. declines to speak with MD, refusing meds. continue to offer medication. 11/08: sleeping morning, episode of severe agitation in the afternoon, yelling, demanding to leave, slamming door repeatedly. refusing medication. continue current mgmt. emergency guardianship hearing tomorrow. 11/09: per report, mother received guardianship today, awaiting document. continue current mgmt. 11/10: calm in the morning, agitated and attempting to assault staff in the afternoon. prompted 2 behavioral codes an hour apart. during the first she received thorazine 100 and ativan 2 IM; during the second she received haldol 10, ativan 2, and benadryl 50 IM. 11/11: no codes today. remains disorganized, delusional. continue to offer medication. case d/w pt's mother, who reports having been granted emergency guardianship on tuesday. 11/12: sleeping this morning. contact legal for better understanding of what tuesday's order allows. Reason for continued inpatient stay Substantial Risk for: harm to self, harm to others and inability to function Time Spent With Patient Time: Total time managing care of this patient today _25___ minutes.
[2024-11-12] MEDS: OLANZapine ODT 10 MG TAB.RAPDIS TRANSLINGU (18:27)
[2024-11-12 20:00] VITALS: RESP 18
[2024-11-13] MEDS: chlorproMAZINE HCl 100 MG TABLET PO ×3 (00:17→17:48)
[2024-11-13] MEDS: hydrOXYzine HCL 50 MG TABLET PO ×3 (00:17→20:28)
[2024-11-13] MEDS: LORazepam 1 MG TABLET 2 MG PO ×3 (00:17→17:48)
[2024-11-13] MEDS: OLANZapine ODT 10 MG TAB.RAPDIS TRANSLINGU ×3 (00:17→17:51)
--- NOTE | 2024-11-13 14:00 | HO.PSYCHPN ---
Subjective Subjective Date of Service: 11/13/24 Reason For Visit: Unspecified Mood disorder Interim History: Met with patient; discussed with team; reviewed chart Patient said that she is doing fine, though tired, and does not know why she is not allowed to discharge. She refuses lithium, saying she does not need it and complains that taking it makes her forget things... Though she could not elaborate. Patient says she has been her a month and has not done anything crazy so wants discharge. Patient says her plan is to either go to [facility] or to her dad's house which is local. Mental Status Exam Mental Status Exam Narrative: Pt is alert and oriented; behavior is isolative; cooperative with proposal manager writer on approach; calm; patient is not in distress; dressed in casual attire, unkempt; mood is described as tired and affect congruent, a little blunted; eye contact appropriate; Speech is a little slowed and a little soft; a hint of latency; psychomotor retardation present; thought process is goal directed; Thought content is on discharge; no delusional thinking expressed; denies any SI/HI. Denies AVH. Patients insight and judgment impaired Diagnostics Vital Signs (24Hr): Vital Signs - 24 hr 11/12/24 20:00 Respiratory Rate 18 BMI result Body Mass Index 39.1 Labs 10/24/24 18:31 Medications Medications Current Medications Acetaminophen (Acetaminophen 325 Mg Tablet) 650 mg PO Q6H PRN PRN Reason: Headache/Pain, Scale 1-10 Al Hydroxide/Mg Hydroxide (Magnesium Hydrox/Alum Hydrox 30 Ml Oral.Susp) 30 ml PO Q6H PRN PRN Reason: Heartburn/Nausea Chlorpromazine HCl (Chlorpromazine Hcl 100 Mg Tablet) 100 mg PO Q4H PRN PRN Reason: severe agitation Last Admin: 11/13/24 07:56 Dose: 100 mg Hydroxyzine HCl (Hydroxyzine Hcl 50 Mg Tablet) 50 mg PO Q6H PRN PRN Reason: mild anxiety Last Admin: 11/13/24 06:52 Dose: 50 mg Tupman Carbonate (Tupman Carbonate Er 300 Mg Tablet.Er) 600 mg PO BID@0600,1800 BILLY Last Admin: 11/13/24 07:01 Dose: Not Given Lorazepam (Lorazepam 1 Mg Tablet) 2 mg PO Q4H PRN PRN Reason: severe anxiety/agitation Last Admin: 11/13/24 07:56 Dose: 2 mg Magnesium Hydroxide (Milk Of Magnesia 30 Ml Oral.Susp) 30 ml PO DAILY PRN PRN Reason: Constipation Nicotine (Nicotine 21 Mg Patch.Td24) 21 mg TRANSDERMA DAILY PRN PRN Reason: smoking cessation Nicotine Polacrilex (Nicotine Polacrilex 2 Mg Gum) 4 mg BUCCAL Q2H PRN PRN Reason: Nicotine Cravings Olanzapine (Olanzapine Odt 10 Mg Tab.Rapdis) 10 mg TRANSLINGU DAILY@1800 BILLY Last Admin: 11/12/24 18:27 Dose: 10 mg Olanzapine (Olanzapine Odt 10 Mg Tab.Rapdis) 10 mg TRANSLINGU TID PRN PRN Reason: agitation Last Admin: 11/13/24 07:56 Dose: 10 mg Trazodone HCl (Trazodone Hcl 50 Mg Tablet) 50 mg PO BEDTIME MRX1 PRN PRN Reason: Insomnia Last Admin: 10/21/24 20:37 Dose: 50 mg Allergies Allergies Allergy/AdvReac Type Severity Reaction Status Date / Time No Known Allergies Allergy Verified 10/10/24 23:51 Assessment & Plan Assessment & Plan (1) Moderate bipolar I disorder with poornima as current episode: Status: Acute Code(s): F31.12 - Bipolar disorder, current episode manic without psychotic features, moderate Assessment and Plan: schizoaffective disorder Plan 10/11: offer zyprexa 10 QHS and lithium 450 BID. 10/12: pt refusing meds. continue to offer. HCP in chart. 3-day notice up tuesday. 10/13: change Zyprexa to Zydis to assure compliance. refusing lithium. 10/14: keep same treatment, encourage compliance. 10/15: took meds this morning, sleeping heavily after. commitment paperwork completed, HCP invoked. meeting with mother this afternoon. 10/16/24: Encourage olanzapine lithium patient appears to be passively accepting treatment and hospitalization recommend affirming healthcare proxy. 10/17: pt's HCP signed pt in today, will pursue invocation of HCP. improved from last interview, taking meds. increase lithium to 600 BID and add ativan PRNs. case discussed with pt's mother and SW Graciela. 10/18: taking morning meds, not getting HS meds due to staff's not being able to awaken her. change HS meds to 1800. otherwise continue current mgmt. 10/19: Keeping to self. continues on 1:1. guarded. patient reports feeling fine ; asked T/W to leave her alone to nap. Per nursing, observed responding to internal stimuli. Slept 6 hours last night. continue tx plan 10/20 declines antipsychotic, requires 1:1 for disorganized intrusive behaviors. religiously preoccupied. 10/21 continue tx. continues to present with muslim preoccupations, does hint to thinking others do not want her to say the truth and also thinks her parents are , which not the case. 10/22: difficult to engage. taking lithium, sometimes taking zyprexa. encouraged medication compliance. continue current mgmt. 10/23: more engageable. delusion that her parents are . continue current mgmt. check labs tonight. 10/24: labs rescheduled for tomorrow morning. asking for discharge. taking meds. poor insight. continue current mgmt. 10/25: refused medications. focused on discharge. continue tx plan. 10/26: refusing meds last couple of days, has essentially returned to state at admission. pursue affirmation of HCP. 10/27: Keeping to self. observed responding to internal stimuli. laughing inappropriately to self. Delayed responses to questions. pt encouraged to take medications; pt stated, I'm saved and with God. I just need the Bible. That's why I'm not taking meds . continue to encourage medication compliance. 10/28: continues to refuse medications. repeating she is with God . continue tx plan. 10/29: pacing, i am with god, not engaging in interview. HCP Physician's affidavit completed. pursue affirmed HCP versus guardianship versus both. refusing meds, not sleeping. floridly manic/psychotic. 10/30: remains floridly manic/psychotic, refusing meds. behaviors increasingly disorganized, violent, disruptive. awaiting affirmation of HCP so medications may be administered. case D/W pt's mother/HCP. 10/31: appearing tired today after having essentially not slept at all last night. she did take lithium yesterday afternoon at 1800. continue to encourage medication compliance, keep safe. 11/01: appearing tired again, poor sleep overnight. took some medications in the past day but not most. encouraged to sleep this morning. too tired to engage in interview. 11/02: up and about the unit, hypersexual/provocative statement to MD, not engaging with Tx, refusing medication, very poor sleep (reportedly slept about 3 hours overnight). awaiting word re emergency guardianship hearing. 11/03: Continue to encourage engagement in treatment and medication compliance. 11/04: Calmer than yesterday. Remains psychotic. Partially adherent. Continue current management and treatment plan. 11/05: partially adherent to medications. appears sleepy/sedated this morning. asking for anxiety medication. tuesday pt was hypersexual, slapping female staff in the rear, slapping another in the face, grabbing female staff's breasts, grabbing male staff's crotch. required medication restraint. continue current mgmt. emergency hearing this tuesday. 11/06: got IMs last night for pushing/grabbing staff and throwing objects. slept after. otherwise not consistently taking meds. continue current mgmt. 11/07: mildly disruptive behavior continues. appears euphoric, manic. declines to speak with MD, refusing meds. continue to offer medication. 11/08: sleeping morning, episode of severe agitation in the afternoon, yelling, demanding to leave, slamming door repeatedly. refusing medication. continue current mgmt. emergency guardianship hearing tomorrow. 11/09: per report, mother received guardianship today, awaiting document. continue current mgmt. 11/10: calm in the morning, agitated and attempting to assault staff in the afternoon. prompted 2 behavioral codes an hour apart. during the first she received thorazine 100 and ativan 2 IM; during the second she received haldol 10, ativan 2, and benadryl 50 IM. 11/11: no codes today. remains disorganized, delusional. continue to offer medication. case d/w pt's mother, who reports having been granted emergency guardianship on tuesday. 11/12: sleeping this morning. contact legal for better understanding of what tuesday's order allows. 11/13 Patient said that she is doing fine, though tired, and does not know why she is not allowed to discharge. She refuses lithium, saying she does not need it and complains that taking it makes her forget things... Though she could not elaborate. Patient says she has been her a month and has not done anything crazy so wants discharge. Patient says her plan is to either go to [facility] or to her dad's house which is local. -continue current treatment plan Patient educated on: diagnosis and medication risk/benefits Informed Consent: understands, does not understand and further education needed Reason for continued inpatient stay Substantial Risk for: rapid decompensation Time Spent With Patient Time: Total time managing care of this patient today ____ minutes.
[2024-11-13] MEDS: Lithium Carbonate ER 300 MG TABLET.ER 600 MG PO (17:50)
[2024-11-14] MEDS: LORazepam 1 MG TABLET 2 MG PO ×3 (06:34→20:37)
[2024-11-14 08:00] VITALS: BP 119/59; PULSE 86; RESP 16; TEMP 36.3; O2SAT 99
[2024-11-14] MEDS: hydrOXYzine HCL 50 MG TABLET PO ×2 (14:19→20:37)
[2024-11-14] MEDS: Divalproex Sodium ER 500 MG TAB.ER.24H 1000 MG PO (17:43)
[2024-11-14] MEDS: OLANZapine ODT 10 MG TAB.RAPDIS TRANSLINGU ×2 (17:43→21:25)
--- NOTE | 2024-11-14 19:51 | HO.PSYCHPN ---
Subjective Subjective Date of Service: 11/14/24 Reason For Visit: Unspecified Mood disorder Interim History: lying in bed, awake, appearing somewhat tired or sedated. MD educated pt about Dx and Tx. she was inert. family meeting held with pt's mother and sister. per staff, slept 7 hours and much during the day. withdrawn, guarded. snacking a lot. took zyprexa, ativan, atarax. refusing lithium in the morning. took a half dose of lithium yesterday evening. Mental Status Exam Mental Status Exam Narrative: [facility], disheveled, in her bed. speech decr rate, decr amount, decr loudness, flattened tone, incr latency. thoughts linear in brief interaction. affect constricted, normo-intense, non-labile. mood not assessed. no SI/HI/AVH expressed. Diagnostics Vital Signs (24Hr): Vital Signs - 24 hr 11/14/24 08:00 Temperature 97.3 F Pulse Rate 86 Respiratory Rate 16 Blood Pressure 119/59 L Pulse Oximetry 99 Oxygen Delivery Method Room Air BMI result Body Mass Index 39.1 Labs 10/24/24 18:31 Medications Medications Current Medications Acetaminophen (Acetaminophen 325 Mg Tablet) 650 mg PO Q6H PRN PRN Reason: Headache/Pain, Scale 1-10 Al Hydroxide/Mg Hydroxide (Magnesium Hydrox/Alum Hydrox 30 Ml Oral.Susp) 30 ml PO Q6H PRN PRN Reason: Heartburn/Nausea Chlorpromazine HCl (Chlorpromazine Hcl 100 Mg Tablet) 100 mg PO Q4H PRN PRN Reason: severe agitation Last Admin: 11/13/24 17:48 Dose: 100 mg Divalproex Sodium (Divalproex Sodium Er 500 Mg Tab.Er.24h) 1,000 mg PO DAILY@1800 BILLY Last Admin: 11/14/24 17:43 Dose: 1,000 mg Hydroxyzine HCl (Hydroxyzine Hcl 50 Mg Tablet) 50 mg PO Q6H PRN PRN Reason: mild anxiety Last Admin: 11/14/24 14:19 Dose: 50 mg Lorazepam (Lorazepam 1 Mg Tablet) 2 mg PO Q4H PRN PRN Reason: severe anxiety/agitation Last Admin: 11/14/24 14:19 Dose: 2 mg Magnesium Hydroxide (Milk Of Magnesia 30 Ml Oral.Susp) 30 ml PO DAILY PRN PRN Reason: Constipation Nicotine (Nicotine 21 Mg Patch.Td24) 21 mg TRANSDERMA DAILY PRN PRN Reason: smoking cessation Nicotine Polacrilex (Nicotine Polacrilex 2 Mg Gum) 4 mg BUCCAL Q2H PRN PRN Reason: Nicotine Cravings Olanzapine (Olanzapine Odt 10 Mg Tab.Rapdis) 10 mg TRANSLINGU DAILY@1800 BILLY Last Admin: 11/14/24 17:43 Dose: 10 mg Olanzapine (Olanzapine Odt 10 Mg Tab.Rapdis) 10 mg TRANSLINGU TID PRN PRN Reason: agitation Last Admin: 11/13/24 07:56 Dose: 10 mg Trazodone HCl (Trazodone Hcl 50 Mg Tablet) 50 mg PO BEDTIME MRX1 PRN PRN Reason: Insomnia Last Admin: 10/21/24 20:37 Dose: 50 mg Allergies Allergies Allergy/AdvReac Type Severity Reaction Status Date / Time No Known Allergies Allergy Verified 10/10/24 23:51 Assessment & Plan Assessment & Plan (1) Moderate bipolar I disorder with poornima as current episode: Status: Acute Code(s): F31.12 - Bipolar disorder, current episode manic without psychotic features, moderate Assessment and Plan: schizoaffective disorder Plan 10/11: offer zyprexa 10 QHS and lithium 450 BID. 10/12: pt refusing meds. continue to offer. HCP in chart. 3-day notice up tuesday. 10/13: change Zyprexa to Zydis to assure compliance. refusing lithium. 10/14: keep same treatment, encourage compliance. 10/15: took meds this morning, sleeping heavily after. commitment paperwork completed, HCP invoked. meeting with mother this afternoon. 10/16/24: Encourage olanzapine lithium patient appears to be passively accepting treatment and hospitalization recommend affirming healthcare proxy. 10/17: pt's HCP signed pt in today, will pursue invocation of HCP. improved from last interview, taking meds. increase lithium to 600 BID and add ativan PRNs. case discussed with pt's mother and SW Graciela. 10/18: taking morning meds, not getting HS meds due to staff's not being able to awaken her. change HS meds to 1800. otherwise continue current mgmt. 10/19: Keeping to self. continues on 1:1. guarded. patient reports feeling fine ; asked T/W to leave her alone to nap. Per nursing, observed responding to internal stimuli. Slept 6 hours last night. continue tx plan 10/20 declines antipsychotic, requires 1:1 for disorganized intrusive behaviors. religiously preoccupied. 10/21 continue tx. continues to present with confucianism preoccupations, does hint to thinking others do not want her to say the truth and also thinks her parents are , which not the case. 10/22: difficult to engage. taking lithium, sometimes taking zyprexa. encouraged medication compliance. continue current mgmt. 10/23: more engageable. delusion that her parents are . continue current mgmt. check labs tonight. 10/24: labs rescheduled for tomorrow morning. asking for discharge. taking meds. poor insight. continue current mgmt. 10/25: refused medications. focused on discharge. continue tx plan. 10/26: refusing meds last couple of days, has essentially returned to state at admission. pursue affirmation of HCP. 10/27: Keeping to self. observed responding to internal stimuli. laughing inappropriately to self. Delayed responses to questions. pt encouraged to take medications; pt stated, I'm saved and with God. I just need the Bible. That's why I'm not taking meds . continue to encourage medication compliance. 10/28: continues to refuse medications. repeating she is with God . continue tx plan. 10/29: pacing, i am with god, not engaging in interview. HCP Physician's affidavit completed. pursue affirmed HCP versus guardianship versus both. refusing meds, not sleeping. floridly manic/psychotic. 10/30: remains floridly manic/psychotic, refusing meds. behaviors increasingly disorganized, violent, disruptive. awaiting affirmation of HCP so medications may be administered. case D/W pt's mother/HCP. 10/31: appearing tired today after having essentially not slept at all last night. she did take lithium yesterday afternoon at 1800. continue to encourage medication compliance, keep safe. 11/01: appearing tired again, poor sleep overnight. took some medications in the past day but not most. encouraged to sleep this morning. too tired to engage in interview. 11/02: up and about the unit, hypersexual/provocative statement to MD, not engaging with Tx, refusing medication, very poor sleep (reportedly slept about 3 hours overnight). awaiting word re emergency guardianship hearing. 11/03: Continue to encourage engagement in treatment and medication compliance. 11/04: Calmer than yesterday. Remains psychotic. Partially adherent. Continue current management and treatment plan. 11/05: partially adherent to medications. appears sleepy/sedated this morning. asking for anxiety medication. tuesday pt was hypersexual, slapping female staff in the rear, slapping another in the face, grabbing female staff's breasts, grabbing male staff's crotch. required medication restraint. continue current mgmt. emergency hearing this tuesday. 11/06: got IMs last night for pushing/grabbing staff and throwing objects. slept after. otherwise not consistently taking meds. continue current mgmt. 11/07: mildly disruptive behavior continues. appears euphoric, manic. declines to speak with MD, refusing meds. continue to offer medication. 11/08: sleeping morning, episode of severe agitation in the afternoon, yelling, demanding to leave, slamming door repeatedly. refusing medication. continue current mgmt. emergency guardianship hearing tomorrow. 11/09: per report, mother received guardianship today, awaiting document. continue current mgmt. 11/10: calm in the morning, agitated and attempting to assault staff in the afternoon. prompted 2 behavioral codes an hour apart. during the first she received thorazine 100 and ativan 2 IM; during the second she received haldol 10, ativan 2, and benadryl 50 IM. 11/11: no codes today. remains disorganized, delusional. continue to offer medication. case d/w pt's mother, who reports having been granted emergency guardianship on tuesday. 11/12: sleeping this morning. contact legal for better understanding of what tuesday's order allows. 11/13 Patient said that she is doing fine, though tired, and does not know why she is not allowed to discharge. She refuses lithium, saying she does not need it and complains that taking it makes her forget things... Though she could not elaborate. Patient says she has been her a month and has not done anything crazy so wants discharge. Patient says her plan is to either go to [facility] or to her dad's house which is local. -continue current treatment plan 11/14: appearing sedated, in her bed this morning. family meeting held with pt's mother and sister. per Morgan Shay, invega, prolixin, zyprexa, and risperidone are authorized antipsychotics. mother as guardian can authorize all other medications. awaiting hard copy. continue current mgmt. Patient educated on: diagnosis and medication risk/benefits Guardian/Caregiver educated on: diagnosis, medication risk/benefits and substance abuse Reason for continued inpatient stay Substantial Risk for: inability to function Time Spent With Patient Time: Total time managing care of this patient today _60___ minutes.
[2024-11-14 20:00] VITALS: PULSE 108; O2SAT 100
[2024-11-14] MEDS: traZODone HCL 50 MG TABLET PO (21:25)
[2024-11-15] MEDS: hydrOXYzine HCL 50 MG TABLET PO ×2 (08:38→23:51)
[2024-11-15 08:42] VITALS: RESP 16
[2024-11-15] MEDS: OLANZapine ODT 10 MG TAB.RAPDIS TRANSLINGU ×3 (13:37→22:37)
[2024-11-15] MEDS: LORazepam 1 MG TABLET 2 MG PO ×2 (13:37→22:37)
--- NOTE | 2024-11-15 16:54 | HO.PSYCHPN ---
Subjective Subjective Date of Service: 11/15/24 Reason For Visit: Unspecified Mood disorder Interim History: in bed, quietly interrogating MD, asking if he knows her dog's name, or where she lives in [place], or her middle name, or her mother's middle name, or her mother's last name, or her mother's , or her mother's SSN. pt believes MD, in not knowing the answers to these questions, demonstrates he does not know her case adequately. MD noted pt took VPA last night and inquired why. pt declining to answer the question. pt later noted to be ambulating the unit. per staff, remains on CO. refusing lithium. pacing. asking for ativan. took 1800 meds - including depakote, which replaced lithium. Mental Status Exam Mental Status Exam Narrative: hospital boaz, disheveled, in her bed. speech nml rate, decr amount, nml loudness, flattened tone, incr latency. thoughts organized enough to ask a series of questions of , illogical. affect constricted, normo-intense, non-labile. mood not assessed. no SI/HI/AVH expressed. Diagnostics Vital Signs (24Hr): Vital Signs - 24 hr 11/14/24 20:00 11/15/24 08:42 Pulse Rate 108 H Respiratory Rate 16 Pulse Oximetry 100 Oxygen Delivery Method Room Air BMI result Body Mass Index 39.1 Labs 10/24/24 18:31 Medications Medications Current Medications Acetaminophen (Acetaminophen 325 Mg Tablet) 650 mg PO Q6H PRN PRN Reason: Headache/Pain, Scale 1-10 Al Hydroxide/Mg Hydroxide (Magnesium Hydrox/Alum Hydrox 30 Ml Oral.Susp) 30 ml PO Q6H PRN PRN Reason: Heartburn/Nausea Chlorpromazine HCl (Chlorpromazine Hcl 100 Mg Tablet) 100 mg PO Q4H PRN PRN Reason: severe agitation Last Admin: 11/13/24 17:48 Dose: 100 mg Divalproex Sodium (Divalproex Sodium Er 500 Mg Tab.Er.24h) 1,500 mg PO DAILY@1800 BILLY Hydroxyzine HCl (Hydroxyzine Hcl 50 Mg Tablet) 50 mg PO Q6H PRN PRN Reason: mild anxiety Last Admin: 11/15/24 08:38 Dose: 50 mg Lorazepam (Lorazepam 1 Mg Tablet) 2 mg PO Q4H PRN PRN Reason: severe anxiety/agitation Last Admin: 11/15/24 13:37 Dose: 2 mg Magnesium Hydroxide (Milk Of Magnesia 30 Ml Oral.Susp) 30 ml PO DAILY PRN PRN Reason: Constipation Nicotine (Nicotine 21 Mg Patch.Td24) 21 mg TRANSDERMA DAILY PRN PRN Reason: smoking cessation Nicotine Polacrilex (Nicotine Polacrilex 2 Mg Gum) 4 mg BUCCAL Q2H PRN PRN Reason: Nicotine Cravings Olanzapine (Olanzapine Odt 10 Mg Tab.Rapdis) 10 mg TRANSLINGU DAILY@1800 BILLY Last Admin: 11/14/24 17:43 Dose: 10 mg Olanzapine (Olanzapine Odt 10 Mg Tab.Rapdis) 10 mg TRANSLINGU TID PRN PRN Reason: agitation Last Admin: 11/15/24 13:37 Dose: 10 mg Trazodone HCl (Trazodone Hcl 50 Mg Tablet) 50 mg PO BEDTIME MRX1 PRN PRN Reason: Insomnia Last Admin: 11/14/24 21:25 Dose: 50 mg Allergies Allergies Allergy/AdvReac Type Severity Reaction Status Date / Time No Known Allergies Allergy Verified 10/10/24 23:51 Assessment & Plan Assessment & Plan (1) Moderate bipolar I disorder with poornima as current episode: Status: Acute Code(s): F31.12 - Bipolar disorder, current episode manic without psychotic features, moderate Assessment and Plan: schizoaffective disorder Plan 10/11: offer zyprexa 10 QHS and lithium 450 BID. 10/12: pt refusing meds. continue to offer. HCP in chart. 3-day notice up tuesday. 10/13: change Zyprexa to Zydis to assure compliance. refusing lithium. 10/14: keep same treatment, encourage compliance. 10/15: took meds this morning, sleeping heavily after. commitment paperwork completed, HCP invoked. meeting with mother this afternoon. 10/16/24: Encourage olanzapine lithium patient appears to be passively accepting treatment and hospitalization recommend affirming healthcare proxy. 10/17: pt's HCP signed pt in today, will pursue invocation of HCP. improved from last interview, taking meds. increase lithium to 600 BID and add ativan PRNs. case discussed with pt's mother and SW Graciela. 10/18: taking morning meds, not getting HS meds due to staff's not being able to awaken her. change HS meds to 1800. otherwise continue current mgmt. 10/19: Keeping to self. continues on 1:1. guarded. patient reports feeling fine ; asked T/W to leave her alone to nap. Per nursing, observed responding to internal stimuli. Slept 6 hours last night. continue tx plan 10/20 declines antipsychotic, requires 1:1 for disorganized intrusive behaviors. religiously preoccupied. 10/21 continue tx. continues to present with oriental orthodox preoccupations, does hint to thinking others do not want her to say the truth and also thinks her parents are , which not the case. 10/22: difficult to engage. taking lithium, sometimes taking zyprexa. encouraged medication compliance. continue current mgmt. 10/23: more engageable. delusion that her parents are . continue current mgmt. check labs tonight. 10/24: labs rescheduled for tomorrow morning. asking for discharge. taking meds. poor insight. continue current mgmt. 10/25: refused medications. focused on discharge. continue tx plan. 10/26: refusing meds last couple of days, has essentially returned to state at admission. pursue affirmation of HCP. 10/27: Keeping to self. observed responding to internal stimuli. laughing inappropriately to self. Delayed responses to questions. pt encouraged to take medications; pt stated, I'm saved and with God. I just need the Bible. That's why I'm not taking meds . continue to encourage medication compliance. 10/28: continues to refuse medications. repeating she is with God . continue tx plan. 10/29: pacing, i am with god, not engaging in interview. HCP Physician's affidavit completed. pursue affirmed HCP versus guardianship versus both. refusing meds, not sleeping. floridly manic/psychotic. 10/30: remains floridly manic/psychotic, refusing meds. behaviors increasingly disorganized, violent, disruptive. awaiting affirmation of HCP so medications may be administered. case D/W pt's mother/HCP. 10/31: appearing tired today after having essentially not slept at all last night. she did take lithium yesterday afternoon at 1800. continue to encourage medication compliance, keep safe. 11/01: appearing tired again, poor sleep overnight. took some medications in the past day but not most. encouraged to sleep this morning. too tired to engage in interview. 11/02: up and about the unit, hypersexual/provocative statement to MD, not engaging with Tx, refusing medication, very poor sleep (reportedly slept about 3 hours overnight). awaiting word re emergency guardianship hearing. 11/03: Continue to encourage engagement in treatment and medication compliance. 11/04: Calmer than yesterday. Remains psychotic. Partially adherent. Continue current management and treatment plan. 11/05: partially adherent to medications. appears sleepy/sedated this morning. asking for anxiety medication. tuesday pt was hypersexual, slapping female staff in the rear, slapping another in the face, grabbing female staff's breasts, grabbing male staff's crotch. required medication restraint. continue current mgmt. emergency hearing this tuesday. 11/06: got IMs last night for pushing/grabbing staff and throwing objects. slept after. otherwise not consistently taking meds. continue current mgmt. 11/07: mildly disruptive behavior continues. appears euphoric, manic. declines to speak with MD, refusing meds. continue to offer medication. 11/08: sleeping morning, episode of severe agitation in the afternoon, yelling, demanding to leave, slamming door repeatedly. refusing medication. continue current mgmt. emergency guardianship hearing tomorrow. 11/09: per report, mother received guardianship today, awaiting document. continue current mgmt. 11/10: calm in the morning, agitated and attempting to assault staff in the afternoon. prompted 2 behavioral codes an hour apart. during the first she received thorazine 100 and ativan 2 IM; during the second she received haldol 10, ativan 2, and benadryl 50 IM. 11/11: no codes today. remains disorganized, delusional. continue to offer medication. case d/w pt's mother, who reports having been granted emergency guardianship on tuesday. 11/12: sleeping this morning. contact legal for better understanding of what tuesday's order allows. 11/13 Patient said that she is doing fine, though tired, and does not know why she is not allowed to discharge. She refuses lithium, saying she does not need it and complains that taking it makes her forget things... Though she could not elaborate. Patient says she has been her a month and has not done anything crazy so wants discharge. Patient says her plan is to either go to [facility] or to her dad's house which is local. -continue current treatment plan 11/14: appearing sedated, in her bed this morning. family meeting held with pt's mother and sister. per Morgan Shay, invega, prolixin, zyprexa, and risperidone are authorized antipsychotics. mother as guardian can authorize all other medications. awaiting hard copy. continue current mgmt. 11/15: court paperwork received from mother. pt suspicious of MD. took the VPA last night instead of lithium. asking about discharge. will review court paperwork and order medications accordingly. Reason for continued inpatient stay Substantial Risk for: harm to self, harm to others and inability to function Time Spent With Patient Time: Total time managing care of this patient today __25__ minutes.
[2024-11-15] MEDS: Divalproex Sodium ER 500 MG TAB.ER.24H 1500 MG PO (18:15)
[2024-11-15 20:00] VITALS: RESP 16
[2024-11-15] MEDS: traZODone HCL 50 MG TABLET PO (23:51)
[2024-11-16] MEDS: hydrOXYzine HCL 50 MG TABLET PO (13:58)
--- NOTE | 2024-11-16 15:30 | HO.PSYCHPN ---
Subjective Subjective Date of Service: 11/16/24 Reason For Visit: Unspecified Mood disorder Interim History: calm, arranging things in her room. asking about discharge. MD encouraged her to continue taking medications. per staff, reactive affect. took meds the past 24 hours. slept 7 hours. Mental Status Exam Mental Status Exam Narrative: hospital boaz, disheveled, in her bedroom. speech nml rate, decr amount, nml loudness, flattened tone, incr latency. thoughts organized enough to ask for discharge. affect constricted, normo-intense, non-labile. mood not assessed. no SI/HI/AVH expressed. Diagnostics Vital Signs (24Hr): Vital Signs - 24 hr 11/15/24 20:00 Respiratory Rate 16 BMI result Body Mass Index 39.1 Labs 10/24/24 18:31 Medications Medications Current Medications Acetaminophen (Acetaminophen 325 Mg Tablet) 650 mg PO Q6H PRN PRN Reason: Headache/Pain, Scale 1-10 Al Hydroxide/Mg Hydroxide (Magnesium Hydrox/Alum Hydrox 30 Ml Oral.Susp) 30 ml PO Q6H PRN PRN Reason: Heartburn/Nausea Chlorpromazine HCl (Chlorpromazine Hcl 100 Mg Tablet) 100 mg PO Q4H PRN PRN Reason: severe agitation Last Admin: 11/13/24 17:48 Dose: 100 mg Diazepam (Diazepam 10 Mg/2 Ml Cartridge) 10 mg IM DAILY PRN PRN Reason: refusal of VPA, per guardian Divalproex Sodium (Divalproex Sodium Er 500 Mg Tab.Er.24h) 1,500 mg PO DAILY@1800 BILLY Last Admin: 11/15/24 18:15 Dose: 1,500 mg Hydroxyzine HCl (Hydroxyzine Hcl 50 Mg Tablet) 50 mg PO Q6H PRN PRN Reason: mild anxiety Last Admin: 11/16/24 13:58 Dose: 50 mg Lorazepam (Lorazepam 1 Mg Tablet) 2 mg PO Q4H PRN PRN Reason: severe anxiety/agitation Last Admin: 11/15/24 22:37 Dose: 2 mg Magnesium Hydroxide (Milk Of Magnesia 30 Ml Oral.Susp) 30 ml PO DAILY PRN PRN Reason: Constipation Nicotine (Nicotine 21 Mg Patch.Td24) 21 mg TRANSDERMA DAILY PRN PRN Reason: smoking cessation Nicotine Polacrilex (Nicotine Polacrilex 2 Mg Gum) 4 mg BUCCAL Q2H PRN PRN Reason: Nicotine Cravings Olanzapine (Olanzapine Odt 10 Mg Tab.Rapdis) 10 mg TRANSLINGU TID PRN PRN Reason: agitation Last Admin: 11/15/24 22:37 Dose: 10 mg Olanzapine (Olanzapine Odt 10 Mg Tab.Rapdis) 20 mg TRANSLINGU DAILY@1800 BILLY Olanzapine (Olanzapine 10 Mg Vial) 10 mg IM DAILY PRN PRN Reason: refusal of PO per mariel's orde Trazodone HCl (Trazodone Hcl 50 Mg Tablet) 50 mg PO BEDTIME MRX1 PRN PRN Reason: Insomnia Last Admin: 11/15/24 23:51 Dose: 50 mg Allergies Allergies Allergy/AdvReac Type Severity Reaction Status Date / Time No Known Allergies Allergy Verified 10/10/24 23:51 Assessment & Plan Assessment & Plan (1) Moderate bipolar I disorder with poornima as current episode: Status: Acute Code(s): F31.12 - Bipolar disorder, current episode manic without psychotic features, moderate Assessment and Plan: schizoaffective disorder Plan 10/11: offer zyprexa 10 QHS and lithium 450 BID. 10/12: pt refusing meds. continue to offer. HCP in chart. 3-day notice up tuesday. 10/13: change Zyprexa to Zydis to assure compliance. refusing lithium. 10/14: keep same treatment, encourage compliance. 10/15: took meds this morning, sleeping heavily after. commitment paperwork completed, HCP invoked. meeting with mother this afternoon. 10/16/24: Encourage olanzapine lithium patient appears to be passively accepting treatment and hospitalization recommend affirming healthcare proxy. 10/17: pt's HCP signed pt in today, will pursue invocation of HCP. improved from last interview, taking meds. increase lithium to 600 BID and add ativan PRNs. case discussed with pt's mother and SW Graciela. 10/18: taking morning meds, not getting HS meds due to staff's not being able to awaken her. change HS meds to 1800. otherwise continue current mgmt. 10/19: Keeping to self. continues on 1:1. guarded. patient reports feeling fine ; asked T/W to leave her alone to nap. Per nursing, observed responding to internal stimuli. Slept 6 hours last night. continue tx plan 10/20 declines antipsychotic, requires 1:1 for disorganized intrusive behaviors. religiously preoccupied. 10/21 continue tx. continues to present with congregation preoccupations, does hint to thinking others do not want her to say the truth and also thinks her parents are , which not the case. 10/22: difficult to engage. taking lithium, sometimes taking zyprexa. encouraged medication compliance. continue current mgmt. 10/23: more engageable. delusion that her parents are . continue current mgmt. check labs tonight. 10/24: labs rescheduled for tomorrow morning. asking for discharge. taking meds. poor insight. continue current mgmt. 10/25: refused medications. focused on discharge. continue tx plan. 10/26: refusing meds last couple of days, has essentially returned to state at admission. pursue affirmation of HCP. 10/27: Keeping to self. observed responding to internal stimuli. laughing inappropriately to self. Delayed responses to questions. pt encouraged to take medications; pt stated, I'm saved and with God. I just need the Bible. That's why I'm not taking meds . continue to encourage medication compliance. 10/28: continues to refuse medications. repeating she is with God . continue tx plan. 10/29: pacing, i am with god, not engaging in interview. HCP Physician's affidavit completed. pursue affirmed HCP versus guardianship versus both. refusing meds, not sleeping. floridly manic/psychotic. 10/30: remains floridly manic/psychotic, refusing meds. behaviors increasingly disorganized, violent, disruptive. awaiting affirmation of HCP so medications may be administered. case D/W pt's mother/HCP. 10/31: appearing tired today after having essentially not slept at all last night. she did take lithium yesterday afternoon at 1800. continue to encourage medication compliance, keep safe. 11/01: appearing tired again, poor sleep overnight. took some medications in the past day but not most. encouraged to sleep this morning. too tired to engage in interview. 11/02: up and about the unit, hypersexual/provocative statement to MD, not engaging with Tx, refusing medication, very poor sleep (reportedly slept about 3 hours overnight). awaiting word re emergency guardianship hearing. 11/03: Continue to encourage engagement in treatment and medication compliance. 11/04: Calmer than yesterday. Remains psychotic. Partially adherent. Continue current management and treatment plan. 11/05: partially adherent to medications. appears sleepy/sedated this morning. asking for anxiety medication. tuesday pt was hypersexual, slapping female staff in the rear, slapping another in the face, grabbing female staff's breasts, grabbing male staff's crotch. required medication restraint. continue current mgmt. emergency hearing this tuesday. 11/06: got IMs last night for pushing/grabbing staff and throwing objects. slept after. otherwise not consistently taking meds. continue current mgmt. 11/07: mildly disruptive behavior continues. appears euphoric, manic. declines to speak with MD, refusing meds. continue to offer medication. 11/08: sleeping morning, episode of severe agitation in the afternoon, yelling, demanding to leave, slamming door repeatedly. refusing medication. continue current mgmt. emergency guardianship hearing tomorrow. 11/09: per report, mother received guardianship today, awaiting document. continue current mgmt. 11/10: calm in the morning, agitated and attempting to assault staff in the afternoon. prompted 2 behavioral codes an hour apart. during the first she received thorazine 100 and ativan 2 IM; during the second she received haldol 10, ativan 2, and benadryl 50 IM. 11/11: no codes today. remains disorganized, delusional. continue to offer medication. case d/w pt's mother, who reports having been granted emergency guardianship on tuesday. 11/12: sleeping this morning. contact legal for better understanding of what tuesday's order allows. 11/13 Patient said that she is doing fine, though tired, and does not know why she is not allowed to discharge. She refuses lithium, saying she does not need it and complains that taking it makes her forget things... Though she could not elaborate. Patient says she has been her a month and has not done anything crazy so wants discharge. Patient says her plan is to either go to [facility] or to her dad's house which is local. -continue current treatment plan 4/2: appearing sedated, in her bed this morning. family meeting held with pt's mother and sister. per Morgan Shay, invega, prolixin, zyprexa, and risperidone are authorized antipsychotics. mother as guardian can authorize all other medications. awaiting hard copy. continue current mgmt. 11/15: court paperwork received from mother. pt suspicious of MD. took the VPA last night instead of lithium. asking about discharge. will review court paperwork and order medications accordingly. 11/16: has taken meds past 24H. VPA increased to 1500 mg QHS. olanzapine increased to 20 mg. IM backups added as guardianship decree has been received Reason for continued inpatient stay Substantial Risk for: harm to self, harm to others and inability to function Time Spent With Patient Time: Total time managing care of this patient today __25__ minutes.
[2024-11-16] MEDS: LORazepam 1 MG TABLET 2 MG PO (16:23)
[2024-11-16] MEDS: OLANZapine ODT 10 MG TAB.RAPDIS 20 MG TRANSLINGU (18:03)
[2024-11-16] MEDS: Divalproex Sodium ER 500 MG TAB.ER.24H 1500 MG PO (18:04)
[2024-11-16 20:00] VITALS: BP 140/64; PULSE 88; RESP 16; TEMP 36.4; O2SAT 100
[2024-11-17] MEDS: hydrOXYzine HCL 50 MG TABLET PO ×2 (08:40→14:04)
--- NOTE | 2024-11-17 09:06 | P.PNPSI_ITS ---
Subjective Subjective Date of Service: 11/17/24 Reason For Visit: Unspecified Mood disorder Interim History: My father will visit today. I think I will nap before he comes in. Team reports no behaviors of concern. Pt reports she is well, she denies SI,HI,AH,VH. I am ready to go home. You could let me go home today. Discussed this was a topic to bring up with her team and she agreed. Medication Compliance: Yes Side effects from medications: No Review of Systems Acute medical concerns: No Review of Systems Review of Systems Pt denies Mental Status Exam Mental Status Exam Patient Appearance: Appropriate Patient Orientation: Person, Place, Time and Situation Level of Consciousness: Alert Patient Behavior: Talkative and Good Eye Contact Mood Description: Appropriate and Apprehensive Affect Description: Appropriate and Apprehensive Patient Cognition Impaired: No Ability to Follow Directions: Fair Speech Pattern: Spontaneous Speech Memory Description: Episodic Impaired Hallucinations: None (denies) Delusions: Paranoid Ideation Perceptual Disturbances: Depersonalization Thought Process: Distracted Thought Content: positive for Circumstantial, positive for Preoccupation, positive for Tangential and positive for Disorganized Depressive Symptoms: Thoughts of /Suicide (denies) Abnormal Motor Activity Signs and Symptoms: Restlessness Judgement: Fair Diagnostics Vital Signs (24Hr): Vital Signs - 24 hr 11/16/24 20:00 Temperature 97.5 F Pulse Rate 88 Respiratory Rate 16 Blood Pressure 140/64 H Pulse Oximetry 100 Oxygen Delivery Method Room Air BMI result Body Mass Index 39.1 Labs 10/24/24 18:31 Medications Medications Current Medications Acetaminophen (Acetaminophen 325 Mg Tablet) 650 mg PO Q6H PRN PRN Reason: Headache/Pain, Scale 1-10 Al Hydroxide/Mg Hydroxide (Magnesium Hydrox/Alum Hydrox 30 Ml Oral.Susp) 30 ml PO Q6H PRN PRN Reason: Heartburn/Nausea Chlorpromazine HCl (Chlorpromazine Hcl 100 Mg Tablet) 100 mg PO Q4H PRN PRN Reason: severe agitation Last Admin: 11/13/24 17:48 Dose: 100 mg Diazepam (Diazepam 10 Mg/2 Ml Cartridge) 10 mg IM DAILY PRN PRN Reason: refusal of VPA, per guardian Divalproex Sodium (Divalproex Sodium Er 500 Mg Tab.Er.24h) 1,500 mg PO DAILY@1800 BILLY Last Admin: 11/16/24 18:04 Dose: 1,500 mg Hydroxyzine HCl (Hydroxyzine Hcl 50 Mg Tablet) 50 mg PO Q6H PRN PRN Reason: mild anxiety Last Admin: 11/17/24 08:40 Dose: 50 mg Lorazepam (Lorazepam 1 Mg Tablet) 2 mg PO Q4H PRN PRN Reason: severe anxiety/agitation Last Admin: 11/16/24 16:23 Dose: 2 mg Magnesium Hydroxide (Milk Of Magnesia 30 Ml Oral.Susp) 30 ml PO DAILY PRN PRN Reason: Constipation Nicotine (Nicotine 21 Mg Patch.Td24) 21 mg TRANSDERMA DAILY PRN PRN Reason: smoking cessation Nicotine Polacrilex (Nicotine Polacrilex 2 Mg Gum) 4 mg BUCCAL Q2H PRN PRN Reason: Nicotine Cravings Olanzapine (Olanzapine Odt 10 Mg Tab.Rapdis) 10 mg TRANSLINGU TID PRN PRN Reason: agitation Last Admin: 11/15/24 22:37 Dose: 10 mg Olanzapine (Olanzapine Odt 10 Mg Tab.Rapdis) 20 mg TRANSLINGU DAILY@1800 BILLY Last Admin: 11/16/24 18:03 Dose: 20 mg Olanzapine (Olanzapine 10 Mg Vial) 10 mg IM DAILY PRN PRN Reason: refusal of PO per mariel's orde Trazodone HCl (Trazodone Hcl 50 Mg Tablet) 50 mg PO BEDTIME MRX1 PRN PRN Reason: Insomnia Last Admin: 11/15/24 23:51 Dose: 50 mg Allergies Allergies Allergy/AdvReac Type Severity Reaction Status Date / Time No Known Allergies Allergy Verified 10/10/24 23:51 Assessment & Plan Assessment & Plan (1) Moderate bipolar I disorder with poornima as current episode: Status: Acute Code(s): F31.12 - Bipolar disorder, current episode manic without psychotic features, moderate Assessment and Plan: schizoaffective disorder Plan 10/11: offer zyprexa 10 QHS and lithium 450 BID. 10/12: pt refusing meds. continue to offer. HCP in chart. 3-day notice up tuesday. 10/13: change Zyprexa to Zydis to assure compliance. refusing lithium. 10/14: keep same treatment, encourage compliance. 10/15: took meds this morning, sleeping heavily after. commitment paperwork completed, HCP invoked. meeting with mother this afternoon. 10/16/24: Encourage olanzapine lithium patient appears to be passively accepting treatment and hospitalization recommend affirming healthcare proxy. 10/17: pt's HCP signed pt in today, will pursue invocation of HCP. improved from last interview, taking meds. increase lithium to 600 BID and add ativan PRNs. case discussed with pt's mother and SW Graciela. 10/18: taking morning meds, not getting HS meds due to staff's not being able to awaken her. change HS meds to 1800. otherwise continue current mgmt. 10/19: Keeping to self. continues on 1:1. guarded. patient reports feeling fine ; asked T/W to leave her alone to nap. Per nursing, observed responding to internal stimuli. Slept 6 hours last night. continue tx plan 10/20 declines antipsychotic, requires 1:1 for disorganized intrusive behaviors. religiously preoccupied. 10/21 continue tx. continues to present with restorationism preoccupations, does hint to thinking others do not want her to say the truth and also thinks her parents are , which not the case. 10/22: difficult to engage. taking lithium, sometimes taking zyprexa. encouraged medication compliance. continue current mgmt. 10/23: more engageable. delusion that her parents are . continue current mgmt. check labs tonight. 10/24: labs rescheduled for tomorrow morning. asking for discharge. taking meds. poor insight. continue current mgmt. 10/25: refused medications. focused on discharge. continue tx plan. 10/26: refusing meds last couple of days, has essentially returned to state at admission. pursue affirmation of HCP. 10/27: Keeping to self. observed responding to internal stimuli. laughing inappropriately to self. Delayed responses to questions. pt encouraged to take medications; pt stated, I'm saved and with God. I just need the Bible. That's why I'm not taking meds . continue to encourage medication compliance. 10/28: continues to refuse medications. repeating she is with God . continue tx plan. 10/29: pacing, i am with god, not engaging in interview. HCP Physician's affidavit completed. pursue affirmed HCP versus guardianship versus both. refusing meds, not sleeping. floridly manic/psychotic. 10/30: remains floridly manic/psychotic, refusing meds. behaviors increasingly disorganized, violent, disruptive. awaiting affirmation of HCP so medications may be administered. case D/W pt's mother/HCP. 10/31: appearing tired today after having essentially not slept at all last night. she did take lithium yesterday afternoon at 1800. continue to encourage medication compliance, keep safe. 11/01: appearing tired again, poor sleep overnight. took some medications in the past day but not most. encouraged to sleep this morning. too tired to engage in interview. 11/02: up and about the unit, hypersexual/provocative statement to MD, not engaging with Tx, refusing medication, very poor sleep (reportedly slept about 3 hours overnight). awaiting word re emergency guardianship hearing. 11/03: Continue to encourage engagement in treatment and medication compliance. 11/04: Calmer than yesterday. Remains psychotic. Partially adherent. Continue current management and treatment plan. 11/05: partially adherent to medications. appears sleepy/sedated this morning. asking for anxiety medication. tuesday pt was hypersexual, slapping female staff in the rear, slapping another in the face, grabbing female staff's breasts, grabbing male staff's crotch. required medication restraint. continue current mgmt. emergency hearing this tuesday. 11/06: got IMs last night for pushing/grabbing staff and throwing objects. slept after. otherwise not consistently taking meds. continue current mgmt. 11/07: mildly disruptive behavior continues. appears euphoric, manic. declines to speak with MD, refusing meds. continue to offer medication. 11/08: sleeping morning, episode of severe agitation in the afternoon, yelling, demanding to leave, slamming door repeatedly. refusing medication. continue current mgmt. emergency guardianship hearing tomorrow. 11/09: per report, mother received guardianship today, awaiting document. continue current mgmt. 11/10: calm in the morning, agitated and attempting to assault staff in the afternoon. prompted 2 behavioral codes an hour apart. during the first she received thorazine 100 and ativan 2 IM; during the second she received haldol 10, ativan 2, and benadryl 50 IM. 11/11: no codes today. remains disorganized, delusional. continue to offer medication. case d/w pt's mother, who reports having been granted emergency guardianship on tuesday. 11/12: sleeping this morning. contact legal for better understanding of what tuesday's order allows. 11/13 Patient said that she is doing fine, though tired, and does not know why she is not allowed to discharge. She refuses lithium, saying she does not need it and complains that taking it makes her forget things... Though she could not elaborate. Patient says she has been her a month and has not done anything crazy so wants discharge. Patient says her plan is to either go to [facility] or to her dad's house which is local. -continue current treatment plan 11/14: appearing sedated, in her bed this morning. family meeting held with pt's mother and sister. per Morgan Shay, invega, prolixin, zyprexa, and risperidone are authorized antipsychotics. mother as guardian can authorize all other medications. awaiting hard copy. continue current mgmt. 11/15: court paperwork received from mother. pt suspicious of MD. took the VPA last night instead of lithium. asking about discharge. will review court paperwork and order medications accordingly. 11/16: has taken meds past 24H. VPA increased to 1500 mg QHS. olanzapine increased to 20 mg. IM backups added as guardianship decree has been received 11/17: Reports she is well, asking about discharge. Denies SI,HI,AH,VH. Apprehensive. Reports father will visit today. Taking meds, team reports no behavioral dyscontrol. Valproate level 11/19. Reason for continued inpatient stay Substantial Risk for: rapid decompensation Time Spent With Patient Time: Total time managing care of this patient today ____ minutes.
[2024-11-17] MEDS: OLANZapine ODT 10 MG TAB.RAPDIS TRANSLINGU (11:03)
[2024-11-17] MEDS: LORazepam 1 MG TABLET 2 MG PO (17:12)
[2024-11-17] MEDS: OLANZapine ODT 10 MG TAB.RAPDIS 20 MG TRANSLINGU (18:18)
[2024-11-17] MEDS: Divalproex Sodium ER 500 MG TAB.ER.24H 1500 MG PO (18:18)
[2024-11-17 20:00] VITALS: BP 114/63; PULSE 90; RESP 16; TEMP 37.7; O2SAT 100
[2024-11-18] MEDS: traZODone HCL 50 MG TABLET PO ×2 (00:27→20:57)
--- NOTE | 2024-11-18 09:06 | P.PNPSI_ITS ---
Subjective Subjective Date of Service: 11/18/24 Reason For Visit: Unspecified Mood disorder Interim History: Today: i've cleared my mind Patient was visiting with her mom Sara. Reports feeling calm and says she is ready for discharge. Minimizes circumstances that brought her to hospital. Disputes some of the events with her mother who gently pushes back but overall seem to be having an amicable/supportive visit. She recognizes she was probably just confused at the time. Limited insight. Reports feeling better now. Mood is good, great but annoyed I'm still here . Asks about getting discharged. No behavioral issues noted by staff. Denies SI/HI/AH/VH. Tuesday: My father will visit today. I think I will nap before he comes in. Team reports no behaviors of concern. Pt reports she is well, she denies SI,HI,AH,VH. I am ready to go home. You could let me go home today. Discussed this was a topic to bring up with her team and she agreed. Review of Systems Review of Systems Pt denies Yes Unobtainable due to mental status Mental Status Exam Mental Status Exam Narrative: hospital boaz, disheveled, in her bedroom. speech nml rate, decr amount, nml loudness, flattened tone, incr latency. thoughts organized enough to ask for discharge. affect constricted, normo-intense, non-labile. mood not assessed. no SI/HI/AVH expressed. Patient Appearance: Appropriate Patient Orientation: Person, Place, Time and Situation Level of Consciousness: Alert Patient Behavior: Talkative and Good Eye Contact Mood Description: Appropriate and Apprehensive Affect Description: Appropriate and Apprehensive Patient Cognition Impaired: No Ability to Follow Directions: Fair Speech Pattern: Spontaneous Speech Memory Description: Episodic Impaired Diagnostics Vital Signs (24Hr): Vital Signs - 24 hr 11/17/24 20:00 Temperature 99.9 F Pulse Rate 90 Respiratory Rate 16 Blood Pressure 114/63 Pulse Oximetry 100 Oxygen Delivery Method Room Air BMI result Body Mass Index 39.1 Labs 10/24/24 18:31 Medications Medications Current Medications Acetaminophen (Acetaminophen 325 Mg Tablet) 650 mg PO Q6H PRN PRN Reason: Headache/Pain, Scale 1-10 Al Hydroxide/Mg Hydroxide (Magnesium Hydrox/Alum Hydrox 30 Ml Oral.Susp) 30 ml PO Q6H PRN PRN Reason: Heartburn/Nausea Chlorpromazine HCl (Chlorpromazine Hcl 100 Mg Tablet) 100 mg PO Q4H PRN PRN Reason: severe agitation Last Admin: 11/13/24 17:48 Dose: 100 mg Diazepam (Diazepam 10 Mg/2 Ml Cartridge) 10 mg IM DAILY PRN PRN Reason: refusal of VPA, per guardian Divalproex Sodium (Divalproex Sodium Er 500 Mg Tab.Er.24h) 1,500 mg PO DAILY@1800 BILLY Last Admin: 11/17/24 18:18 Dose: 1,500 mg Hydroxyzine HCl (Hydroxyzine Hcl 50 Mg Tablet) 50 mg PO Q6H PRN PRN Reason: mild anxiety Last Admin: 11/17/24 14:04 Dose: 50 mg Lorazepam (Lorazepam 1 Mg Tablet) 2 mg PO Q4H PRN PRN Reason: severe anxiety/agitation Last Admin: 11/17/24 17:12 Dose: 2 mg Magnesium Hydroxide (Milk Of Magnesia 30 Ml Oral.Susp) 30 ml PO DAILY PRN PRN Reason: Constipation Nicotine (Nicotine 21 Mg Patch.Td24) 21 mg TRANSDERMA DAILY PRN PRN Reason: smoking cessation Nicotine Polacrilex (Nicotine Polacrilex 2 Mg Gum) 4 mg BUCCAL Q2H PRN PRN Reason: Nicotine Cravings Olanzapine (Olanzapine Odt 10 Mg Tab.Rapdis) 10 mg TRANSLINGU TID PRN PRN Reason: agitation Last Admin: 11/17/24 11:03 Dose: 10 mg Olanzapine (Olanzapine Odt 10 Mg Tab.Rapdis) 20 mg TRANSLINGU DAILY@1800 BILLY Last Admin: 11/17/24 18:18 Dose: 20 mg Olanzapine (Olanzapine 10 Mg Vial) 10 mg IM DAILY PRN PRN Reason: refusal of PO per mariel's orde Trazodone HCl (Trazodone Hcl 50 Mg Tablet) 50 mg PO BEDTIME MRX1 PRN PRN Reason: Insomnia Last Admin: 11/18/24 00:27 Dose: 50 mg Allergies Allergies Allergy/AdvReac Type Severity Reaction Status Date / Time No Known Allergies Allergy Verified 10/10/24 23:51 Assessment & Plan Assessment & Plan (1) Moderate bipolar I disorder with poornima as current episode: Status: Acute Code(s): F31.12 - Bipolar disorder, current episode manic without psychotic features, moderate Assessment and Plan: schizoaffective disorder Plan 2/27: offer zyprexa 10 QHS and lithium 450 BID. 10/12: pt refusing meds. continue to offer. HCP in chart. 3-day notice up tuesday. 10/13: change Zyprexa to Zydis to assure compliance. refusing lithium. 10/14: keep same treatment, encourage compliance. 10/15: took meds this morning, sleeping heavily after. commitment paperwork completed, HCP invoked. meeting with mother this afternoon. 10/16/24: Encourage olanzapine lithium patient appears to be passively accepting treatment and hospitalization recommend affirming healthcare proxy. 10/17: pt's HCP signed pt in today, will pursue invocation of HCP. improved from last interview, taking meds. increase lithium to 600 BID and add ativan PRNs. case discussed with pt's mother and SW Graciela. 10/18: taking morning meds, not getting HS meds due to staff's not being able to awaken her. change HS meds to 1800. otherwise continue current mgmt. 10/19: Keeping to self. continues on 1:1. guarded. patient reports feeling fine ; asked T/W to leave her alone to nap. Per nursing, observed responding to internal stimuli. Slept 6 hours last night. continue tx plan 10/20 declines antipsychotic, requires 1:1 for disorganized intrusive behaviors. religiously preoccupied. 10/21 continue tx. continues to present with christian preoccupations, does hint to thinking others do not want her to say the truth and also thinks her parents are , which not the case. 10/22: difficult to engage. taking lithium, sometimes taking zyprexa. encouraged medication compliance. continue current mgmt. 10/23: more engageable. delusion that her parents are . continue current mgmt. check labs tonight. 10/24: labs rescheduled for tomorrow morning. asking for discharge. taking meds. poor insight. continue current mgmt. 10/25: refused medications. focused on discharge. continue tx plan. 10/26: refusing meds last couple of days, has essentially returned to state at admission. pursue affirmation of HCP. 10/27: Keeping to self. observed responding to internal stimuli. laughing inappropriately to self. Delayed responses to questions. pt encouraged to take medications; pt stated, I'm saved and with God. I just need the Bible. That's why I'm not taking meds . continue to encourage medication compliance. 10/28: continues to refuse medications. repeating she is with God . continue tx plan. 10/29: pacing, i am with god, not engaging in interview. HCP Physician's affidavit completed. pursue affirmed HCP versus guardianship versus both. refusing meds, not sleeping. floridly manic/psychotic. 10/30: remains floridly manic/psychotic, refusing meds. behaviors increasingly disorganized, violent, disruptive. awaiting affirmation of HCP so medications may be administered. case D/W pt's mother/HCP. 10/31: appearing tired today after having essentially not slept at all last night. she did take lithium yesterday afternoon at 1800. continue to encourage medication compliance, keep safe. 11/01: appearing tired again, poor sleep overnight. took some medications in the past day but not most. encouraged to sleep this morning. too tired to engage in interview. 11/02: up and about the unit, hypersexual/provocative statement to MD, not engaging with Tx, refusing medication, very poor sleep (reportedly slept about 3 hours overnight). awaiting word re emergency guardianship hearing. 11/03: Continue to encourage engagement in treatment and medication compliance. 11/04: Calmer than yesterday. Remains psychotic. Partially adherent. Continue current management and treatment plan. 11/05: partially adherent to medications. appears sleepy/sedated this morning. asking for anxiety medication. tuesday pt was hypersexual, slapping female staff in the rear, slapping another in the face, grabbing female staff's breasts, grabbing male staff's crotch. required medication restraint. continue current mgmt. emergency hearing this tuesday. 11/06: got IMs last night for pushing/grabbing staff and throwing objects. slept after. otherwise not consistently taking meds. continue current mgmt. 11/07: mildly disruptive behavior continues. appears euphoric, manic. declines to speak with MD, refusing meds. continue to offer medication. 11/08: sleeping morning, episode of severe agitation in the afternoon, yelling, demanding to leave, slamming door repeatedly. refusing medication. continue current mgmt. emergency guardianship hearing tomorrow. 11/09: per report, mother received guardianship today, awaiting document. continue current mgmt. 11/10: calm in the morning, agitated and attempting to assault staff in the afternoon. prompted 2 behavioral codes an hour apart. during the first she received thorazine 100 and ativan 2 IM; during the second she received haldol 10, ativan 2, and benadryl 50 IM. 11/11: no codes today. remains disorganized, delusional. continue to offer medication. case d/w pt's mother, who reports having been granted emergency guardianship on tuesday. 11/12: sleeping this morning. contact legal for better understanding of what tuesday's order allows. 11/13 Patient said that she is doing fine, though tired, and does not know why she is not allowed to discharge. She refuses lithium, saying she does not need it and complains that taking it makes her forget things... Though she could not elaborate. Patient says she has been her a month and has not done anything crazy so wants discharge. Patient says her plan is to either go to [facility] or to her dad's house which is local. -continue current treatment plan 11/14: appearing sedated, in her bed this morning. family meeting held with pt's mother and sister. per Morgan Shay, invega, prolixin, zyprexa, and risperidone are authorized antipsychotics. mother as guardian can authorize all other medications. awaiting hard copy. continue current mgmt. 11/15: court paperwork received from mother. pt suspicious of MD. took the VPA last night instead of lithium. asking about discharge. will review court paperwork and order medications accordingly. 11/16: has taken meds past 24H. VPA increased to 1500 mg QHS. olanzapine increased to 20 mg. IM backups added as guardianship decree has been received 11/17: Reports she is well, asking about discharge. Denies SI,HI,AH,VH. Apprehensive. Reports father will visit today. Taking meds, team reports no behavioral dyscontrol. Valproate level 11/19. 11/18 No change, doing well with medications. Guarded, limited insight. Advocating for discharge. Continue treatment plan. Patient educated on: diagnosis and medication risk/benefits Informed Consent: understands Reason for continued inpatient stay Substantial Risk for: med/psych decompensation Time Spent With Patient Time: Total time managing care of this patient today ____ minutes.
[2024-11-18] MEDS: LORazepam 1 MG TABLET 2 MG PO (16:22)
[2024-11-18] MEDS: OLANZapine ODT 10 MG TAB.RAPDIS 20 MG TRANSLINGU (17:41)
[2024-11-18] MEDS: Divalproex Sodium ER 500 MG TAB.ER.24H 1500 MG PO (17:41)
[2024-11-18 19:50] VITALS: BP 112/63; PULSE 80; RESP 16; TEMP 36.9; O2SAT 100
[2024-11-18] MEDS: hydrOXYzine HCL 50 MG TABLET PO (20:57)
[2024-11-18] MEDS: OLANZapine ODT 10 MG TAB.RAPDIS TRANSLINGU (20:58)
[2024-11-19 07:53] VITALS: BP 112/58; PULSE 83; RESP 16; TEMP 36.4; O2SAT 98
[2024-11-19] MEDS: hydrOXYzine HCL 50 MG TABLET PO ×2 (09:19→14:55)
[2024-11-19 09:21] LABS: Valproate 89.5 mcg/mL (50.0-100.0)
--- NOTE | 2024-11-19 15:35 | HO.PSYCHPN ---
Subjective Subjective Date of Service: 11/19/24 Reason For Visit: Unspecified Mood disorder Interim History: able to hold a conversation today, asking about discharge soon. some thought disorganization creeping in, referencing she hasn't committed a crime. encouraged to be natural and take medications as most expeditious way of getting out of the hospital. per staff, blunted affect. visible for brief periods. taking meds. looking better. sleeping through the night. VPA level 89.5. boaz open in the front. Mental Status Exam Mental Status Exam Narrative: hospital boaz, disheveled, out on the unit. speech nml rate, amount, loudness, tone, latency. thoughts organized enough to ask for discharge, some evidence of disorganization at times, however. affect constricted, normo-intense, non-labile. mood not assessed. no SI/HI/AVH expressed. Diagnostics Vital Signs (24Hr): Vital Signs - 24 hr 11/18/24 19:50 11/19/24 07:53 Temperature 98.4 F 97.5 F Pulse Rate 80 83 Respiratory Rate 16 16 Blood Pressure 112/63 112/58 L Pulse Oximetry 100 98 Oxygen Delivery Method Room Air Room Air BMI result Body Mass Index 39.1 Labs 10/24/24 18:31 Labs: Laboratory Results - last 48 hr 11/19/24 07:48 Valproic Acid 89.5 Medications Medications Current Medications Acetaminophen (Acetaminophen 325 Mg Tablet) 650 mg PO Q6H PRN PRN Reason: Headache/Pain, Scale 1-10 Al Hydroxide/Mg Hydroxide (Magnesium Hydrox/Alum Hydrox 30 Ml Oral.Susp) 30 ml PO Q6H PRN PRN Reason: Heartburn/Nausea Chlorpromazine HCl (Chlorpromazine Hcl 100 Mg Tablet) 100 mg PO Q4H PRN PRN Reason: severe agitation Last Admin: 11/13/24 17:48 Dose: 100 mg Diazepam (Diazepam 10 Mg/2 Ml Cartridge) 10 mg IM DAILY PRN PRN Reason: refusal of VPA, per guardian Divalproex Sodium (Divalproex Sodium Er 500 Mg Tab.Er.24h) 1,500 mg PO DAILY@1800 BILLY Last Admin: 11/18/24 17:41 Dose: 1,500 mg Hydroxyzine HCl (Hydroxyzine Hcl 50 Mg Tablet) 50 mg PO Q6H PRN PRN Reason: mild anxiety Last Admin: 11/19/24 14:55 Dose: 50 mg Lorazepam (Lorazepam 1 Mg Tablet) 2 mg PO Q4H PRN PRN Reason: severe anxiety/agitation Last Admin: 11/18/24 16:22 Dose: 2 mg Magnesium Hydroxide (Milk Of Magnesia 30 Ml Oral.Susp) 30 ml PO DAILY PRN PRN Reason: Constipation Nicotine (Nicotine 21 Mg Patch.Td24) 21 mg TRANSDERMA DAILY PRN PRN Reason: smoking cessation Nicotine Polacrilex (Nicotine Polacrilex 2 Mg Gum) 4 mg BUCCAL Q2H PRN PRN Reason: Nicotine Cravings Olanzapine (Olanzapine Odt 10 Mg Tab.Rapdis) 10 mg TRANSLINGU TID PRN PRN Reason: agitation Last Admin: 11/18/24 20:58 Dose: 10 mg Olanzapine (Olanzapine Odt 10 Mg Tab.Rapdis) 20 mg TRANSLINGU DAILY@1800 BILLY Last Admin: 11/18/24 17:41 Dose: 20 mg Olanzapine (Olanzapine 10 Mg Vial) 10 mg IM DAILY PRN PRN Reason: refusal of PO per mariel's orde Trazodone HCl (Trazodone Hcl 50 Mg Tablet) 50 mg PO BEDTIME MRX1 PRN PRN Reason: Insomnia Last Admin: 11/18/24 20:57 Dose: 50 mg Allergies Allergies Allergy/AdvReac Type Severity Reaction Status Date / Time No Known Allergies Allergy Verified 10/10/24 23:51 Assessment & Plan Assessment & Plan (1) Moderate bipolar I disorder with poornima as current episode: Status: Acute Code(s): F31.12 - Bipolar disorder, current episode manic without psychotic features, moderate Assessment and Plan: schizoaffective disorder Plan 10/11: offer zyprexa 10 QHS and lithium 450 BID. 10/12: pt refusing meds. continue to offer. HCP in chart. 3-day notice up tuesday. 10/13: change Zyprexa to Zydis to assure compliance. refusing lithium. 10/14: keep same treatment, encourage compliance. 10/15: took meds this morning, sleeping heavily after. commitment paperwork completed, HCP invoked. meeting with mother this afternoon. 10/16/24: Encourage olanzapine lithium patient appears to be passively accepting treatment and hospitalization recommend affirming healthcare proxy. 10/17: pt's HCP signed pt in today, will pursue invocation of HCP. improved from last interview, taking meds. increase lithium to 600 BID and add ativan PRNs. case discussed with pt's mother and SW Graciela. 10/18: taking morning meds, not getting HS meds due to staff's not being able to awaken her. change HS meds to 1800. otherwise continue current mgmt. 10/19: Keeping to self. continues on 1:1. guarded. patient reports feeling fine ; asked T/W to leave her alone to nap. Per nursing, observed responding to internal stimuli. Slept 6 hours last night. continue tx plan 10/20 declines antipsychotic, requires 1:1 for disorganized intrusive behaviors. religiously preoccupied. 10/21 continue tx. continues to present with confucianism preoccupations, does hint to thinking others do not want her to say the truth and also thinks her parents are , which not the case. 10/22: difficult to engage. taking lithium, sometimes taking zyprexa. encouraged medication compliance. continue current mgmt. 10/23: more engageable. delusion that her parents are . continue current mgmt. check labs tonight. 10/24: labs rescheduled for tomorrow morning. asking for discharge. taking meds. poor insight. continue current mgmt. 10/25: refused medications. focused on discharge. continue tx plan. 10/26: refusing meds last couple of days, has essentially returned to state at admission. pursue affirmation of HCP. 10/27: Keeping to self. observed responding to internal stimuli. laughing inappropriately to self. Delayed responses to questions. pt encouraged to take medications; pt stated, I'm saved and with God. I just need the Bible. That's why I'm not taking meds . continue to encourage medication compliance. 10/28: continues to refuse medications. repeating she is with God . continue tx plan. 10/29: pacing, i am with god, not engaging in interview. HCP Physician's affidavit completed. pursue affirmed HCP versus guardianship versus both. refusing meds, not sleeping. floridly manic/psychotic. 10/30: remains floridly manic/psychotic, refusing meds. behaviors increasingly disorganized, violent, disruptive. awaiting affirmation of HCP so medications may be administered. case D/W pt's mother/HCP. 10/31: appearing tired today after having essentially not slept at all last night. she did take lithium yesterday afternoon at 1800. continue to encourage medication compliance, keep safe. 11/01: appearing tired again, poor sleep overnight. took some medications in the past day but not most. encouraged to sleep this morning. too tired to engage in interview. 11/02: up and about the unit, hypersexual/provocative statement to MD, not engaging with Tx, refusing medication, very poor sleep (reportedly slept about 3 hours overnight). awaiting word re emergency guardianship hearing. 11/03: Continue to encourage engagement in treatment and medication compliance. 11/04: Calmer than yesterday. Remains psychotic. Partially adherent. Continue current management and treatment plan. 11/05: partially adherent to medications. appears sleepy/sedated this morning. asking for anxiety medication. tuesday pt was hypersexual, slapping female staff in the rear, slapping another in the face, grabbing female staff's breasts, grabbing male staff's crotch. required medication restraint. continue current mgmt. emergency hearing this tuesday. 11/06: got IMs last night for pushing/grabbing staff and throwing objects. slept after. otherwise not consistently taking meds. continue current mgmt. 11/07: mildly disruptive behavior continues. appears euphoric, manic. declines to speak with MD, refusing meds. continue to offer medication. 11/08: sleeping morning, episode of severe agitation in the afternoon, yelling, demanding to leave, slamming door repeatedly. refusing medication. continue current mgmt. emergency guardianship hearing tomorrow. 11/09: per report, mother received guardianship today, awaiting document. continue current mgmt. 11/10: calm in the morning, agitated and attempting to assault staff in the afternoon. prompted 2 behavioral codes an hour apart. during the first she received thorazine 100 and ativan 2 IM; during the second she received haldol 10, ativan 2, and benadryl 50 IM. 11/11: no codes today. remains disorganized, delusional. continue to offer medication. case d/w pt's mother, who reports having been granted emergency guardianship on tuesday. 11/12: sleeping this morning. contact legal for better understanding of what tuesday's order allows. 11/13 Patient said that she is doing fine, though tired, and does not know why she is not allowed to discharge. She refuses lithium, saying she does not need it and complains that taking it makes her forget things... Though she could not elaborate. Patient says she has been her a month and has not done anything crazy so wants discharge. Patient says her plan is to either go to [facility] or to her dad's house which is local. -continue current treatment plan 11/14: appearing sedated, in her bed this morning. family meeting held with pt's mother and sister. per Morgan Shay, invega, prolixin, zyprexa, and risperidone are authorized antipsychotics. mother as guardian can authorize all other medications. awaiting hard copy. continue current mgmt. 11/15: court paperwork received from mother. pt suspicious of MD. took the VPA last night instead of lithium. asking about discharge. will review court paperwork and order medications accordingly. 11/16: has taken meds past 24H. VPA increased to 1500 mg QHS. olanzapine increased to 20 mg. IM backups added as guardianship decree has been received 11/17: Reports she is well, asking about discharge. Denies SI,HI,AH,VH. Apprehensive. Reports father will visit today. Taking meds, team reports no behavioral dyscontrol. Valproate level 11/19. 11/18 No change, doing well with medications. Guarded, limited insight. Advocating for discharge. Continue treatment plan. 11/19: much improved from last week. VPA level 89.5. continue current mgmt. Reason for continued inpatient stay Substantial Risk for: inability to function Time Spent With Patient Time: Total time managing care of this patient today _25___ minutes.
[2024-11-19] MEDS: LORazepam 1 MG TABLET 2 MG PO (17:06)
[2024-11-19] MEDS: OLANZapine ODT 10 MG TAB.RAPDIS 20 MG TRANSLINGU (18:27)
[2024-11-19] MEDS: Divalproex Sodium ER 500 MG TAB.ER.24H 1500 MG PO (18:27)
[2024-11-19 19:55] VITALS: BP 127/79; PULSE 83; RESP 16; TEMP 36.4; O2SAT 100
[2024-11-20] MEDS: OLANZapine ODT 10 MG TAB.RAPDIS TRANSLINGU (00:02)
[2024-11-20] MEDS: traZODone HCL 50 MG TABLET PO (00:02)
[2024-11-20] MEDS: hydrOXYzine HCL 50 MG TABLET PO ×2 (00:02→11:35)
--- NOTE | 2024-11-20 14:16 | HO.PSYCHPN ---
Subjective Subjective Date of Service: 11/20/24 Reason For Visit: Unspecified Mood disorder Interim History: continues much more interactive today. advocating for discharge. states she will go to her father's home, where there is more room. planning on having her father go out to [place] with her to do some handiwork around the house. lacking insight into her illness and the need for medications long-term. MD educated pt on that subject. per staff, remains on CO. affect brighter. good visit with her father. denies dep/anx. no RIS. slept 7 hours. Mental Status Exam Mental Status Exam Narrative: hospital boaz, disheveled, out on the unit. speech nml rate, amount, loudness, tone, latency. thoughts appear to be linear and logical, for the most part. insight remains poor. affect constricted, normo-intense, non-labile. mood not assessed. no SI/HI/AVH expressed. Diagnostics Vital Signs (24Hr): Vital Signs - 24 hr 11/19/24 19:55 Temperature 97.6 F Pulse Rate 83 Respiratory Rate 16 Blood Pressure 127/79 Pulse Oximetry 100 Oxygen Delivery Method Room Air BMI result Body Mass Index 39.1 Labs 10/24/24 18:31 Labs: Laboratory Results - last 48 hr 11/19/24 07:48 Valproic Acid 89.5 Medications Medications Current Medications Acetaminophen (Acetaminophen 325 Mg Tablet) 650 mg PO Q6H PRN PRN Reason: Headache/Pain, Scale 1-10 Al Hydroxide/Mg Hydroxide (Magnesium Hydrox/Alum Hydrox 30 Ml Oral.Susp) 30 ml PO Q6H PRN PRN Reason: Heartburn/Nausea Chlorpromazine HCl (Chlorpromazine Hcl 100 Mg Tablet) 100 mg PO Q4H PRN PRN Reason: severe agitation Last Admin: 11/13/24 17:48 Dose: 100 mg Diazepam (Diazepam 10 Mg/2 Ml Cartridge) 10 mg IM DAILY PRN PRN Reason: refusal of VPA, per guardian Divalproex Sodium (Divalproex Sodium Er 500 Mg Tab.Er.24h) 1,500 mg PO DAILY@1800 BILLY Last Admin: 11/19/24 18:27 Dose: 1,500 mg Hydroxyzine HCl (Hydroxyzine Hcl 50 Mg Tablet) 50 mg PO Q6H PRN PRN Reason: mild anxiety Last Admin: 11/20/24 11:35 Dose: 50 mg Lorazepam (Lorazepam 1 Mg Tablet) 2 mg PO Q4H PRN PRN Reason: severe anxiety/agitation Last Admin: 11/19/24 17:06 Dose: 2 mg Magnesium Hydroxide (Milk Of Magnesia 30 Ml Oral.Susp) 30 ml PO DAILY PRN PRN Reason: Constipation Nicotine (Nicotine 21 Mg Patch.Td24) 21 mg TRANSDERMA DAILY PRN PRN Reason: smoking cessation Nicotine Polacrilex (Nicotine Polacrilex 2 Mg Gum) 4 mg BUCCAL Q2H PRN PRN Reason: Nicotine Cravings Olanzapine (Olanzapine Odt 10 Mg Tab.Rapdis) 10 mg TRANSLINGU TID PRN PRN Reason: agitation Last Admin: 11/20/24 00:02 Dose: 10 mg Olanzapine (Olanzapine Odt 10 Mg Tab.Rapdis) 20 mg TRANSLINGU DAILY@1800 BILLY Last Admin: 11/19/24 18:27 Dose: 20 mg Olanzapine (Olanzapine 10 Mg Vial) 10 mg IM DAILY PRN PRN Reason: refusal of PO per mariel's orde Trazodone HCl (Trazodone Hcl 50 Mg Tablet) 50 mg PO BEDTIME MRX1 PRN PRN Reason: Insomnia Last Admin: 11/20/24 00:02 Dose: 50 mg Allergies Allergies Allergy/AdvReac Type Severity Reaction Status Date / Time No Known Allergies Allergy Verified 10/10/24 23:51 Assessment & Plan Assessment & Plan (1) Moderate bipolar I disorder with poornima as current episode: Status: Acute Code(s): F31.12 - Bipolar disorder, current episode manic without psychotic features, moderate Assessment and Plan: schizoaffective disorder Plan 10/11: offer zyprexa 10 QHS and lithium 450 BID. 10/12: pt refusing meds. continue to offer. HCP in chart. 3-day notice up tuesday. 10/13: change Zyprexa to Zydis to assure compliance. refusing lithium. 10/14: keep same treatment, encourage compliance. 10/15: took meds this morning, sleeping heavily after. commitment paperwork completed, HCP invoked. meeting with mother this afternoon. 10/16/24: Encourage olanzapine lithium patient appears to be passively accepting treatment and hospitalization recommend affirming healthcare proxy. 10/17: pt's HCP signed pt in today, will pursue invocation of HCP. improved from last interview, taking meds. increase lithium to 600 BID and add ativan PRNs. case discussed with pt's mother and SW Graciela. 10/18: taking morning meds, not getting HS meds due to staff's not being able to awaken her. change HS meds to 1800. otherwise continue current mgmt. 10/19: Keeping to self. continues on 1:1. guarded. patient reports feeling fine ; asked T/W to leave her alone to nap. Per nursing, observed responding to internal stimuli. Slept 6 hours last night. continue tx plan 10/20 declines antipsychotic, requires 1:1 for disorganized intrusive behaviors. religiously preoccupied. 10/21 continue tx. continues to present with zoroastrian preoccupations, does hint to thinking others do not want her to say the truth and also thinks her parents are , which not the case. 10/22: difficult to engage. taking lithium, sometimes taking zyprexa. encouraged medication compliance. continue current mgmt. 10/23: more engageable. delusion that her parents are . continue current mgmt. check labs tonight. 10/24: labs rescheduled for tomorrow morning. asking for discharge. taking meds. poor insight. continue current mgmt. 10/25: refused medications. focused on discharge. continue tx plan. 10/26: refusing meds last couple of days, has essentially returned to state at admission. pursue affirmation of HCP. 10/27: Keeping to self. observed responding to internal stimuli. laughing inappropriately to self. Delayed responses to questions. pt encouraged to take medications; pt stated, I'm saved and with God. I just need the Bible. That's why I'm not taking meds . continue to encourage medication compliance. 10/28: continues to refuse medications. repeating she is with God . continue tx plan. 10/29: pacing, i am with god, not engaging in interview. HCP Physician's affidavit completed. pursue affirmed HCP versus guardianship versus both. refusing meds, not sleeping. floridly manic/psychotic. 10/30: remains floridly manic/psychotic, refusing meds. behaviors increasingly disorganized, violent, disruptive. awaiting affirmation of HCP so medications may be administered. case D/W pt's mother/HCP. 10/31: appearing tired today after having essentially not slept at all last night. she did take lithium yesterday afternoon at 1800. continue to encourage medication compliance, keep safe. 11/01: appearing tired again, poor sleep overnight. took some medications in the past day but not most. encouraged to sleep this morning. too tired to engage in interview. 11/02: up and about the unit, hypersexual/provocative statement to MD, not engaging with Tx, refusing medication, very poor sleep (reportedly slept about 3 hours overnight). awaiting word re emergency guardianship hearing. 11/03: Continue to encourage engagement in treatment and medication compliance. 11/04: Calmer than yesterday. Remains psychotic. Partially adherent. Continue current management and treatment plan. 11/05: partially adherent to medications. appears sleepy/sedated this morning. asking for anxiety medication. tuesday pt was hypersexual, slapping female staff in the rear, slapping another in the face, grabbing female staff's breasts, grabbing male staff's crotch. required medication restraint. continue current mgmt. emergency hearing this tuesday. 11/06: got IMs last night for pushing/grabbing staff and throwing objects. slept after. otherwise not consistently taking meds. continue current mgmt. 11/07: mildly disruptive behavior continues. appears euphoric, manic. declines to speak with MD, refusing meds. continue to offer medication. 11/08: sleeping morning, episode of severe agitation in the afternoon, yelling, demanding to leave, slamming door repeatedly. refusing medication. continue current mgmt. emergency guardianship hearing tomorrow. 11/09: per report, mother received guardianship today, awaiting document. continue current mgmt. 11/10: calm in the morning, agitated and attempting to assault staff in the afternoon. prompted 2 behavioral codes an hour apart. during the first she received thorazine 100 and ativan 2 IM; during the second she received haldol 10, ativan 2, and benadryl 50 IM. 11/11: no codes today. remains disorganized, delusional. continue to offer medication. case d/w pt's mother, who reports having been granted emergency guardianship on tuesday. 11/12: sleeping this morning. contact legal for better understanding of what tuesday's order allows. 11/13 Patient said that she is doing fine, though tired, and does not know why she is not allowed to discharge. She refuses lithium, saying she does not need it and complains that taking it makes her forget things... Though she could not elaborate. Patient says she has been her a month and has not done anything crazy so wants discharge. Patient says her plan is to either go to [facility] or to her dad's house which is local. -continue current treatment plan 11/14: appearing sedated, in her bed this morning. family meeting held with pt's mother and sister. per Morgan Shay, invega, prolixin, zyprexa, and risperidone are authorized antipsychotics. mother as guardian can authorize all other medications. awaiting hard copy. continue current mgmt. 11/15: court paperwork received from mother. pt suspicious of MD. took the VPA last night instead of lithium. asking about discharge. will review court paperwork and order medications accordingly. 11/16: has taken meds past 24H. VPA increased to 1500 mg QHS. olanzapine increased to 20 mg. IM backups added as guardianship decree has been received 11/17: Reports she is well, asking about discharge. Denies SI,HI,AH,VH. Apprehensive. Reports father will visit today. Taking meds, team reports no behavioral dyscontrol. Valproate level 11/19. 11/18 No change, doing well with medications. Guarded, limited insight. Advocating for discharge. Continue treatment plan. 11/19: much improved from last week. VPA level 89.5. continue current mgmt. 11/20: limited insight. med-compliant, gains continue. advocating for discharge. requesting MD call her father at [phone]. Patient educated on: diagnosis and medication risk/benefits Reason for continued inpatient stay Substantial Risk for: inability to function and rapid decompensation Time Spent With Patient Time: Total time managing care of this patient today __35__ minutes.
[2024-11-20] MEDS: Divalproex Sodium ER 500 MG TAB.ER.24H 1500 MG PO (17:41)
[2024-11-20] MEDS: OLANZapine ODT 10 MG TAB.RAPDIS 20 MG TRANSLINGU (17:41)
[2024-11-20 20:00] VITALS: BP 137/67; PULSE 96; RESP 16; TEMP 36.4; O2SAT 99
[2024-11-20] MEDS: LORazepam 1 MG TABLET 2 MG PO (20:26)
--- NOTE | 2024-11-21 11:42 | P.PNPSI_ITS ---
Subjective Subjective Date of Service: 11/21/24 Reason For Visit: Unspecified Mood disorder Interim History: calm, logical, asking to discharge soon. seems content with plan for next week as long as trajectory continues. discussed MD's conversation with her father yesterday. per staff, taking meds, blunted, PRN atarax. writing in journal. visible but not social. slept 7 hours. Mental Status Exam Mental Status Exam Narrative: [facility], adequately groomed, out on the unit. speech nml rate, amount, loudness, tone, latency. thoughts appear to be linear and logical, for the most part. insight remains poor. affect constricted, normo-intense, non-labile. mood not assessed. no SI/HI/AVH expressed. Diagnostics Vital Signs (24Hr): Vital Signs - 24 hr 11/20/24 20:00 Temperature 97.6 F Pulse Rate 96 Respiratory Rate 16 Blood Pressure 137/67 Pulse Oximetry 99 Oxygen Delivery Method Room Air BMI result Body Mass Index 39.1 Labs 10/24/24 18:31 Medications Medications Current Medications Acetaminophen (Acetaminophen 325 Mg Tablet) 650 mg PO Q6H PRN PRN Reason: Headache/Pain, Scale 1-10 Al Hydroxide/Mg Hydroxide (Magnesium Hydrox/Alum Hydrox 30 Ml Oral.Susp) 30 ml PO Q6H PRN PRN Reason: Heartburn/Nausea Chlorpromazine HCl (Chlorpromazine Hcl 100 Mg Tablet) 100 mg PO Q4H PRN PRN Reason: severe agitation Last Admin: 11/13/24 17:48 Dose: 100 mg Diazepam (Diazepam 10 Mg/2 Ml Cartridge) 10 mg IM DAILY PRN PRN Reason: refusal of VPA, per guardian Divalproex Sodium (Divalproex Sodium Er 500 Mg Tab.Er.24h) 1,500 mg PO DAILY@1800 BILLY Last Admin: 11/20/24 17:41 Dose: 1,500 mg Hydroxyzine HCl (Hydroxyzine Hcl 50 Mg Tablet) 50 mg PO Q6H PRN PRN Reason: mild anxiety Last Admin: 11/20/24 11:35 Dose: 50 mg Lorazepam (Lorazepam 1 Mg Tablet) 2 mg PO Q4H PRN PRN Reason: severe anxiety/agitation Last Admin: 11/20/24 20:26 Dose: 2 mg Magnesium Hydroxide (Milk Of Magnesia 30 Ml Oral.Susp) 30 ml PO DAILY PRN PRN Reason: Constipation Nicotine (Nicotine 21 Mg Patch.Td24) 21 mg TRANSDERMA DAILY PRN PRN Reason: smoking cessation Nicotine Polacrilex (Nicotine Polacrilex 2 Mg Gum) 4 mg BUCCAL Q2H PRN PRN Reason: Nicotine Cravings Olanzapine (Olanzapine Odt 10 Mg Tab.Rapdis) 10 mg TRANSLINGU TID PRN PRN Reason: agitation Last Admin: 11/20/24 00:02 Dose: 10 mg Olanzapine (Olanzapine Odt 10 Mg Tab.Rapdis) 20 mg TRANSLINGU DAILY@1800 BILLY Last Admin: 11/20/24 17:41 Dose: 20 mg Olanzapine (Olanzapine 10 Mg Vial) 10 mg IM DAILY PRN PRN Reason: refusal of PO per mariel's orde Trazodone HCl (Trazodone Hcl 50 Mg Tablet) 50 mg PO BEDTIME MRX1 PRN PRN Reason: Insomnia Last Admin: 11/20/24 00:02 Dose: 50 mg Allergies Allergies Allergy/AdvReac Type Severity Reaction Status Date / Time No Known Allergies Allergy Verified 10/10/24 23:51 Assessment & Plan Assessment & Plan (1) Moderate bipolar I disorder with poornima as current episode: Status: Acute Code(s): F31.12 - Bipolar disorder, current episode manic without psychotic features, moderate Assessment and Plan: schizoaffective disorder Plan 10/11: offer zyprexa 10 QHS and lithium 450 BID. 10/12: pt refusing meds. continue to offer. HCP in chart. 3-day notice up tuesday. 10/13: change Zyprexa to Zydis to assure compliance. refusing lithium. 10/14: keep same treatment, encourage compliance. 10/15: took meds this morning, sleeping heavily after. commitment paperwork completed, HCP invoked. meeting with mother this afternoon. 10/16/24: Encourage olanzapine lithium patient appears to be passively accepting treatment and hospitalization recommend affirming healthcare proxy. 10/17: pt's HCP signed pt in today, will pursue invocation of HCP. improved from last interview, taking meds. increase lithium to 600 BID and add ativan PRNs. case discussed with pt's mother and SW Graciela. 10/18: taking morning meds, not getting HS meds due to staff's not being able to awaken her. change HS meds to 1800. otherwise continue current mgmt. 10/19: Keeping to self. continues on 1:1. guarded. patient reports feeling fine ; asked T/W to leave her alone to nap. Per nursing, observed responding to internal stimuli. Slept 6 hours last night. continue tx plan 10/20 declines antipsychotic, requires 1:1 for disorganized intrusive behaviors. religiously preoccupied. 10/21 continue tx. continues to present with nondenominational preoccupations, does hint to thinking others do not want her to say the truth and also thinks her parents are , which not the case. 10/22: difficult to engage. taking lithium, sometimes taking zyprexa. encouraged medication compliance. continue current mgmt. 10/23: more engageable. delusion that her parents are . continue current mgmt. check labs tonight. 10/24: labs rescheduled for tomorrow morning. asking for discharge. taking meds. poor insight. continue current mgmt. 10/25: refused medications. focused on discharge. continue tx plan. 10/26: refusing meds last couple of days, has essentially returned to state at admission. pursue affirmation of HCP. 10/27: Keeping to self. observed responding to internal stimuli. laughing inappropriately to self. Delayed responses to questions. pt encouraged to take medications; pt stated, I'm saved and with God. I just need the Bible. That's why I'm not taking meds . continue to encourage medication compliance. 10/28: continues to refuse medications. repeating she is with God . continue tx plan. 10/29: pacing, i am with god, not engaging in interview. HCP Physician's affidavit completed. pursue affirmed HCP versus guardianship versus both. refusing meds, not sleeping. floridly manic/psychotic. 10/30: remains floridly manic/psychotic, refusing meds. behaviors increasingly disorganized, violent, disruptive. awaiting affirmation of HCP so medications may be administered. case D/W pt's mother/HCP. 10/31: appearing tired today after having essentially not slept at all last night. she did take lithium yesterday afternoon at 1800. continue to encourage medication compliance, keep safe. 11/01: appearing tired again, poor sleep overnight. took some medications in the past day but not most. encouraged to sleep this morning. too tired to engage in interview. 11/02: up and about the unit, hypersexual/provocative statement to MD, not engaging with Tx, refusing medication, very poor sleep (reportedly slept about 3 hours overnight). awaiting word re emergency guardianship hearing. 11/03: Continue to encourage engagement in treatment and medication compliance. 11/04: Calmer than yesterday. Remains psychotic. Partially adherent. Continue current management and treatment plan. 11/05: partially adherent to medications. appears sleepy/sedated this morning. asking for anxiety medication. tuesday pt was hypersexual, slapping female staff in the rear, slapping another in the face, grabbing female staff's breasts, grabbing male staff's crotch. required medication restraint. continue current mgmt. emergency hearing this tuesday. 11/06: got IMs last night for pushing/grabbing staff and throwing objects. slept after. otherwise not consistently taking meds. continue current mgmt. 11/07: mildly disruptive behavior continues. appears euphoric, manic. declines to speak with MD, refusing meds. continue to offer medication. 11/08: sleeping morning, episode of severe agitation in the afternoon, yelling, demanding to leave, slamming door repeatedly. refusing medication. continue current mgmt. emergency guardianship hearing tomorrow. 11/09: per report, mother received guardianship today, awaiting document. continue current mgmt. 11/10: calm in the morning, agitated and attempting to assault staff in the afternoon. prompted 2 behavioral codes an hour apart. during the first she received thorazine 100 and ativan 2 IM; during the second she received haldol 10, ativan 2, and benadryl 50 IM. 11/11: no codes today. remains disorganized, delusional. continue to offer medication. case d/w pt's mother, who reports having been granted emergency guardianship on tuesday. 11/12: sleeping this morning. contact legal for better understanding of what tuesday's order allows. 11/13 Patient said that she is doing fine, though tired, and does not know why she is not allowed to discharge. She refuses lithium, saying she does not need it and complains that taking it makes her forget things... Though she could not elaborate. Patient says she has been her a month and has not done anything crazy so wants discharge. Patient says her plan is to either go to [facility] or to her dad's house which is local. -continue current treatment plan 11/14: appearing sedated, in her bed this morning. family meeting held with pt's mother and sister. per Morgan Shay, invega, prolixin, zyprexa, and risperidone are authorized antipsychotics. mother as guardian can authorize all other medications. awaiting hard copy. continue current mgmt. 11/15: court paperwork received from mother. pt suspicious of MD. took the VPA last night instead of lithium. asking about discharge. will review court paperwork and order medications accordingly. 11/16: has taken meds past 24H. VPA increased to 1500 mg QHS. olanzapine increased to 20 mg. IM backups added as guardianship decree has been received 11/17: Reports she is well, asking about discharge. Denies SI,HI,AH,VH. Apprehensive. Reports father will visit today. Taking meds, team reports no behavioral dyscontrol. Valproate level 11/19. 11/18 No change, doing well with medications. Guarded, limited insight. Advocating for discharge. Continue treatment plan. 11/19: much improved from last week. VPA level 89.5. continue current mgmt. 11/20: limited insight. med-compliant, gains continue. advocating for discharge. requesting MD call her father at [phone]. case D/W father. 11/21: appears reasonable and logical now, asking for discharge. does seem to minimize her illness; pt educated re Dx and Tx needs. hoping for discharge next week. plan to recheck labs tuesday. Reason for continued inpatient stay Substantial Risk for: inability to function and rapid decompensation Time Spent With Patient Time: Total time managing care of this patient today __25__ minutes.
[2024-11-21] MEDS: LORazepam 1 MG TABLET 2 MG PO (12:55)
[2024-11-21] MEDS: hydrOXYzine HCL 50 MG TABLET PO (12:55)
[2024-11-21] MEDS: Divalproex Sodium ER 500 MG TAB.ER.24H 1500 MG PO (17:58)
[2024-11-21] MEDS: OLANZapine ODT 10 MG TAB.RAPDIS 20 MG TRANSLINGU (17:58)
[2024-11-21 20:00] VITALS: BP 105/60; PULSE 94; RESP 16; TEMP 36.8; O2SAT 98
[2024-11-22 07:00] VITALS: BMI 41.5
[2024-11-22 08:00] VITALS: BP 127/62; PULSE 86; RESP 16; TEMP 36.6; O2SAT 99
[2024-11-22] MEDS: LORazepam 1 MG TABLET 2 MG PO (09:15)
[2024-11-22] MEDS: hydrOXYzine HCL 50 MG TABLET PO ×2 (09:15→21:10)
--- NOTE | 2024-11-22 10:40 | P.PNPSI_ITS ---
Subjective Subjective Date of Service: 11/22/24 Reason For Visit: Unspecified Mood disorder Interim History: calm, cooperative. would like to discharge. informing MD that her parents support her discharge KEREN; MD aware from contact with father and report from PEEWEE Owens re mother that that is not a fair representation of the parents' wishes. discuss ativan taper and VPA level and other labs tuesday ana cristina. per staff, taking meds. increased affective range. wants to D/C. visible, pleasant. self- dialoguing while walking the [place]. sleeping through the night. Mental Status Exam Mental Status Exam Narrative: [facility], adequately groomed, out on the unit. speech nml rate, amount, loudness, tone, latency. thoughts appear to be linear and logical, for the most part. insight remains impaired. affect constricted, normo-intense, non-labile. mood not assessed. no SI/HI/AVH expressed. Diagnostics Vital Signs (24Hr): Vital Signs - 24 hr 11/21/24 20:00 Temperature 98.3 F Pulse Rate 94 Respiratory Rate 16 Blood Pressure 105/60 Pulse Oximetry 98 Oxygen Delivery Method Room Air BMI result Body Mass Index 39.1 Labs 10/24/24 18:31 Medications Medications Current Medications Acetaminophen (Acetaminophen 325 Mg Tablet) 650 mg PO Q6H PRN PRN Reason: Headache/Pain, Scale 1-10 Al Hydroxide/Mg Hydroxide (Magnesium Hydrox/Alum Hydrox 30 Ml Oral.Susp) 30 ml PO Q6H PRN PRN Reason: Heartburn/Nausea Chlorpromazine HCl (Chlorpromazine Hcl 100 Mg Tablet) 100 mg PO Q4H PRN PRN Reason: severe agitation Last Admin: 11/13/24 17:48 Dose: 100 mg Diazepam (Diazepam 10 Mg/2 Ml Cartridge) 10 mg IM DAILY PRN PRN Reason: refusal of VPA, per guardian Divalproex Sodium (Divalproex Sodium Er 500 Mg Tab.Er.24h) 1,500 mg PO DAILY@1800 BILLY Last Admin: 11/21/24 17:58 Dose: 1,500 mg Hydroxyzine HCl (Hydroxyzine Hcl 50 Mg Tablet) 50 mg PO Q6H PRN PRN Reason: mild anxiety Last Admin: 11/22/24 09:15 Dose: 50 mg Lorazepam (Lorazepam 1 Mg Tablet) 1 mg PO Q4H PRN PRN Reason: severe anxiety/agitation Magnesium Hydroxide (Milk Of Magnesia 30 Ml Oral.Susp) 30 ml PO DAILY PRN PRN Reason: Constipation Nicotine (Nicotine 21 Mg Patch.Td24) 21 mg TRANSDERMA DAILY PRN PRN Reason: smoking cessation Nicotine Polacrilex (Nicotine Polacrilex 2 Mg Gum) 4 mg BUCCAL Q2H PRN PRN Reason: Nicotine Cravings Olanzapine (Olanzapine Odt 10 Mg Tab.Rapdis) 10 mg TRANSLINGU TID PRN PRN Reason: agitation Last Admin: 11/20/24 00:02 Dose: 10 mg Olanzapine (Olanzapine Odt 10 Mg Tab.Rapdis) 20 mg TRANSLINGU DAILY@1800 BILLY Last Admin: 11/21/24 17:58 Dose: 20 mg Olanzapine (Olanzapine 10 Mg Vial) 10 mg IM DAILY PRN PRN Reason: refusal of PO per mariel's orde Trazodone HCl (Trazodone Hcl 50 Mg Tablet) 50 mg PO BEDTIME MRX1 PRN PRN Reason: Insomnia Last Admin: 11/20/24 00:02 Dose: 50 mg Allergies Allergies Allergy/AdvReac Type Severity Reaction Status Date / Time No Known Allergies Allergy Verified 10/10/24 23:51 Assessment & Plan Assessment & Plan (1) Moderate bipolar I disorder with poornima as current episode: Status: Acute Code(s): F31.12 - Bipolar disorder, current episode manic without psychotic features, moderate Assessment and Plan: schizoaffective disorder Plan 10/11: offer zyprexa 10 QHS and lithium 450 BID. 10/12: pt refusing meds. continue to offer. HCP in chart. 3-day notice up tuesday. 10/13: change Zyprexa to Zydis to assure compliance. refusing lithium. 10/14: keep same treatment, encourage compliance. 10/15: took meds this morning, sleeping heavily after. commitment paperwork completed, HCP invoked. meeting with mother this afternoon. 10/16/24: Encourage olanzapine lithium patient appears to be passively accepting treatment and hospitalization recommend affirming healthcare proxy. 10/17: pt's HCP signed pt in today, will pursue invocation of HCP. improved from last interview, taking meds. increase lithium to 600 BID and add ativan PRNs. case discussed with pt's mother and PEEWEE Owens. 10/18: taking morning meds, not getting HS meds due to staff's not being able to awaken her. change HS meds to 1800. otherwise continue current mgmt. 10/19: Keeping to self. continues on 1:1. guarded. patient reports feeling fine ; asked T/W to leave her alone to nap. Per nursing, observed responding to internal stimuli. Slept 6 hours last night. continue tx plan 10/20 declines antipsychotic, requires 1:1 for disorganized intrusive behaviors. religiously preoccupied. 10/21 continue tx. continues to present with jewish preoccupations, does hint to thinking others do not want her to say the truth and also thinks her parents are , which not the case. 10/22: difficult to engage. taking lithium, sometimes taking zyprexa. encouraged medication compliance. continue current mgmt. 10/23: more engageable. delusion that her parents are . continue current mgmt. check labs tonight. 10/24: labs rescheduled for tomorrow morning. asking for discharge. taking meds. poor insight. continue current mgmt. 10/25: refused medications. focused on discharge. continue tx plan. 10/26: refusing meds last couple of days, has essentially returned to state at admission. pursue affirmation of HCP. 10/27: Keeping to self. observed responding to internal stimuli. laughing inappropriately to self. Delayed responses to questions. pt encouraged to take medications; pt stated, I'm saved and with God. I just need the Bible. That's why I'm not taking meds . continue to encourage medication compliance. 10/28: continues to refuse medications. repeating she is with God . continue tx plan. 10/29: pacing, i am with god, not engaging in interview. HCP Physician's affidavit completed. pursue affirmed HCP versus guardianship versus both. refusing meds, not sleeping. floridly manic/psychotic. 10/30: remains floridly manic/psychotic, refusing meds. behaviors increasingly disorganized, violent, disruptive. awaiting affirmation of HCP so medications may be administered. case D/W pt's mother/HCP. 10/31: appearing tired today after having essentially not slept at all last night. she did take lithium yesterday afternoon at 1800. continue to encourage medication compliance, keep safe. 11/01: appearing tired again, poor sleep overnight. took some medications in the past day but not most. encouraged to sleep this morning. too tired to engage in interview. 11/02: up and about the unit, hypersexual/provocative statement to MD, not engaging with Tx, refusing medication, very poor sleep (reportedly slept about 3 hours overnight). awaiting word re emergency guardianship hearing. 11/03: Continue to encourage engagement in treatment and medication compliance. 11/04: Calmer than yesterday. Remains psychotic. Partially adherent. Continue current management and treatment plan. 11/05: partially adherent to medications. appears sleepy/sedated this morning. asking for anxiety medication. tuesday pt was hypersexual, slapping female staff in the rear, slapping another in the face, grabbing female staff's breasts, grabbing male staff's crotch. required medication restraint. continue current mgmt. emergency hearing this tuesday. 11/06: got IMs last night for pushing/grabbing staff and throwing objects. slept after. otherwise not consistently taking meds. continue current mgmt. 11/07: mildly disruptive behavior continues. appears euphoric, manic. declines to speak with MD, refusing meds. continue to offer medication. 11/08: sleeping morning, episode of severe agitation in the afternoon, yelling, demanding to leave, slamming door repeatedly. refusing medication. continue current mgmt. emergency guardianship hearing tomorrow. 11/09: per report, mother received guardianship today, awaiting document. continue current mgmt. 11/10: calm in the morning, agitated and attempting to assault staff in the afternoon. prompted 2 behavioral codes an hour apart. during the first she received thorazine 100 and ativan 2 IM; during the second she received haldol 10, ativan 2, and benadryl 50 IM. 11/11: no codes today. remains disorganized, delusional. continue to offer medication. case d/w pt's mother, who reports having been granted emergency guardianship on tuesday. 11/12: sleeping this morning. contact legal for better understanding of what tuesday's order allows. 11/13 Patient said that she is doing fine, though tired, and does not know why she is not allowed to discharge. She refuses lithium, saying she does not need it and complains that taking it makes her forget things... Though she could not elaborate. Patient says she has been her a month and has not done anything crazy so wants discharge. Patient says her plan is to either go to [facility] or to her dad's house which is local. -continue current treatment plan 11/14: appearing sedated, in her bed this morning. family meeting held with pt's mother and sister. per Morgan Shay, invega, prolixin, zyprexa, and risperidone are authorized antipsychotics. mother as guardian can authorize all other medications. awaiting hard copy. continue current mgmt. 11/15: court paperwork received from mother. pt suspicious of MD. took the VPA last night instead of lithium. asking about discharge. will review court paperwork and order medications accordingly. 11/16: has taken meds past 24H. VPA increased to 1500 mg QHS. olanzapine increased to 20 mg. IM backups added as guardianship decree has been received 11/17: Reports she is well, asking about discharge. Denies SI,HI,AH,VH. Apprehensive. Reports father will visit today. Taking meds, team reports no behavioral dyscontrol. Valproate level 11/19. 11/18 No change, doing well with medications. Guarded, limited insight. Advocating for discharge. Continue treatment plan. 11/19: much improved from last week. VPA level 89.5. continue current mgmt. 11/20: limited insight. med-compliant, gains continue. advocating for discharge. requesting MD call her father at [phone]. case D/W father. 11/21: appears reasonable and logical now, asking for discharge. does seem to minimize her illness; pt educated re Dx and Tx needs. hoping for discharge next week. plan to recheck labs tuesday. 11/22: as for yesterday. improved, does not seem to appreciate her illness. subtle signs of ongoing thought disorder. orders to recheck labs tuesday entered. asking to DC to father's house. Reason for continued inpatient stay Substantial Risk for: inability to function and rapid decompensation Time Spent With Patient Time: Total time managing care of this patient today _25___ minutes.
[2024-11-22] MEDS: OLANZapine ODT 10 MG TAB.RAPDIS 20 MG TRANSLINGU (18:22)
[2024-11-22] MEDS: Divalproex Sodium ER 500 MG TAB.ER.24H 1500 MG PO (18:22)
[2024-11-22 20:00] VITALS: BP 119/73; PULSE 108; RESP 16; TEMP 36.7; O2SAT 100
[2024-11-22] MEDS: LORazepam 1 MG TABLET PO (21:10)
[2024-11-22] MEDS: traZODone HCL 50 MG TABLET PO (22:41)
[2024-11-23 07:20] VITALS: BP 128/82; PULSE 71; RESP 16; TEMP 36.4; O2SAT 99
[2024-11-23] MEDS: LORazepam 1 MG TABLET PO (12:24)
[2024-11-23] MEDS: hydrOXYzine HCL 50 MG TABLET PO ×2 (12:24→22:08)
--- NOTE | 2024-11-23 12:25 | P.PNPSI_ITS ---
Subjective Subjective Date of Service: 11/23/24 Reason For Visit: Unspecified Mood disorder Interim History: calm, cooperative, pleasant. planning on discharge next week. indicates her parents are telling her they are deferring to MD on dispo time. per staff,pleasant. limited interactions. overheard self-dialoguing in her room. slept 6 hours. Mental Status Exam Mental Status Exam Narrative: [facility], adequately groomed, out on the unit. speech nml rate, amount, loudness, tone, latency. thoughts linear and logical. insight remains impaired. affect more flexible, normo-intense, non-labile. mood fair, stable. no SI/HI/AVH expressed. Diagnostics Vital Signs (24Hr): Vital Signs - 24 hr 11/22/24 20:00 11/23/24 07:20 Temperature 98.1 F 97.5 F Pulse Rate 108 H 71 Respiratory Rate 16 16 Blood Pressure 119/73 128/82 Pulse Oximetry 100 99 Oxygen Delivery Method Room Air Room Air BMI result Body Mass Index 41.5 Labs 10/24/24 18:31 Medications Medications Current Medications Acetaminophen (Acetaminophen 325 Mg Tablet) 650 mg PO Q6H PRN PRN Reason: Headache/Pain, Scale 1-10 Al Hydroxide/Mg Hydroxide (Magnesium Hydrox/Alum Hydrox 30 Ml Oral.Susp) 30 ml PO Q6H PRN PRN Reason: Heartburn/Nausea Chlorpromazine HCl (Chlorpromazine Hcl 100 Mg Tablet) 100 mg PO Q4H PRN PRN Reason: severe agitation Last Admin: 11/13/24 17:48 Dose: 100 mg Diazepam (Diazepam 10 Mg/2 Ml Cartridge) 10 mg IM DAILY PRN PRN Reason: refusal of VPA, per guardian Divalproex Sodium (Divalproex Sodium Er 500 Mg Tab.Er.24h) 1,500 mg PO BEDTIME BILLY Hydroxyzine HCl (Hydroxyzine Hcl 50 Mg Tablet) 50 mg PO Q6H PRN PRN Reason: mild anxiety Last Admin: 11/23/24 12:24 Dose: 50 mg Lorazepam (Lorazepam 1 Mg Tablet) 1 mg PO Q4H PRN PRN Reason: severe anxiety/agitation Last Admin: 11/23/24 12:24 Dose: 1 mg Lorazepam (Lorazepam 1 Mg Tablet) 1 mg PO BEDTIME PRN PRN Reason: insomnia Magnesium Hydroxide (Milk Of Magnesia 30 Ml Oral.Susp) 30 ml PO DAILY PRN PRN Reason: Constipation Nicotine (Nicotine 21 Mg Patch.Td24) 21 mg TRANSDERMA DAILY PRN PRN Reason: smoking cessation Nicotine Polacrilex (Nicotine Polacrilex 2 Mg Gum) 4 mg BUCCAL Q2H PRN PRN Reason: Nicotine Cravings Olanzapine (Olanzapine Odt 10 Mg Tab.Rapdis) 10 mg TRANSLINGU TID PRN PRN Reason: agitation Last Admin: 11/20/24 00:02 Dose: 10 mg Olanzapine (Olanzapine 10 Mg Vial) 10 mg IM DAILY PRN PRN Reason: refusal of PO per mariel's orde Olanzapine (Olanzapine Odt 10 Mg Tab.Rapdis) 20 mg TRANSLINGU BEDTIME BILLY Allergies Allergies Allergy/AdvReac Type Severity Reaction Status Date / Time No Known Allergies Allergy Verified 10/10/24 23:51 Assessment & Plan Assessment & Plan (1) Moderate bipolar I disorder with poornima as current episode: Status: Acute Code(s): F31.12 - Bipolar disorder, current episode manic without psychotic features, moderate Assessment and Plan: schizoaffective disorder Plan 10/11: offer zyprexa 10 QHS and lithium 450 BID. 10/12: pt refusing meds. continue to offer. HCP in chart. 3-day notice up tuesday. 10/13: change Zyprexa to Zydis to assure compliance. refusing lithium. 10/14: keep same treatment, encourage compliance. 10/15: took meds this morning, sleeping heavily after. commitment paperwork completed, HCP invoked. meeting with mother this afternoon. 10/16/24: Encourage olanzapine lithium patient appears to be passively accepting treatment and hospitalization recommend affirming healthcare proxy. 10/17: pt's HCP signed pt in today, will pursue invocation of HCP. improved from last interview, taking meds. increase lithium to 600 BID and add ativan PRNs. case discussed with pt's mother and SW Graciela. 10/18: taking morning meds, not getting HS meds due to staff's not being able to awaken her. change HS meds to 1800. otherwise continue current mgmt. 10/19: Keeping to self. continues on 1:1. guarded. patient reports feeling fine ; asked T/W to leave her alone to nap. Per nursing, observed responding to internal stimuli. Slept 6 hours last night. continue tx plan 10/20 declines antipsychotic, requires 1:1 for disorganized intrusive behaviors. religiously preoccupied. 10/21 continue tx. continues to present with uatsdin preoccupations, does hint to thinking others do not want her to say the truth and also thinks her parents are , which not the case. 10/22: difficult to engage. taking lithium, sometimes taking zyprexa. encouraged medication compliance. continue current mgmt. 10/23: more engageable. delusion that her parents are . continue current mgmt. check labs tonight. 10/24: labs rescheduled for tomorrow morning. asking for discharge. taking meds. poor insight. continue current mgmt. 10/25: refused medications. focused on discharge. continue tx plan. 10/26: refusing meds last couple of days, has essentially returned to state at admission. pursue affirmation of HCP. 10/27: Keeping to self. observed responding to internal stimuli. laughing inappropriately to self. Delayed responses to questions. pt encouraged to take medications; pt stated, I'm saved and with God. I just need the Bible. That's why I'm not taking meds . continue to encourage medication compliance. 10/28: continues to refuse medications. repeating she is with God . continue tx plan. 10/29: pacing, i am with god, not engaging in interview. HCP Physician's affidavit completed. pursue affirmed HCP versus guardianship versus both. refusing meds, not sleeping. floridly manic/psychotic. 10/30: remains floridly manic/psychotic, refusing meds. behaviors increasingly disorganized, violent, disruptive. awaiting affirmation of HCP so medications may be administered. case D/W pt's mother/HCP. 10/31: appearing tired today after having essentially not slept at all last night. she did take lithium yesterday afternoon at 1800. continue to encourage medication compliance, keep safe. 11/01: appearing tired again, poor sleep overnight. took some medications in the past day but not most. encouraged to sleep this morning. too tired to engage in interview. 11/02: up and about the unit, hypersexual/provocative statement to MD, not engaging with Tx, refusing medication, very poor sleep (reportedly slept about 3 hours overnight). awaiting word re emergency guardianship hearing. 11/03: Continue to encourage engagement in treatment and medication compliance. 11/04: Calmer than yesterday. Remains psychotic. Partially adherent. Continue current management and treatment plan. 11/05: partially adherent to medications. appears sleepy/sedated this morning. asking for anxiety medication. tuesday pt was hypersexual, slapping female staff in the rear, slapping another in the face, grabbing female staff's breasts, grabbing male staff's crotch. required medication restraint. continue current mgmt. emergency hearing this tuesday. 11/06: got IMs last night for pushing/grabbing staff and throwing objects. slept after. otherwise not consistently taking meds. continue current mgmt. 11/07: mildly disruptive behavior continues. appears euphoric, manic. declines to speak with MD, refusing meds. continue to offer medication. 11/08: sleeping morning, episode of severe agitation in the afternoon, yelling, demanding to leave, slamming door repeatedly. refusing medication. continue current mgmt. emergency guardianship hearing tomorrow. 11/09: per report, mother received guardianship today, awaiting document. continue current mgmt. 11/10: calm in the morning, agitated and attempting to assault staff in the afternoon. prompted 2 behavioral codes an hour apart. during the first she received thorazine 100 and ativan 2 IM; during the second she received haldol 10, ativan 2, and benadryl 50 IM. 11/11: no codes today. remains disorganized, delusional. continue to offer medication. case d/w pt's mother, who reports having been granted emergency guardianship on tuesday. 11/12: sleeping this morning. contact legal for better understanding of what tuesday's order allows. 11/13 Patient said that she is doing fine, though tired, and does not know why she is not allowed to discharge. She refuses lithium, saying she does not need it and complains that taking it makes her forget things... Though she could not elaborate. Patient says she has been her a month and has not done anything crazy so wants discharge. Patient says her plan is to either go to [facility] or to her dad's house which is local. -continue current treatment plan 11/14: appearing sedated, in her bed this morning. family meeting held with pt's mother and sister. per Morgan Shay, invega, prolixin, zyprexa, and risperidone are authorized antipsychotics. mother as guardian can authorize all other medications. awaiting hard copy. continue current mgmt. 11/15: court paperwork received from mother. pt suspicious of MD. took the VPA last night instead of lithium. asking about discharge. will review court paperwork and order medications accordingly. 11/16: has taken meds past 24H. VPA increased to 1500 mg QHS. olanzapine increased to 20 mg. IM backups added as guardianship decree has been received 11/17: Reports she is well, asking about discharge. Denies SI,HI,AH,VH. Apprehensive. Reports father will visit today. Taking meds, team reports no behavioral dyscontrol. Valproate level 11/19. 11/18 No change, doing well with medications. Guarded, limited insight. Advocating for discharge. Continue treatment plan. 11/19: much improved from last week. VPA level 89.5. continue current mgmt. 11/20: limited insight. med-compliant, gains continue. advocating for discharge. requesting MD call her father at [phone]. case D/W father. 11/21: appears reasonable and logical now, asking for discharge. does seem to minimize her illness; pt educated re Dx and Tx needs. hoping for discharge next week. plan to recheck labs tuesday. 11/22: as for yesterday. improved, does not seem to appreciate her illness. subtle signs of ongoing thought disorder. orders to recheck labs tuesday entered. asking to DC to father's house. 11/23: remains improved. per collateral from pt's mother, seems close to baseline. staff report prolonged self-dialoguing in the evening, however. continue inpatient stabilization with plan to discharge next . Reason for continued inpatient stay Substantial Risk for: inability to function and rapid decompensation Time Spent With Patient Time: Total time managing care of this patient today __25__ minutes.
[2024-11-23 20:03] VITALS: BP 105/55; PULSE 88; RESP 18; TEMP 37.4; O2SAT 99
[2024-11-23] MEDS: Divalproex Sodium ER 500 MG TAB.ER.24H 1500 MG PO (22:08)
[2024-11-23] MEDS: OLANZapine ODT 10 MG TAB.RAPDIS 20 MG TRANSLINGU (22:08)
[2024-11-24 09:24] VITALS: BP 110/60; PULSE 88; RESP 16; TEMP 36.9; O2SAT 99
[2024-11-24] MEDS: hydrOXYzine HCL 50 MG TABLET PO ×2 (10:24→22:42)
--- NOTE | 2024-11-24 17:19 | P.PNPSI_ITS ---
Subjective Subjective Date of Service: 11/24/24 Reason For Visit: Unspecified Mood disorder Interim History: calm, cooperative, pleasant. MD notes her concerning behaviors observed in the past 24H and asks if she has been diverting medication. states she has been taking medications. informed of plan for mouth checks and 30 min obs after meds. MD informs pt this may delay her discharge. per staff, on Q5s. difficulty redirecting from kitchen - pt remaining in kitchen arranging. observed with more self-dialoguing, prolonged with bizarre content. kneeling and praying in underpants. in ante-room naked. slept 3 hours. Mental Status Exam Mental Status Exam Narrative: [facility], adequately groomed, out on the unit. speech nml rate, amount, loudness, tone, latency. thoughts linear and logical. insight remains impaired. affect more flexible, normo-intense, non-labile. mood fair, stable. no SI/HI/AVH expressed. Diagnostics Vital Signs (24Hr): Vital Signs - 24 hr 11/23/24 20:03 11/24/24 09:24 Temperature 99.3 F 98.4 F Pulse Rate 88 88 Respiratory Rate 18 16 Blood Pressure 105/55 L 110/60 Pulse Oximetry 99 99 Oxygen Delivery Method Room Air Room Air BMI result Body Mass Index 41.5 Labs 10/24/24 18:31 Medications Medications Current Medications Acetaminophen (Acetaminophen 325 Mg Tablet) 650 mg PO Q6H PRN PRN Reason: Headache/Pain, Scale 1-10 Al Hydroxide/Mg Hydroxide (Magnesium Hydrox/Alum Hydrox 30 Ml Oral.Susp) 30 ml PO Q6H PRN PRN Reason: Heartburn/Nausea Chlorpromazine HCl (Chlorpromazine Hcl 100 Mg Tablet) 100 mg PO Q4H PRN PRN Reason: severe agitation Last Admin: 11/13/24 17:48 Dose: 100 mg Diazepam (Diazepam 10 Mg/2 Ml Cartridge) 10 mg IM DAILY PRN PRN Reason: refusal of VPA, per guardian Divalproex Sodium (Divalproex Sodium Er 500 Mg Tab.Er.24h) 1,500 mg PO BEDTIME BILLY Last Admin: 11/23/24 22:08 Dose: 1,500 mg Hydroxyzine HCl (Hydroxyzine Hcl 50 Mg Tablet) 50 mg PO Q6H PRN PRN Reason: mild anxiety Last Admin: 11/24/24 10:24 Dose: 50 mg Lorazepam (Lorazepam 1 Mg Tablet) 1 mg PO Q4H PRN PRN Reason: severe anxiety/agitation Last Admin: 11/23/24 12:24 Dose: 1 mg Lorazepam (Lorazepam 1 Mg Tablet) 1 mg PO BEDTIME PRN PRN Reason: insomnia Magnesium Hydroxide (Milk Of Magnesia 30 Ml Oral.Susp) 30 ml PO DAILY PRN PRN Reason: Constipation Nicotine (Nicotine 21 Mg Patch.Td24) 21 mg TRANSDERMA DAILY PRN PRN Reason: smoking cessation Nicotine Polacrilex (Nicotine Polacrilex 2 Mg Gum) 4 mg BUCCAL Q2H PRN PRN Reason: Nicotine Cravings Olanzapine (Olanzapine Odt 10 Mg Tab.Rapdis) 10 mg TRANSLINGU TID PRN PRN Reason: agitation Last Admin: 11/20/24 00:02 Dose: 10 mg Olanzapine (Olanzapine 10 Mg Vial) 10 mg IM DAILY PRN PRN Reason: refusal of PO per mariel's orde Olanzapine (Olanzapine Odt 10 Mg Tab.Rapdis) 20 mg TRANSLINGU BEDTIME BILLY Last Admin: 11/23/24 22:08 Dose: 20 mg Allergies Allergies Allergy/AdvReac Type Severity Reaction Status Date / Time No Known Allergies Allergy Verified 10/10/24 23:51 Assessment & Plan Assessment & Plan (1) Moderate bipolar I disorder with poornima as current episode: Status: Acute Code(s): F31.12 - Bipolar disorder, current episode manic without psychotic features, moderate Assessment and Plan: schizoaffective disorder Plan 10/11: offer zyprexa 10 QHS and lithium 450 BID. 10/12: pt refusing meds. continue to offer. HCP in chart. 3-day notice up tuesday. 10/13: change Zyprexa to Zydis to assure compliance. refusing lithium. 10/14: keep same treatment, encourage compliance. 10/15: took meds this morning, sleeping heavily after. commitment paperwork completed, HCP invoked. meeting with mother this afternoon. 10/16/24: Encourage olanzapine lithium patient appears to be passively accepting treatment and hospitalization recommend affirming healthcare proxy. 10/17: pt's HCP signed pt in today, will pursue invocation of HCP. improved from last interview, taking meds. increase lithium to 600 BID and add ativan PRNs. case discussed with pt's mother and SW Graciela. 10/18: taking morning meds, not getting HS meds due to staff's not being able to awaken her. change HS meds to 1800. otherwise continue current mgmt. 10/19: Keeping to self. continues on 1:1. guarded. patient reports feeling fine ; asked T/W to leave her alone to nap. Per nursing, observed responding to internal stimuli. Slept 6 hours last night. continue tx plan 10/20 declines antipsychotic, requires 1:1 for disorganized intrusive behaviors. religiously preoccupied. 10/21 continue tx. continues to present with scientologist preoccupations, does hint to thinking others do not want her to say the truth and also thinks her parents are , which not the case. 10/22: difficult to engage. taking lithium, sometimes taking zyprexa. encouraged medication compliance. continue current mgmt. 10/23: more engageable. delusion that her parents are . continue current mgmt. check labs tonight. 10/24: labs rescheduled for tomorrow morning. asking for discharge. taking meds. poor insight. continue current mgmt. 10/25: refused medications. focused on discharge. continue tx plan. 10/26: refusing meds last couple of days, has essentially returned to state at admission. pursue affirmation of HCP. 10/27: Keeping to self. observed responding to internal stimuli. laughing inappropriately to self. Delayed responses to questions. pt encouraged to take medications; pt stated, I'm saved and with God. I just need the Bible. That's why I'm not taking meds . continue to encourage medication compliance. 10/28: continues to refuse medications. repeating she is with God . continue tx plan. 10/29: pacing, i am with god, not engaging in interview. HCP Physician's affidavit completed. pursue affirmed HCP versus guardianship versus both. refusing meds, not sleeping. floridly manic/psychotic. 10/30: remains floridly manic/psychotic, refusing meds. behaviors increasingly disorganized, violent, disruptive. awaiting affirmation of HCP so medications may be administered. case D/W pt's mother/HCP. 10/31: appearing tired today after having essentially not slept at all last night. she did take lithium yesterday afternoon at 1800. continue to encourage medication compliance, keep safe. 11/01: appearing tired again, poor sleep overnight. took some medications in the past day but not most. encouraged to sleep this morning. too tired to engage in interview. 11/02: up and about the unit, hypersexual/provocative statement to MD, not engaging with Tx, refusing medication, very poor sleep (reportedly slept about 3 hours overnight). awaiting word re emergency guardianship hearing. 11/03: Continue to encourage engagement in treatment and medication compliance. 11/04: Calmer than yesterday. Remains psychotic. Partially adherent. Continue current management and treatment plan. 11/05: partially adherent to medications. appears sleepy/sedated this morning. asking for anxiety medication. tuesday pt was hypersexual, slapping female staff in the rear, slapping another in the face, grabbing female staff's breasts, grabbing male staff's crotch. required medication restraint. continue current mgmt. emergency hearing this tuesday. 11/06: got IMs last night for pushing/grabbing staff and throwing objects. slept after. otherwise not consistently taking meds. continue current mgmt. 11/07: mildly disruptive behavior continues. appears euphoric, manic. declines to speak with MD, refusing meds. continue to offer medication. 11/08: sleeping morning, episode of severe agitation in the afternoon, yelling, demanding to leave, slamming door repeatedly. refusing medication. continue current mgmt. emergency guardianship hearing tomorrow. 11/09: per report, mother received guardianship today, awaiting document. continue current mgmt. 11/10: calm in the morning, agitated and attempting to assault staff in the afternoon. prompted 2 behavioral codes an hour apart. during the first she received thorazine 100 and ativan 2 IM; during the second she received haldol 10, ativan 2, and benadryl 50 IM. 11/11: no codes today. remains disorganized, delusional. continue to offer medication. case d/w pt's mother, who reports having been granted emergency guardianship on tuesday. 11/12: sleeping this morning. contact legal for better understanding of what tuesday's order allows. 4/1 Patient said that she is doing fine, though tired, and does not know why she is not allowed to discharge. She refuses lithium, saying she does not need it and complains that taking it makes her forget things... Though she could not elaborate. Patient says she has been her a month and has not done anything crazy so wants discharge. Patient says her plan is to either go to [facility] or to her dad's house which is local. -continue current treatment plan 11/14: appearing sedated, in her bed this morning. family meeting held with pt's mother and sister. per Morgan Shay, invega, prolixin, zyprexa, and risperidone are authorized antipsychotics. mother as guardian can authorize all other medications. awaiting hard copy. continue current mgmt. 11/15: court paperwork received from mother. pt suspicious of MD. took the VPA last night instead of lithium. asking about discharge. will review court paperwork and order medications accordingly. 11/16: has taken meds past 24H. VPA increased to 1500 mg QHS. olanzapine increased to 20 mg. IM backups added as guardianship decree has been received 11/17: Reports she is well, asking about discharge. Denies SI,HI,AH,VH. Apprehensive. Reports father will visit today. Taking meds, team reports no behavioral dyscontrol. Valproate level 11/19. 11/18 No change, doing well with medications. Guarded, limited insight. Advocating for discharge. Continue treatment plan. 11/19: much improved from last week. VPA level 89.5. continue current mgmt. 11/20: limited insight. med-compliant, gains continue. advocating for discharge. requesting MD call her father at [phone]. case D/W father. 11/21: appears reasonable and logical now, asking for discharge. does seem to minimize her illness; pt educated re Dx and Tx needs. hoping for discharge next week. plan to recheck labs tuesday. 11/22: as for yesterday. improved, does not seem to appreciate her illness. subtle signs of ongoing thought disorder. orders to recheck labs tuesday entered. asking to DC to father's house. 11/23: remains improved. per collateral from pt's mother, seems close to baseline. staff report prolonged self-dialoguing in the evening, however. continue inpatient stabilization with plan to discharge next . 11/24: concerning behaviors last night of bizarre prolonged self-dialoguing, excessive praying in underpants, naked in anteroom area. denies diverting medication. mouth checks and 30 mins obs post meds ordered. check labs tonight. Reason for continued inpatient stay Substantial Risk for: inability to function and rapid decompensation Time Spent With Patient Time: Total time managing care of this patient today ____ minutes.
[2024-11-24 18:50] VITALS: BP 131/74; PULSE 97; RESP 16; TEMP 36.6; O2SAT 100
[2024-11-24 20:06] LABS: MANUAL DIFF FLAG NO
[2024-11-24 20:09] LABS: Basophils Absolute Auto 0.1 X10*3/uL (0.0-0.2); Basophils Percent Auto 0.7 % (0-2); Eosinophils Absolute Auto 0.4 X10*3/uL (0.0-0.4); Eosinophils Percent Auto 5.7 % (0-4); Hematocrit 30.7 % (37.0-47.0); Hemoglobin 9.4 g/dl (12.0-16.0); Imm Gran Abs Auto 0.05 X10*3/uL (0.00-0.03); Imm Gran Pct Auto 0.7 % (0.0-0.4); Lymphocytes Absolute Auto 2.2 X10*3/uL (1.2-4.9); Lymphocytes Percent Auto 29.9 % (20-40); Mean Corpuscular HGB Conc 30.6 g/dl (31.0-35.0); Mean Corpuscular Hemoglobin 23.5 pg (27.0-33.0); Mean Corpuscular Volume 76.8 fL (80.0-98.0); Mean Platelet Volume 10.2 fL (9.4-12.3); Monocytes Absolute Auto 0.5 X10*3/uL (0.1-1.2); Monocytes Percent Auto 7.1 % (2-11); Neutrophils Percent Auto 55.9 % (45-73); Platelet Count 304 X10*3/uL (160-400); Red Cell Distribution Width 15.2 % (11.0-16.0); White Blood Count 7.2 X10*3/uL (4.8-10.8)
[2024-11-24 20:17] LABS: Ammonia 62 umol/L (13-55)
[2024-11-24 20:21] LABS: Valproate 71.8 mcg/mL (50.0-100.0)
[2024-11-24 20:23] LABS: Alanine Aminotransferase 16 U/L (0-31); Albumin Level 3.7 g/dL (3.5-5.0); Alkaline Phosphatase 60 U/L (39-117); Anion Gap 14 (12-20); Aspartate Amino Transferase 25 U/L (5-31); Bilirubin Direct < 0.2 mg/dL (0.0-0.5); Bilirubin Total 0.2 mg/dL (0.0-1.0); Blood Urea Nitrogen 23 mg/dL (9-16); Calcium 8.7 mg/dL (8.4-10.2); Carbon Dioxide 25 mmol/L (22-29); Chloride 103 mmol/L (96-108); Creatinine Clr Calc Pharmacy 127.9; Estimated Glomerular Filt Rate > 60; Glucose Random 107 mg/dL (60-115); Sodium 138 mmol/L (135-145); Total Protein 6.9 g/dL (6.5-8.0)
[2024-11-24] MEDS: OLANZapine ODT 10 MG TAB.RAPDIS 20 MG TRANSLINGU (22:42)
[2024-11-24] MEDS: Divalproex Sodium ER 500 MG TAB.ER.24H 1500 MG PO (22:43)
[2024-11-25] MEDS: chlorproMAZINE HCl 100 MG TABLET PO ×2 (03:04→12:21)
[2024-11-25] MEDS: LORazepam 1 MG TABLET PO ×3 (03:04→23:12)
[2024-11-25 13:40] VITALS: BP 92/58; PULSE 107; RESP 20; TEMP 36.8; O2SAT 98
[2024-11-25 20:00] VITALS: BP 123/60; PULSE 83; RESP 16; TEMP 36.5; O2SAT 100
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
[2024-11-25] MEDS: OLANZapine ODT 10 MG TAB.RAPDIS 20 MG TRANSLINGU (23:05)
[2024-11-25] MEDS: Divalproex Sodium ER 500 MG TAB.ER.24H 2000 MG PO (23:05)
[2024-11-26] MEDS: LORazepam 1 MG TABLET PO ×2 (10:32→21:38)
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
[2024-11-26 20:00] VITALS: BP 123/67; PULSE 102; RESP 16; TEMP 36.1; O2SAT 100
[2024-11-26] MEDS: Divalproex Sodium ER 500 MG TAB.ER.24H 2000 MG PO (21:37)
[2024-11-26] MEDS: OLANZapine ODT 10 MG TAB.RAPDIS 20 MG TRANSLINGU (21:38)
[2024-11-27 08:18] VITALS: RESP 18
--- NOTE | 2024-11-27 14:16 | P.PNPSI_ITS ---
Subjective Subjective Date of Service: 11/27/24 Reason For Visit: Unspecified Mood disorder Interim History: calm, cooperative. challenging, asking many questions about exactly who is saying exactly what about her behavior. able to recall keeping peer's shoes, unable to account for her behavior, becomes somewhat louder and more aggressive on being asked about it. acknowledges awareness of staff concern re her hyper- religiosity. made aware of concern for her conversations with nobody. agrees to take lithium and depakote, states her only goal is discharge from the hospital. per staff, adversarial, labile affect. took a peer's shoes and would not relinquish them (she ultimately left her room and staff removed the shoes). time in her room, naked and praying. Mental Status Exam Mental Status Exam Narrative: [facility], adequately groomed, out on the unit. speech nml rate, amount, loudness, tone, latency. thoughts linear and variably logical. insight remains impaired. affect constricted, normo-intense, non-labile. mood unknown. no SI/HI/AVH expressed. Diagnostics Vital Signs (24Hr): Vital Signs - 24 hr 11/26/24 20:00 11/27/24 08:18 Temperature 97.0 F Pulse Rate 102 H Respiratory Rate 16 18 Blood Pressure 123/67 Pulse Oximetry 100 Oxygen Delivery Method Room Air BMI result Body Mass Index 41.5 Labs 11/24/24 20:03 11/24/24 20:03 Medications Medications Current Medications Acetaminophen (Acetaminophen 325 Mg Tablet) 650 mg PO Q6H PRN PRN Reason: Headache/Pain, Scale 1-10 Al Hydroxide/Mg Hydroxide (Magnesium Hydrox/Alum Hydrox 30 Ml Oral.Susp) 30 ml PO Q6H PRN PRN Reason: Heartburn/Nausea Chlorpromazine HCl (Chlorpromazine Hcl 100 Mg Tablet) 100 mg PO Q4H PRN PRN Reason: severe agitation Last Admin: 11/25/24 12:21 Dose: 100 mg Diazepam (Diazepam 10 Mg/2 Ml Cartridge) 10 mg IM DAILY PRN PRN Reason: refusal of VPA, per guardian Hydroxyzine HCl (Hydroxyzine Hcl 50 Mg Tablet) 50 mg PO Q6H PRN PRN Reason: mild anxiety Last Admin: 11/24/24 22:42 Dose: 50 mg Lorazepam (Lorazepam 1 Mg Tablet) 1 mg PO Q4H PRN PRN Reason: severe anxiety/agitation Last Admin: 11/26/24 10:32 Dose: 1 mg Lorazepam (Lorazepam 1 Mg Tablet) 1 mg PO BEDTIME PRN PRN Reason: insomnia Last Admin: 11/26/24 21:38 Dose: 1 mg Magnesium Hydroxide (Milk Of Magnesia 30 Ml Oral.Susp) 30 ml PO DAILY PRN PRN Reason: Constipation Nicotine (Nicotine 21 Mg Patch.Td24) 21 mg TRANSDERMA DAILY PRN PRN Reason: smoking cessation Nicotine Polacrilex (Nicotine Polacrilex 2 Mg Gum) 4 mg BUCCAL Q2H PRN PRN Reason: Nicotine Cravings Non-Formulary Medication ([place] Citrate) 600 mg PO BID BILLY Olanzapine (Olanzapine Odt 10 Mg Tab.Rapdis) 10 mg TRANSLINGU TID PRN PRN Reason: agitation Last Admin: 11/20/24 00:02 Dose: 10 mg Olanzapine (Olanzapine 10 Mg Vial) 10 mg IM DAILY PRN PRN Reason: refusal of PO per mariel's orde Olanzapine (Olanzapine Odt 10 Mg Tab.Rapdis) 20 mg TRANSLINGU BEDTIME BILLY Last Admin: 11/26/24 21:38 Dose: 20 mg Valproic Acid (Valproic Acid Liquid 250 Mg/5 Ml Solution) 750 mg PO BID BILLY Allergies Allergies Allergy/AdvReac Type Severity Reaction Status Date / Time No Known Allergies Allergy Verified 10/10/24 23:51 Assessment & Plan Assessment & Plan (1) Moderate bipolar I disorder with poornima as current episode: Status: Acute Code(s): F31.12 - Bipolar disorder, current episode manic without psychotic features, moderate Assessment and Plan: schizoaffective disorder Plan 10/11: offer zyprexa 10 QHS and lithium 450 BID. 10/12: pt refusing meds. continue to offer. HCP in chart. 3-day notice up tuesday. 10/13: change Zyprexa to Zydis to assure compliance. refusing lithium. 10/14: keep same treatment, encourage compliance. 10/15: took meds this morning, sleeping heavily after. commitment paperwork completed, HCP invoked. meeting with mother this afternoon. 10/16/24: Encourage olanzapine lithium patient appears to be passively accepting treatment and hospitalization recommend affirming healthcare proxy. 10/17: pt's HCP signed pt in today, will pursue invocation of HCP. improved from last interview, taking meds. increase lithium to 600 BID and add ativan PRNs. case discussed with pt's mother and SW Graciela. 10/18: taking morning meds, not getting HS meds due to staff's not being able to awaken her. change HS meds to 1800. otherwise continue current mgmt. 10/19: Keeping to self. continues on 1:1. guarded. patient reports feeling fine ; asked T/W to leave her alone to nap. Per nursing, observed responding to internal stimuli. Slept 6 hours last night. continue tx plan 10/20 declines antipsychotic, requires 1:1 for disorganized intrusive behaviors. religiously preoccupied. 10/21 continue tx. continues to present with scientologist preoccupations, does hint to thinking others do not want her to say the truth and also thinks her parents are , which not the case. 10/22: difficult to engage. taking lithium, sometimes taking zyprexa. encouraged medication compliance. continue current mgmt. 10/23: more engageable. delusion that her parents are . continue current mgmt. check labs tonight. 10/24: labs rescheduled for tomorrow morning. asking for discharge. taking meds. poor insight. continue current mgmt. 10/25: refused medications. focused on discharge. continue tx plan. 10/26: refusing meds last couple of days, has essentially returned to state at admission. pursue affirmation of HCP. 10/27: Keeping to self. observed responding to internal stimuli. laughing inappropriately to self. Delayed responses to questions. pt encouraged to take medications; pt stated, I'm saved and with God. I just need the Bible. That's why I'm not taking meds . continue to encourage medication compliance. 10/28: continues to refuse medications. repeating she is with God . continue tx plan. 10/29: pacing, i am with god, not engaging in interview. HCP Physician's affidavit completed. pursue affirmed HCP versus guardianship versus both. refusing meds, not sleeping. floridly manic/psychotic. 10/30: remains floridly manic/psychotic, refusing meds. behaviors increasingly disorganized, violent, disruptive. awaiting affirmation of HCP so medications may be administered. case D/W pt's mother/HCP. 10/31: appearing tired today after having essentially not slept at all last night. she did take lithium yesterday afternoon at 1800. continue to encourage medication compliance, keep safe. 11/01: appearing tired again, poor sleep overnight. took some medications in the past day but not most. encouraged to sleep this morning. too tired to engage in interview. 11/02: up and about the unit, hypersexual/provocative statement to MD, not engaging with Tx, refusing medication, very poor sleep (reportedly slept about 3 hours overnight). awaiting word re emergency guardianship hearing. 11/03: Continue to encourage engagement in treatment and medication compliance. 11/04: Calmer than yesterday. Remains psychotic. Partially adherent. Continue current management and treatment plan. 11/05: partially adherent to medications. appears sleepy/sedated this morning. asking for anxiety medication. tuesday pt was hypersexual, slapping female staff in the rear, slapping another in the face, grabbing female staff's breasts, grabbing male staff's crotch. required medication restraint. continue current mgmt. emergency hearing this tuesday. 11/06: got IMs last night for pushing/grabbing staff and throwing objects. slept after. otherwise not consistently taking meds. continue current mgmt. 11/07: mildly disruptive behavior continues. appears euphoric, manic. declines to speak with MD, refusing meds. continue to offer medication. 11/08: sleeping morning, episode of severe agitation in the afternoon, yelling, demanding to leave, slamming door repeatedly. refusing medication. continue current mgmt. emergency guardianship hearing tomorrow. 11/09: per report, mother received guardianship today, awaiting document. continue current mgmt. 11/10: calm in the morning, agitated and attempting to assault staff in the afternoon. prompted 2 behavioral codes an hour apart. during the first she received thorazine 100 and ativan 2 IM; during the second she received haldol 10, ativan 2, and benadryl 50 IM. 11/11: no codes today. remains disorganized, delusional. continue to offer medication. case d/w pt's mother, who reports having been granted emergency guardianship on tuesday. 11/12: sleeping this morning. contact legal for better understanding of what tuesday's order allows. 11/13 Patient said that she is doing fine, though tired, and does not know why she is not allowed to discharge. She refuses lithium, saying she does not need it and complains that taking it makes her forget things... Though she could not elaborate. Patient says she has been her a month and has not done anything crazy so wants discharge. Patient says her plan is to either go to [facility] or to her dad's house which is local. -continue current treatment plan 11/14: appearing sedated, in her bed this morning. family meeting held with pt's mother and sister. per Morgan Shay, invega, prolixin, zyprexa, and risperidone are authorized antipsychotics. mother as guardian can authorize all other medications. awaiting hard copy. continue current mgmt. 11/15: court paperwork received from mother. pt suspicious of MD. took the VPA last night instead of lithium. asking about discharge. will review court paperwork and order medications accordingly. 11/16: has taken meds past 24H. VPA increased to 1500 mg QHS. olanzapine increased to 20 mg. IM backups added as guardianship decree has been received 11/17: Reports she is well, asking about discharge. Denies SI,HI,AH,VH. Apprehensive. Reports father will visit today. Taking meds, team reports no behavioral dyscontrol. Valproate level 11/19. 11/18 No change, doing well with medications. Guarded, limited insight. Advocating for discharge. Continue treatment plan. 11/19: much improved from last week. VPA level 89.5. continue current mgmt. 11/20: limited insight. med-compliant, gains continue. advocating for discharge. requesting MD call her father at [phone]. case D/W father. 11/21: appears reasonable and logical now, asking for discharge. does seem to minimize her illness; pt educated re Dx and Tx needs. hoping for discharge next week. plan to recheck labs tuesday. 11/22: as for yesterday. improved, does not seem to appreciate her illness. subtle signs of ongoing thought disorder. orders to recheck labs tuesday entered. asking to DC to father's house. 11/23: remains improved. per collateral from pt's mother, seems close to baseline. staff report prolonged self-dialoguing in the evening, however. continue inpatient stabilization with plan to discharge next . 11/24: concerning behaviors last night of bizarre prolonged self-dialoguing, excessive praying in underpants, naked in anteroom area. denies diverting medication. mouth checks and 30 mins obs post meds ordered. check labs tonight. 11/25: VPA 71.8, ammonia mildly elevated at 62. staff believe she is taking the medication but noted pt alone in her room talking to marky, making fists, crying, angry last night. increase VPA dosing to 2000 mg as of tonight. 11/26 Staff reports that patient remains disorganized; patient's father visited and patient came out to see him naked from the waist down; she took a peers tennis shoes, said they were hers and struggled to give them back. On approach patient is sitting at a table tearing paper. She is polite on approach. Social Economist discussed medications and patient said she has been willing to take Depakote which she did last night. Social Economist discussed lithium and patient said that she would be willing to take lithium but wanted to wait to discuss with Dr. Scaels on his return with which film writer agreed -continue current tx plan; defer restarting [place] to Dr. Scales 11/27: reviewed concerning behaviors with patient. pt agreeable to start liquid lithium and depakote, 600 BID and 750 BID, respectively. otherwise continue current mgmt. Reason for continued inpatient stay Substantial Risk for: inability to function and rapid decompensation Time Spent With Patient Time: Total time managing care of this patient today _35___ minutes.
[2024-11-27 20:00] VITALS: BP 128/65; PULSE 90; RESP 16; TEMP 36.9; O2SAT 100
[2024-11-27] MEDS: OLANZapine ODT 10 MG TAB.RAPDIS 20 MG TRANSLINGU (22:14)
[2024-11-27] MEDS: LORazepam 1 MG TABLET PO (22:14)
[2024-11-27] MEDS: LITHIUM CITRATE 600 MG PO (22:14)
[2024-11-27] MEDS: Valproic Acid Liquid 250 MG/5 ML SOLUTION 750 MG PO (22:15)
[2024-11-28] MEDS: LITHIUM CITRATE 600 MG PO ×2 (09:32→22:20)
[2024-11-28] MEDS: Valproic Acid Liquid 250 MG/5 ML SOLUTION 750 MG PO ×2 (09:32→22:20)
--- NOTE | 2024-11-28 11:33 | HO.PSYCHPN ---
Subjective Subjective Date of Service: 11/28/24 Reason For Visit: Unspecified Mood disorder Interim History: calm, cooperative. businesslike. focussed on getting out of the hospital, not on treating her illness in the slightest. reinforced the fact of her illness and the need for her to take medications and continue to take medications. pt agrees to continue medications. per staff, no dep, some anxiety. some insight. taking meds. slept all NOC. Mental Status Exam Mental Status Exam Narrative: hospital [facility], adequately groomed, out on the unit. speech nml rate, amount, loudness, tone, latency. thoughts linear and logical. insight remains impaired. affect constricted, normo-intense, non-labile. mood unknown. no SI/HI/AVH expressed. Diagnostics Vital Signs (24Hr): Vital Signs - 24 hr 11/27/24 20:00 Temperature 98.4 F Pulse Rate 90 Respiratory Rate 16 Blood Pressure 128/65 Pulse Oximetry 100 Oxygen Delivery Method Room Air BMI result Body Mass Index 41.5 Labs 11/24/24 20:03 11/24/24 20:03 Medications Medications Current Medications Acetaminophen (Acetaminophen 325 Mg Tablet) 650 mg PO Q6H PRN PRN Reason: Headache/Pain, Scale 1-10 Al Hydroxide/Mg Hydroxide (Magnesium Hydrox/Alum Hydrox 30 Ml Oral.Susp) 30 ml PO Q6H PRN PRN Reason: Heartburn/Nausea Chlorpromazine HCl (Chlorpromazine Hcl 100 Mg Tablet) 100 mg PO Q4H PRN PRN Reason: severe agitation Last Admin: 11/25/24 12:21 Dose: 100 mg Diazepam (Diazepam 10 Mg/2 Ml Cartridge) 10 mg IM DAILY PRN PRN Reason: refusal of VPA, per guardian Hydroxyzine HCl (Hydroxyzine Hcl 50 Mg Tablet) 50 mg PO Q6H PRN PRN Reason: mild anxiety Last Admin: 11/24/24 22:42 Dose: 50 mg [place] Citrate ([place] Citrate Oral Elli 8 Meq (300 Mg)/5 Ml) 600 mg PO BID BILLY Last Admin: 11/28/24 09:32 Dose: 600 mg Magnesium Hydroxide (Milk Of Magnesia 30 Ml Oral.Susp) 30 ml PO DAILY PRN PRN Reason: Constipation Nicotine (Nicotine 21 Mg Patch.Td24) 21 mg TRANSDERMA DAILY PRN PRN Reason: smoking cessation Nicotine Polacrilex (Nicotine Polacrilex 2 Mg Gum) 4 mg BUCCAL Q2H PRN PRN Reason: Nicotine Cravings Olanzapine (Olanzapine Odt 10 Mg Tab.Rapdis) 10 mg TRANSLINGU TID PRN PRN Reason: agitation Last Admin: 11/20/24 00:02 Dose: 10 mg Olanzapine (Olanzapine 10 Mg Vial) 10 mg IM DAILY PRN PRN Reason: refusal of PO per mariel's orde Olanzapine (Olanzapine Odt 10 Mg Tab.Rapdis) 20 mg TRANSLINGU BEDTIME [facility] Last Admin: 11/27/24 22:14 Dose: 20 mg Valproic Acid (Valproic Acid Liquid 250 Mg/5 Ml Solution) 750 mg PO BID [facility] Last Admin: 11/28/24 09:32 Dose: 750 mg Allergies Allergies Allergy/AdvReac Type Severity Reaction Status Date / Time No Known Allergies Allergy Verified 10/10/24 23:51 Assessment & Plan Assessment & Plan (1) Moderate bipolar I disorder with poornima as current episode: Status: Acute Code(s): F31.12 - Bipolar disorder, current episode manic without psychotic features, moderate Assessment and Plan: schizoaffective disorder Plan 10/11: offer zyprexa 10 QHS and lithium 450 BID. 10/12: pt refusing meds. continue to offer. HCP in chart. 3-day notice up tuesday. 10/13: change Zyprexa to Zydis to assure compliance. refusing lithium. 10/14: keep same treatment, encourage compliance. 10/15: took meds this morning, sleeping heavily after. commitment paperwork completed, HCP invoked. meeting with mother this afternoon. 10/16/24: Encourage olanzapine lithium patient appears to be passively accepting treatment and hospitalization recommend affirming healthcare proxy. 10/17: pt's HCP signed pt in today, will pursue invocation of HCP. improved from last interview, taking meds. increase lithium to 600 BID and add ativan PRNs. case discussed with pt's mother and SW Graciela. 10/18: taking morning meds, not getting HS meds due to staff's not being able to awaken her. change HS meds to 1800. otherwise continue current mgmt. 10/19: Keeping to self. continues on 1:1. guarded. patient reports feeling fine ; asked T/W to leave her alone to nap. Per nursing, observed responding to internal stimuli. Slept 6 hours last night. continue tx plan 10/20 declines antipsychotic, requires 1:1 for disorganized intrusive behaviors. religiously preoccupied. 10/21 continue tx. continues to present with nondenominational preoccupations, does hint to thinking others do not want her to say the truth and also thinks her parents are , which not the case. 10/22: difficult to engage. taking lithium, sometimes taking zyprexa. encouraged medication compliance. continue current mgmt. 10/23: more engageable. delusion that her parents are . continue current mgmt. check labs tonight. 10/24: labs rescheduled for tomorrow morning. asking for discharge. taking meds. poor insight. continue current mgmt. 10/25: refused medications. focused on discharge. continue tx plan. 10/26: refusing meds last couple of days, has essentially returned to state at admission. pursue affirmation of HCP. 10/27: Keeping to self. observed responding to internal stimuli. laughing inappropriately to self. Delayed responses to questions. pt encouraged to take medications; pt stated, I'm saved and with God. I just need the Bible. That's why I'm not taking meds . continue to encourage medication compliance. 10/28: continues to refuse medications. repeating she is with God . continue tx plan. 10/29: pacing, i am with god, not engaging in interview. HCP Physician's affidavit completed. pursue affirmed HCP versus guardianship versus both. refusing meds, not sleeping. floridly manic/psychotic. 10/30: remains floridly manic/psychotic, refusing meds. behaviors increasingly disorganized, violent, disruptive. awaiting affirmation of HCP so medications may be administered. case D/W pt's mother/HCP. 10/31: appearing tired today after having essentially not slept at all last night. she did take lithium yesterday afternoon at 1800. continue to encourage medication compliance, keep safe. 11/01: appearing tired again, poor sleep overnight. took some medications in the past day but not most. encouraged to sleep this morning. too tired to engage in interview. 11/02: up and about the unit, hypersexual/provocative statement to MD, not engaging with Tx, refusing medication, very poor sleep (reportedly slept about 3 hours overnight). awaiting word re emergency guardianship hearing. 11/03: Continue to encourage engagement in treatment and medication compliance. 11/04: Calmer than yesterday. Remains psychotic. Partially adherent. Continue current management and treatment plan. 11/05: partially adherent to medications. appears sleepy/sedated this morning. asking for anxiety medication. tuesday pt was hypersexual, slapping female staff in the rear, slapping another in the face, grabbing female staff's breasts, grabbing male staff's crotch. required medication restraint. continue current mgmt. emergency hearing this tuesday. 11/06: got IMs last night for pushing/grabbing staff and throwing objects. slept after. otherwise not consistently taking meds. continue current mgmt. 11/07: mildly disruptive behavior continues. appears euphoric, manic. declines to speak with MD, refusing meds. continue to offer medication. 11/08: sleeping morning, episode of severe agitation in the afternoon, yelling, demanding to leave, slamming door repeatedly. refusing medication. continue current mgmt. emergency guardianship hearing tomorrow. 11/09: per report, mother received guardianship today, awaiting document. continue current mgmt. 11/10: calm in the morning, agitated and attempting to assault staff in the afternoon. prompted 2 behavioral codes an hour apart. during the first she received thorazine 100 and ativan 2 IM; during the second she received haldol 10, ativan 2, and benadryl 50 IM. 11/11: no codes today. remains disorganized, delusional. continue to offer medication. case d/w pt's mother, who reports having been granted emergency guardianship on tuesday. 11/12: sleeping this morning. contact legal for better understanding of what tuesday's order allows. 11/13 Patient said that she is doing fine, though tired, and does not know why she is not allowed to discharge. She refuses lithium, saying she does not need it and complains that taking it makes her forget things... Though she could not elaborate. Patient says she has been her a month and has not done anything crazy so wants discharge. Patient says her plan is to either go to [place] or to her dad's house which is local. -continue current treatment plan 11/14: appearing sedated, in her bed this morning. family meeting held with pt's mother and sister. per Morgan Shay, invega, prolixin, zyprexa, and risperidone are authorized antipsychotics. mother as guardian can authorize all other medications. awaiting hard copy. continue current mgmt. 11/15: court paperwork received from mother. pt suspicious of MD. took the VPA last night instead of lithium. asking about discharge. will review court paperwork and order medications accordingly. 11/16: has taken meds past 24H. VPA increased to 1500 mg QHS. olanzapine increased to 20 mg. IM backups added as guardianship decree has been received 11/17: Reports she is well, asking about discharge. Denies SI,HI,AH,VH. Apprehensive. Reports father will visit today. Taking meds, team reports no behavioral dyscontrol. Valproate level 11/19. 11/18 No change, doing well with medications. Guarded, limited insight. Advocating for discharge. Continue treatment plan. 11/19: much improved from last week. VPA level 89.5. continue current mgmt. 11/20: limited insight. med-compliant, gains continue. advocating for discharge. requesting MD call her father at [phone]. case D/W father. 11/21: appears reasonable and logical now, asking for discharge. does seem to minimize her illness; pt educated re Dx and Tx needs. hoping for discharge next week. plan to recheck labs tuesday. 11/22: as for yesterday. improved, does not seem to appreciate her illness. subtle signs of ongoing thought disorder. orders to recheck labs tuesday entered. asking to DC to father's house. 11/23: remains improved. per collateral from pt's mother, seems close to baseline. staff report prolonged self-dialoguing in the evening, however. continue inpatient stabilization with plan to discharge next . 11/24: concerning behaviors last night of bizarre prolonged self-dialoguing, excessive praying in underpants, naked in anteroom area. denies diverting medication. mouth checks and 30 mins obs post meds ordered. check labs tonight. 11/25: VPA 71.8, ammonia mildly elevated at 62. staff believe she is taking the medication but noted pt alone in her room talking to marky, making fists, crying, angry last night. increase VPA dosing to 2000 mg as of tonight. 11/26 Staff reports that patient remains disorganized; patient's father visited and patient came out to see him naked from the waist down; she took a peers tennis shoes, said they were hers and struggled to give them back. On approach patient is sitting at a table tearing paper. She is polite on approach. Windows Deployment Technician discussed medications and patient said she has been willing to take Depakote which she did last night. Windows Deployment Technician discussed lithium and patient said that she would be willing to take lithium but wanted to wait to discuss with Dr. Scales on his return with which film writer agreed -continue current tx plan; defer restarting [place] to Dr. Scales 11/27: reviewed concerning behaviors with patient. pt agreeable to start liquid lithium and depakote, 600 BID and 750 BID, respectively. otherwise continue current mgmt. 11/28: slept all NOC, taking meds. DC ativan. taper VPA over the next week. labs ordered for tuesday morning. hoping for discharge by the end of next week. Reason for continued inpatient stay Substantial Risk for: inability to function and rapid decompensation Time Spent With Patient Time: Total time managing care of this patient today __25__ minutes.
[2024-11-28 19:29] VITALS: BP 147/62; PULSE 80; RESP 16; TEMP 36.9; O2SAT 100
[2024-11-28] MEDS: OLANZapine ODT 10 MG TAB.RAPDIS 20 MG TRANSLINGU (22:21)
[2024-11-29 07:00] VITALS: BMI 42.3
[2024-11-29] MEDS: LITHIUM CITRATE 600 MG PO ×2 (09:04→23:30)
[2024-11-29] MEDS: Valproic Acid Liquid 250 MG/5 ML SOLUTION 750 MG PO (09:05)
[2024-11-29 09:27] VITALS: BP 124/63; PULSE 83; RESP 16; TEMP 36.9; O2SAT 100
--- NOTE | 2024-11-29 14:38 | HO.PSYCHPN ---
Subjective Subjective Date of Service: 11/29/24 Reason For Visit: Unspecified Mood disorder Interim History: well-related, anxious to discharge. seeking assurance that everything in her record reflects her taking medication and exhibiting good behavior. agreeable to reduce VPA to 500 BID. per staff, brighter, taking meds. focused on DC. pleasant. slept 7 hours. Mental Status Exam Mental Status Exam Narrative: [facility], adequately groomed, out on the unit. speech nml rate, amount, loudness, tone, latency. thoughts linear and logical. insight remains impaired. affect flexible, normo-intense, non-labile. mood euthymic. no SI/HI/AVH expressed. Diagnostics Vital Signs (24Hr): Vital Signs - 24 hr 11/28/24 19:29 11/29/24 09:27 Temperature 98.5 F 98.4 F Pulse Rate 80 83 Respiratory Rate 16 16 Blood Pressure 147/62 H 124/63 Pulse Oximetry 100 100 Oxygen Delivery Method Room Air Room Air BMI result Body Mass Index 41.5 Labs 11/24/24 20:03 11/24/24 20:03 Medications Medications Current Medications Acetaminophen (Acetaminophen 325 Mg Tablet) 650 mg PO Q6H PRN PRN Reason: Headache/Pain, Scale 1-10 Al Hydroxide/Mg Hydroxide (Magnesium Hydrox/Alum Hydrox 30 Ml Oral.Susp) 30 ml PO Q6H PRN PRN Reason: Heartburn/Nausea Chlorpromazine HCl (Chlorpromazine Hcl 100 Mg Tablet) 100 mg PO Q4H PRN PRN Reason: severe agitation Last Admin: 11/25/24 12:21 Dose: 100 mg Diazepam (Diazepam 10 Mg/2 Ml Cartridge) 10 mg IM DAILY PRN PRN Reason: refusal of VPA, per guardian Hydroxyzine HCl (Hydroxyzine Hcl 50 Mg Tablet) 50 mg PO Q6H PRN PRN Reason: mild anxiety Last Admin: 11/24/24 22:42 Dose: 50 mg [place] Citrate ([place] Citrate Oral Elli 8 Meq (300 Mg)/5 Ml) 600 mg PO BID BILLY Last Admin: 11/29/24 09:04 Dose: 600 mg Magnesium Hydroxide (Milk Of Magnesia 30 Ml Oral.Susp) 30 ml PO DAILY PRN PRN Reason: Constipation Nicotine (Nicotine 21 Mg Patch.Td24) 21 mg TRANSDERMA DAILY PRN PRN Reason: smoking cessation Nicotine Polacrilex (Nicotine Polacrilex 2 Mg Gum) 4 mg BUCCAL Q2H PRN PRN Reason: Nicotine Cravings Olanzapine (Olanzapine Odt 10 Mg Tab.Rapdis) 10 mg TRANSLINGU TID PRN PRN Reason: agitation Last Admin: 11/20/24 00:02 Dose: 10 mg Olanzapine (Olanzapine 10 Mg Vial) 10 mg IM DAILY PRN PRN Reason: refusal of PO per mariel's orde Olanzapine (Olanzapine Odt 10 Mg Tab.Rapdis) 20 mg TRANSLINGU BEDTIME [facility] Last Admin: 11/28/24 22:21 Dose: 20 mg Valproic Acid (Valproic Acid Liquid 250 Mg/5 Ml Solution) 500 mg PO BID BILLY Allergies Allergies Allergy/AdvReac Type Severity Reaction Status Date / Time No Known Allergies Allergy Verified 10/10/24 23:51 Assessment & Plan Assessment & Plan (1) Moderate bipolar I disorder with poornima as current episode: Status: Acute Code(s): F31.12 - Bipolar disorder, current episode manic without psychotic features, moderate Assessment and Plan: schizoaffective disorder Plan 10/11: offer zyprexa 10 QHS and lithium 450 BID. 10/12: pt refusing meds. continue to offer. HCP in chart. 3-day notice up tuesday. 10/13: change Zyprexa to Zydis to assure compliance. refusing lithium. 10/14: keep same treatment, encourage compliance. 10/15: took meds this morning, sleeping heavily after. commitment paperwork completed, HCP invoked. meeting with mother this afternoon. 10/16/24: Encourage olanzapine lithium patient appears to be passively accepting treatment and hospitalization recommend affirming healthcare proxy. 10/17: pt's HCP signed pt in today, will pursue invocation of HCP. improved from last interview, taking meds. increase lithium to 600 BID and add ativan PRNs. case discussed with pt's mother and SW Graciela. 10/18: taking morning meds, not getting HS meds due to staff's not being able to awaken her. change HS meds to 1800. otherwise continue current mgmt. 10/19: Keeping to self. continues on 1:1. guarded. patient reports feeling fine ; asked T/W to leave her alone to nap. Per nursing, observed responding to internal stimuli. Slept 6 hours last night. continue tx plan 10/20 declines antipsychotic, requires 1:1 for disorganized intrusive behaviors. religiously preoccupied. 10/21 continue tx. continues to present with jew preoccupations, does hint to thinking others do not want her to say the truth and also thinks her parents are , which not the case. 10/22: difficult to engage. taking lithium, sometimes taking zyprexa. encouraged medication compliance. continue current mgmt. 10/23: more engageable. delusion that her parents are . continue current mgmt. check labs tonight. 10/24: labs rescheduled for tomorrow morning. asking for discharge. taking meds. poor insight. continue current mgmt. 10/25: refused medications. focused on discharge. continue tx plan. 10/26: refusing meds last couple of days, has essentially returned to state at admission. pursue affirmation of HCP. 10/27: Keeping to self. observed responding to internal stimuli. laughing inappropriately to self. Delayed responses to questions. pt encouraged to take medications; pt stated, I'm saved and with God. I just need the Bible. That's why I'm not taking meds . continue to encourage medication compliance. 10/28: continues to refuse medications. repeating she is with God . continue tx plan. 10/29: pacing, i am with god, not engaging in interview. HCP Physician's affidavit completed. pursue affirmed HCP versus guardianship versus both. refusing meds, not sleeping. floridly manic/psychotic. 10/30: remains floridly manic/psychotic, refusing meds. behaviors increasingly disorganized, violent, disruptive. awaiting affirmation of HCP so medications may be administered. case D/W pt's mother/HCP. 10/31: appearing tired today after having essentially not slept at all last night. she did take lithium yesterday afternoon at 1800. continue to encourage medication compliance, keep safe. 11/01: appearing tired again, poor sleep overnight. took some medications in the past day but not most. encouraged to sleep this morning. too tired to engage in interview. 11/02: up and about the unit, hypersexual/provocative statement to MD, not engaging with Tx, refusing medication, very poor sleep (reportedly slept about 3 hours overnight). awaiting word re emergency guardianship hearing. 11/03: Continue to encourage engagement in treatment and medication compliance. 11/04: Calmer than yesterday. Remains psychotic. Partially adherent. Continue current management and treatment plan. 11/05: partially adherent to medications. appears sleepy/sedated this morning. asking for anxiety medication. tuesday pt was hypersexual, slapping female staff in the rear, slapping another in the face, grabbing female staff's breasts, grabbing male staff's crotch. required medication restraint. continue current mgmt. emergency hearing this tuesday. 11/06: got IMs last night for pushing/grabbing staff and throwing objects. slept after. otherwise not consistently taking meds. continue current mgmt. 11/07: mildly disruptive behavior continues. appears euphoric, manic. declines to speak with MD, refusing meds. continue to offer medication. 11/08: sleeping morning, episode of severe agitation in the afternoon, yelling, demanding to leave, slamming door repeatedly. refusing medication. continue current mgmt. emergency guardianship hearing tomorrow. 11/09: per report, mother received guardianship today, awaiting document. continue current mgmt. 11/10: calm in the morning, agitated and attempting to assault staff in the afternoon. prompted 2 behavioral codes an hour apart. during the first she received thorazine 100 and ativan 2 IM; during the second she received haldol 10, ativan 2, and benadryl 50 IM. 11/11: no codes today. remains disorganized, delusional. continue to offer medication. case d/w pt's mother, who reports having been granted emergency guardianship on tuesday. 11/12: sleeping this morning. contact legal for better understanding of what tuesday's order allows. 11/13 Patient said that she is doing fine, though tired, and does not know why she is not allowed to discharge. She refuses lithium, saying she does not need it and complains that taking it makes her forget things... Though she could not elaborate. Patient says she has been her a month and has not done anything crazy so wants discharge. Patient says her plan is to either go to [place] or to her dad's house which is local. -continue current treatment plan 4/2: appearing sedated, in her bed this morning. family meeting held with pt's mother and sister. per Morgan Shay, invega, prolixin, zyprexa, and risperidone are authorized antipsychotics. mother as guardian can authorize all other medications. awaiting hard copy. continue current mgmt. 11/15: court paperwork received from mother. pt suspicious of MD. took the VPA last night instead of lithium. asking about discharge. will review court paperwork and order medications accordingly. 11/16: has taken meds past 24H. VPA increased to 1500 mg QHS. olanzapine increased to 20 mg. IM backups added as guardianship decree has been received 11/17: Reports she is well, asking about discharge. Denies SI,HI,AH,VH. Apprehensive. Reports father will visit today. Taking meds, team reports no behavioral dyscontrol. Valproate level 11/19. 11/18 No change, doing well with medications. Guarded, limited insight. Advocating for discharge. Continue treatment plan. 11/19: much improved from last week. VPA level 89.5. continue current mgmt. 11/20: limited insight. med-compliant, gains continue. advocating for discharge. requesting MD call her father at [phone]. case D/W father. 11/21: appears reasonable and logical now, asking for discharge. does seem to minimize her illness; pt educated re Dx and Tx needs. hoping for discharge next week. plan to recheck labs tuesday. 11/22: as for yesterday. improved, does not seem to appreciate her illness. subtle signs of ongoing thought disorder. orders to recheck labs tuesday entered. asking to DC to father's house. 11/23: remains improved. per collateral from pt's mother, seems close to baseline. staff report prolonged self-dialoguing in the evening, however. continue inpatient stabilization with plan to discharge next . 11/24: concerning behaviors last night of bizarre prolonged self-dialoguing, excessive praying in underpants, naked in anteroom area. denies diverting medication. mouth checks and 30 mins obs post meds ordered. check labs tonight. 11/25: VPA 71.8, ammonia mildly elevated at 62. staff believe she is taking the medication but noted pt alone in her room talking to marky, making fists, crying, angry last night. increase VPA dosing to 2000 mg as of tonight. 11/26 Staff reports that patient remains disorganized; patient's father visited and patient came out to see him naked from the waist down; she took a peers tennis shoes, said they were hers and struggled to give them back. On approach patient is sitting at a table tearing paper. She is polite on approach. Vascular Sonographer discussed medications and patient said she has been willing to take Depakote which she did last night. Vascular Sonographer discussed lithium and patient said that she would be willing to take lithium but wanted to wait to discuss with Dr. Scales on his return with which specification writer agreed -continue current tx plan; defer restarting [place] to Dr. Scales 11/27: reviewed concerning behaviors with patient. pt agreeable to start liquid lithium and depakote, 600 BID and 750 BID, respectively. otherwise continue current mgmt. 11/28: slept all NOC, taking meds. DC ativan. taper VPA over the next week. labs ordered for tuesday. hoping for discharge by the end of next week. 11/29: sleeping well, taking meds. decrease VPA from 750 BID to 500 BID. taper further in several days. labs tuesday. continue current mgmt. Reason for continued inpatient stay Substantial Risk for: inability to function and rapid decompensation Time Spent With Patient Time: Total time managing care of this patient today __25__ minutes.
[2024-11-29 19:28] VITALS: BP 123/73; PULSE 83; RESP 16; TEMP 36.4; O2SAT 100
[2024-11-29] MEDS: OLANZapine ODT 10 MG TAB.RAPDIS 20 MG TRANSLINGU (23:30)
[2024-11-29] MEDS: Valproic Acid Liquid 250 MG/5 ML SOLUTION 500 MG PO (23:30)
[2024-11-30 07:34] VITALS: BP 121/68; PULSE 71; RESP 14; TEMP 36.4; O2SAT 100
[2024-11-30] MEDS: LITHIUM CITRATE 600 MG PO ×2 (08:41→21:17)
[2024-11-30] MEDS: Valproic Acid Liquid 250 MG/5 ML SOLUTION 500 MG PO ×2 (08:41→21:17)
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
[2024-11-30 20:00] VITALS: BP 113/70; PULSE 82; RESP 16; TEMP 36.4; O2SAT 100
[2024-11-30] MEDS: OLANZapine ODT 10 MG TAB.RAPDIS 20 MG TRANSLINGU (21:17)
[2024-12-01 08:00] VITALS: BP 119/66; PULSE 78; RESP 14; TEMP 36.6; O2SAT 100
[2024-12-01] MEDS: LITHIUM CITRATE 600 MG PO ×2 (09:51→21:23)
[2024-12-01] MEDS: Valproic Acid Liquid 250 MG/5 ML SOLUTION 500 MG PO ×2 (09:51→21:22)
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
[2024-12-01 20:00] VITALS: BP 138/62; PULSE 87; RESP 16; TEMP 37.1; O2SAT 100
[2024-12-01] MEDS: OLANZapine ODT 10 MG TAB.RAPDIS 20 MG TRANSLINGU (21:23)
[2024-12-02 07:45] VITALS: BP 115/53; PULSE 77; RESP 16; TEMP 36.8; O2SAT 99
[2024-12-02] MEDS: LITHIUM CITRATE 600 MG PO ×2 (09:05→21:09)
[2024-12-02] MEDS: Valproic Acid Liquid 250 MG/5 ML SOLUTION 500 MG PO ×2 (09:05→21:09)
[2024-12-02 19:45] VITALS: BP 112/57; PULSE 75; RESP 18; TEMP 36.2; O2SAT 110
[2024-12-02] MEDS: OLANZapine ODT 10 MG TAB.RAPDIS 20 MG TRANSLINGU (21:09)
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
[2024-12-03 07:57] VITALS: BP 106/53; PULSE 73; RESP 16; TEMP 36.7; O2SAT 98
[2024-12-03 08:23] LABS: Ammonia 35 umol/L (13-55); Lithium 0.75 mmol/L (0.60-1.20)
[2024-12-03 08:29] LABS: Anion Gap 12 (12-20); Blood Urea Nitrogen 21 mg/dL (9-16); Calcium 8.6 mg/dL (8.4-10.2); Carbon Dioxide 25 mmol/L (22-29); Chloride 107 mmol/L (96-108); Creatinine Clr Calc Pharmacy 131.2; Estimated Glomerular Filt Rate > 60; Glucose Random 83 mg/dL (60-115); Potassium 4.3 mmol/L (3.3-5.1); Sodium 140 mmol/L (135-145)
[2024-12-03] MEDS: LITHIUM CITRATE 600 MG PO ×2 (08:46→21:02)
[2024-12-03] MEDS: Valproic Acid Liquid 250 MG/5 ML SOLUTION 500 MG PO (08:47)
[2024-12-03 19:30] VITALS: BP 119/75; PULSE 80; RESP 16; TEMP 36.4; O2SAT 97
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
[2024-12-03] MEDS: Valproic Acid Liquid 250 MG/5 ML SOLUTION PO (21:02)
[2024-12-03] MEDS: OLANZapine ODT 10 MG TAB.RAPDIS 20 MG TRANSLINGU (21:02)
[2024-12-04 07:35] VITALS: BP 108/54; PULSE 73; RESP 16; TEMP 36.4; O2SAT 99
[2024-12-04] MEDS: Valproic Acid Liquid 250 MG/5 ML SOLUTION PO ×2 (08:54→21:50)
[2024-12-04] MEDS: LITHIUM CITRATE 600 MG PO ×2 (08:54→21:50)
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
[2024-12-04 20:00] VITALS: BP 111/58; PULSE 81; RESP 16; TEMP 36.8; O2SAT 100
[2024-12-04] MEDS: OLANZapine ODT 10 MG TAB.RAPDIS 20 MG TRANSLINGU (21:51)
[2024-12-05 08:45] VITALS: BP 118/60; PULSE 85; RESP 16; TEMP 36.8; O2SAT 100
[2024-12-05] MEDS: Valproic Acid Liquid 250 MG/5 ML SOLUTION PO (08:47)
[2024-12-05] MEDS: LITHIUM CITRATE 600 MG PO ×2 (08:48→21:27)
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
[2024-12-05 20:00] VITALS: BP 111/59; PULSE 75; RESP 16; TEMP 36.8; O2SAT 100
[2024-12-05] MEDS: OLANZapine ODT 10 MG TAB.RAPDIS 20 MG TRANSLINGU (21:27)
[2024-12-06 07:00] VITALS: BMI 42.3
[2024-12-06 07:33] VITALS: BP 108/60; PULSE 60; RESP 16; TEMP 36.4; O2SAT 100
[2024-12-06] MEDS: LITHIUM CITRATE 600 MG PO ×2 (08:25→20:26)
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
[2024-12-06 20:00] VITALS: BP 104/60; PULSE 73; RESP 16; TEMP 36.6; O2SAT 100
[2024-12-06] MEDS: OLANZapine ODT 10 MG TAB.RAPDIS 20 MG TRANSLINGU (20:26)
[2024-12-07 07:50] VITALS: BP 113/58; PULSE 69; RESP 16; TEMP 36.4; O2SAT 100
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
[2024-12-07] MEDS: LITHIUM CITRATE 600 MG PO (09:04)
== END 2024-12-07 10:09 | disposition home or self-care (01) | DRG 753 ==
PROVIDERS: Clinical Nurse Specialist Psychiatric/Mental Health, Adult; Psychiatry & Neurology Psychiatry; Admitting Provider Psychiatry & Neurology Psychiatry; Visit Provider Psychiatry & Neurology Psychiatry
DX: F31.12 Bipolar disorder, current episode manic without psychotic features, moderate (principal); Z78.1 Physical restraint status
CPT/HCPCS: 36415; 80048; 80053; 80061; 80076; 80164; 80178; 82140; 83036; 84443; 85025; J1200; J1630; J2060; J2359; J3230

== ENCOUNTER → 2024-10-10 23:13 | Outpatient (BNV) | payer MEDICAID, SELFPAY | PROVIDERS: Admitting Provider Psychiatry & Neurology Psychiatry; Visit Provider Psychiatry & Neurology Psychiatry | DX: F31.12 Bipolar disorder, current episode manic without psychotic features, moderate (principal) | CPT/HCPCS: 99232 ==

== ENCOUNTER → 2024-10-10 23:13 | Outpatient (BNV) | payer MEDICAID, SELFPAY | PROVIDERS: Admitting Provider Psychiatry & Neurology Psychiatry; Visit Provider Student in an Organized Health Care Education/Training Program | DX: Z00.8 Encounter for other general examination (principal) | CPT/HCPCS: 99222 ==

== ENCOUNTER → 2024-10-10 23:13 | Outpatient (BNV) | payer MEDICAID, SELFPAY | PROVIDERS: Admitting Provider Psychiatry & Neurology Psychiatry; Visit Provider Psychiatry & Neurology Psychiatry | DX: F31.12 Bipolar disorder, current episode manic without psychotic features, moderate (principal) | CPT/HCPCS: 99222; 99231; 99232 ==